=== PATIENT | male | born 1955 | race Caucasian/White ===

== ENCOUNTER → 2016-08-14 | Outpatient (CLI) | payer OTHER ==
--- NOTE | 2016-08-15 07:04 | US ---
EXAMINATION TYPE: US carotid duplex BILAT DATE OF EXAM: 08/14/2016 4:42 PM COMPARISON: NONE CLINICAL HISTORY: I25.10 ATHEROSCLEROTIC HEART DISEASE. HTN, smoker, pt states he is diabetic with SO B EXAM MEASUREMENTS: RIGHT: Peak Systolic Velocity (PSV) cm/sec ----- Right CCA: 70.3 ----- Right ICA: 95.2 ----- Right ECA: 83.1 ICA/CCA ratio: 1.4 RIGHT: End Diastole cm/sec ----- Right CCA: 17.1 ----- Right ICA: 32.5 ----- Right ECA: 0.0 LEFT: Peak Systolic Velocity (PSV) cm/sec ----- Left CCA: 77.6 ----- Left ICA: 86.4 ----- Left ECA: 83.1 ICA/CCA ratio: 1.1 LEFT: End Diastole cm/sec ----- Left CCA: 18.2 ----- Left ICA: 34.7 ----- Left ECA: 0.0 VERTEBRALS (direction of flow): Right Vertebral: Antegrade Left Vertebral: Antegrade TECHNOLOGIST IMPRESSION: Intimal thickening with no elevated velocities bilaterally No significant focal plaque is seen in carotid bulbs bilaterally. Some intimal hyperplasia is noted d istal common carotid arteries bilaterally. IMPRESSION: No hemodynamically significant stenosis is seen in either internal carotid artery. Criteria for Assigning % of Stenosis / Diameter reduction (Estimation based on the indirect measurements of the internal carotid artery velocities (ICA PSV). 1. Normal (no stenosis)=ICA PSV < 125 cm/s: ratio < 2.0: ICA EDV<40 cm/s.
== END | disposition home or self-care (01) ==
LOC: RADUSWWP 16:21
PROVIDERS: ATTEND Internal Medicine Interventional Cardiology
DX: I25.10 Atherosclerotic heart disease of native coronary artery without angina pectoris (principal)
CPT/HCPCS: 93880

== ENCOUNTER → 2016-08-20 | Outpatient (CLI) | payer OTHER ==
[2016-08-20 21:05] LABS: Blood Urea Nitrogen 25 mg/dL (9-20); Non-African American GFR(MDRD) 53 (>60 ml/min/1.73 sqM)
--- NOTE | 2016-08-21 08:09 | MR ---
EXAMINATION TYPE: MR lumbar spine wo/w con DATE OF EXAM: 08/20/2016 9:51 PM COMPARISON: NONE HISTORY: LBP, radiates to back of thighs x several years CONTRAST: 18 mL intravenous MultiHance. TECHNIQUE: Multiplanar, multisequence images of the lumbar spine were acquired. FINDINGS: The cord terminates at the L1 level. Signal through the vertebral bodies is patchy. Enhanc ement is not evident. Findings could be related to marrow conversion. Correlate for diffuse infiltrat elaina process such as metastasis. Consider bone scan correlation. Hemangioma is noted within the L3 sid tebral body. L5-S1: Broad-based disc bulging is present. This is anterior thecal sac contact. Contact with the exi ting nerve roots is present, slightly greater on the right. On the initial image axial plane there is a 0.6 cm hypointense area in the right paracentral region which is likely a disc herniation. This ap pears smaller on postcontrast imaging. This is incompletely evaluated extending below the S1 endplate in the axial plane. No spinal canal stenosis. No foraminal stenosis. Facet hypertrophy is present .. L4-L5: Broad-based disc bulge is present. This has mild anterior thecal sac flattening. No AP spinal canal stenosis is present. Mild facet hypertrophy is present. Neural foramen are patent. L3-L4: No significant disc bulge or disc herniation. No spinal canal stenosis. No foraminal stenosi s. . L2-L3: No significant disc bulge or disc herniation. No spinal canal stenosis. No foraminal stenosi s. . L1-L2: No significant disc bulge or disc herniation. No spinal canal stenosis. No foraminal stenosi s. . T12-L1: No significant disc bulge or disc herniation. No spinal canal stenosis. No foraminal stenos is. . No abnormal enhancement. There may be some granulation tissue at the L5-S1 level, correlate for prior lumbar surgery. IMPRESSION: 1. There appears to be a right paracentral disc herniation L5-S1. Additionally, there may be granulat ion tissue within the anterior thecal suspect sac space.
== END | disposition home or self-care (01) ==
LOC: RADMRIMAIN 20:23
PROVIDERS: ATTEND Family Medicine
DX: M54.5 Low back pain (principal)
CPT/HCPCS: 82565; 84520; 72158; A9577

== ENCOUNTER → 2017-05-14 | Outpatient (CLI) | payer OTHER ==
--- NOTE | 2017-05-15 16:49 | NM ---
EXAMINATION TYPE: NM WBC limited DATE OF EXAM: 05/15/2017 COMPARISON: 04/25/2017 HISTORY: Osteomyelitis TECHNIQUE: Following administration of 16.6 mCi Tc99m Ceretec. Images obtained 4 hour(s) and 24 zunilda r(s) post injection. FINDINGS: There may be a punctate areas of increased signal within the medial left great toe region there is in creased radiotracer accumulation within the distal toe during the earlier phase of radiotracer distri bution. This area appears to correspond to the delayed images on the 04/25/2017 bone scan is appears t o correspond to the uptake at the distal digit on the three-phase bone scan images. Subtle increased radiotracer accumulation within the distal left first digit on delayed images with i ncreased radiotracer accumulation in the distal first digit during the initial phases well. These are as correspond to the bone scan. Findings can be compatible with osteomyelitis in the proper clinical setting IMPRESSION: 1. Findings suggestive for osteomyelitis distal left first digit left foot
== END ==
LOC: RADNMMAIN 08:13
PROVIDERS: ATTEND Podiatrist
DX: M86.8X8 Other osteomyelitis, other site (principal)
CPT/HCPCS: 78805; A9569

== ENCOUNTER → 2017-05-17 | Outpatient (CLI) | payer OTHER ==
--- NOTE | 2017-05-17 09:08 | US ---
EXAMINATION TYPE: US venous doppler duplex LE BI DATE OF EXAM: 05/17/2017 8:35 AM CLINICAL HISTORY: 62-year-old male with bilateral leg pain. M79.604 Pain Rt Leg, M79.605 Pain in Left Leg. Non-healing wound on bilateral great toes, [facility]ound Center Pt, diabetic COMPARISON: none LOWER EXTREMITY VENOUS INSUFFICIENCY SIDE PERFORMED: bilateral FINDINGS: 1) Color flow is present and patency is documented in the following vessels. No DVT or SVT is noted . EIV Common Femoral Vein Deep Femoral Vein Femoral Vein Popliteal Vein Greater Saph Vein Upper Small Saph Vein 2) There is no venous reflux noted at the above venous levels. 3) Negative study. IMPRESSION: 1. No evidence for DVT within the bilateral lower extremities imaged from the groin to the knees. 2. No venous reflux seen.
--- NOTE | 2017-05-22 10:06 | P.ARTDOP ---
Arterial Doppler LOWER EXTREMITY ARTERIAL DOPPLER: DATE OF SERVICE: 05/17/2017 Reason for study: Bilateral diabetic foot ulcers. Doppler waveforms: Multiphasic bilaterally throughout. Pulse volume recording: Normal configuration. Pressure gradients: None. Ankle-brachial indices: Greater than 1 bilaterally. Toe pressures: 106 on the right, 133 on the left Impression: Normal study.
== END | disposition home or self-care (01) ==
LOC: RADUSWWP 07:10
PROVIDERS: ATTEND Podiatrist
DX: M79.604 Pain in right leg (principal); M79.605 Pain in left leg
CPT/HCPCS: 93923; 93970

== ENCOUNTER 2017-11-03 22:07 | Inpatient (IN) | payer OTHER ==
[2017-11-03 23:24] LABS: Glucose,Whole Blood 316 mg/dL (75-99)
[2017-11-03 23:41] LABS: Basophils % (A) 1 %; Eosinophils # (A) 0.3 k/uL (0-0.7); Eosinophils % (A) 3 %; HCT 39.2 % (39.0-53.0); HGB 12.9 gm/dL (13.0-17.5); Lymphocytes # (A) 2.1 k/uL (1.0-4.8); Lymphocytes % (A) 25 %; MCH 29.1 pg (25.0-35.0); Mean Platelet Volume 7.1; Monocytes # (A) 0.8 k/uL (0-1.0); Monocytes % (A) 9 %; Neutrophils % (A) 60 %; Platelet Count 241 k/uL (150-450); RBC 4.45 m/uL (4.30-5.90); RDW 13.1 % (11.5-15.5); WBC 8.2 k/uL (3.8-10.6)
[2017-11-03 23:52] LABS: Albumin 3.4 g/dL (3.5-5.0); Potassium 4.7 mmol/L (3.5-5.1); Total Bilirubin 0.3 mg/dL (0.2-1.3); Total Protein 6.3 g/dL (6.3-8.2)
--- NOTE | 2017-11-03 23:52 | XR ---
EXAMINATION TYPE: XR foot complete LT DATE OF EXAM: 11/03/2017 COMPARISON: 09/02/2014 HISTORY: Middle toe infection TECHNIQUE: 3 views FINDINGS: There is extension deformity of the fifth MP joint. I see no fracture nor dislocation. Ther e is soft tissue swelling at the end of the middle toe. I see no focal bone destruction. There is a p lantar calcaneal spur. IMPRESSION: Soft tissue swelling. No evidence of osteomyelitis. Calcaneal spurring. No fracture.
[2017-11-04] MEDS ORDERED: cefTRIAXone IN SWFI 1,000 MG/10 ML SYRINGE IVP STA (00:15)
[2017-11-04] MEDS ORDERED: ENOXAPARIN 100 MG/ML SYRINGE SQ STA (00:20)
[2017-11-04] MEDS ORDERED: VANCOMYCIN IV PER PHARMACY 1 EACH MISC MISCELLANE PRN (00:20)
[2017-11-04] MEDS ORDERED: NALOXONE 0.4 MG/ML 1 ML VIAL IV PRN (00:22)
[2017-11-04] MEDS ORDERED: ONDANSETRON 4 MG/2 ML VIAL IVP PRN (00:22)
--- NOTE | 2017-11-04 00:25 | ED ---
Skin/Abscess/FB HPI - General Chief complaint: Skin/Abscess/Foreign Body Stated complaint: left foot toe pain Time Seen by Provider: 11/03/17 23:05 Source: patient Mode of arrival: ambulatory Limitations: no limitations - History of Present Illness Initial comments: 62-year-old male patient presents to the emergency department today for evaluation of wound to his left third toe. Patient states approximately a week ago he developed an abrasion to the dorsal aspect of the toe from chafing in his diabetic shoes. Patient states that over the last 3-4 days the toe has started to hurt, has become more infected, and the skin is started to slough. Patient states that his left foot is swelling as well. Patient has a history of diabetes and recently recovered from a wound to the bilateral great toes. He denies any fevers or chills with this. He is also complaining of some right wrist pain. States that he is having knifelike pains to the radial aspect of the wrist, denies any injury. Denies any numbness or tingling to the hand. Patient denies any recent rash, shortness breath, chest pain, abdominal pain, nausea, vomiting, diarrhea, constipation, back pain, numbness, tingling, dizziness, weakness, hematuria, dysuria, urinary urgency, urinary frequency, headache, visual changes, or any other complaints. - Related Data Home Medications Medication Instructions Recorded Confirmed Aspirin 325 mg PO DAILY 08/19/14 11/03/17 Atorvastatin [Lipitor] 40 mg PO HS 08/19/14 11/03/17 Carvedilol [Coreg] 6.25 mg PO BID 08/19/14 11/03/17 Gabapentin [Neurontin] 200 mg PO HS 08/19/14 11/03/17 Insulin Aspart [NovoLOG Flexpen] 1 dose SQ AC-TID 08/19/14 11/03/17 Insulin Glargine [Lantus] 25 unit SQ HS 08/19/14 11/03/17 Lisinopril [Prinivil] 20 mg PO DAILY 08/19/14 11/03/17 Cyclobenzaprine [Flexeril] 10 mg PO HS 05/02/17 11/03/17 Ergocalciferol [Vitamin D2] 50,000 unit PO Q14D 05/02/17 11/03/17 HYDROcodone/APAP 5-325MG [[place] 1 tab PO Q6HR PRN 05/02/17 11/03/17 5-325] Naproxen [Naprosyn] 500 mg PO Q12HR PRN 05/02/17 11/03/17 Allergies Allergy/AdvReac Type Severity Reaction Status Date / Time codeine AdvReac Nausea & Verified 11/03/17 22:36 Vomiting morphine AdvReac Nausea & Verified 11/03/17 22:36 Vomiting Review of Systems ROS Statement: Those systems with pertinent positive or pertinent negative responses have been documented in the HPI. ROS Other: All systems not noted in ROS Statement are negative. Past Medical History Past Medical History: Diabetes Mellitus Additional Past Medical History / Comment(s): hx retinal bleeding with laser tx , diabetic neuropathy, states blisters on toes. back pain Last Myocardial Infarction Date:: 2009 History of Any Multi-Drug Resistant Organisms: MRSA Date of last positivie culture/infection: 05/24/17 MDRO Source:: toe Past Surgical History: Heart Catheterization With Stent, Hernia Repair, Tonsillectomy Additional Past Surgical History / Comment(s): LEFT INGUINAL HERNIA (SEPTEMBER 2014) . ULNAR NERVE SC BILAT HANDS AND ELBOWS. COLONOSCOPY Past Anesthesia/Blood Transfusion Reactions: No Reported Reaction, Motion Sickness Additional Past Anesthesia/Blood Transfusion Reaction / Comment(s): Difficulty waking Date of Last Stent Placement:: 2009 Past Psychological History: Depression Smoking Status: Never smoker Past Alcohol Use History: None Reported Past Drug Use History: None Reported - Past Family History Father Family Medical History: Myocardial Infarction ([place]) Mother Family Medical History: CVA/TIA Additional Family Medical History / Comment(s): varicose veins General Exam Limitations: no limitations General appearance: alert, in no apparent distress, other (This is a well- developed, well-nourished adult male patient in no acute distress. Vital signs upon presentation are temperature 98.8F, pulse 104, respirations 20, blood pressure 170/88, pulse ox 99% on room air.) Eye exam: Present: normal appearance, PERRL, EOMI. Absent: scleral icterus, conjunctival injection, periorbital swelling ENT exam: Present: normal exam, normal oropharynx, mucous membranes moist Respiratory exam: Present: normal lung sounds bilaterally. Absent: respiratory distress, wheezes, rales, rhonchi, stridor Cardiovascular Exam: Present: regular rate, normal rhythm, normal heart sounds. Absent: systolic murmur, diastolic murmur, rubs, gallop, clicks GI/Abdominal exam: Present: soft, normal bowel sounds. Absent: distended, tenderness, guarding, rebound, rigid Extremities exam: Present: full ROM, normal capillary refill, other (There is 2 + pitting edema to the left foot and ankle. There is left third toe wound with skin sloughing and nail avulsion. No evidence of drainage. Pedal and posttibial pulses are 2+ and equal bilaterally. Skin to the right hand and upper extremity is pink, warm, and dry. Cap refills less than 3 seconds. Radial pulses 2+ and equal bilaterally. Patient is positive Bebe's test. ). Absent: normal inspection, tenderness, pedal edema, joint swelling, calf tenderness Neurological exam: Present: alert, oriented X3, CN II-XII intact Psychiatric exam: Present: normal affect, normal mood Skin exam: Present: warm, dry, intact, normal color. Absent: rash Course Vital Signs 11/03/17 22:32 Temperature 98.8 F Pulse Rate 104 H Respiratory 20 Rate Blood Pressure 170/88 O2 Sat by Pulse 99 Oximetry Medical Decision Making - Medical Decision Making 62-year-old male patient presented to the emergency department today for evaluation of wound to the left third digit. Patient has skin sloughing and nail avulsion to the toe. Patient also has 2+ pitting edema to the left foot and ankle. Labs reviewed and are unremarkable. We will admit patient to the hospital for IV antibiotics and wound evaluation. Also given evidence of swelling to the left foot there is some concern for DVT to the left lower extremity. We will treat patient with Lovenox and have ultrasound performed in the morning. My attending Dr. Javed spoke to Dr. Lau who accepts patient. - Lab Data Result diagrams: 11/03/17 23:30 11/03/17 23:30 Lab Results 11/03/17 11/03/17 11/03/17 Range/Units 22:58 23:30 23:30 WBC 8.2 (3.8-10.6) k/uL RBC 4.45 (4.30-5.90) m/uL Hgb 12.9 L (13.0-17.5) gm/dL Hct 39.2 (39.0-53.0) % MCV 88.0 (80.0-100.0) fL MCH 29.1 (25.0-35.0) pg MCHC 33.0 (31.0-37.0) g/dL RDW 13.1 (11.5-15.5) % Plt Count 241 (150-450) k/uL Neutrophils % 60 % Lymphocytes % 25 % Monocytes % 9 % Eosinophils % 3 % Basophils % 1 % Neutrophils # 5.0 (1.3-7.7) k/uL Lymphocytes # 2.1 (1.0-4.8) k/uL Monocytes # 0.8 (0-1.0) k/uL Eosinophils # 0.3 (0-0.7) k/uL Basophils # 0.0 (0-0.2) k/uL Sodium 138 (137-145) mmol/L Potassium 4.7 (3.5-5.1) mmol/L Chloride 102 (98-107) mmol/L Carbon Dioxide 23 (22-30) mmol/L Anion Gap 13 mmol/L BUN 33 H (9-20) mg/dL Creatinine 1.70 H (0.66-1.25) mg/dL Est GFR (CKD-EPI)AfAm 50 (>60 ml/min/1.73 sqM) Est GFR (CKD-EPI)NonAf 43 (>60 ml/min/1.73 sqM) Glucose 256 H (74-99) mg/dL POC Glucose (mg/dL) 316 H (75-99) mg/dL POC Glu Machine Presser ID Osvaldo Osei Plasma Lactic Acid Jose A (0.7-2.0) mmol/L Calcium 9.0 (8.4-10.2) mg/dL Total Bilirubin 0.3 (0.2-1.3) mg/dL AST 18 (17-59) U/L ALT 25 (21-72) U/L Alkaline Phosphatase 74 (38-126) U/L Total Protein 6.3 (6.3-8.2) g/dL Albumin 3.4 L (3.5-5.0) g/dL 11/03/17 Range/Units 23:30 WBC (3.8-10.6) k/uL RBC (4.30-5.90) m/uL Hgb (13.0-17.5) gm/dL Hct (39.0-53.0) % MCV (80.0-100.0) fL MCH (25.0-35.0) pg MCHC (31.0-37.0) g/dL RDW (11.5-15.5) % Plt Count (150-450) k/uL Neutrophils % % Lymphocytes % % Monocytes % % Eosinophils % % Basophils % % Neutrophils # (1.3-7.7) k/uL Lymphocytes # (1.0-4.8) k/uL Monocytes # (0-1.0) k/uL Eosinophils # (0-0.7) k/uL Basophils # (0-0.2) k/uL Sodium (137-145) mmol/L Potassium (3.5-5.1) mmol/L Chloride (98-107) mmol/L Carbon Dioxide (22-30) mmol/L Anion Gap mmol/L BUN (9-20) mg/dL Creatinine (0.66-1.25) mg/dL Est GFR (CKD-EPI)AfAm (>60 ml/min/1.73 sqM) Est GFR (CKD-EPI)NonAf (>60 ml/min/1.73 sqM) Glucose (74-99) mg/dL POC Glucose (mg/dL) (75-99) mg/dL POC Glu Machine Presser ID Plasma Lactic Acid Jose A 1.5 (0.7-2.0) mmol/L Calcium (8.4-10.2) mg/dL Total Bilirubin (0.2-1.3) mg/dL AST (17-59) U/L ALT (21-72) U/L Alkaline Phosphatase (38-126) U/L Total Protein (6.3-8.2) g/dL Albumin (3.5-5.0) g/dL - Radiology Data Radiology results: report reviewed, image reviewed 3 views of the left foot are obtained. There is extension deformity of the fifth MP joint. I see no fracture nor dislocation. There is soft tissue swelling at the end of the middle toe. I see no focal bone destruction. There is plantar calcaneal spur. Impression by Dr. Maurer shows soft tissue swelling. No evidence of osteomyelitis. Calcaneal spurring. No fracture. Disposition Clinical Impression: Toe infection, Edema of left foot Disposition: ADMITTED IP TO THIS HOSP Condition: Serious Referrals: Kayode Lau MD [Primary Care Provider] - 1-2 days Decision to Admit Reason: Admit from EC Decision Date: 11/04/17 Decision Time: 00:29
[2017-11-04] MEDS: VANCOMYCIN 1,500 MG in SODIUM CHLORIDE 0.9% 250 ML IVPB SCH (01:43)
[2017-11-04] MEDS: HYDROcodone/APAP 5-325MG 1 EACH TAB PO PRN ×3 (03:10→23:31)
[2017-11-04] MEDS ORDERED: INSULIN ASPART SQ SCH (07:30)
[2017-11-04] MEDS: INSULIN ASPART 100 UNIT/ML 1 ML 10 ML VIAL SQ SCH ×4 (07:54→21:48)
[2017-11-04 07:55] LABS: Glucose,Whole Blood 72 mg/dL (75-99)
[2017-11-04] MEDS: ASPIRIN 325 MG TAB PO SCH (08:09)
[2017-11-04] MEDS: CARVEDILOL 6.25 MG TAB PO SCH ×2 (08:09→16:54)
[2017-11-04] MEDS ORDERED: LISINOPRIL 20 MG TAB PO SCH (09:00)
--- NOTE | 2017-11-04 09:18 | US ---
EXAMINATION TYPE: US venous doppler duplex LE LT DATE OF EXAM: 11/04/2017 8:33 AM COMPARISON: Bilateral lower extremity venous ultrasound May 17, 2017 CLINICAL HISTORY: Left foot swelling. Left foot edema and pain for 3 weeks SIDE PERFORMED: left TECHNIQUE: The lower extremity deep venous system is examined utilizing real time linear array sonog andrzej with graded compression, doppler sonography and color-flow sonography. VESSELS IMAGED: External Iliac Vein (EIV) Common Femoral Vein Deep Femoral Vein Greater Saphenous Vein * Femoral Vein Popliteal Vein Small Saphenous Vein * Proximal Calf Veins (* superficial vessels) Left Leg: No evidence of DVT Grayscale, color doppler, spectral doppler imaging performed of the deep veins of the left lower extr emity. There is normal flow, compressibility, vascular waveforms. IMPRESSION: No ultrasound evidence for acute DVT in the left lower extremity.
[2017-11-04 12:16] LABS: Cholesterol 187 mg/dL (<200); HDL Cholesterol 39 mg/dL (40-60); LDL Cholesterol,Calculated 120 mg/dL (0-99); Triglycerides 139 mg/dL (<150)
[2017-11-04 12:28] LABS: Glucose,Whole Blood 101 mg/dL (75-99)
[2017-11-04 17:27] LABS: Hemoglobin A1C 8.9 % (4.0-6.0)
[2017-11-04 17:38] LABS: Glucose,Whole Blood 261 mg/dL (75-99)
[2017-11-04 20:35] LABS: Glucose,Whole Blood 340 mg/dL (75-99)
[2017-11-04] MEDS ORDERED: INSULIN DETEMIR 100 UNIT/ML 10 ML VIAL SQ SCH ×2 (21:00)
[2017-11-04] MEDS: ATORVASTATIN 40 MG TAB PO SCH (21:48)
[2017-11-04] MEDS: GABAPENTIN 100 MG CAP PO SCH (21:48)
[2017-11-04] MEDS: CYCLOBENZAPRINE 10 MG TAB PO SCH (21:48)
[2017-11-05] MEDS: VANCOMYCIN 1,500 MG in SODIUM CHLORIDE 0.9% 250 ML IVPB SCH (00:26)
[2017-11-05 07:03] LABS: Glucose,Whole Blood 71 mg/dL (75-99)
[2017-11-05] MEDS: INSULIN ASPART 100 UNIT/ML 1 ML 10 ML VIAL SQ SCH ×4 (07:11→22:15)
[2017-11-05] MEDS: LISINOPRIL 20 MG TAB PO SCH (07:45)
[2017-11-05] MEDS: ASPIRIN 325 MG TAB PO SCH (07:45)
[2017-11-05] MEDS: CARVEDILOL 6.25 MG TAB PO SCH ×2 (07:45→16:50)
[2017-11-05 11:39] LABS: Glucose,Whole Blood 180 mg/dL (75-99)
[2017-11-05 12:00] VITALS: BMI 31.7
--- NOTE | 2017-11-05 15:25 | HP ---
HISTORY AND PHYSICAL CHIEF COMPLAINT: Pain in the left middle toe. HISTORY OF PRESENT ILLNESS: This is another admission for this 62-year-old noncompliant white male with diabetes. He has been having problems with skin breakdown and secondary infection on his feet. He continually reports that his sugars are under control, but his hemoglobin A1c is consistently over 9. He came to the emergency room with pain, swelling, redness in the distal foot and in the middle toe. REVIEW OF SYSTEMS: He has had no chills, fever. He has had no change in vision or hearing and has had no shortness of breath, cough, hemoptysis, history of heart disease, abdominal pain, nausea, vomiting, hematemesis, melena, hematochezia, jaundice, hepatitis, renal failure, etc. Past medical history, family history and personal and social histories are unchanged from his previous admitting and discharge summaries and when he was treated as an outpatient in the [facility]. He is allergic to MORPHINE, CLINDAMYCIN, and CODEINE. MEDICATIONS INCLUDE: 1. 40 units once a day. 2. Lisinopril 40 once a day. 3. Vicodin once a day p.r.n. 4. Lipitor 80 at bedtime. 5. NovoLog 8 units b.i.d. 6. Carvedilol 6.25 b.i.d. 7. Neurontin 100 mg 2 tablets every night. 8. Naprosyn 500 twice a day. 9. Cyclobenzaprine 10 mg t.i.d. p.r.n. 10.Vitamin D. The remainder of his history is unremarkable. He has never smoked. PHYSICAL EXAM: Blood pressure 130/80. The pulse 96, respirations of 18, temperature 99. GENERAL: He appeared to be well-developed, well-nourished, and in no acute distress. Skin color is normal, skin is warm and dry and lymph nodes are not enlarged. Head, ears, eyes, nose, mouth, and throat were normal and neck veins not distended. Thyroid is not enlarged. Chest is clear. Cardiac exam is normal. The abdomen is soft, nontender. Extremities are normal except for the left foot which is slightly swollen. Left middle toe is swollen and inflamed and there is an ulcer underneath the tip. Neurologically, he is intact. IMPRESSION: 1. Infected left third toe with diabetic ulcer. 2. Uncontrolled type 2 non-insulin dependent diabetes mellitus. PLAN: 1. Bed rest. 2. IV fluids. 3. IV antibiotics. 4. Consult with Infectious Disease. OPHELIA / SIRI: [id number] /
[2017-11-05 17:33] LABS: Glucose,Whole Blood 217 mg/dL (75-99)
[2017-11-05] MEDS: GABAPENTIN 100 MG CAP PO SCH (20:34)
[2017-11-05] MEDS: ATORVASTATIN 40 MG TAB PO SCH (20:34)
[2017-11-05] MEDS: CYCLOBENZAPRINE 10 MG TAB PO SCH (20:34)
[2017-11-05] MEDS ORDERED: INSULIN DETEMIR 100 UNIT/ML 10 ML VIAL SQ SCH (21:00)
[2017-11-05 21:30] LABS: Glucose,Whole Blood 242 mg/dL (75-99)
--- NOTE | 2017-11-05 22:22 | P.CONS ---
History of Present Illness - Reason for Consult Consult date: 11/05/17 - Chief Complaint new toe ulcer - History of Present Illness 62-year-old male who is a long-standing history of diabetes mellitus type 2 who struggles with control was treated earlier this year for cellulitis of the right great toe and received a course of outpatient intravenous antibiotic therapy and to salvage was obtained. The patient relates that he does have diabetic shoes did not fit him well. He relates that he noticed a bit of blistering and swelling to the left foot third toe. It became suddenly worse he presented to Hospital for further intervention. The patient is very worried because of the concerns for potential amputation are full loss. 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 Despite this his diabetic shoes were malfitting resulting the new ulceration. Review of Systems HEENT:Denies headache or acute visual change. Denies sinus or mouth discomforts. Denies neck stiffness or pain. Denies significant oral cavity pain. Denies difficulty on swallowing. Lungs: Denies significant shortness of breath, cough, sputum production, or hemoptysis. Cardiovascular: Denies significant shortness of breath, chest pain, chest wall pain, orthopnea, dyspnea on exertion, syncope Gastrointestinal:Denies nausea, vomiting, diarrhea, constipation, hematemesis, melena, hematochezia. No no significant change of bowel habit noticed. Musculoskeletal: denies significant myalgias or arthralgias. No new joint swelling. Denies new back pain. Skin: As per HPI Neuro: Denies headache or visual change. Denies any new onset weakness or difficulty with ambulation. Denies falls or seizures. Psychiatric:Denies anxiety or depression. Endocrine: Denies significant fatigue, denies significant weight loss or weight gain. Past Medical History Past Medical History: Diabetes Mellitus Additional Past Medical History / Comment(s): hx retinal bleeding with laser tx , diabetic neuropathy, states blisters on toes. back pain Last Myocardial Infarction Date:: 2009 History of Any Multi-Drug Resistant Organisms: MRSA Year Discovered:: 05/24/17 MDRO Source:: toe Past Surgical History: Heart Catheterization With Stent, Hernia Repair, Tonsillectomy Additional Past Surgical History / Comment(s): LEFT INGUINAL HERNIA (SEPTEMBER 2014) . ULNAR NERVE SC BILAT HANDS AND ELBOWS. COLONOSCOPY Past Anesthesia/Blood Transfusion Reactions: No Reported Reaction, Motion Sickness Additional Past Anesthesia/Blood Transfusion Reaction / Comm: Difficulty waking Date of Last Stent Placement:: 2009 Past Psychological History: Depression Additional Psychological History / Comment(s): has an adult son. 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 No recreational drug use no history of smoking Smoking Status: Never smoker Past Alcohol Use History: None Reported Past Drug Use History: None Reported - Past Family History Father Family Medical History: Congestive Heart Failure (CHF), Myocardial Infarction ( ID) Mother Family Medical History: CVA/TIA Additional Family Medical History / Comment(s): varicose veins Medications and Allergies Home Medications and Allergies Comment(s): Current Medications Hydrocodone Bitart/Acetaminophen ([place] 5-325) 1 each PO Q4HR PRN PRN Reason: Moderate Pain Last Admin: 11/04/17 23:31 Dose: 1 each Aspirin (Aspirin) 325 mg PO DAILY [facility] Last Admin: 11/05/17 07:45 Dose: 325 mg Atorvastatin Calcium (Lipitor) 40 mg PO HS [facility] Last Admin: 11/05/17 20:34 Dose: 40 mg Carvedilol (Coreg) 6.25 mg PO BID-W/MEALS [facility] Last Admin: 11/05/17 16:50 Dose: 6.25 mg Cyclobenzaprine HCl (Flexeril) 10 mg PO HS [facility] Last Admin: 11/05/17 20:34 Dose: 10 mg Ergocalciferol (Vitamin D2) 50,000 unit PO Q14D [facility] Gabapentin (Neurontin) 200 mg PO HS [facility] Last Admin: 11/05/17 20:34 Dose: 200 mg Vancomycin HCl 1,500 mg/ (Sodium Chloride) 250 mls @ 125 mls/hr IVPB Q24H [facility] Last Admin: 11/05/17 00:26 Dose: 125 mls/hr Piperacillin/Tazobactam/ (Dextrose 3.375 gm/ IV Solution) 50 mls @ 12.5 mls/hr IVPB Q8HR [facility] Insulin Aspart (Novolog) 0 unit SQ ACHS [facility] PRN Reason: Protocol Last Admin: 11/05/17 22:15 Dose: 3 unit Insulin Detemir (Levemir) 30 unit SQ HS [facility] Last Admin: 11/05/17 22:15 Dose: 30 unit Lisinopril (Zestril) 40 mg PO DAILY [facility] Last Admin: 11/05/17 07:45 Dose: 40 mg Naloxone HCl (Narcan) 0.2 mg IV Q2M PRN PRN Reason: Opioid Reversal Ondansetron HCl (Zofran) 4 mg IVP Q8HR PRN PRN Reason: Nausea And Vomiting Temazepam (Restoril) 15 mg PO HS PRN PRN Reason: Insomnia Home Medications Medication Instructions Recorded Confirmed Type Aspirin 325 mg PO DAILY 08/19/14 11/04/17 History Atorvastatin [Lipitor] 40 mg PO HS 08/19/14 11/04/17 History Carvedilol [Coreg] 6.25 mg PO BID 08/19/14 11/04/17 History Gabapentin [Neurontin] 200 mg PO HS 08/19/14 11/04/17 History Insulin Aspart [NovoLOG Flexpen] 10 units SQ AC-TID 08/19/14 11/04/17 History Insulin Glargine [Lantus] 25 unit SQ HS 08/19/14 11/04/17 History Cyclobenzaprine [Flexeril] 10 mg PO HS 05/02/17 11/04/17 History Ergocalciferol [Vitamin D2] 50,000 unit PO Q14D 05/02/17 11/04/17 History HYDROcodone/APAP 5-325MG [[place] 1 tab PO Q6HR PRN 05/02/17 11/04/17 History 5-325] Naproxen [Naprosyn] 500 mg PO Q12HR PRN 05/02/17 11/04/17 History Lisinopril 40 mg PO DAILY 11/04/17 11/04/17 History Allergies Allergy/AdvReac Type Severity Reaction Status Date / Time codeine AdvReac Nausea & Verified 11/04/17 08:13 Vomiting morphine AdvReac Nausea & Verified 11/04/17 08:13 Vomiting Physical Exam Vitals: Vital Signs Temp Pulse Pulse Resp BP BP Pulse Ox 11/05/17 14:28 98.6 F 86 18 125/83 98 11/05/17 07:00 98.1 F 78 18 148/88 96 11/04/17 23:00 97.7 F 86 18 140/89 94 L Intake and Output 11/05/17 11/05/17 11/05/17 06:59 14:59 22:59 Intake Total 600 Balance 600 Intake: Oral 600 Other: Voiding Method Toilet # Voids 2 1 Weight 97.5 kg Pleasant 62-year-old gentleman who is comfortable but very concerned HEENT: Anicteric conjunctiva are pink and moist nasal mucosa grossly intact without significant lesions, there is no thrush. Neck: The neck is supple without significant lymphadenopathy or thyromegaly. Lungs: Good bilateral air entry without significant crackles or wheezing. There is no significant bronchial sounds. There is no egophony or dullness. Heart: Regular rate and rhythm with an audible S1-S2, no S3 no S4. There is no significant murmur click or rub, PMI was nondisplaced. Abdomen: Positive bowel sounds soft and nontender without palpable masses or organomegaly. There was no guarding or rebound. Extremities: The upper extremities have excellent pulses they are symmetric, no significant petechiae or telangiectasia. No splinter hemorrhages were noted. Right lower extremities shows evidence of the well-healed ulceration from his recent osteomyelitis to the great toe evidence of any swelling. Left foot shows evidence of the distinct swelling of the distal aspect of the third toe with evidence of a blister and eschar, this is removed in deep culture is obtained. Dressing is present in place. Neuro: Awake alert oriented to person place and time. There are no acute new gross focal sensory motor deficits. Results CBC & Chem 7: 11/03/17 23:30 11/03/17 23:30 Labs: Abnormal Lab Results - Last 24 Hours (Table) 11/03/17 11/05/17 11/05/17 Range/Units 23:30 06:59 11:29 POC Glucose (mg/dL) 71 L 180 H (75-99) mg/dL Hemoglobin A1c 8.9 H (4.0-6.0) % 11/05/17 11/05/17 Range/Units 17:13 21:19 POC Glucose (mg/dL) 217 H 242 H (75-99) mg/dL Hemoglobin A1c (4.0-6.0) % Microbiology - Last 24 Hours (Table) 11/03/17 23:30 Blood Culture - Preliminary Blood No Growth after 24 hours Laboratory Results WBC 8.2 k/uL (3.8-10.6) 11/03/17 23:30 RBC 4.45 m/uL (4.30-5.90) 11/03/17 23:30 Hgb 12.9 gm/dL (13.0-17.5) L 11/03/17: Hct 39.2 % (39.0-53.0) 11/03/17 23:30 MCV 88.0 fL (80.0-100.0) 11/03/17 23:30 MCH 29.1 pg (25.0-35.0) 11/03/17: MCHC 33.0 g/dL (31.0-37.0) 11/03/17 23: RDW 13.1 % (11.5-15.5) 11/03/17:30 Plt Count 241 k/uL (150-450) 11/03/17 23:30 Neutrophils % 60 % 11/03/17 23:30 Lymphocytes % 25 % 11/03/17 23:30 Monocytes % 9 % 11/03/17 23:30 Eosinophils % 3 % 11/03/17: Basophils % 1 % 11/03/17: Neutrophils # 5.0 k/uL (1.3-7.7) 11/03/17 23:30 Lymphocytes # 2.1 k/uL (1.0-4.8) 11/03/17:30 Monocytes # 0.8 k/uL (0-1.0) 11/03/17:30 Eosinophils # 0.3 k/uL (0-0.7) 11/03/17:30 Basophils # 0.0 k/uL (0-0.2) 11/03/17 23:30 Sodium 138 mmol/L (137-145) 11/03/17 23:30 Potassium 4.7 mmol/L (3.5-5.1) 11/03/17 23:30 Chloride 102 mmol/L (98-107) 11/03/17 23:30 Carbon Dioxide 23 mmol/L (22-30) 11/03/17 23:30 Anion Gap 13 mmol/L 11/03/17 23:30 BUN 33 mg/dL (9-20) H 11/03/17 23:30 Creatinine 1.70 mg/dL (0.66-1.25) H 11/03/17 23:30 Est GFR (CKD-EPI)AfAm 50 (>60 ml/min/1.73 sqM) 11/03/17 23:30 Est GFR (CKD-EPI)NonAf 43 (>60 ml/min/1.73 sqM) 11/03/17 23:30 Glucose 256 mg/dL (74-99) H 11/03/17 23:30 POC Glucose (mg/dL) 242 mg/dL (75-99) H 11/05/17 21:19 POC Glu Scientific Linguist Mari Ahuja 11/05/17 21:[address] Glu mg/dL 209 11/03/17 23:30 Hemoglobin A1c 8.9 % (4.0-6.0) H 11/03/17 23:30 Plasma Lactic Acid Jose A 1.5 mmol/L (0.7-2.0) 11/03/17 23:30 Calcium 9.0 mg/dL (8.4-10.2) 11/03/17 23:30 Total Bilirubin 0.3 mg/dL (0.2-1.3) 11/03/17 23:30 AST 18 U/L (17-59) 11/03/17 23:30 ALT 25 U/L (21-72) 11/03/17 23:30 Alkaline Phosphatase 74 U/L (38-126) 11/03/17 23:30 Total Protein 6.3 g/dL (6.3-8.2) 11/03/17 23:30 Albumin 3.4 g/dL (3.5-5.0) L 11/03/17 23:30 Triglycerides 139 mg/dL (<150) 11/04/17 11:52 Cholesterol 187 mg/dL (<200) 11/04/17 11:52 LDL Cholesterol, Calc 120 mg/dL (0-99) H 11/04/17 11:52 HDL Cholesterol 39 mg/dL (40-60) L 11/04/17 11:52 Microbiology 11/03/17 23:30 Blood Blood Culture - Preliminary No Growth after 24 hours Assessment and Plan (1) Diabetic foot ulcer Current Visit: No Status: Acute Code(s): E11.621 - TYPE 2 DIABETES MELLITUS WITH FOOT ULCER SNOMED Code(s): 355538597 (2) Cellulitis and abscess of toe of left foot Narrative/Plan: 62-year-old male with a known history of diabetes mellitus type 2 poorly controlled over time who also has chronic kidney disease and history of a prior diabetic foot infection with an ostomy MLS of the right great toe presents to Hospital with significant swelling and drainage to the left foot third toe. Patient relates that he had malfitting shoes which resulted in the ulceration for which she has now sought care. He is denying high-grade fevers chills or rigors. But is worried about foot and toe loss. Deep cultures obtained at this point in time by removing the significant eschar that is prsent. Bone scan is been requested to evaluate for the possibility of underlying osteomyelitis. Antibiotic therapy with Zosyn and vancomycin with history of prior isolated MRSA and a diabetic foot would ensure that were covering for gram-negative anaerobes also until cultures are available. Elevation the foot rest. If the bone scan therahoney dressings can be applied every other day. Patient will follow in the wound healing center and may be a candidate for total contact cast in the near future. Improved glucose control at a multivitamin and monitor. Current Visit: Yes Status: Acute Code(s): L03.032 - CELLULITIS OF LEFT TOE; L02.612 - CUTANEOUS ABSCESS OF LEFT FOOT SNOMED Code(s): 673648352 (3) Chronic kidney disease (CKD) stage G3b/A1, moderately decreased glomerular filtration rate (GFR) between 30-44 mL/min/1.73 square meter and albuminuria creatinine ratio less than 30 mg/g Current Visit: Yes Status: Acute Code(s): N18.3 - CHRONIC KIDNEY DISEASE, STAGE 3 (MODERATE) SNOMED Code(s): 658452133
[2017-11-05] MEDS: TEMAZEPAM 15 MG CAP PO PRN (22:29)
[2017-11-06] MEDS: PIPERACILLIN-TAZOBACTAM 3.375 GM in DEXTROSE/WATER 1 50ML.BAG IVPB SCH ×4 (00:07→22:58)
[2017-11-06] MEDS: VANCOMYCIN 1,500 MG in SODIUM CHLORIDE 0.9% 250 ML IVPB SCH (00:08)
[2017-11-06] MEDS ORDERED: PIPERACILLIN-TAZOBACTAM 3.375 GM in DEXTROSE/WATER 1 50ML.BAG IVPB SCH ×2 (04:00)
[2017-11-06 06:32] LABS: Glucose,Whole Blood 160 mg/dL (75-99)
[2017-11-06] MEDS: INSULIN ASPART 100 UNIT/ML 1 ML 10 ML VIAL SQ SCH ×4 (08:03→21:37)
[2017-11-06] MEDS: CARVEDILOL 6.25 MG TAB PO SCH ×2 (08:03→16:20)
[2017-11-06] MEDS: ASPIRIN 325 MG TAB PO SCH (08:03)
[2017-11-06] MEDS: LISINOPRIL 20 MG TAB PO SCH (08:03)
[2017-11-06] MEDS: MULTIVITAMINS, THERA 1 EACH TAB PO SCH (08:03)
[2017-11-06 08:29] LABS: Potassium 4.8 mmol/L (3.5-5.1)
[2017-11-06 11:30] LABS: Glucose,Whole Blood 278 mg/dL (75-99)
--- NOTE | 2017-11-06 13:20 | PN ---
PROGRESS NOTE DATE OF SERVICE: 11/05/2017 CHIEF COMPLAINT: Cellulitis of the left middle toe as well as distal foot. HISTORY OF PRESENT ILLNESS: This gentleman is comfortable, doing fairly well. Antibiotics continue. He will be seen by Infectious Disease. White cell labeled bone scan will be obtained as well. He has also been referred for diabetic teaching. PHYSICAL EXAM: Chest is clear. Cardiac exam is normal. Abdomen is soft, nontender. The distal foot is a little bit less swollen as is the third toe. IMPRESSION: 1. Cellulitis of the left third toe and distal left. 2. Poorly-controlled insulin-dependent diabetes mellitus. PLAN: Continue the IV antibiotics and monitor findings in the left foot going forward. MMODL / IJN: [id number] /
--- NOTE | 2017-11-06 13:32 | PN ---
PROGRESS NOTE DATE OF SERVICE: 11/06/2017 CHIEF COMPLAINT: Cellulitis on the left middle toe and distal foot. HISTORY OF PRESENT ILLNESS: This gentleman is doing fairly well. He is comfortable. He has had no fever or chills. He been seen by Infectious Disease. PHYSICAL EXAM: The exam is otherwise normal. The left middle toe is slightly less erythematous. Distal foot is not red, but still swollen. IMPRESSION: Cellulitis of the left foot and left middle toe. PLAN: Await results of white cell labeled bone scan. In the meantime, continue IV antibiotics. MMODL / IJN: [id number] /
--- NOTE | 2017-11-06 14:40 | NM ---
EXAMINATION TYPE: NM bone 3 phase DATE OF EXAM: 11/06/2017 COMPARISON: Left foot x-ray 3 days ago. Three-phase bone scan April 25, 2017. HISTORY: Left third toe pain and swelling, open wound. History diabetes. Triple phase bone scintigraphy was performed following the injection of 25.3 mCi Tc 99m MDP. Immedia te images and 5.5 hours post injection images acquired. Images are obtained of the bilateral ankles a nd feet. FINDINGS: Dynamic arterial and soft tissue phase images show increased uptake to left ankle and foot versus rig ht foot is prominent involving the left fifth toe. Delayed images do not show increased radiotracer u ptake in the region of the left third toe or the left fifth toe. IMPRESSION: No scintigraphic evidence of acute osteomyelitis involving left third toe. Soft tissue infection in r egion of left fifth toe is suspected.
[2017-11-06 17:13] LABS: Glucose,Whole Blood 223 mg/dL (75-99)
[2017-11-06 20:56] LABS: Glucose,Whole Blood 286 mg/dL (75-99)
[2017-11-06] MEDS: ATORVASTATIN 40 MG TAB PO SCH (21:37)
[2017-11-06] MEDS: CYCLOBENZAPRINE 10 MG TAB PO SCH (21:37)
[2017-11-06] MEDS: GABAPENTIN 100 MG CAP PO SCH (21:37)
[2017-11-06] MEDS: INSULIN DETEMIR 100 UNIT/ML 10 ML VIAL SQ SCH (21:37)
--- NOTE | 2017-11-06 21:38 | P.PN ---
Subjective Progress Note Date: 11/06/17 62-year-old male who is a long-standing history of diabetes mellitus type 2 who struggles with control was treated earlier this year for cellulitis of the right great toe and received a course of outpatient intravenous antibiotic therapy and to salvage was obtained. The patient relates that he does have diabetic shoes did not fit him well. He relates that he noticed a bit of blistering and swelling to the left foot third toe. It became suddenly worse he presented to Hospital for further intervention. The patient is very worried because of the concerns for potential amputation are full loss. 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 Despite this his diabetic shoes were malfitting resulting the new ulceration. 11/06/2017 reveals the patient be feeling better. He is not having fevers or chills. With his neuropathy is not having much pain. He is aware that the foot is improved there is decreased swelling. He relates he is eating well with no difficulties. Blood sugars between 160 and 280. Objective - Vital Signs Vital signs: Vital Signs Temp 98.6 F 11/06/17 15:00 Pulse 81 11/06/17 15:00 Resp 16 11/06/17 15:00 BP 148/76 11/06/17 15:00 Pulse Ox 97 11/06/17 15:00 Intake & Output 11/06/17 11/06/17 11/07/17 06:59 18:59 06:59 Intake Total 690 Balance 690 Intake: IV 50 Piperacillin-Tazobactam 3 50 .375 gm In Dextrose/Water 1 50ml.bag @ 12.5 mls/hr IVPB Q8H [facility] Rx#: [id number] Oral 640 Other: Voiding Method Toilet # Voids 1 - Exam Pleasant 62-year-old gentleman who is comfortable but very concerned HEENT: Anicteric conjunctiva are pink and moist nasal mucosa grossly intact without significant lesions, there is no thrush. Neck: The neck is supple without significant lymphadenopathy or thyromegaly. Lungs: Good bilateral air entry without significant crackles or wheezing. There is no significant bronchial sounds. There is no egophony or dullness. Heart: Regular rate and rhythm with an audible S1-S2, no S3 no S4. There is no significant murmur click or rub, PMI was nondisplaced. Abdomen: Positive bowel sounds soft and nontender without palpable masses or organomegaly. There was no guarding or rebound. Extremities: The upper extremities have excellent pulses they are symmetric, no significant petechiae or telangiectasia. No splinter hemorrhages were noted. Right lower extremities shows evidence of the well-healed ulceration from his recent osteomyelitis to the great toe evidence of any swelling. Left foot shows evidence of the distinct swelling of the distal aspect of the third toe with evidence the ulceration measuring at 1 x 1 x 0.2 cm. Neuro: Awake alert oriented to person place and time. There are no acute new gross focal sensory motor deficits. - Labs CBC & Chem 7: 11/03/17 23:30 11/06/17 07:55 Labs: Abnormal Lab Results - Last 24 Hours (Table) 11/06/17 11/06/17 11/06/17 Range/Units 06:20 07:55 07:55 ESR 77 H (0-15) mm/hr BUN 30 H (9-20) mg/dL Creatinine 1.64 H (0.66-1.25) mg/dL Glucose 124 H (74-99) mg/dL POC Glucose (mg/dL) 160 H (75-99) mg/dL 11/06/17 11/06/17 11/06/17 Range/Units 11:25 17:01 20:55 ESR (0-15) mm/hr BUN (9-20) mg/dL Creatinine (0.66-1.25) mg/dL Glucose (74-99) mg/dL POC Glucose (mg/dL) 278 H 223 H 286 H (75-99) mg/dL Microbiology - Last 24 Hours (Table) 11/05/17 20:10 Gram Stain - Preliminary Foot - Left Wound Culture - Preliminary 11/05/17 20:10 Anaerobic Culture - Preliminary Foot - Left 11/03/17 23:30 Blood Culture - Preliminary Blood No Growth after 48 hours Laboratory Results WBC 8.2 k/uL (3.8-10.6) 11/03/17 23:30 RBC 4.45 m/uL (4.30-5.90) 11/03/17 23:30 Hgb 12.9 gm/dL (13.0-17.5) L 11/03/17 23:30 Hct 39.2 % (39.0-53.0) 11/03/17 23:30 MCV 88.0 fL (80.0-100.0) 11/03/17 23:30 MCH 29.1 pg (25.0-35.0) 11/03/17 23:30 MCHC 33.0 g/dL (31.0-37.0) 11/03/17 23:30 RDW 13.1 % (11.5-15.5) 11/03/17 23:30 Plt Count 241 k/uL (150-450) 11/03/17 23:30 Neutrophils % 60 % 11/03/17 23:30 Lymphocytes % 25 % 11/03/17 23:30 Monocytes % 9 % 11/03/17 23:30 Eosinophils % 3 % 11/03/17 23: Basophils % 1 % 11/03/17 23:30 Neutrophils # 5.0 k/uL (1.3-7.7) 11/03/17 23:30 Lymphocytes # 2.1 k/uL (1.0-4.8) 11/03/17 23:30 Monocytes # 0.8 k/uL (0-1.0) 11/03/17 23:30 Eosinophils # 0.3 k/uL (0-0.7) 11/03/17 23:30 Basophils # 0.0 k/uL (0-0.2) 11/03/17 23:30 ESR 77 mm/hr (0-15) H 11/06/17 07:55 Sodium 142 mmol/L (137-145) 11/06/17 07:55 Potassium 4.8 mmol/L (3.5-5.1) 11/06/17 07:55 Chloride 105 mmol/L (98-107) 11/06/17 07:55 Carbon Dioxide 27 mmol/L (22-30) 11/06/17 07:55 Anion Gap 10 mmol/L 11/06/17 07:55 BUN 30 mg/dL (9-20) H 11/06/17 07:55 Creatinine 1.64 mg/dL (0.66-1.25) H 11/06/17 07:55 Est GFR (CKD-EPI)AfAm 52 (>60 ml/min/1.73 sqM) 11/06/17 07:55 Est GFR (CKD-EPI)NonAf 45 (>60 ml/min/1.73 sqM) 11/06/17 07:55 Glucose 124 mg/dL (74-99) H 11/06/17 07:55 POC Glucose (mg/dL) 286 mg/dL (75-99) H 11/06/17 20:55 POC Glu Sales Manager Racquel Monae 11/06/17 20:[address] Glu mg/dL 209 11/03/17 23:30 Hemoglobin A1c 8.9 % (4.0-6.0) H 11/03/17 23:30 Plasma Lactic Acid Jose A 1.5 mmol/L (0.7-2.0) 11/03/17 23:30 Calcium 9.0 mg/dL (8.4-10.2) 11/06/17 07:55 Total Bilirubin 0.3 mg/dL (0.2-1.3) 11/03/17 23:30 AST 18 U/L (17-59) 11/03/17 23:30 ALT 25 U/L (21-72) 11/03/17 23:30 Alkaline Phosphatase 74 U/L (38-126) 11/03/17 23:30 C-Reactive Protein 9.3 mg/L (<10.0) 11/06/17 07:55 Total Protein 6.3 g/dL (6.3-8.2) 11/03/17 23:30 Albumin 3.4 g/dL (3.5-5.0) L 11/03/17 23:30 Triglycerides 139 mg/dL (<150) 11/04/17 11:52 Cholesterol 187 mg/dL (<200) 11/04/17 11:52 LDL Cholesterol, Calc 120 mg/dL (0-99) H 11/04/17 11:52 HDL Cholesterol 39 mg/dL (40-60) L 11/04/17 11:52 Microbiology 11/05/17 20:10 Foot - Left Gram Stain - Preliminary 11/05/17 20:10 Foot - Left Wound Culture - Preliminary 11/05/17 20:10 Foot - Left Anaerobic Culture - Preliminary 11/03/17 23:30 Blood Blood Culture - Preliminary No Growth after 48 hours Assessment and Plan (1) Diabetic foot ulcer Current Visit: No Status: Acute Code(s): E11.621 - TYPE 2 DIABETES MELLITUS WITH FOOT ULCER SNOMED Code(s): 235652867 (2) Cellulitis and abscess of toe of left foot Narrative/Plan: 62-year-old male with a known history of diabetes mellitus type 2 poorly controlled over time who also has chronic kidney disease and history of a prior diabetic foot infection with an ostomy MLS of the right great toe presents to Hospital with significant swelling and drainage to the left foot third toe. Patient relates that he had malfitting shoes which resulted in the ulceration for which she has now sought care. He is denying high-grade fevers chills or rigors. But is worried about foot and toe loss. Deep cultures obtained at this point in time by removing the significant eschar that is prsent. Bone scan is been requested to evaluate for the possibility of underlying osteomyelitis. Antibiotic therapy with Zosyn and vancomycin with history of prior isolated MRSA and a diabetic foot would ensure that were covering for gram-negative anaerobes also until cultures are available. Elevation the foot rest. If the bone scan therahoney dressings can be applied every other day. Patient will follow in the wound healing center and may be a candidate for total contact cast in the near future. Improved glucose control at a multivitamin and monitor. 11/06/2017 patient is showing improvement. The significant swelling to the foot is improved. Bone scan is no available without evidence of an underlying osteomyelitis. Constantly will not need outpatient intravenous antibiotic therapy. Local wound care with medical Honey is requested. Antibiotic therapy discharge will be directed once the wound cultures available, hopefully tomorrow , can then be discharged on oral antibiotics and wound care will follow-up in the outpatient setting, ideally the wound center. Current Visit: Yes Status: Acute Code(s): L03.032 - CELLULITIS OF LEFT TOE; L02.612 - CUTANEOUS ABSCESS OF LEFT FOOT SNOMED Code(s): 990752075 (3) Chronic kidney disease (CKD) stage G3b/A1, moderately decreased glomerular filtration rate (GFR) between 30-44 mL/min/1.73 square meter and albuminuria creatinine ratio less than 30 mg/g Current Visit: Yes Status: Acute Code(s): N18.3 - CHRONIC KIDNEY DISEASE, STAGE 3 (MODERATE) SNOMED Code(s): 535815308
[2017-11-06] MEDS: TEMAZEPAM 15 MG CAP PO PRN (23:01)
[2017-11-07] MEDS: VANCOMYCIN 1,500 MG in SODIUM CHLORIDE 0.9% 250 ML IVPB SCH ×2 (00:55→23:33)
[2017-11-07 06:52] LABS: Glucose,Whole Blood 122 mg/dL (75-99)
[2017-11-07] MEDS: ASPIRIN 325 MG TAB PO SCH (07:45)
[2017-11-07] MEDS: MULTIVITAMINS, THERA 1 EACH TAB PO SCH (07:45)
[2017-11-07] MEDS: CARVEDILOL 6.25 MG TAB PO SCH ×2 (07:45→16:12)
[2017-11-07] MEDS: LISINOPRIL 20 MG TAB PO SCH (07:45)
[2017-11-07] MEDS: PIPERACILLIN-TAZOBACTAM 3.375 GM in DEXTROSE/WATER 1 50ML.BAG IVPB SCH ×3 (07:46→23:26)
[2017-11-07] MEDS: INSULIN ASPART 100 UNIT/ML 1 ML 10 ML VIAL SQ SCH ×4 (07:46→21:12)
[2017-11-07 11:39] LABS: Glucose,Whole Blood 150 mg/dL (75-99)
--- NOTE | 2017-11-07 15:45 | PN ---
PROGRESS NOTE DATE OF SERVICE: 11/07/17. CHIEF COMPLAINT: Infected left middle toe and cellulitis of the distal left foot. HISTORY OF PRESENT ILLNESS: This gentleman is doing well. The redness and swelling are going down. His white blood cell tagged bone scan did not demonstrate osteomyelitis. PHYSICAL EXAM: CHEST: Clear. Cardiac exam is normal. Abdomen is soft, nontender. Blood sugars are improving and the foot is less erythematous and swollen. IMPRESSION: Infected diabetic ulcer on the end of the left 3rd toe with secondary cellulitis of the toe of the distal foot. PLAN: Continue with elevation, IV fluids and IV antibiotics and maintenance of good blood sugars. MMODL / IJN: [id number] /
--- NOTE | 2017-11-07 16:36 | PN ---
PROGRESS NOTE CHIEF COMPLAINT: Infected diabetic ulcer on the left middle toe and cellulitis of the left anterior foot and uncontrolled diabetes. HISTORY OF PRESENT ILLNESS: No new complaints. Swelling has improved. Bone scan was negative for infection and patient stated that he has started diabetes education. PHYSICAL EXAMINATION: On physical exam, the toe is slightly improved with decreased swelling and erythema of the foot is also slightly improved. His blood sugars are improving slowly. He appears tearful and comments that he is interested in learning about diabetes education. DIAGNOSES: 1. Infected diabetic foot toe ulcer. 2. Uncontrolled diabetes. PLAN: Is to continue IV antibiotics and attempt to manage diabetes mellitus. I performed a History & Physical Examination of the patient and discussed their management with nurse practitioner. I reviewed the nurse practitioner's note and agree with the documented findings and plan of care. MMODL / IJN: [id number] /
[2017-11-07 17:33] LABS: Glucose,Whole Blood 271 mg/dL (75-99)
[2017-11-07 20:52] LABS: Glucose,Whole Blood 269 mg/dL (75-99)
[2017-11-07] MEDS: CYCLOBENZAPRINE 10 MG TAB PO SCH (21:11)
[2017-11-07] MEDS: INSULIN DETEMIR 100 UNIT/ML 10 ML VIAL SQ SCH (21:12)
[2017-11-07] MEDS: ATORVASTATIN 40 MG TAB PO SCH (21:12)
[2017-11-07] MEDS: GABAPENTIN 100 MG CAP PO SCH (21:12)
[2017-11-07 22:52] VITALS: RESP 18
[2017-11-07] MEDS: TEMAZEPAM 15 MG CAP PO PRN (23:33)
[2017-11-08 06:01] VITALS: BP 148/86; PULSE 78; TEMP 97.8
[2017-11-08 07:45] LABS: Glucose,Whole Blood 99 mg/dL (75-99)
[2017-11-08] MEDS: ASPIRIN 325 MG TAB PO SCH (07:58)
[2017-11-08] MEDS: LISINOPRIL 20 MG TAB PO SCH (07:58)
[2017-11-08] MEDS: CARVEDILOL 6.25 MG TAB PO SCH (07:58)
[2017-11-08] MEDS: MULTIVITAMINS, THERA 1 EACH TAB PO SCH (07:58)
[2017-11-08] MEDS: HYDROcodone/APAP 5-325MG 1 EACH TAB PO PRN (07:59)
[2017-11-08] MEDS: INSULIN ASPART 100 UNIT/ML 1 ML 10 ML VIAL SQ SCH ×2 (07:59→12:54)
[2017-11-08] MEDS: PIPERACILLIN-TAZOBACTAM 3.375 GM in DEXTROSE/WATER 1 50ML.BAG IVPB SCH (08:15)
[2017-11-08 12:20] LABS: Glucose,Whole Blood 180 mg/dL (75-99)
--- NOTE | 2017-11-08 14:54 | P.DS ---
Providers Date of admission: 11/04/17 00:20 Attending physician: Kayode Lau Consults: 11/05/17 10:15 Consult Physician Routine Consulting Provider: Yosi Bassett Reason/Comments: L foot infection Do you want consulting provider notified?: Yes Primary care physician: Kayode Lau Hospital Course: Patient with type 2 diabetes mellitus is admitted for cellulitis and possible gangrene of the left third toe wound cultures are showing MRSA and enterococcus patient's creatinine is 1.6 because of which infectious disease is recommending a low-dose of Bactrim for 10 days patient is also on lisinopril. We'll repeat basic metabolic profile in 3 days and the results will be faxed to Dr. Bassett clinic, patient will also follow with his PCP in about a week. Patient blood sugars are well controlled at this time. Patient will follow-up in the wound clinic in 3-7 days PHYSICAL EXAMINATION: GENERAL: The patient is alert and oriented x3, not in any acute distress. Well developed, well nourished. HEENT: Pupils are round and equally reacting to light. EOMI. No scleral icterus. No conjunctival pallor. Normocephalic, atraumatic. No pharyngeal erythema. No thyromegaly. CARDIOVASCULAR: S1 and S2 present. No murmurs, rubs, or gallops. PULMONARY: Chest is clear to auscultation, no wheezing or crackles. ABDOMEN: Soft, nontender, nondistended, normoactive bowel sounds. No palpable organomegaly. MUSCULOSKELETAL: No joint swelling or deformity. EXTREMITIES: No cyanosis, clubbing, or pedal edema. Left third great toe has an ulcer and appears to be infected NEUROLOGICAL: Gross neurological examination did not reveal any focal deficits. SKIN: No rashes. -Infected diabetic foot ulcer of the left great to -Type 2 diabetes mellitus -Hypertension -Chronic kidney disease secondary to diabetic nephropathy, nonsteroidal anti- inflammatory this will be discontinued -Coronary artery disease with cardiac catheterization and stenting in the past Patient Condition at Discharge: Serious Plan - Discharge Summary Discharge Rx Participant: No New Discharge Prescriptions: New Sulfamethox-Tmp 400-80Mg [Bactrim SS 400-80 mg] 1 tab PO Q8H #30 tablet Continue Gabapentin [Neurontin] 200 mg PO HS Aspirin 325 mg PO DAILY Insulin Glargine [Lantus] 25 unit SQ HS Carvedilol [Coreg] 6.25 mg PO BID Atorvastatin [Lipitor] 40 mg PO HS Insulin Aspart [NovoLOG Flexpen] 10 units SQ AC-TID HYDROcodone/APAP 5-325MG [[place] 5-325] 1 tab PO Q6HR PRN PRN Reason: Pain Ergocalciferol [Vitamin D2 (DRISDOL)] 50,000 unit PO Q14D Cyclobenzaprine [Flexeril] 10 mg PO HS Lisinopril 40 mg PO DAILY Discontinued Naproxen [Naprosyn] 500 mg PO Q12HR PRN PRN Reason: Pain Discharge Medication List Aspirin 325 mg PO DAILY 08/19/14 [History] Atorvastatin [Lipitor] 40 mg PO HS 08/19/14 [History] Carvedilol [Coreg] 6.25 mg PO BID 08/19/14 [History] Gabapentin [Neurontin] 200 mg PO HS 08/19/14 [History] Insulin Aspart [NovoLOG Flexpen] 10 units SQ AC-TID 08/19/14 [History] Insulin Glargine [Lantus] 25 unit SQ HS 08/19/14 [History] Cyclobenzaprine [Flexeril] 10 mg PO HS 05/02/17 [History] Ergocalciferol [Vitamin D2 (DRISDOL)] 50,000 unit PO Q14D 05/02/17 [History] HYDROcodone/APAP 5-325MG [Capac 5-325] 1 tab PO Q6HR PRN 05/02/17 [History] Lisinopril 40 mg PO DAILY 11/04/17 [History] Sulfamethox-Tmp 400-80Mg [Bactrim SS 400-80 mg] 1 tab PO Q8H #30 tablet [Rx] Follow up Appointment(s)/Referral(s): Kayode Lau MD [Primary Care Provider] - 11/12/17 11:50 [facility] [[facility]-STAFF] - 11/22/17 8:00 am (Appointment with Dr Davenport ) Ambulatory/Diagnostic Orders: Basic Metabolic Panel [LAB.AMB] Time Frame: 3 Days, Location: Determined By Patient Patient Instructions/Handouts: MRSA (Methicillin-Resistant Staphylococcus Aureus) (DC), Type 2 Diabetes in Adults (DC) Activity/Diet/Wound Care/Special Instructions: [facility] [phone] Cardiac, diabetic diet. Activity as tolerated. Local wound care, keep clean, cleanse every other day and apply therahoney and kerlix wrap. Discharge Disposition: HOME WITH HOME HEALTH SERVICES
[2017-11-11] MEDS ORDERED: ERGOCALCIFEROL 50,000 UNIT CAP PO SCH (09:00)
--- NOTE | 2017-11-13 14:24 | CDI ---
Last Revision, May 2017 Documentation Clarification Form Date: 11/13/2017 12:00:00 AM From: JATINDER Cervantes; Cynthia Rhoades Manager [facility] Phone: If you have a question about this query, please contact Cynthia Rhoades Manager [facility] at [phone] between 8am and 5pm. Admit Date: 11/04/2017 12:20:00 AM Patient Name: Rodolfo Esquivel Visit Number: [id number] Discharge Date: 11/08/2017 ATTENTION: The Clinical Documentation Specialists (CDI) and [facility] Coding Staff appreciate your assistance in clarifying documentation. Please respond to the clarification below the line at the bottom and electronically sign. The CDI & [facility] Coding staff will review the response and follow-up if needed. Please note: Queries are made part of the Legal Health Record. If you have any questions, please contact the author of this message via ITS. Dr. Kayode Lau The patient has uncontrolled diabetes as indicated on H&P. Uncontrolled DM requires further classification by type so that the appropriate code may be reported. Glucose upon admission was 316; A1c 8.9 In order to capture the severity of Illness and necessary documentation specificity, please clarify: DM with hyperglycemia DM with hypoglycemia Other, please specify Unable to Determine MTDD
--- NOTE | 2017-11-15 20:12 | MISC ---
MISCELLANOUS REPORT QUERY: Uncontrolled diabetes with hyperglycemia. MMODL / IJN: [id number] /
== END 2017-11-08 14:55 | disposition home health service (06) | DRG 638 ==
LOC: EC 22:07 → 4MS4W 11-04 00:20
PROVIDERS: ADMIT Family Medicine; ATTEND Family Medicine
DX: E11.621 Type 2 diabetes mellitus with foot ulcer (principal); L02.612 Cutaneous abscess of left foot; L03.116 Cellulitis of left lower limb; L97.528 Non-pressure chronic ulcer of other part of left foot with other specified severity; E11.22 Type 2 diabetes mellitus with diabetic chronic kidney disease; E11.40 Type 2 diabetes mellitus with diabetic neuropathy, unspecified; E11.65 Type 2 diabetes mellitus with hyperglycemia; I25.2 Old myocardial infarction; L03.032 Cellulitis of left toe; N18.3 Chronic kidney disease, stage 3 (moderate); Z79.4 Long term (current) use of insulin; Z79.82 Long term (current) use of aspirin; Z79.899 Other long term (current) drug therapy; Z82.49 Family history of ischemic heart disease and other diseases of the circulatory system; Z91.19 Patient's noncompliance with other medical treatment and regimen; Z79.891 Long term (current) use of opiate analgesic; Z88.5 Allergy status to narcotic agent; Z86.14 Personal history of Methicillin resistant Staphylococcus aureus infection; Z95.5 Presence of coronary angioplasty implant and graft; Z88.1 Allergy status to other antibiotic agents
CPT/HCPCS: 36415; 78315; 80048; 80053; 80061; 80202; 83036; 83605; 85025; 85652; 86140; 87040; 87070; 87075; 87077; 87186; 87205; 96374; 99284

== ENCOUNTER 2017-11-09 02:07 | Emergency (ER) | payer OTHER ==
[2017-11-09 02:13] VITALS: RESP 18
[2017-11-09] MEDS ORDERED: diphenhydrAMINE 50 MG/ML 1 ML VIAL IVP STA (02:32)
[2017-11-09] MEDS ORDERED: SODIUM CHLORIDE 0.9% 1,000 ML IV STA (02:32)
[2017-11-09] MEDS ORDERED: METOCLOPRAMIDE 5 MG/ML 2 ML VIAL IVP STA (02:32)
--- NOTE | 2017-11-09 02:35 | ED ---
Nausea/Vomiting/Diarrhea HPI - General Chief complaint: Nausea/Vomiting/Diarrhea Stated complaint: N/V/D x1hr Time Seen by Provider: 11/09/17 02:10 Source: patient Mode of arrival: EMS Limitations: no limitations - History of Present Illness Initial comments: 62-year-old male patient presents to the emergency department today for acute onset vomiting and diarrhea. Patient states this started around 01 100 this morning. Patient states that he was discharged from the hospital yesterday after being treated for 5 days for a toe infection. Patient states he did receive multiple IV antibiotics while here. States that he was discharged home with a prescription for Bactrim. States he took his first dose of Bactrim around 4 PM his second dose of Bactrim around 00 30 and then symptoms started. Patient denies any hematochezia or melena. States that he has had numerous bowel movements, states they're now watery. States that he has been very nauseated and has vomited. Patient states he has generalized abdominal cramping. Denies any fevers or chills. Denies any new back pain. Patient denies any recent rash, shortness breath, chest pain, numbness, tingling, dizziness, weakness, hematuria, dysuria, urinary urgency, urinary frequency, headache, visual changes, or any other complaints. - Related Data Home Medications Medication Instructions Recorded Confirmed Aspirin 325 mg PO DAILY 08/19/14 11/04/17 Atorvastatin [Lipitor] 40 mg PO HS 08/19/14 11/04/17 Carvedilol [Coreg] 6.25 mg PO BID 08/19/14 11/04/17 Gabapentin [Neurontin] 200 mg PO HS 08/19/14 11/04/17 Insulin Aspart [NovoLOG Flexpen] 10 units SQ AC-TID 08/19/14 11/04/17 Insulin Glargine [Lantus] 25 unit SQ HS 08/19/14 11/04/17 Cyclobenzaprine [Flexeril] 10 mg PO HS 05/02/17 11/04/17 Ergocalciferol [Vitamin D2 50,000 unit PO Q14D 05/02/17 11/04/17 (DRISDOL)] HYDROcodone/APAP 5-325MG [[place] 1 tab PO Q6HR PRN 05/02/17 11/04/17 5-325] Lisinopril 40 mg PO DAILY 11/04/17 11/04/17 Previous Rx's Medication Instructions Recorded Sulfamethox-Tmp 400-80Mg [Bactrim 1 tab PO Q8H #30 tablet 11/08/17 SS 400-80 mg] Clindamycin HCl [Cleocin] 300 mg PO Q6HR #40 cap 11/09/17 Ondansetron [Zofran ODT] 4 mg PO Q8HR PRN #10 tab 11/09/17 Allergies Allergy/AdvReac Type Severity Reaction Status Date / Time codeine AdvReac Nausea & Verified 11/09/17 02:13 Vomiting morphine AdvReac Nausea & Verified 11/09/17 02:13 Vomiting Review of Systems ROS Statement: Those systems with pertinent positive or pertinent negative responses have been documented in the HPI. ROS Other: All systems not noted in ROS Statement are negative. Past Medical History Past Medical History: Diabetes Mellitus Additional Past Medical History / Comment(s): hx retinal bleeding with laser tx , diabetic neuropathy, states blisters on toes. back pain Last Myocardial Infarction Date:: 2009 History of Any Multi-Drug Resistant Organisms: MRSA Date of last positivie culture/infection: 11/05/17 MDRO Source:: FOOT Past Surgical History: Heart Catheterization With Stent, Hernia Repair, Tonsillectomy Additional Past Surgical History / Comment(s): LEFT INGUINAL HERNIA (SEPTEMBER 2014) . ULNAR NERVE SC BILAT HANDS AND ELBOWS. COLONOSCOPY Past Anesthesia/Blood Transfusion Reactions: No Reported Reaction, Motion Sickness Additional Past Anesthesia/Blood Transfusion Reaction / Comment(s): Difficulty waking Date of Last Stent Placement:: 2009 Past Psychological History: Depression Smoking Status: Never smoker Past Alcohol Use History: None Reported Past Drug Use History: None Reported - Past Family History Father Family Medical History: Congestive Heart Failure (CHF), Myocardial Infarction ( [place]) Mother Family Medical History: CVA/TIA Additional Family Medical History / Comment(s): varicose veins General Exam Limitations: no limitations General appearance: alert, in no apparent distress, other (This is a well- developed, well-nourished adult male patient in no acute distress. Vital signs upon presentation are temperature 97.8F, pulse 107, respirations 18, blood pressure 168/104, pulse ox 99% on room air.) Eye exam: Present: normal appearance, PERRL, EOMI. Absent: scleral icterus, conjunctival injection, periorbital swelling ENT exam: Present: normal exam, normal oropharynx, mucous membranes moist Respiratory exam: Present: normal lung sounds bilaterally. Absent: respiratory distress, wheezes, rales, rhonchi, stridor Cardiovascular Exam: Present: regular rate, normal rhythm, normal heart sounds. Absent: systolic murmur, diastolic murmur, rubs, gallop, clicks GI/Abdominal exam: Present: soft, tenderness (Mild generalized tenderness), normal bowel sounds. Absent: distended, guarding, rebound, rigid Neurological exam: Present: alert, oriented X3, CN II-XII intact Psychiatric exam: Present: normal affect, normal mood Skin exam: Present: warm, dry, intact, normal color. Absent: rash Course Vital Signs 11/09/17 11/09/17 02:09 03:28 Temperature 97.8 F Pulse Rate 107 H 103 H Respiratory 18 18 Rate Blood Pressure 168/104 159/89 O2 Sat by Pulse 99 98 Oximetry Medical Decision Making - Medical Decision Making 62-year-old male patient presented to the emergency department today for evaluation of acute vomiting and diarrhea. Physical examination is relatively unremarkable. Labs reviewed and are unremarkable. Patient was recently admitted to the hospital and was receiving IV antibiotics so we did check stool for C. diff which was negative. Lab called and said they may has seen what appeared to be worm fragments in the stool so we did add ova and parasites, WBCs , and stool culture. I did discuss findings with the patient. He is concerned that he may be having a reaction to the Bactrim that he started taking today. I did discuss this is a possible cause also a gastroenteritis. Reveals change the Bactrim to clindamycin. We will provide patient with nausea medication. He is instructed to start a clear liquid diet and advance as tolerated. He is instructed to follow-up with his primary care physician for recheck in 1-2 days. Return parameters discussed in detail. He verbalizes understanding and agrees with this plan. - Lab Data Result diagrams: 11/09/17 02:40 11/09/17 02:40 Lab Results 11/09/17 11/09/17 11/09/17 Range/Units 02:40 02:40 02:52 WBC 10.6 (3.8-10.6) k/uL RBC 4.83 (4.30-5.90) m/uL Hgb 14.2 (13.0-17.5) gm/dL Hct 42.8 (39.0-53.0) % MCV 88.5 (80.0-100.0) fL MCH 29.3 (25.0-35.0) pg MCHC 33.2 (31.0-37.0) g/dL RDW 13.3 (11.5-15.5) % Plt Count 274 (150-450) k/uL Neutrophils % 80 % Lymphocytes % 11 % Monocytes % 5 % Eosinophils % 3 % Basophils % 0 % Neutrophils # 8.5 H (1.3-7.7) k/uL Lymphocytes # 1.1 (1.0-4.8) k/uL Monocytes # 0.5 (0-1.0) k/uL Eosinophils # 0.3 (0-0.7) k/uL Basophils # 0.0 (0-0.2) k/uL Sodium 142 (137-145) mmol/L Potassium 4.7 (3.5-5.1) mmol/L Chloride 104 (98-107) mmol/L Carbon Dioxide 22 (22-30) mmol/L Anion Gap 16 mmol/L BUN 31 H (9-20) mg/dL Creatinine 1.90 H (0.66-1.25) mg/dL Est GFR (CKD-EPI)AfAm 43 (>60 ml/min/1.73 sqM) Est GFR (CKD-EPI)NonAf 38 (>60 ml/min/1.73 sqM) Glucose 176 H (74-99) mg/dL Calcium 9.6 (8.4-10.2) mg/dL Total Bilirubin 0.5 (0.2-1.3) mg/dL AST 38 (17-59) U/L ALT 23 (21-72) U/L Alkaline Phosphatase 67 (38-126) U/L Total Protein 8.0 (6.3-8.2) g/dL Albumin 4.1 (3.5-5.0) g/dL Amylase 92 (30-110) U/L Lipase <10 L (23-300) U/L Urine Color Urine Appearance (Clear) Urine pH (5.0-8.0) Ur Specific [place] (1.001-1.035) Urine Protein (Negative) Urine Glucose (UA) (Negative) Urine Ketones (Negative) Urine Blood (Negative) Urine Nitrite (Negative) Urine Bilirubin (Negative) Urine Urobilinogen (<2.0) mg/dL Ur Leukocyte Esterase (Negative) Urine RBC (0-5) /hpf Urine WBC (0-5) /hpf Cellular Casts (0) /lpf Granular Casts (0) /lpf Urine Mucus (None) /hpf Urine Sperm (None) /hpf C. difficile (EIA) Intrp Negative (Negative) 11/09/17 Range/Units 03:43 WBC (3.8-10.6) k/uL RBC (4.30-5.90) m/uL Hgb (13.0-17.5) gm/dL Hct (39.0-53.0) % MCV (80.0-100.0) fL MCH (25.0-35.0) pg MCHC (31.0-37.0) g/dL RDW (11.5-15.5) % Plt Count (150-450) k/uL Neutrophils % % Lymphocytes % % Monocytes % % Eosinophils % % Basophils % % Neutrophils # (1.3-7.7) k/uL Lymphocytes # (1.0-4.8) k/uL Monocytes # (0-1.0) k/uL Eosinophils # (0-0.7) k/uL Basophils # (0-0.2) k/uL Sodium (137-145) mmol/L Potassium (3.5-5.1) mmol/L Chloride (98-107) mmol/L Carbon Dioxide (22-30) mmol/L Anion Gap mmol/L BUN (9-20) mg/dL Creatinine (0.66-1.25) mg/dL Est GFR (CKD-EPI)AfAm (>60 ml/min/1.73 sqM) Est GFR (CKD-EPI)NonAf (>60 ml/min/1.73 sqM) Glucose (74-99) mg/dL Calcium (8.4-10.2) mg/dL Total Bilirubin (0.2-1.3) mg/dL AST (17-59) U/L ALT (21-72) U/L Alkaline Phosphatase (38-126) U/L Total Protein (6.3-8.2) g/dL Albumin (3.5-5.0) g/dL Amylase (30-110) U/L Lipase (23-300) U/L Urine Color Yellow Urine Appearance Clear (Clear) Urine pH 6.0 (5.0-8.0) Ur Specific [place] 1.011 (1.001-1.035) Urine Protein 3+ H (Negative) Urine Glucose (UA) 4+ H (Negative) Urine Ketones Negative (Negative) Urine Blood Small H (Negative) Urine Nitrite Negative (Negative) Urine Bilirubin Negative (Negative) Urine Urobilinogen <2.0 (<2.0) mg/dL Ur Leukocyte Esterase Negative (Negative) Urine RBC 8 H (0-5) /hpf Urine WBC 1 (0-5) /hpf Cellular Casts 1 (0) /lpf Granular Casts 1 (0) /lpf Urine Mucus Rare H (None) /hpf Urine Sperm Occasional H (None) /hpf C. difficile (EIA) Intrp (Negative) Disposition Clinical Impression: Medication side effect Disposition: HOME SELF-CARE Condition: Good Instructions: Acute Nausea and Vomiting (ED), Acute Diarrhea (ED) Additional Instructions: Take medications as directed. Follow-up with your primary care physician for recheck in 1-2 days. Return here immediately for any new, worsening, or concerning symptoms. Prescriptions: Clindamycin HCl [Cleocin] 300 mg PO Q6HR #40 cap Ondansetron [Zofran ODT] 4 mg PO Q8HR PRN #10 tab PRN Reason: Nausea Is patient prescribed a controlled substance at d/c from ED?: No Referrals: Kayode Lau MD [Primary Care Provider] - 1-2 days Time of Disposition: 04:09
[2017-11-09 03:08] LABS: Basophils % (A) 0 %; Eosinophils # (A) 0.3 k/uL (0-0.7); Eosinophils % (A) 3 %; HCT 42.8 % (39.0-53.0); HGB 14.2 gm/dL (13.0-17.5); Lymphocytes # (A) 1.1 k/uL (1.0-4.8); Lymphocytes % (A) 11 %; MCH 29.3 pg (25.0-35.0); MCHC 33.2 g/dL (31.0-37.0); MCV 88.5 fL (80.0-100.0); Mean Platelet Volume 6.6; Monocytes # (A) 0.5 k/uL (0-1.0); Monocytes % (A) 5 %; Neutrophils # (A) 8.5 k/uL (1.3-7.7); Neutrophils % (A) 80 %; Platelet Count 274 k/uL (150-450); RBC 4.83 m/uL (4.30-5.90); RDW 13.3 % (11.5-15.5); WBC 10.6 k/uL (3.8-10.6)
[2017-11-09 03:25] LABS: Albumin 4.1 g/dL (3.5-5.0); Amylase 92 U/L (30-110); Anion Gap 16 mmol/L; Calcium 9.6 mg/dL (8.4-10.2); Carbon Dioxide 22 mmol/L (22-30); Chloride 104 mmol/L (98-107); Glucose 176 mg/dL (74-99); Lipase <10 U/L (23-300); Sodium 142 mmol/L (137-145); Total Bilirubin 0.5 mg/dL (0.2-1.3)
[2017-11-09 03:28] LABS: Blood Urea Nitrogen 31 mg/dL (9-20); Potassium 4.7 mmol/L (3.5-5.1)
[2017-11-09 03:29] LABS: ALT 23 U/L (21-72); AST 38 U/L (17-59); Alkaline Phosphatase 67 U/L (38-126)
[2017-11-09 03:55] LABS: Appearance,Urine Clear (Clear); Bilirubin,Urine Negative (Negative); Blood,Urine Small (Negative); Cellular Casts,Urine 1 /lpf (0); Color,Urine Yellow; Glucose,Urine (UA) 4+ (Negative); Granular Casts,Urine 1 /lpf (0); Ketones,Urine Negative (Negative); Leukocyte Esterase,Urine Negative (Negative); Mucus,Urine Rare /hpf; Nitrite,Urine Negative (Negative); Protein,Urine 3+ (Negative); RBC,Urine 8 /hpf (0-5); Specific Gravity,Urine 1.011 (1.001-1.035); Sperm,Urine Occasional /hpf; Urobilinogen,Urine <2.0 mg/dL (<2.0); WBC,Urine 1 /hpf (0-5)
[2017-11-09] MEDS ORDERED: ONDANSETRON 4 MG ODT STARTER PACK 2 TAB BTL PO STA (04:10)
[2017-11-09 04:19] VITALS: BP 182/94; PULSE 112; TEMP 98.7
== END 2017-11-09 04:20 | disposition home or self-care (01) ==
LOC: EC 02:07
DX: T37.0X5A Adverse effect of sulfonamides, initial encounter (principal); R11.2 Nausea with vomiting, unspecified; R19.7 Diarrhea, unspecified; E11.40 Type 2 diabetes mellitus with diabetic neuropathy, unspecified; F32.9 Major depressive disorder, single episode, unspecified; Z86.14 Personal history of Methicillin resistant Staphylococcus aureus infection; Z79.82 Long term (current) use of aspirin; Z79.4 Long term (current) use of insulin; Z79.899 Other long term (current) drug therapy; Z88.5 Allergy status to narcotic agent; Z95.5 Presence of coronary angioplasty implant and graft
CPT/HCPCS: 36415; 80053; 82150; 83690; 85025; 81001; 87324; 87177; 87207; 87209; 87045; 89055; 87046; 99284; 96374; 96375; 96361; J1200; J2765; S0119

== ENCOUNTER → 2017-11-22 | Outpatient (CLI) | payer OTHER ==
--- NOTE | 2017-11-22 10:56 | XR ---
EXAMINATION TYPE: XR toes LT DATE OF EXAM: 11/22/2017 COMPARISON: 11/06/2017 and 11/03/2017 HISTORY: Foot ulceration and infection x2 weeks. History of diabetes. Suspected osteomyelitis of the third toe on prior nuclear medicine bone scan dated 11/06/2017 with known open wound. TECHNIQUE: 2 views of the left toes were obtained FINDINGS: There is progressive osteolysis of the distal phalanx of the third digit with surrounding p eriosteal reaction, overlying soft tissue swelling and known soft tissue ulceration indicated radiogr aphically of osteomyelitis sequela. Degenerative changes of the remainder of the proximal interphalan geal joints and distal interphalangeal joints are demonstrated as joint space narrowing, opposing tejal face sclerosis and marginal osteophytes. IMPRESSION: Radiographic findings indicating osteomyelitis of the distal phalanx of the third digit o n the left foot.
== END ==
LOC: RADXRMAIN 09:56
PROVIDERS: ATTEND Podiatrist
DX: M86.8X7 Other osteomyelitis, ankle and foot (principal); E11.621 Type 2 diabetes mellitus with foot ulcer

== ENCOUNTER → 2017-12-02 | Outpatient (CLI) | payer OTHER ==
--- NOTE | 2017-12-03 15:41 | NM ---
EXAMINATION TYPE: NM WBC limited DATE OF EXAM: 12/03/2017 COMPARISON: 11/22/2017 HISTORY: Foot ulcer. Concern for osteomyelitis of the third toe of the left foot. TECHNIQUE: Following administration of 22.8 mCi Tc99m Ceretec. Images obtained 4 hour(s) and 23 zunilda r(s) post injection. FINDINGS: There is focal radiotracer accumulation on both the 4 hour and on the 23 hour images within approxima te region of the third distal phalanx of the third digit of the left foot corresponding to the radiog raphic abnormalities and most compatible with osteomyelitis. No other abnormality is identified. IMPRESSION: Findings corresponding to osteomyelitis of a distal phalanx within the left foot in the region of the third distal phalanx.
== END ==
LOC: RADNMMAIN 07:04
PROVIDERS: ATTEND Podiatrist
DX: M86.8X7 Other osteomyelitis, ankle and foot (principal)
CPT/HCPCS: 78805; A9569

== ENCOUNTER 2017-12-09 14:24 | Emergency (ER) | payer OTHER ==
[2017-12-09 14:27] VITALS: BP 130/77; PULSE 102; RESP 20; TEMP 98.3
[2017-12-09] MEDS ORDERED: diphenhydrAMINE 50 MG CAP PO STA (14:40)
--- NOTE | 2017-12-09 15:16 | ED ---
General Adult HPI - General Chief complaint: Skin/Abscess/Foreign Body Stated complaint: Rash Time Seen by Provider: 12/09/17 14:34 Source: patient, RN notes reviewed Mode of arrival: ambulatory Limitations: no limitations - History of Present Illness Initial comments: 62-year-old male presents to the emergency department for a chief complaint of rash 3 days. Patient states he has had a rash on the dorsal aspect of his left forearm. Patient states the rash is not worsening but has not improved much in the past couple days. Patient has not taken anything for including Benadryl. Patient denies changing any detergents or soaps. Patient denies staying in any new locations. Patient denies the rash forming vesicles or weeping. Patient denies pain in the arm. Patient denies swelling of the lips tongue or throat or shortness of breath or difficulty breathing. Patient states he has had shingles before and knows this is not shingles as it is not painful. Patient has no other complaints at this time including shortness of breath, chest pain, abdominal pain, nausea or vomiting, headache, or visual changes. - Related Data Home Medications Medication Instructions Recorded Confirmed Aspirin 325 mg PO DAILY 08/19/14 12/09/17 Atorvastatin [Lipitor] 80 mg PO HS 08/19/14 12/09/17 Carvedilol [Coreg] 6.25 mg PO BID 08/19/14 12/09/17 Gabapentin [Neurontin] 200 mg PO HS 08/19/14 12/09/17 Insulin Aspart [NovoLOG Flexpen] 10 units SQ AC-TID 08/19/14 12/09/17 Cyclobenzaprine [Flexeril] 10 mg PO HS 05/02/17 12/09/17 Ergocalciferol [Vitamin D2 50,000 unit PO Q14D 05/02/17 12/09/17 (DRISDOL)] HYDROcodone/APAP 5-325MG [[place] 1 tab PO Q6HR PRN 05/02/17 12/09/17 5-325] Lisinopril 40 mg PO DAILY 11/04/17 12/09/17 Insulin Glargine,Hum.rec.anlog 20 unit SQ HS 12/09/17 12/09/17 [Basaglar Kwikpen U-100] Previous Rx's Medication Instructions Recorded Ondansetron [Zofran ODT] 4 mg PO Q8HR PRN #10 tab 11/09/17 diphenhydrAMINE [Benadryl] 50 mg PO QID PRN #20 capsule 12/09/17 Allergies Allergy/AdvReac Type Severity Reaction Status Date / Time clindamycin Allergy Unknown High BP , Verified 12/09/17 14:27 Nausea & Vomiting & Diarrhea codeine AdvReac Nausea & Verified 12/09/17 14:27 Vomiting morphine AdvReac Nausea & Verified 12/09/17 14:27 Vomiting sulfamethoxazole AdvReac Nausea & Verified 12/09/17 14:27 [From Bactrim] Vomiting & Diarrhea trimethoprim [From Bactrim] AdvReac Nausea & Verified 12/09/17 14:27 Vomiting & Diarrhea Review of Systems ROS Statement: Those systems with pertinent positive or pertinent negative responses have been documented in the HPI. ROS Other: All systems not noted in ROS Statement are negative. Past Medical History Past Medical History: Diabetes Mellitus, Hypertension, Musculoskeletal Disorder Additional Past Medical History / Comment(s): hx retinal bleeding with laser tx , diabetic neuropathy, states blisters on toes. back pain Last Myocardial Infarction Date:: 2009 History of Any Multi-Drug Resistant Organisms: MRSA Date of last positivie culture/infection: 11/29/17 MDRO Source:: toe Past Surgical History: Heart Catheterization With Stent, Hernia Repair, Tonsillectomy Additional Past Surgical History / Comment(s): LEFT INGUINAL HERNIA (SEPTEMBER 2014) . ULNAR NERVE SC BILAT HANDS AND ELBOWS. COLONOSCOPY Past Anesthesia/Blood Transfusion Reactions: No Reported Reaction, Motion Sickness Additional Past Anesthesia/Blood Transfusion Reaction / Comment(s): Difficulty waking Date of Last Stent Placement:: 2009 Past Psychological History: Depression Smoking Status: Never smoker Past Alcohol Use History: None Reported Past Drug Use History: None Reported - Past Family History Father Family Medical History: Congestive Heart Failure (CHF), Myocardial Infarction ( [place]) Mother Family Medical History: CVA/TIA Additional Family Medical History / Comment(s): varicose veins General Exam Limitations: no limitations General appearance: alert, in no apparent distress Head exam: Present: atraumatic, normocephalic, normal inspection Eye exam: Present: normal appearance ENT exam: Present: normal exam, mucous membranes moist Neck exam: Present: normal inspection, full ROM. Absent: tenderness, meningismus, lymphadenopathy Respiratory exam: Present: normal lung sounds bilaterally. Absent: respiratory distress, wheezes, rales, rhonchi, stridor Cardiovascular Exam: Present: regular rate, normal rhythm, normal heart sounds. Absent: systolic murmur, diastolic murmur, rubs, gallop, clicks Extremities exam: Present: full ROM (Full range of motion of the left upper extremity including digits, wrist, elbow and shoulder.), normal capillary refill (Refill less than 2 seconds and radial pulse 2+ in the left upper extremity.), other (Sensation intact left upper extremity). Absent: tenderness (No tenderness of the left upper extremity.), joint swelling (No swelling or ecchymosis noted in the left upper extremity.) Skin exam: Present: rash (Patient has a pruritic erythematous macular rash extending from elbow to digits and dorsal left arm. No excoriations present. No drainage or signs of infection. Negative Nikolsky sign.) Course Vital Signs 12/09/17 14:26 Temperature 98.3 F Pulse Rate 102 H Respiratory 20 Rate Blood Pressure 130/77 O2 Sat by Pulse 99 Oximetry Medical Decision Making - Medical Decision Making 62-year-old male presents to the emergency department for a chief complaint of rash 3 days. Patient states it is not worsening. Patient is supposed to have surgery tomorrow so is helping the rash goes away by then. Patient denies pain in the arm but states it is itching. Patient has a rash on the left dorsal arm extending from elbow down to her fingers. It is on the dorsal aspect of the left arm. No weeping or vesicles noted. No signs of infection or excoriations. Patient was given 50 mg of Benadryl in the emergency department. Patient was not given any steroids or steroid creams as he is scheduled for surgery tomorrow. Patient is to continue the Benadryl for tonight. He will follow up with primary care in 1-2 days if rash does not resolve. He will return to the emergency department if he has any worsening symptoms. Disposition Clinical Impression: Contact dermatitis Disposition: HOME SELF-CARE Condition: Good Instructions: Contact Dermatitis (ED) Additional Instructions: Please take Benadryl as directed. Please return to the emergency department if you have any worsening symptoms or signs of infection. Otherwise follow-up with primary care in 1-2 days. Prescriptions: diphenhydrAMINE [Benadryl] 50 mg PO QID PRN #20 capsule PRN Reason: Allergic Reaction Is patient prescribed a controlled substance at d/c from ED?: No Referrals: Kayode Lau MD [Primary Care Provider] - 1-2 days Time of Disposition: 15:14
== END 2017-12-09 15:32 | disposition home or self-care (01) ==
LOC: EC 14:24
DX: L25.9 Unspecified contact dermatitis, unspecified cause (principal); I10 Essential (primary) hypertension; E11.40 Type 2 diabetes mellitus with diabetic neuropathy, unspecified; I25.2 Old myocardial infarction; F32.9 Major depressive disorder, single episode, unspecified; Z86.14 Personal history of Methicillin resistant Staphylococcus aureus infection; Z79.4 Long term (current) use of insulin; Z79.82 Long term (current) use of aspirin; Z79.899 Other long term (current) drug therapy; Z88.1 Allergy status to other antibiotic agents; Z88.2 Allergy status to sulfonamides; Z88.5 Allergy status to narcotic agent
CPT/HCPCS: 99282

== ENCOUNTER 2017-12-10 05:53 | Day surgery (SDC) | payer OTHER ==
[2017-12-09 11:10] VITALS: BMI 30.2
[~2017-12-10 05:53] MED LIST: DEXAMETHASONE SOD PHOSPHATE 10 MG/ML 1 ML VIAL IV ONE; LACTATED RINGERS 1,000 ML IV SCH; LIDOCAINE 1% 20 ML VIAL (10MG/ML) FOR IV START INTRADERMA PRN; MIDAZOLAM 2 MG/2 ML VIAL IV PRN; SCOPOLAMINE 1.5MG/72HR PATCH TRANSDERM ONE; fentaNYL (PF) 50 MCG/ML 2 ML AMP IV PRN
[2017-12-10] MEDS ORDERED: ceFAZolin IN SWFI 2 GM/20 ML SYRINGE IVP ONE (06:00)
[2017-12-10 06:19] VITALS: RESP 16; TEMP 98.4
[2017-12-10 06:27] LABS: Glucose,Whole Blood 179 mg/dL (75-99)
[2017-12-10] MEDS ORDERED: PROPOFOL 10 MG/ML 20 ML VIAL IV ONE (07:07)
[2017-12-10] MEDS ORDERED: MIDAZOLAM 2 MG/2 ML VIAL ONE (07:07)
[2017-12-10] MEDS ORDERED: LIDOCAINE 1% INJ 10MG/ML (20 ML MDV) ONE (07:07)
[2017-12-10] MEDS ORDERED: fentaNYL (PF) 50 MCG/ML 2 ML AMP ONE (07:07)
[2017-12-10] MEDS ORDERED: LIDOCAINE 2% INJ 20 MG/ML SQ ONE (07:27)
[2017-12-10 08:29] VITALS: BP 145/91; PULSE 83
--- NOTE | 2017-12-10 09:19 | OP ---
OPERATIVE REPORT PREOPERATIVE DIAGNOSIS: Osteomyelitis left third toe. POSTOPERATIVE DIAGNOSIS: Osteomyelitis left third toe. OPERATION PERFORMED: Partial amputation left third toe. SURGEON: Gerardo Davenport DPM PHARMACY PICKING TECHNICIAN: None. DESCRIPTION OF PROCEDURE: The patient presented approximately two hours prior to surgery having been NPO since previous midnight. All labs, H and P, x-rays, consent were reviewed and no counter indications to the surgery was determined. The patient was brought to the OR and placed on the OR table in the supine position. The left foot was then prepped and draped in the usual aseptic manner before which copious amounts of Webril and ankle tourniquet was placed. The left foot was then prepped and draped in the usual aseptic manner. Attention was then directed to the left third digit where the toe was anesthetized using 7 mL of 2% Xylocaine plain. Using a 15 blade a fish mouth type incision was made encompassing the area at the level of the proximal interphalangeal joint of the left third digit. Incision was carried down through the superficial and deep fascia with care taken to retract all vital structures and clamp cauterize all superficial bleeders. The tendons were then exposed. Tenotomy was performed at the level of the proximal interphalangeal joint. The capsular tissue was then released off the proximal head and the long flexor tendon was tenotomized. The digit was then disarticulated and retained for pathological evaluation. The wound was then inspected and all necrotic tissue was removed. Good viable tissue was noted. The wound was copiously lavaged with sterile saline solution and the tendon and soft tissue were repaired using 3-0 Vicryl simple interrupted sutures. Skin edges were repaired using a combination of 3-0 nylon, 4-0 nylon simple interrupted sutures. The wound was then inspected and the adequate surgical reduction of clinical deformity was noted. The wound was then dressed in a mildly compressive manner using Adaptic, 4 x 4's, Kerlix and an Angelito wrap. The patient was brought to the recovery room from the OR having tolerated the procedure and anesthesia well with vital signs stable and neurovascular status to the foot intact. The patient was monitored, discharged, postop shoe, weightbearing left foot, postop pain medications, Omega was given as well as postop instructions. The patient is to represent to the office as instructed. MMODL / IJN: [id number] /
== END 2017-12-10 09:09 | disposition home or self-care (01) ==
LOC: OR 05:53
PROVIDERS: ATTEND Podiatrist
DX: E11.621 Type 2 diabetes mellitus with foot ulcer (principal); L97.529 Non-pressure chronic ulcer of other part of left foot with unspecified severity; E11.69 Type 2 diabetes mellitus with other specified complication; M86.8X7 Other osteomyelitis, ankle and foot; E11.65 Type 2 diabetes mellitus with hyperglycemia; E11.40 Type 2 diabetes mellitus with diabetic neuropathy, unspecified; I25.10 Atherosclerotic heart disease of native coronary artery without angina pectoris; I10 Essential (primary) hypertension; E78.5 Hyperlipidemia, unspecified; N28.9 Disorder of kidney and ureter, unspecified; Z88.3 Allergy status to other anti-infective agents; Z88.5 Allergy status to narcotic agent; Z88.2 Allergy status to sulfonamides; Z79.4 Long term (current) use of insulin; Z79.899 Other long term (current) drug therapy
CPT/HCPCS: 28825; 88305; 88311; J2001 ×2; J2250; J1100; J3010; J2704; J0690

== ENCOUNTER 2018-02-28 16:10 | Inpatient (IN) | payer OTHER ==
[2018-02-28] MEDS ORDERED: VANCOMYCIN IV PER PHARMACY 1 EACH MISC MISCELLANE PRN (18:27)
[2018-02-28] MEDS ORDERED: ACETAMINOPHEN IV (For NPO) 1,000 MG in EMPTY BAG 1 BAG IVPB STA (18:27)
--- NOTE | 2018-02-28 18:30 | ED ---
General Adult HPI - General Chief complaint: Extremity Problem,Nontraumatic Stated complaint: Gangrene rt foot Sent by Serjio Time Seen by Provider: 02/28/18 17:21 Source: patient Mode of arrival: wheelchair Limitations: no limitations - History of Present Illness Initial comments: Dictation was produced using [employer] dictation software. please excuse any grammatical, word or spelling errors. Chief Complaint: 62-year-old male with past medical history of diabetes, chronic kidney disease, toe infections presents with second toe infection. History of Present Illness: Patient is a 8-year-old male with multiple comorbidities presents with second toe infection. He was seen at the wound clinic today that is operated by coating machine helper. Java Core Developer/1 care doctor instructed patient To the emergency department to be admitted for IV antibiotics. Patient states that he's been having constitutional symptoms of fever and chills. Patient denies any lightheadedness. The ROS documented in this emergency department record has been reviewed and confirmed by me. Those systems with pertinent positive or negative responses have been documented in the HPI. All other systems are other negative and/or noncontributory. - Related Data Home Medications Medication Instructions Recorded Confirmed Atorvastatin [Lipitor] 80 mg PO HS 08/19/14 02/28/18 Carvedilol [Coreg] 6.25 mg PO BID 08/19/14 02/28/18 Gabapentin [Neurontin] 200 mg PO HS 08/19/14 02/28/18 Insulin Aspart [NovoLOG Flexpen] 10 units SQ AC-BID 08/19/14 02/28/18 Ergocalciferol [Vitamin D2 50,000 unit PO Q14D 05/02/17 02/28/18 (DRISDOL)] Lisinopril 40 mg PO DAILY 11/04/17 02/28/18 Insulin Glargine,Hum.rec.anlog 18 unit SQ HS 12/09/17 02/28/18 [Basaglar Kwikpen U-100] Doxycycline Monohydrate 100 mg PO BID 02/28/18 02/28/18 [Vibramycin] Allergies Allergy/AdvReac Type Severity Reaction Status Date / Time Sulfa (Sulfonamide Allergy Unknown Verified 02/28/18 18:35 Antibiotics) clindamycin AdvReac Unknown High BP , Verified 02/28/18 18:35 Nausea & Vomiting & Diarrhea codeine AdvReac Nausea & Verified 02/28/18 18:35 Vomiting morphine AdvReac Nausea & Verified 02/28/18 18:35 Vomiting sulfamethoxazole AdvReac Nausea & Verified 02/28/18 18:35 [From Bactrim] Vomiting & Diarrhea trimethoprim [From Bactrim] AdvReac Nausea & Verified 02/28/18 18:35 Vomiting & Diarrhea Review of Systems ROS Statement: Those systems with pertinent positive or pertinent negative responses have been documented in the HPI. ROS Other: All systems not noted in ROS Statement are negative. Past Medical History Past Medical History: Diabetes Mellitus, Hyperlipidemia, Hypertension, Musculoskeletal Disorder Additional Past Medical History / Comment(s): hx retinal bleeding with laser tx , diabetic neuropathy, states blisters on toes. back pain Last Myocardial Infarction Date:: 2009 History of Any Multi-Drug Resistant Organisms: MRSA Date of last positivie culture/infection: 11/29/17 MDRO Source:: toe Past Surgical History: Heart Catheterization With Stent, Hernia Repair, Tonsillectomy Additional Past Surgical History / Comment(s): LEFT INGUINAL HERNIA (SEPTEMBER 2014) . ULNAR NERVE SC BILAT HANDS AND ELBOWS. COLONOSCOPY, Partial amputation to middle toe Past Anesthesia/Blood Transfusion Reactions: No Reported Reaction, Motion Sickness Additional Past Anesthesia/Blood Transfusion Reaction / Comment(s): Difficulty waking Date of Last Stent Placement:: 2009 Past Psychological History: Depression Smoking Status: Never smoker Past Alcohol Use History: None Reported Past Drug Use History: None Reported - Past Family History Father Family Medical History: Congestive Heart Failure (CHF), Myocardial Infarction ( [place]) Mother Family Medical History: CVA/TIA Additional Family Medical History / Comment(s): varicose veins General Exam - General Exam Comments Initial Comments: PHYSICAL EXAM: General Impression: Alert and oriented x3, not in acute distress HEENT: Normocephalic atraumatic, extra-ocular movements intact, pupils equal and reactive to light bilaterally, mucous membranes moist. Cardiovascular: Heart regular rate and rhythm, S1&S2 audible, no murmurs, rubs or gallops Chest: Lungs clear to auscultation bilaterally, no rhonchi, no wheeze, no rales Abdomen: Bowel sounds present, abdomen soft, non-tender, non-distended, no organomegaly Musculoskeletal: Pulses present and equal in all extremities, no peripheral edema Motor: Power 5/5 bilaterally, no focal deficits noted Neurological: CN II-XII grossly intact, no focal motor or sensory deficits noted Skin: Exposed bone of the left second toe with dorsal foot erythema. Psych: Normal affect and mood Limitations: no limitations Course Vital Signs 02/28/18 02/28/18 16:51 19:01 Temperature 102.2 F H Pulse Rate 91 93 Respiratory 16 18 Rate Blood Pressure 148/96 174/85 O2 Sat by Pulse 100 98 Oximetry Medical Decision Making - Medical Decision Making ED course: 62 Old male with clinical presentation consistent with infection of the second great toe. Vital signs upon arrival shows tachycardia 102.2. Patient clinical presentation consistent with sepsis secondary to toe infection. She given vancomycin. Blood cultures and labs obtained. Laboratory evaluation obtained. Leukocytosis of 11.3. Hemoglobin 10.9. Rest of CBC unremarkable. Coag panel is negative. Mental Bolick, shows creatinine of 2.01. Glucose 206. No lactic acidosis. Patient given intravenous fluids and started on vancomycin. Discussed patient case with primary care physician was willing to accept admission. Discussed patient case with podiatry resident commonwealth attorney for Dr. Davenport states that she will in contact with Dr. Davenport of podiatry. Dr. Davenport on consult. Chest does no acute processes. There is no clinical suspicion of necrotizing infection. She'll be admitted. EKG Interpretation: A 12 lead EKG was obtained. It was interpreted by myself and attending physician. There is a P wave before every QRS complex. Rate is 85. Rhythm is normal sinus rhythm, PA interval 154, Q mandaen 90, QTC 428. QT is not prolonged. No ST segment depression or elevation.. Overall, this EKG is unremarkable - Lab Data Result diagrams: 02/28/18 18:07 02/28/18 18:07 Lab Results 02/28/18 02/28/18 02/28/18 Range/Units 18:07 18: 18:07 WBC 11.3 H (3.8-10.6) k/uL RBC 3.66 L (4.30-5.90) m/uL Hgb 10.9 L (13.0-17.5) gm/dL Hct 33.5 L (39.0-53.0) % MCV 91.6 (80.0-100.0) fL MCH 29.8 (25.0-35.0) pg MCHC 32.5 (31.0-37.0) g/dL RDW 13.8 (11.5-15.5) % Plt Count 258 (150-450) k/uL Neutrophils % 78 % Lymphocytes % 9 % Monocytes % 9 % Eosinophils % 2 % Basophils % 0 % Neutrophils # 8.8 H (1.3-7.7) k/uL Lymphocytes # 1.0 (1.0-4.8) k/uL Monocytes # 1.0 (0-1.0) k/uL Eosinophils # 0.2 (0-0.7) k/uL Basophils # 0.0 (0-0.2) k/uL PT (9.0-12.0) sec INR (<1.2) APTT (22.0-30.0) sec Sodium 134 L (137-145) mmol/L Potassium 4.5 (3.5-5.1) mmol/L Chloride 101 (98-107) mmol/L Carbon Dioxide 23 (22-30) mmol/L Anion Gap 10 mmol/L BUN 33 H (9-20) mg/dL Creatinine 2.01 H (0.66-1.25) mg/dL Est GFR (CKD-EPI)AfAm 41 (>60 ml/min/1.73 sqM) Est GFR (CKD-EPI)NonAf 35 (>60 ml/min/1.73 sqM) Glucose 206 H (74-99) mg/dL Plasma Lactic Acid Jose A (0.7-2.0) mmol/L Calcium 8.8 (8.4-10.2) mg/dL Total Bilirubin 0.6 (0.2-1.3) mg/dL AST 18 (17-59) U/L ALT 18 L (21-72) U/L Alkaline Phosphatase 78 (38-126) U/L Total Creatine Kinase 96 (55-170) U/L Total Protein 6.5 (6.3-8.2) g/dL Albumin 3.3 L (3.5-5.0) g/dL 02/28/18 02/28/18 Range/Units 18:07 18:07 WBC (3.8-10.6) k/uL RBC (4.30-5.90) m/uL Hgb (13.0-17.5) gm/dL Hct (39.0-53.0) % MCV (80.0-100.0) fL MCH (25.0-35.0) pg MCHC (31.0-37.0) g/dL RDW (11.5-15.5) % Plt Count (150-450) k/uL Neutrophils % % Lymphocytes % % Monocytes % % Eosinophils % % Basophils % % Neutrophils # (1.3-7.7) k/uL Lymphocytes # (1.0-4.8) k/uL Monocytes # (0-1.0) k/uL Eosinophils # (0-0.7) k/uL Basophils # (0-0.2) k/uL PT 10.1 (9.0-12.0) sec INR 1.0 (<1.2) APTT 23.8 (22.0-30.0) sec Sodium (137-145) mmol/L Potassium (3.5-5.1) mmol/L Chloride (98-107) mmol/L Carbon Dioxide (22-30) mmol/L Anion Gap mmol/L BUN (9-20) mg/dL Creatinine (0.66-1.25) mg/dL Est GFR (CKD-EPI)AfAm (>60 ml/min/1.73 sqM) Est GFR (CKD-EPI)NonAf (>60 ml/min/1.73 sqM) Glucose (74-99) mg/dL Plasma Lactic Acid Jose A 1.3 (0.7-2.0) mmol/L Calcium (8.4-10.2) mg/dL Total Bilirubin (0.2-1.3) mg/dL AST (17-59) U/L ALT (21-72) U/L Alkaline Phosphatase (38-126) U/L Total Creatine Kinase (55-170) U/L Total Protein (6.3-8.2) g/dL Albumin (3.5-5.0) g/dL Disposition Clinical Impression: Sepsis Disposition: ADMITTED IP TO THIS HOSP Condition: Good Referrals: Kayode Lau MD [Primary Care Provider] - 1-2 days Decision Time: 19:41
[2018-02-28] MEDS ORDERED: VANCOMYCIN 1,500 MG in SODIUM CHLORIDE 0.9% 250 ML IVPB STA (18:32)
[2018-02-28] MEDS: SODIUM CHLORIDE 0.9% 500 ML IV SCH ×2 (18:59→19:31)
[2018-02-28 19:08] LABS: Basophils % (A) 0 %; Eosinophils # (A) 0.2 k/uL (0-0.7); Eosinophils % (A) 2 %; HCT 33.5 % (39.0-53.0); HGB 10.9 gm/dL (13.0-17.5); Lymphocytes % (A) 9 %; MCH 29.8 pg (25.0-35.0); MCHC 32.5 g/dL (31.0-37.0); MCV 91.6 fL (80.0-100.0); Monocytes % (A) 9 %; Neutrophils # (A) 8.8 k/uL (1.3-7.7); Neutrophils % (A) 78 %; Platelet Count 258 k/uL (150-450); RBC 3.66 m/uL (4.30-5.90); RDW 13.8 % (11.5-15.5); WBC 11.3 k/uL (3.8-10.6)
[2018-02-28 19:21] LABS: Albumin 3.3 g/dL (3.5-5.0); Calcium 8.8 mg/dL (8.4-10.2); Potassium 4.5 mmol/L (3.5-5.1); Total Bilirubin 0.6 mg/dL (0.2-1.3); Total Protein 6.5 g/dL (6.3-8.2)
[2018-02-28 19:22] LABS: Partial Thromboplastin Time 23.8 sec (22.0-30.0); Prothrombin Time 10.1 sec (9.0-12.0)
--- NOTE | 2018-02-28 19:24 | XR ---
EXAMINATION TYPE: XR chest 2V DATE OF EXAM: 02/28/2018 COMPARISON: NONE HISTORY: Fever TECHNIQUE: Frontal and lateral views of the chest are obtained. FINDINGS: There is elevated right diaphragm. There is no heart failure nor confluent pneumonic infil trate. Thoracic aorta is atheromatous. There are chest leads. Bony thorax is intact. IMPRESSION: There is elevated right diaphragm that could relate to partial paralysis. Normal heart.
[2018-02-28 19:32] LABS: Creatine Kinase 96 U/L (55-170)
[2018-02-28 19:44] LABS: Creatine Kinase MB 1.7 ng/mL (0.0-2.4); Troponin I <0.012 ng/mL (0.000-0.034)
[2018-02-28 19:56] LABS: Appearance,Urine Clear (Clear); Bilirubin,Urine Negative (Negative); Blood,Urine Small (Negative); Color,Urine Light Yellow; Glucose,Urine (UA) 3+ (Negative); Ketones,Urine Negative (Negative); Leukocyte Esterase,Urine Negative (Negative); Mucus,Urine Rare /hpf; Nitrite,Urine Negative (Negative); Protein,Urine 3+ (Negative); RBC,Urine 5 /hpf (0-5); Urobilinogen,Urine <2.0 mg/dL (<2.0); WBC,Urine 1 /hpf (0-5)
--- NOTE | 2018-02-28 21:39 | XR ---
EXAMINATION TYPE: XR foot complete LT DATE OF EXAM: 02/28/2018 COMPARISON: 11/22/2017 HISTORY: Foot pain TECHNIQUE: 3 views FINDINGS: There are destructive changes involving the middle toe. There is absence of the distal and middle phalanx of the third toe. There is transverse fracture of the head of the proximal phalanx of the third toe. There are small erosion on the medial aspect first metatarsal head. There is a moderat e plantar calcaneal spur. There is soft tissue swelling of the forefoot. IMPRESSION: Destructive changes in the third toe consistent with osteomyelitis that has progressed co mpared to last exam. New fracture of the head of the proximal phalanx of the third toe.
[2018-02-28] MEDS ORDERED: cefTRIAXone IN SWFI 2,000 MG/20 ML SYRINGE IVP STA (22:01)
[2018-03-01 00:35] LABS: Glucose,Whole Blood 238 mg/dL (75-99)
[2018-03-01 00:55] VITALS: BMI 28.8
[2018-03-01] MEDS: INSULIN DETEMIR 100 UNIT/ML 10 ML VIAL SQ SCH ×2 (02:12→21:40)
[2018-03-01 07:16] LABS: Glucose,Whole Blood 193 mg/dL (75-99)
[2018-03-01] MEDS: CARVEDILOL 6.25 MG TAB PO SCH ×2 (08:11→17:40)
[2018-03-01] MEDS: LISINOPRIL 20 MG TAB PO SCH (08:11)
[2018-03-01] MEDS: INSULIN ASPART 100 UNIT/ML 1 ML 10 ML VIAL SQ SCH ×3 (08:16→17:40)
[2018-03-01] MEDS: LACTATED RINGERS 1,000 ML IV SCH ×3 (08:18→21:37)
[2018-03-01 11:54] LABS: Glucose,Whole Blood 88 mg/dL (75-99)
[2018-03-01 17:36] LABS: Glucose,Whole Blood 187 mg/dL (75-99)
[2018-03-01] MEDS ORDERED: VANCOMYCIN 1,500 MG in SODIUM CHLORIDE 0.9% 250 ML IVPB SCH (19:00)
[2018-03-01 21:01] LABS: Glucose,Whole Blood 296 mg/dL (75-99)
[2018-03-01] MEDS: GABAPENTIN 100 MG CAP PO SCH (21:38)
--- NOTE | 2018-03-01 22:29 | PN ---
PROGRESS NOTE CHIEF COMPLAINT: Diabetic ulcer secondary infection of the left 2nd toe. HISTORY OF PRESENT ILLNESS: This gentleman is comfortable. He has been seen by Vascular Surgery who wants Podiatry to handle this. Patient is concerned and would like a second opinion. PHYSICAL EXAM: Chest is clear. Cardiac exam is normal. The abdomen is soft, nontender. The foot looks about the same with probable osteomyelitis in 2nd toe. IMPRESSION: 1. Osteomyelitis in the left 2nd toe. 2. Poorly-controlled diabetes mellitus. 3. Peripheral vascular disease and diabetic small vessel disease. PLAN: Continue with elevation, antibiotics and obtained further surgical consultation. MMODL / IJN: [id number] /
--- NOTE | 2018-03-01 22:50 | HP ---
HISTORY AND PHYSICAL CHIEF COMPLAINT: Pain, redness, cellulitis, infection of the left 2nd toe and left foot. HISTORY OF PRESENT ILLNESS: This is another admission for this 62-year-old noncompliant diabetic. He has had diabetic infections involving the left foot for which he has already lost one toe. Recently, he was treated for osteomyelitis again of the left 2nd toe and had a procedure of this a few days ago by his care analyst and then his toe started to become much more painful, red and swollen as well as did the distal foot and he came to the emergency room. REVIEW OF SYSTEMS: He has had no chills, fever, neurologic problems, chest pain, shortness of breath, abdominal pain, vomiting, etc. PAST MEDICAL HISTORY, FAMILY HISTORY, PERSONAL AND SOCIAL HISTORY: Can all be found in his previous admitting and discharge summaries and are otherwise unchanged. He believes that he takes care of his diabetes, but he does not. His hemoglobin A1cs are always around 10 or more. PHYSICAL EXAMINATION: Blood pressure 136/85 with a pulse of 83, respirations 24 and he is afebrile. In general, he appeared to be well-developed, well-nourished, in acute distress. Skin color is normal and the skin is warm and dry. Lymph nodes not enlarged. Head, ears, eyes, nose, mouth, and throat were normal. Neck veins are not distended. Thyroid is not enlarged. Chest is clear. Cardiac is normal. The abdomen is soft, nontender. Extremities are normal except for the left foot, which is edematous and erythematous. The left 2nd toe is very edematous and the end of the toes open with a serosanguineous purulent drainage. Pulses cannot be palpated due to the edema. He is admitted to the hospital with diagnoses: 1. Gangrene of the left the left 2nd toe with cellulitis of the distal foot. 2. Uncontrolled diabetes. PLAN: 1. Bed rest. 2. IV fluids. 3. Antibiotics. 4. Vascular Surgery consult. MMODL / IJN: [id number] /
[2018-03-01] MEDS: ACETAMINOPHEN TAB 325 MG TAB PO PRN (23:16)
[2018-03-02 06:51] LABS: Glucose,Whole Blood 54 mg/dL (75-99)
[2018-03-02 07:13] LABS: Glucose,Whole Blood 65 mg/dL (75-99)
[2018-03-02] MEDS: INSULIN ASPART 100 UNIT/ML 1 ML 10 ML VIAL SQ SCH ×3 (07:18→18:06)
[2018-03-02] MEDS: LISINOPRIL 20 MG TAB PO SCH (07:19)
[2018-03-02] MEDS: CARVEDILOL 6.25 MG TAB PO SCH ×2 (07:20→16:58)
[2018-03-02 07:31] LABS: Glucose,Whole Blood 70 mg/dL (75-99)
[2018-03-02] MEDS: LACTATED RINGERS 1,000 ML IV SCH (08:12)
[2018-03-02] MEDS: SODIUM CHLORIDE 0.9% 1,000 ML IV SCH ×2 (08:41→18:04)
[2018-03-02 08:54] LABS: Glucose,Whole Blood 192 mg/dL (75-99)
[2018-03-02 11:15] LABS: Calcium 8.8 mg/dL (8.4-10.2); Potassium 4.4 mmol/L (3.5-5.1)
[2018-03-02 11:33] LABS: Glucose,Whole Blood 252 mg/dL (75-99)
--- NOTE | 2018-03-02 13:25 | PN ---
PROGRESS NOTE CHIEF COMPLAINT: 1. Gangrene of the left 2nd toe and foot. 2. Uncontrolled diabetes. HISTORY OF PRESENT ILLNESS: This patient is fairly comfortable. Blood sugars are a little low. He probably does not take all the insulin at home that he is supposed to and we will cut down his hospital dose. PHYSICAL EXAM: Chest is clear. Cardiac exam is normal. The foot is dressed. IMPRESSION: 1. Osteomyelitis of the left 2nd toe and possibly the left foot. 2. Uncontrolled hypertension at 183/86. PLAN: 1. Decrease insulin. 2. White blood cell labeled scan of the left foot. 3. Await recommendations of Surgery. MMODL / IJN: [id number] /
[2018-03-02] MEDS: VANCOMYCIN 1,500 MG in SODIUM CHLORIDE 0.9% 250 ML IVPB SCH (13:27)
--- NOTE | 2018-03-02 15:34 | P.GSCN ---
History of Present Illness Consult date: 03/02/18 Reason for Consult: Anchoring left second toe Requesting physician: Kayode Lau History of present illness: Patient is a 8-year-old male who presents for evaluation reference to nonhealing surgical wound of the distal tip second toe. Patient recently developed gangrenous changes of the distal tip of the second toe for which he underwent medication recently. This wound has heal and now demonstrates laura gangrenous change. Review of Systems - Constitutional Reports as per HPI - Respiratory Reports as per HPI - Gastrointestinal Reports as per HPI - Genitourinary Reports as per HPI - Integumentary Reports as per HPI (Nonhealing wound distal tip of the left second toe), Denies rash, Denies unusual bruising - Neurological Denies headaches, Denies syncope - Endocrine Reports as per HPI (Diabetes mellitus 10 years) - Allergic/Immunologic Reports as per HPI Past Medical History Past Medical History: Diabetes Mellitus, Hyperlipidemia, Hypertension, Musculoskeletal Disorder Additional Past Medical History / Comment(s): hx retinal bleeding with laser tx , diabetic neuropathy, states blisters on toes. back pain, Last Myocardial Infarction Date:: 2009 History of Any Multi-Drug Resistant Organisms: MRSA Year Discovered:: 11/29/17 MDRO Source:: toe Past Surgical History: Heart Catheterization With Stent, Hernia Repair ( Amputation distal portion of the second toe left foot), Tonsillectomy Additional Past Surgical History / Comment(s): LEFT INGUINAL HERNIA (SEPTEMBER 2014) . ULNAR NERVE SC BILAT HANDS AND ELBOWS. COLONOSCOPY, Partial amputation to middle toe, left toe surgery Past Anesthesia/Blood Transfusion Reactions: No Reported Reaction, Motion Sickness Additional Past Anesthesia/Blood Transfusion Reaction / Comm: Difficulty waking Date of Last Stent Placement:: 2009 Past Psychological History: Depression Additional Psychological History / Comment(s): has 2 adult sons. 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 No recreational drug use no history of smoking Smoking Status: Never smoker Past Alcohol Use History: None Reported Past Drug Use History: None Reported - Past Family History Father Family Medical History: Congestive Heart Failure (CHF), Myocardial Infarction ( [place]) Mother Family Medical History: CVA/TIA Additional Family Medical History / Comment(s): varicose veins Medications and Allergies Home Medications Medication Instructions Recorded Confirmed Type Atorvastatin [Lipitor] 80 mg PO HS 08/19/02/28/18 History Carvedilol [Coreg] 6.25 mg PO BID 08/19/14 02/28/18 History Gabapentin [Neurontin] 200 mg PO HS 08/19/14 02/28/18 History Insulin Aspart [NovoLOG Flexpen] 10 units SQ AC-BID 08/19/14 02/28/18 History Ergocalciferol [Vitamin D2 50,000 unit PO Q14D 05/02/17 02/28/18 History (DRISDOL)] Lisinopril 40 mg PO DAILY 11/04/17 02/28/18 History Insulin Glargine,Hum.rec.anlog 18 unit SQ HS 12/09/17 02/28/18 History [Basaglar Kwikpen U-100] Doxycycline Monohydrate 100 mg PO BID 02/28/18 02/28/18 History [Vibramycin] Allergies Allergy/AdvReac Type Severity Reaction Status Date / Time Sulfa (Sulfonamide Allergy Unknown Verified 02/28/18 18:35 Antibiotics) clindamycin AdvReac Unknown High BP , Verified 02/28/18 18:35 Nausea & Vomiting & Diarrhea codeine AdvReac Nausea & Verified 02/28/18 18:35 Vomiting morphine AdvReac Nausea & Verified 02/28/18 18:35 Vomiting sulfamethoxazole AdvReac Nausea & Verified 02/28/18 18:35 [From Bactrim] Vomiting & Diarrhea trimethoprim [From Bactrim] AdvReac Nausea & Verified 02/28/18 18:35 Vomiting & Diarrhea Surgical - Exam Osteopathic Statement: *. No significant issues noted on an osteopathic structural exam other than those noted in the History and Physical/Consult. Vital Signs Temp Pulse Resp BP Pulse Ox 102.2 F H 91 16 148/96 100 02/28/18 16:51 02/28/18 16:51 02/28/18 16:51 02/28/18 16:51 02/28/18 16:51 - Eyes PERRL - Neck no masses, no bruits, trachea midline, no lymphadectomy, no venous distension thyroid nodule: absent, lymphadenopathy: absent, carotid bruit: absent - Respiratory normal expansion, normal respiratory effort, clear to percussion, clear to auscultation - Cardiovascular Rhythm: regular - Abdomen Abdomen: soft, non tender Hernia: none - Musculoskeletal other (Open wound with ischemic/nonviable tissue distal to the second toe left foot.) - Psychiatric oriented to time, oriented to person, oriented to place, speech is normal, memory intact Results - Labs 02/28/18 18:07 03/02/18 10:46 Abnormal Lab Results - Last 24 Hours (Table) 03/01/18 03/01/18 03/02/18 Range/Units 17:30 20:51 06:50 Chloride (98-107) mmol/L BUN (9-20) mg/dL Creatinine (0.66-1.25) mg/dL Glucose (74-99) mg/dL POC Glucose (mg/dL) 187 H 296 H 54 L (75-99) mg/dL 03/02/18 03/02/18 03/02/18 Range/Units 07:12 07:30 08:52 Chloride (98-107) mmol/L BUN (9-20) mg/dL Creatinine (0.66-1.25) mg/dL Glucose (74-99) mg/dL POC Glucose (mg/dL) 65 L 70 L 192 H (75-99) mg/dL 03/02/18 03/02/18 Range/Units 10:46 11:31 Chloride 108 H (98-107) mmol/L BUN 22 H (9-20) mg/dL Creatinine 1.47 H (0.66-1.25) mg/dL Glucose 216 H (74-99) mg/dL POC Glucose (mg/dL) 252 H (75-99) mg/dL Microbiology - Last 24 Hours (Table) 02/28/18 19:44 Urine Culture - Final Urine,Voided 02/28/18 18:07 Blood Culture - Preliminary Blood No Growth after 24 hours Diabetes panel 03/02/18 Range/Units 10:46 Sodium 140 (137-145) mmol/L Potassium 4.4 (3.5-5.1) mmol/L Chloride 108 H (98-107) mmol/L Carbon Dioxide 24 (22-30) mmol/L BUN 22 H (9-20) mg/dL Creatinine 1.47 H (0.66-1.25) mg/dL Glucose 216 H (74-99) mg/dL Calcium 8.8 (8.4-10.2) mg/dL Calcium panel 03/02/18 Range/Units 10:46 Calcium 8.8 (8.4-10.2) mg/dL Pituitary panel 03/02/18 Range/Units 10:46 Sodium 140 (137-145) mmol/L Potassium 4.4 (3.5-5.1) mmol/L Chloride 108 H (98-107) mmol/L Carbon Dioxide 24 (22-30) mmol/L BUN 22 H (9-20) mg/dL Creatinine 1.47 H (0.66-1.25) mg/dL Glucose 216 H (74-99) mg/dL Calcium 8.8 (8.4-10.2) mg/dL Adrenal panel 03/02/18 Range/Units 10:46 Sodium 140 (137-145) mmol/L Potassium 4.4 (3.5-5.1) mmol/L Chloride 108 H (98-107) mmol/L Carbon Dioxide 24 (22-30) mmol/L BUN 22 H (9-20) mg/dL Creatinine 1.47 H (0.66-1.25) mg/dL Glucose 216 H (74-99) mg/dL Calcium 8.8 (8.4-10.2) mg/dL Assessment and Plan Assessment: #1 diabetic vascular disease with nonhealing surgical wound left great toe with associated osteomyelitis and fracture. Plan: Amputation of the second toe left foot. This we scheduled to be performed tomorrow. The procedure, risk and benefits were discussed with the patient patient wished to proceed. In the interim we will continue with local wound care and IV antibiotics. Time with Patient: Greater than 30
[2018-03-02] MEDS: ACETAMINOPHEN TAB 325 MG TAB PO PRN (17:06)
--- NOTE | 2018-03-02 17:16 | CONS ---
CONSULTATION This is a 62-year-old diabetic male. The patient came with a history of partial toe amputation done by Dr. Davenport last week and the patient has developed dehiscence of the stump of the left foot second toe and the patient was seen by Dr. Davenport and referred to the hospital. MEDICAL HISTORY: History of diabetes. No history of hypertension. No history of coronary artery disease. PHYSICAL EXAMINATION: Patient was seen in his room. NECK: Supple. Trachea central. CHEST: Clear to auscultation. ABDOMEN: Soft. Femoral pulses are present. Dorsal pedis is 1+. Patient has a left foot partial toe amputation with stump site dehiscence. No active drainage noted. Foot is warm. PLAN: Continue to the local wound care. Dr. Davenport is on consult. Most likely this gentleman needs a revision of the left foot second toe. We will follow with you. OPHELIA / MARYN: [id number] /
[2018-03-02 17:29] LABS: Glucose,Whole Blood 210 mg/dL (75-99)
[2018-03-02] MEDS: PIPERACILLIN-TAZOBACTAM 3.375 GM in DEXTROSE/WATER 1 50ML.BAG IVPB SCH (19:06)
[2018-03-02 20:19] LABS: Glucose,Whole Blood 200 mg/dL (75-99)
[2018-03-02] MEDS: INSULIN DETEMIR 100 UNIT/ML 10 ML VIAL SQ SCH (22:12)
[2018-03-02] MEDS: GABAPENTIN 100 MG CAP PO SCH (22:12)
--- NOTE | 2018-03-02 22:52 | P.CONS ---
History of Present Illness - Reason for Consult Consult date: 03/02/18 - Chief Complaint Gangrene third toe left foot - History of Present Illness 62-year-old male presents With significant worsening to the changes of the left foot third toe. He is being followed by podiatry in the outpatient setting. He's had some debridement and antibiotic therapy. Despite this does not been rapid in significant worsening to the structural changes to that toe, there appears to be pathological fracture as well as significant osteomyelitis and bony destruction. With these difficulties the infectious disease consultation and vascular surgery consults have been requested. The patient clearly understands that he will have another toe amputation due to this acute infectious necrotic toe. He fortunately has not feeling badly. He is working to improve his hemoglobin A1c. He is quite an active man, participates in judo , maintains his weight and does attempt to eat well despite this he is having some difficulties with an elevated A1c. He does state that if he thought he would lived to be this old he would've taken better care of himself. He is not having high-grade fevers chills or rigors. Blood sugars elevated but he does not have nausea or emesis or other acute new changes except to the foot. Review of Systems Patient is not having high-grade fevers or chills HEENT:Denies headache or acute visual change. Denies sinus or mouth discomforts. Denies neck stiffness or pain. Denies significant oral cavity pain. Denies difficulty on swallowing. Lungs: Denies significant shortness of breath, cough, sputum production, or hemoptysis. Cardiovascular: Denies significant shortness of breath, chest pain, chest wall pain, orthopnea, dyspnea on exertion, syncope Gastrointestinal:Denies nausea, vomiting, diarrhea, constipation, hematemesis, melena, hematochezia. No no significant change of bowel habit noticed. Musculoskeletal: Joints without acute change but does have the marked changes to the left foot third toe has had prior second toe amputation Skin: As per the HPI ulceration and bony exposure to the third toe left foot Neuro: Denies headache or visual change. Denies any new onset weakness or difficulty with ambulation. Denies falls or seizures. Psychiatric: Is having some difficulties with anxiety related to his disease state. Endocrine: Denies significant fatigue, denies significant weight loss or weight gain. Past Medical History Past Medical History: Diabetes Mellitus, Hyperlipidemia, Hypertension, Musculoskeletal Disorder Additional Past Medical History / Comment(s): hx retinal bleeding with laser tx , diabetic neuropathy, states blisters on toes. back pain, Last Myocardial Infarction Date:: 2009 History of Any Multi-Drug Resistant Organisms: MRSA Year Discovered:: 11/29/17 MDRO Source:: toe Past Surgical History: Heart Catheterization With Stent, Hernia Repair ( Amputation distal portion of the second toe left foot), Tonsillectomy Additional Past Surgical History / Comment(s): LEFT INGUINAL HERNIA (SEPTEMBER 2014) . ULNAR NERVE SC BILAT HANDS AND ELBOWS. COLONOSCOPY, Partial amputation to second toe, left toe surgery Past Anesthesia/Blood Transfusion Reactions: No Reported Reaction, Motion Sickness Additional Past Anesthesia/Blood Transfusion Reaction / Comm: Difficulty waking Date of Last Stent Placement:: 2009 Past Psychological History: Depression Additional Psychological History / Comment(s): has 2 adult sons. 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 No animals. No recreational drug use no history of smoking. No experience. No recent international travel. Up-to-date in his tetanus vaccine Smoking Status: Never smoker Past Alcohol Use History: None Reported Past Drug Use History: None Reported - Past Family History Father Family Medical History: Congestive Heart Failure (CHF), Myocardial Infarction ( [place]) Mother Family Medical History: CVA/TIA Additional Family Medical History / Comment(s): varicose veins Medications and Allergies Home Medications and Allergies Comment(s): Current Medications Acetaminophen (Tylenol Tab) 650 mg PO Q4HR PRN PRN Reason: Fever and/ or Pain Last Admin: 03/02/18 17:06 Dose: 650 mg Carvedilol (Coreg) 6.25 mg PO BID-W/MEALS [facility] Last Admin: 03/02/18 16:58 Dose: 6.25 mg Gabapentin (Neurontin) 200 mg PO HS [facility] Last Admin: 03/02/18 22:12 Dose: 200 mg Sodium Chloride (Saline 0.9%) 1,000 mls @ 100 mls/hr IV .Q10H [facility] Last Admin: 03/02/18 18:04 Dose: 100 mls/hr Vancomycin HCl 1,500 mg/ (Sodium Chloride) 250 mls @ 125 mls/hr IVPB Q16H [facility] Last Admin: 03/02/18 13:27 Dose: 125 mls/hr Piperacillin/Tazobactam/ (Dextrose 3.375 gm/ IV Solution) 50 mls @ 12.5 mls/hr IVPB Q8HR [facility] Last Admin: 03/02/18 19:06 Dose: 12.5 mls/hr Insulin Aspart (Novolog) 10 unit SQ AC-BID [facility] Last Admin: 03/02/18 18:06 Dose: 10 unit Insulin Detemir (Levemir) 18 unit SQ HS [facility] Last Admin: 03/02/18 22:12 Dose: 18 unit Lisinopril (Zestril) 40 mg PO DAILY [facility] Last Admin: 03/02/18 07:19 Dose: 40 mg Home Medications Medication Instructions Recorded Confirmed Type Atorvastatin [Lipitor] 80 mg PO HS 08/19/14 02/28/18 History Carvedilol [Coreg] 6.25 mg PO BID 08/19/14 02/28/18 History Gabapentin [Neurontin] 200 mg PO HS 08/19/14 02/28/18 History Insulin Aspart [NovoLOG Flexpen] 10 units SQ AC-BID 08/19/14 02/28/18 History Ergocalciferol [Vitamin D2 50,000 unit PO Q14D 05/02/17 02/28/18 History (DRISDOL)] Lisinopril 40 mg PO DAILY 11/04/17 02/28/18 History Insulin Glargine,Hum.rec.anlog 18 unit SQ 12/09/17 02/28/18 History [Basaglar Kwikpen U-100] Doxycycline Monohydrate 100 mg PO BID 02/28/18 02/28/18 History [Vibramycin] Allergies Allergy/AdvReac Type Severity Reaction Status Date / Time Sulfa (Sulfonamide Allergy Unknown Verified 02/28/18 18:35 Antibiotics) clindamycin AdvReac Unknown High BP , Verified 02/28/18 18:35 Nausea & Vomiting & Diarrhea codeine AdvReac Nausea & Verified 02/28/18 18:35 Vomiting morphine AdvReac Nausea & Verified 02/28/18 18:35 Vomiting sulfamethoxazole AdvReac Nausea & Verified 02/28/18 18:35 [From Bactrim] Vomiting & Diarrhea trimethoprim [From Bactrim] AdvReac Nausea & Verified 02/28/18 18:35 Vomiting & Diarrhea Physical Exam Vitals: Vital Signs Temp Pulse Resp BP Pulse Ox 03/02/18 15:16 22 03/02/18 13:15 98.0 F 82 22 159/78 97 03/02/18 07:05 97.8 F 63 22 183/86 98 03/02/18 00:00 81 18 03/01/18 23:00 98.7 F 81 18 165/86 97 Intake and Output 03/02/18 03/02/18 03/02/18 06:59 14:59 22:59 Intake Total 240 1930 230 Balance 240 1930 230 Intake: Intake, IV Titration 1150 50 Amount Piperacillin-Tazobactam 3 50 .375 gm In Dextrose/Water 1 50ml.bag @ 12.5 mls/hr IVPB Q8HR [facility] Rx#: [id number] Sodium Chloride 0.9% 1, 900 000 ml @ 100 mls/hr IV . Q10H [facility] Rx#:[id number] Vancomycin 1,500 mg In 250 Sodium Chloride 0.9% 250 ml @ 125 mls/hr IVPB Q16H [facility] Rx#:[id number] Oral 240 780 180 Other: Voiding Method Toilet Toilet # Voids 2 3 1 Weight 91.172 kg 91.172 kg 91.172 kg Pleasant 62-year-old male who is of appropriate build and is not in acute distress HEENT: Anicteric conjunctiva are pink and moist nasal mucosa grossly intact without significant lesions, there is no thrush. Neck: The neck is supple without significant lymphadenopathy or thyromegaly. Lungs: Good bilateral air entry without significant crackles or wheezing. There is no significant bronchial sounds. There is no egophony or dullness. Heart: Regular rate and rhythm with an audible S1-S2, no S3 no S4. There is no significant murmur click or rub, PMI was nondisplaced. Abdomen: Positive bowel sounds soft and nontender without palpable masses or organomegaly. There was no guarding or rebound. Extremities: The upper extremities have excellent pulses they are symmetric, no significant petechiae or telangiectasia. No splinter hemorrhages were noted. Right lower extremity is without significant edema or lesions. The left lower extremity shows evidence of the prior amputation to the second toe. The third toe has evidence of swelling, deformity, evidence of exposed bone and necrosis. There is evidence of easily palpable pulses in the bilateral feet. Neuro: Awake alert oriented to person place and time. Does have evidence of markedly decreased sensation to the bilateral feet. Results CBC & Chem 7: 02/28/18 18:07 03/02/18 10:46 Labs: Abnormal Lab Results - Last 24 Hours (Table) 03/02/18 03/02/18 03/02/18 Range/Units 06:50 07:12 07:30 ESR (0-15) mm/hr Chloride (98-107) mmol/L BUN (9-20) mg/dL Creatinine (0.66-1.25) mg/dL Glucose (74-99) mg/dL POC Glucose (mg/dL) 54 L 65 L 70 L (75-99) mg/dL C-Reactive Protein (<10.0) mg/L 03/02/18 03/02/18 03/02/18 Range/Units 08:52 09:00 09:00 ESR 99 H (0-15) mm/hr Chloride (98-107) mmol/L BUN (9-20) mg/dL Creatinine (0.66-1.25) mg/dL Glucose (74-99) mg/dL POC Glucose (mg/dL) 192 H (75-99) mg/dL C-Reactive Protein 60.1 H (<10.0) mg/L 03/02/18 03/02/18 03/02/18 Range/Units 10:46 11:31 17:27 ESR (0-15) mm/hr Chloride 108 H (98-107) mmol/L BUN 22 H (9-20) mg/dL Creatinine 1.47 H (0.66-1.25) mg/dL Glucose 216 H (74-99) mg/dL POC Glucose (mg/dL) 252 H 210 H (75-99) mg/dL C-Reactive Protein (<10.0) mg/L 03/02/18 Range/Units 20:17 ESR (0-15) mm/hr Chloride (98-107) mmol/L BUN (9-20) mg/dL Creatinine (0.66-1.25) mg/dL Glucose (74-99) mg/dL POC Glucose (mg/dL) 200 H (75-99) mg/dL C-Reactive Protein (<10.0) mg/L Microbiology - Last 24 Hours (Table) 02/28/18 18:07 Blood Culture - Preliminary Blood No Growth after 48 hours 02/28/18 19:44 Urine Culture - Final Urine,Voided Laboratory Results WBC 11.3 k/uL (3.8-10.6) H 02/28/18 18:07 RBC 3.66 m/uL (4.30-5.90) L 02/28/18 18:07 Hgb 10.9 gm/dL (13.0-17.5) L 02/28/18 18:07 Hct 33.5 % (39.0-53.0) L 02/28/18 18:07 MCV 91.6 fL (80.0-100.0) 02/28/18 18:07 MCH 29.8 pg (25.0-35.0) 02/28/18 18:07 MCHC 32.5 g/dL (31.0-37.0) 02/28/18 18:07 RDW 13.8 % (11.5-15.5) 02/28/18 18:07 Plt Count 258 k/uL (150-450) 02/28/18 18:07 Neutrophils % 78 % 02/28/18 18:07 Lymphocytes % 9 % 02/28/18 18:07 Monocytes % 9 % 02/28/18 18:07 Eosinophils % 2 % 02/28/18 18:07 Basophils % 0 % 02/28/18 18:07 Neutrophils # 8.8 k/uL (1.3-7.7) H 02/28/18 18:07 Lymphocytes # 1.0 k/uL (1.0-4.8) 02/28/18 18:07 Monocytes # 1.0 k/uL (0-1.0) 02/28/18 18:07 Eosinophils # 0.2 k/uL (0-0.7) 02/28/18 18:07 Basophils # 0.0 k/uL (0-0.2) 02/28/18 18:07 ESR 99 mm/hr (0-15) H 03/02/18 09:00 PT 10.1 sec (9.0-12.0) 02/28/18 18:07 INR 1.0 (<1.2) 02/28/18 18:07 APTT 23.8 sec (22.0-30.0) 02/28/18 18:07 Sodium 140 mmol/L (137-145) 03/02/18 10:46 Potassium 4.4 mmol/L (3.5-5.1) 03/02/18 10:46 Chloride 108 mmol/L (98-107) H 03/02/18 10:46 Carbon Dioxide 24 mmol/L (22-30) 03/02/18 10:46 Anion Gap 8 mmol/L 03/02/18 10:46 BUN 22 mg/dL (9-20) H 03/02/18 10:46 Creatinine 1.47 mg/dL (0.66-1.25) H 03/02/18 10:46 Est GFR (CKD-EPI)AfAm 59 (>60 ml/min/1.73 sqM) 03/02/18 10:46 Est GFR (CKD-EPI)NonAf 51 (>60 ml/min/1.73 sqM) 03/02/18 10:46 Glucose 216 mg/dL (74-99) H 03/02/18 10:46 POC Glucose (mg/dL) 200 mg/dL (75-99) H 03/02/18 20:17 POC Glu [employer] Sajan Gillian 03/02/18 20:17 Plasma Lactic Acid Jose A 1.3 mmol/L (0.7-2.0) 02/28/18 18:07 Calcium 8.8 mg/dL (8.4-10.2) 03/02/18 10:46 Total Bilirubin 0.6 mg/dL (0.2-1.3) 02/28/18 18:07 AST 18 U/L (17-59) 02/28/18 18:07 ALT 18 U/L (21-72) L 02/28/18 18:07 Alkaline Phosphatase 78 U/L (38-126) 02/28/18 18:07 Total Creatine Kinase 96 U/L (55-170) 02/28/18 18:07 CK-MB (CK-2) 1.7 ng/mL (0.0-2.4) 02/28/18 18:07 CK-MB (CK-2) Rel Index 1.8 02/28/18 18:07 Troponin I <0.012 ng/mL (0.000-0.034) 02/28/18 18:07 C-Reactive Protein 60.1 mg/L (<10.0) H 03/02/18 09:00 Total Protein 6.5 g/dL (6.3-8.2) 02/28/18 18:07 Albumin 3.3 g/dL (3.5-5.0) L 02/28/18 18:07 Urine Color Light Yellow 02/28/18 19:44 Urine Appearance Clear (Clear) 02/28/18 19:44 Urine pH 6.0 (5.0-8.0) 02/28/18 19:44 Ur Specific [place] 1.010 (1.001-1.035) 02/28/18 19:44 Urine Protein 3+ (Negative) H 02/28/18 19:44 Urine Glucose (UA) 3+ (Negative) H 02/28/18 19:44 Urine Ketones Negative (Negative) 02/28/18 19:44 Urine Blood Small (Negative) H 02/28/18 19:44 Urine Nitrite Negative (Negative) 02/28/18 19:44 Urine Bilirubin Negative (Negative) 02/28/18 19:44 Urine Urobilinogen <2.0 mg/dL (<2.0) 02/28/18 19:44 Ur Leukocyte Esterase Negative (Negative) 02/28/18 19:44 Urine RBC 5 /hpf (0-5) 02/28/18 19:44 Urine WBC 1 /hpf (0-5) 02/28/18 19:44 Urine Mucus Rare /hpf (None) H 02/28/18 19:44 Microbiology 02/28/18 18:07 Blood Blood Culture - Preliminary No Growth after 48 hours 02/28/18 19:44 Urine,Voided Urine Culture - Final Assessment and Plan (1) Cellulitis and abscess of toe of left foot Current Visit: No Status: Acute Code(s): L03.032 - CELLULITIS OF LEFT TOE; L02.612 - CUTANEOUS ABSCESS OF LEFT FOOT SNOMED Code(s): 239406809 (2) Diabetic ulcer of foot associated with type 2 diabetes mellitus, with necrosis of bone Narrative/Plan: 62-year-old male who has a long-standing history of diabetes mellitus type 2 with developed marked worsening to the third toe despite outpatient treatment. With the failure of the outpatient treatment he has now been admitted and is receiving local wound care with a silver foam dressing. The patient has been evaluated by vascular surgery and this service is in complete agreement of the need for amputation of the gangrenous third toe. At this time appears to be no invasion into the foot proper and it appears to only have the toe amputation with flap closure at the time of the procedure. He will be continued to be treated with antibiotic therapy at this time with Zosyn and vancomycin pending further culture data. They will also help direct oral antibiotic therapy discharge. However findings at surgery could change this plan. The leukocytosis is due to the current infection and sepsis from the left foot. Continue to work diligently to improve his blood glucose and glucose control. We'll limit the vancomycin therapy as quickly as possible. But does have a history of MRSA infection. Maximize nutrition protein intake and multivitamin therapy. Patient believes is up-to-date on his tetanus vaccine. Current Visit: No Status: Acute Code(s): E11.621 - TYPE 2 DIABETES MELLITUS WITH FOOT ULCER; L97.504 - NON-PRS CHRONIC ULCER OTH PRT UNSP FOOT W NECROSIS OF BONE SNOMED Code(s): 6007360897210
[2018-03-03] MEDS: PIPERACILLIN-TAZOBACTAM 3.375 GM in DEXTROSE/WATER 1 50ML.BAG IVPB SCH ×4 (00:01→23:46)
[2018-03-03] MEDS: ACETAMINOPHEN TAB 325 MG TAB PO PRN (00:02)
[2018-03-03 02:36] LABS: Glucose,Whole Blood 248 mg/dL (75-99)
[2018-03-03] MEDS: SODIUM CHLORIDE 0.9% 1,000 ML IV SCH ×3 (05:02→16:21)
[2018-03-03] MEDS: VANCOMYCIN 1,500 MG in SODIUM CHLORIDE 0.9% 250 ML IVPB SCH ×2 (05:49→22:16)
[2018-03-03 07:10] LABS: Glucose,Whole Blood 166 mg/dL (75-99)
[2018-03-03] MEDS: INSULIN ASPART 100 UNIT/ML 1 ML 10 ML VIAL SQ SCH ×2 (07:45→17:31)
[2018-03-03] MEDS: LISINOPRIL 20 MG TAB PO SCH (07:46)
[2018-03-03] MEDS: CARVEDILOL 6.25 MG TAB PO SCH ×2 (07:47→16:22)
[2018-03-03 11:45] LABS: Glucose,Whole Blood 151 mg/dL (75-99)
[2018-03-03] MEDS ORDERED: IV FLUID CONTINUATION 1,000 ML IV ONE (12:23)
[2018-03-03 12:46] LABS: Glucose,Whole Blood 153 mg/dL (75-99)
[2018-03-03] MEDS ORDERED: ONDANSETRON 4 MG/2 ML VIAL ONE (12:57)
[2018-03-03] MEDS ORDERED: ONDANSETRON 4 MG/2 ML VIAL IVP ONE (13:03)
[2018-03-03 13:43] LABS: Hemoglobin A1C 8.8 % (4.0-6.0)
[2018-03-03] MEDS ORDERED: fentaNYL (PF) 50 MCG/ML 2 ML AMP ONE (14:26)
[2018-03-03] MEDS ORDERED: MIDAZOLAM 2 MG/2 ML VIAL ONE (14:26)
[2018-03-03] MEDS ORDERED: PROPOFOL 10 MG/ML 20 ML VIAL IV ONE (14:26)
[2018-03-03] MEDS ORDERED: LIDOCAINE 1% INJ 10MG/ML (20 ML MDV) SQ ONE (14:26)
--- NOTE | 2018-03-03 15:24 | P.OP ---
Date of Procedure: 03/03/18 Preoperative Diagnosis: Gangrene second toe left foot Postoperative Diagnosis: Same Procedure(s) Performed: Amputation left great toe at the metatarsophalangeal joint. Implants: None Anesthesia: local (With IV sedation) Surgeon: Phillip Venegas Estimated Blood Loss (ml): 2 IV fluids (ml): 100 Urine output (ml): 0 Pathology: other (Left second toe.) Condition: stable Disposition: PACU Indications for Procedure: G Patient is a 62-year-old male who had developed ischemic changes the distal tip of his left second toe. The patient has a 10 year history of diabetes mellitus. The amputation wound failed to heal. Physical examination revealed palpable dorsalis pedis pulse on the left with good capillary refill of the dorsal and plantar surface of the foot along with continued ischemic changes of the distal portion of the second toe. Because of the ischemia patient was offered amputation. Is felt the patient is adequate tissue perfusion for healing purposes. Operative Findings: Ischemia of the distal tip of the second toe. Visually adequate arterial perfusion for wound healing purposes. Description of Procedure: Patient was brought to the [facility] and placed in the supine position and administered attended anesthesia delivered by the department of anesthesiology. Patient's left foot was sterilely prepped and draped in the usual manner. The patient had been receiving intravenous antibiotics as an inpatient and these were continued. An elliptical type incision was made medially and laterally and extended anteriorly and onto the dorsum of the foot. Good bleeding was identified. Incision was deepened through the subcutaneous tissues down to the level of bone. The bone at this juncture appeared quite healthy and otherwise unremarkable. Bone cutter was utilized to transect the great toe. The specimen was sent to pathology for further evaluation. The wound was irrigated with saline solution. Skin edges were reapproximated with 4-0 nylon placed in vertical mattress form. Proper dressing was applied. Patient tolerated the procedure well and was transferred to the recovery area in satisfactory and stable condition.
[2018-03-03 17:10] LABS: Glucose,Whole Blood 135 mg/dL (75-99)
--- NOTE | 2018-03-03 19:11 | PN ---
PROGRESS NOTE CHIEF COMPLAINT: Osteomyelitis of the left 2nd toe. HISTORY OF PRESENT ILLNESS: This gentleman is waiting to go to surgery to have the toe amputated. PHYSICAL EXAM: The distal foot is still swollen and scan is awaited. Remainder exam is normal. IMPRESSION: 1. Osteomyelitis of the left 2nd toe. 2. Cellulitis, left foot. 3. Uncontrolled diabetes. PLAN: Surgery today. MMODL / MARYN: [id number] /
[2018-03-03 20:19] LABS: Glucose,Whole Blood 204 mg/dL (75-99)
[2018-03-03] MEDS ORDERED: VANCOMYCIN TROUGH DUE 1 EACH MISC MISCELLANE ONE (21:00)
[2018-03-03] MEDS: GABAPENTIN 100 MG CAP PO SCH (21:33)
[2018-03-03] MEDS: INSULIN DETEMIR 100 UNIT/ML 10 ML VIAL SQ SCH (21:33)
--- NOTE | 2018-03-03 22:43 | P.PN ---
Subjective Progress Note Date: 03/03/18 62-year-old male presents With significant worsening to the changes of the left foot third toe. He is being followed by podiatry in the outpatient setting. He's had some debridement and antibiotic therapy. Despite this does not been rapid in significant worsening to the structural changes to that toe, there appears to be pathological fracture as well as significant osteomyelitis and bony destruction. With these difficulties the infectious disease consultation and vascular surgery consults have been requested. The patient clearly understands that he will have another toe amputation due to this acute infectious necrotic toe. He fortunately has not feeling badly. He is working to improve his hemoglobin A1c. He is quite an active man, participates in judo , maintains his weight and does attempt to eat well despite this he is having some difficulties with an elevated A1c. He does state that if he thought he would lived to be this old he would've taken better care of himself. He is not having high-grade fevers chills or rigors. Blood sugars elevated but he does not have nausea or emesis or other acute new changes except to the foot. 03/03/2018 the patient is now status post surgical amputation of the left foot third toe. The patient is comfortable after the procedure and denies interim troubles. Objective - Vital Signs Vital signs: Vital Signs Temp 97.9 F 03/03/18 21:30 Pulse 78 03/03/18 21:30 Resp 17 03/03/18 21:30 BP 173/97 03/03/18 21:30 Pulse Ox 97 03/03/18 21:30 Intake & Output 03/03/18 03/03/18 03/04/18 06:59 18:59 06:59 Intake Total 1720 1150 1090 Output Total 5 Balance 1720 1145 1090 Weight 91.172 kg Intake: IV 450 Intake, IV Titration 950 700 250 Amount Piperacillin-Tazobactam 3 50 50 .375 gm In Dextrose/Water 1 50ml.bag @ 12.5 mls/hr IVPB Q8HR [facility] Rx#: [id number] Sodium Chloride 0.9% 1, 650 400 000 ml @ 100 mls/hr IV . Q10H [facility] Rx#:[id number] Vancomycin 1,500 mg In 250 250 250 Sodium Chloride 0.9% 250 ml @ 125 mls/hr IVPB Q16H [facility] Rx#:[id number] Oral 770 840 Output: Estimated Blood Loss 5 Other: Voiding Method Toilet Toilet # Voids 1 1 - Exam Pleasant 62-year-old male who is of appropriate build and is not in acute distress HEENT: Anicteric conjunctiva are pink and moist nasal mucosa grossly intact without significant lesions, there is no thrush. Neck: The neck is supple without significant lymphadenopathy or thyromegaly. Lungs: Good bilateral air entry without significant crackles or wheezing. There is no significant bronchial sounds. There is no egophony or dullness. Heart: Regular rate and rhythm with an audible S1-S2, no S3 no S4. There is no significant murmur click or rub, PMI was nondisplaced. Abdomen: Positive bowel sounds soft and nontender without palpable masses or organomegaly. There was no guarding or rebound. Extremities: The upper extremities have excellent pulses they are symmetric, no significant petechiae or telangiectasia. No splinter hemorrhages were noted. Right lower extremity is without significant edema or lesions. The left lower extremity shows evidence of the prior amputation to the second toe. There is no evidence of amputation of the third toe, the surgical dressing is in place and is becoming somewhat saturated in nursing will change per protocol There is evidence of easily palpable pulses in the bilateral feet. Neuro: Awake alert oriented to person place and time. Does have evidence of markedly decreased sensation to the bilateral feet. - Labs CBC & Chem 7: 02/28/18 18:07 03/02/18 10:46 Labs: Abnormal Lab Results - Last 24 Hours (Table) 03/02/18 03/03/18 03/03/18 Range/Units 09:00 02:34 07:09 POC Glucose (mg/dL) 248 H 166 H (75-99) mg/dL Hemoglobin A1c 8.8 H (4.0-6.0) % 03/03/18 03/03/18 03/03/18 Range/Units 11:44 12:32 17:09 POC Glucose (mg/dL) 151 H 153 H 135 H (75-99) mg/dL Hemoglobin A1c (4.0-6.0) % 03/03/18 Range/Units 20:16 POC Glucose (mg/dL) 204 H (75-99) mg/dL Hemoglobin A1c (4.0-6.0) % Microbiology - Last 24 Hours (Table) 02/28/18 18:07 Blood Culture - Preliminary Blood No Growth after 72 hours Laboratory Results WBC 11.3 k/uL (3.8-10.6) H 02/28/18 18:07 RBC 3.66 m/uL (4.30-5.90) L 02/28/18 18:07 Hgb 10.9 gm/dL (13.0-17.5) L 02/28/18 18:07 Hct 33.5 % (39.0-53.0) L 02/28/18 18:07 MCV 91.6 fL (80.0-100.0) 02/28/18 18: MCH 29.8 pg (25.0-35.0) 02/28/18 18: MCHC 32.5 g/dL (31.0-37.0) 02/28/18 18:07 RDW 13.8 % (11.5-15.5) 02/28/18 18:07 Plt Count 258 k/uL (150-450) 02/28/18 18:07 Neutrophils % 78 % 02/28/18 18:07 Lymphocytes % 9 % 02/28/18 18:07 Monocytes % 9 % 02/28/18 18:07 Eosinophils % 2 % 02/28/18 18:07 Basophils % 0 % 02/28/18 18:07 Neutrophils # 8.8 k/uL (1.3-7.7) H 02/28/18 18:07 Lymphocytes # 1.0 k/uL (1.0-4.8) 02/28/18 18:07 Monocytes # 1.0 k/uL (0-1.0) 02/28/18 18:07 Eosinophils # 0.2 k/uL (0-0.7) 02/28/18 18:07 Basophils # 0.0 k/uL (0-0.2) 02/28/18 18:07 ESR 99 mm/hr (0-15) H 03/02/18 09:00 PT 10.1 sec (9.0-12.0) 02/28/18 18:07 INR 1.0 (<1.2) 02/28/18 18:07 APTT 23.8 sec (22.0-30.0) 02/28/18 18:07 Sodium 140 mmol/L (137-145) 03/02/18 10:46 Potassium 4.4 mmol/L (3.5-5.1) 03/02/18 10:46 Chloride 108 mmol/L (98-107) H 03/02/18 10:46 Carbon Dioxide 24 mmol/L (22-30) 03/02/18 10:46 Anion Gap 8 mmol/L 03/02/18 10:46 BUN 22 mg/dL (9-20) H 03/02/18 10:46 Creatinine 1.47 mg/dL (0.66-1.25) H 03/02/18 10:46 Est GFR (CKD-EPI)AfAm 59 (>60 ml/min/1.73 sqM) 03/02/18 10:46 Est GFR (CKD-EPI)NonAf 51 (>60 ml/min/1.73 sqM) 03/02/18 10:46 Glucose 216 mg/dL (74-99) H 03/02/18 10:46 POC Glucose (mg/dL) 204 mg/dL (75-99) H 03/03/18 20:16 POC Glu Shot Hole Shooter ID Michelle Salinas 03/03/18 20:[address] Glu mg/dL 206 03/02/18 09:00 Hemoglobin A1c 8.8 % (4.0-6.0) H 03/02/18 09:00 Plasma Lactic Acid Jose A 1.3 mmol/L (0.7-2.0) 02/28/18 18:07 Calcium 8.8 mg/dL (8.4-10.2) 03/02/18 10:46 Total Bilirubin 0.6 mg/dL (0.2-1.3) 02/28/18 18:07 AST 18 U/L (17-59) 02/28/18 18:07 ALT 18 U/L (21-72) L 02/28/18 18:07 Alkaline Phosphatase 78 U/L (38-126) 02/28/18 18:07 Total Creatine Kinase 96 U/L (55-170) 02/28/18 18:07 CK-MB (CK-2) 1.7 ng/mL (0.0-2.4) 02/28/18 18:07 CK-MB (CK-2) Rel Index 1.8 02/28/18 18:07 Troponin I <0.012 ng/mL (0.000-0.034) 02/28/18 18:07 C-Reactive Protein 60.1 mg/L (<10.0) H 03/02/18 09:00 Total Protein 6.5 g/dL (6.3-8.2) 02/28/18 18:07 Albumin 3.3 g/dL (3.5-5.0) L 02/28/18 18:07 Urine Color Light Yellow 02/28/18 19:44 Urine Appearance Clear (Clear) 02/28/18 19:44 Urine pH 6.0 (5.0-8.0) 02/28/18 19:44 Ur Specific [place] 1.010 (1.001-1.035) 02/28/18 19:44 Urine Protein 3+ (Negative) H 02/28/18 19:44 Urine Glucose (UA) 3+ (Negative) H 02/28/18 19:44 Urine Ketones Negative (Negative) 02/28/18 19:44 Urine Blood Small (Negative) H 02/28/18 19:44 Urine Nitrite Negative (Negative) 02/28/18 19:44 Urine Bilirubin Negative (Negative) 02/28/18 19:44 Urine Urobilinogen <2.0 mg/dL (<2.0) 02/28/18 19:44 Ur Leukocyte Esterase Negative (Negative) 02/28/18 19:44 Urine RBC 5 /hpf (0-5) 02/28/18 19:44 Urine WBC 1 /hpf (0-5) 02/28/18 19:44 Urine Mucus Rare /hpf (None) H 02/28/18 19:44 Vancomycin Trough 19.4 ug/mL 03/03/18 21:13 Microbiology 02/28/18 18:07 Blood Blood Culture - Preliminary No Growth after 72 hours 02/28/18 19:44 Urine,Voided Urine Culture - Final Assessment and Plan (1) Cellulitis and abscess of toe of left foot Current Visit: No Status: Acute Code(s): L03.032 - CELLULITIS OF LEFT TOE; L02.612 - CUTANEOUS ABSCESS OF LEFT FOOT SNOMED Code(s): 631338991 (2) Diabetic ulcer of foot associated with type 2 diabetes mellitus, with necrosis of bone Narrative/Plan: 62-year-old male who has a long-standing history of diabetes mellitus type 2 with developed marked worsening to the third toe despite outpatient treatment. With the failure of the outpatient treatment he has now been admitted and is receiving local wound care with a silver foam dressing. The patient has been evaluated by vascular surgery and this service is in complete agreement of the need for amputation of the gangrenous third toe. At this time appears to be no invasion into the foot proper and it appears to only have the toe amputation with flap closure at the time of the procedure. He will be continued to be treated with antibiotic therapy at this time with Zosyn and vancomycin pending further culture data. They will also help direct oral antibiotic therapy discharge. However findings at surgery could change this plan. The leukocytosis is due to the current infection and sepsis from the left foot. Continue to work diligently to improve his blood glucose and glucose control. We'll limit the vancomycin therapy as quickly as possible. But does have a history of MRSA infection. Maximize nutrition protein intake and multivitamin therapy. Patient believes is up-to-date on his tetanus vaccine. 03/03/2018 the patient is status post amputation left foot third toe. Feeling relatively well and denying interim troubles. Cultures reveal available soon and will direct the course of antibiotic therapy and discharge, with the removal of the gangrenous toe and osteomyelitis should not require outpatient intravenous antibiotic therapy especially since is no notation of any penetration of the infection into the foot itself. Current Visit: No Status: Acute Code(s): E11.621 - TYPE 2 DIABETES MELLITUS WITH FOOT ULCER; L97.504 - NON-PRS CHRONIC ULCER OTH PRT UNSP FOOT W NECROSIS OF BONE SNOMED Code(s): 2952272846421
[2018-03-04 01:53] LABS: Glucose,Whole Blood 189 mg/dL (75-99)
[2018-03-04] MEDS: SODIUM CHLORIDE 0.9% 1,000 ML IV SCH ×3 (05:47→17:45)
[2018-03-04 06:57] LABS: Glucose,Whole Blood 119 mg/dL (75-99)
[2018-03-04] MEDS: INSULIN ASPART 100 UNIT/ML 1 ML 10 ML VIAL SQ SCH ×2 (07:44→17:46)
[2018-03-04] MEDS: LISINOPRIL 20 MG TAB PO SCH (07:44)
[2018-03-04] MEDS: PIPERACILLIN-TAZOBACTAM 3.375 GM in DEXTROSE/WATER 1 50ML.BAG IVPB SCH ×2 (07:44→16:08)
[2018-03-04] MEDS: CARVEDILOL 6.25 MG TAB PO SCH ×2 (07:44→16:08)
[2018-03-04] MEDS: ACETAMINOPHEN TAB 325 MG TAB PO PRN (07:45)
[2018-03-04 09:11] LABS: Calcium 8.2 mg/dL (8.4-10.2); Potassium 4.2 mmol/L (3.5-5.1)
[2018-03-04 11:03] LABS: Glucose,Whole Blood 229 mg/dL (75-99)
--- NOTE | 2018-03-04 12:58 | CDI ---
Last Revision, May 2017 Documentation Clarification Form Date: 03/04/2018 12:49:21 PM From: Anahi ChinchillaMedinaBRIONNA, CCDS Admit Date: 02/28/2018 7:13:00 PM Patient Name: Rodolfo Esquivel Visit Number: [id number] Discharge Date: ATTENTION: The Clinical Documentation Specialists (CDI) and [facility] Coding Staff appreciate your assistance in clarifying documentation. Please respond to the clarification below the line at the bottom and electronically sign. The CDI & [facility] Coding staff will review the response and follow-up if needed. Please note: Queries are made part of the Legal Health Record. If you have any questions, please contact the author of this message via ITS. Kayode Higgins MD: 62 yo male, admitted with a diabetic foot ulcer & gangrene on his left foot and toe. Per the H/P & the progress notes, the patient is a noncompliant diabetic with uncontrolled diabetes. History/Risk Factors: IDDM II, Diabetic neuropathy, Hypertension, CKD, CAD with stent, previous toe amputation. Clinical Indicators: LAB: BUN 33, Cr 2.01, GFR 35; Gluc 206. Monitored glucose: 238, 193, 88, 187, current 229. Treatment: IV Tylenol, IV fl 1,000, IV Vanco, IV Rocephin, Insulin sq, to surgery for amputation of left great toe. In order to capture the severity of Illness and necessary documentation specificity, please clarify: DM Type 2 o with Hyperglycemia o without Hyperglycemia o with Hypoglycemia o without hypoglycemia Other, please specify Unable to Determine MTDD
[2018-03-04] MEDS: VANCOMYCIN 1,500 MG in SODIUM CHLORIDE 0.9% 250 ML IVPB SCH (13:39)
[2018-03-04 16:52] LABS: Glucose,Whole Blood 277 mg/dL (75-99)
[2018-03-04 21:07] LABS: Glucose,Whole Blood 205 mg/dL (75-99)
[2018-03-04] MEDS: INSULIN DETEMIR 100 UNIT/ML 10 ML VIAL SQ SCH (21:12)
[2018-03-04] MEDS: GABAPENTIN 100 MG CAP PO SCH (21:12)
--- NOTE | 2018-03-04 21:43 | P.PN ---
Progress Note - Text Progress Note Date: 03/04/18 Patient seen and examined. No complaints overnight. Denies any fevers, or chills. Surgical site without pain. VSS Left 2nd toe amputation site clean/dry and intact. Mild drainage. No erythema , or purulent drainage. Imp: POD 1 L 2nd toe amputation secondary to gangrene Uncontrolled DM Plan: Abx per ID, pain control. Discussed importance of non weight bearing on surgical site. Ok to utilize heel for ambulating. Ok from surgical standpoint for discharge. Follow up with Dr. Venegas in 1 -2 weeks
[2018-03-05] MEDS: PIPERACILLIN-TAZOBACTAM 3.375 GM in DEXTROSE/WATER 1 50ML.BAG IVPB SCH ×3 (00:19→16:32)
[2018-03-05 02:01] LABS: Glucose,Whole Blood 155 mg/dL (75-99)
[2018-03-05] MEDS: SODIUM CHLORIDE 0.9% 1,000 ML IV SCH ×2 (05:16→15:06)
[2018-03-05] MEDS: VANCOMYCIN 1,500 MG in SODIUM CHLORIDE 0.9% 250 ML IVPB SCH (05:16)
[2018-03-05 06:57] LABS: Glucose,Whole Blood 108 mg/dL (75-99)
[2018-03-05 08:34] LABS: Calcium 8.6 mg/dL (8.4-10.2); Potassium 4.1 mmol/L (3.5-5.1)
[2018-03-05] MEDS: INSULIN ASPART 100 UNIT/ML 1 ML 10 ML VIAL SQ SCH ×2 (09:04→17:47)
[2018-03-05] MEDS: LISINOPRIL 20 MG TAB PO SCH (09:05)
[2018-03-05] MEDS: CARVEDILOL 6.25 MG TAB PO SCH ×2 (09:05→17:15)
[2018-03-05 11:24] LABS: Glucose,Whole Blood 222 mg/dL (75-99)
--- NOTE | 2018-03-05 11:47 | P.WNDSOAP ---
Subjective Progress Note Date: 03/05/18 Principal diagnosis: Diabetic infection second toe. No new complaints. Patient otherwise feeling well. Objective - Vital Signs Vital signs: Vital Signs Temp 98 F 03/05/18 04:59 Pulse 80 03/05/18 04:59 Resp 16 03/05/18 04:59 BP 182/87 03/05/18 04:59 Pulse Ox 96 03/05/18 04:59 Intake & Output 03/04/18 03/05/18 03/05/18 18:59 06:59 18:59 Intake Total 1500 1610 Balance 1500 1610 Weight 95.9 kg Intake: Intake, IV Titration 900 950 Amount Piperacillin-Tazobactam 3 50 50 .375 gm In Dextrose/Water 1 50ml.bag @ 12.5 mls/hr IVPB Q8HR [facility] Rx#: [id number] Sodium Chloride 0.9% 1, 600 900 000 ml @ 100 mls/hr IV . Q10H [facility] Rx#:[id number] Vancomycin 1,500 mg In 250 Sodium Chloride 0.9% 250 ml @ 125 mls/hr IVPB Q16H [facility] Rx#:[id number] Oral 600 660 Other: Voiding Method Toilet Toilet Toilet # Voids 2 2 1 - Exam Amputation site clean and dry. Foot has minimal swelling and no drainage. - Labs CBC & Chem 7: 02/28/18 18:07 03/05/18 07:54 Labs: Abnormal Lab Results - Last 24 Hours (Table) 03/04/18 03/04/18 03/05/18 Range/Units 16:50 21:05 01:54 Chloride (98-107) mmol/L Creatinine (0.66-1.25) mg/dL Glucose (74-99) mg/dL POC Glucose (mg/dL) 277 H 205 H 155 H (75-99) mg/dL 03/05/18 03/05/18 03/05/18 Range/Units 06:55 07:54 11:23 Chloride 109 H (98-107) mmol/L Creatinine 1.54 H (0.66-1.25) mg/dL Glucose 141 H (74-99) mg/dL POC Glucose (mg/dL) 108 H 222 H (75-99) mg/dL Microbiology - Last 24 Hours (Table) 02/28/18 18:07 Blood Culture - Preliminary Blood No Growth after 96 hours Assessment and Plan (1) Cellulitis and abscess of toe of left foot Current Visit: No Status: Acute Code(s): L03.032 - CELLULITIS OF LEFT TOE; L02.612 - CUTANEOUS ABSCESS OF LEFT FOOT SNOMED Code(s): 905527829 Plan: Patient is healing well post amputation of the left second toe. Patient must continue to remain offloaded on the left foot. He may be discharged from the hospital at the discretion of primary. He'll see Dr. Venegas in about a week.
[2018-03-05 12:34] VITALS: BP 165/93; PULSE 70; RESP 19; TEMP 97.9
--- NOTE | 2018-03-05 13:30 | CDI ---
Last Revision, May 2017 Documentation Clarification Form Date: 03/04/2018 12:49:00 PM From: Anahi MedinaBRIONNA, CCDS Admit Date: 02/28/2018 7:13:00 PM Patient Name: Rodolfo Esquivel Visit Number: [id number] Discharge Date: ATTENTION: The Clinical Documentation Specialists (CDI) and [facility] Coding Staff appreciate your assistance in clarifying documentation. Please respond to the clarification below the line at the bottom and electronically sign. The CDI & [facility] Coding staff will review the response and follow-up if needed. Please note: Queries are made part of the Legal Health Record. If you have any questions, please contact the author of this message via ITS. Kayode Shrestha MD: 62 yo male, admitted with a diabetic foot ulcer & gangrene on his left foot and toe. Per the H/P & the progress notes, the patient is a noncompliant diabetic with uncontrolled diabetes. History/Risk Factors: IDDM II, Diabetic neuropathy, Hypertension, CKD, CAD with stent, previous toe amputation. Clinical Indicators: LAB: BUN 33, Cr 2.01, GFR 35; Gluc 206. Monitored glucose: 238, 193, 88, 187, current 229. Treatment: IV Tylenol, IV fl 1,000, IV Vanco, IV Rocephin, Insulin sq, to surgery for amputation of left great toe. In order to capture the severity of Illness and necessary documentation specificity, please clarify: DM Type 2 o with Hyperglycemia o without Hyperglycemia o with Hypoglycemia o without hypoglycemia Other, please specify Unable to Determine MTDD
[2018-03-05 17:20] LABS: Glucose,Whole Blood 205 mg/dL (75-99)
--- NOTE | 2018-03-05 18:19 | PN ---
PROGRESS NOTE CHIEF COMPLAINT: Gangrene to the left toe and foot. HISTORY OF PRESENT ILLNESS: This gentleman is having some discomfort, but otherwise is doing well. He is anxious to be discharged. PHYSICAL EXAM: He is afebrile. Chest is clear. Cardiac is normal. The abdomen is soft and nontender. IMPRESSION: 1. Osteomyelitis and in the toes of the left foot. 2. Uncontrolled diabetes. PLAN: Home whenever he is cleared by Infectious Disease. MMODL / IJN: [id number] /
--- NOTE | 2018-03-05 19:49 | PN ---
PROGRESS NOTE DATE OF SERVICE: 03/04/2018. CHIEF COMPLAINT: Osteomyelitis of the left foot. HISTORY OF PRESENT ILLNESS: This gentleman is fairly comfortable and is not having a lot of pain, largely due to his neuropathy. PHYSICAL EXAMINATION: He is afebrile. The exam is otherwise normal. The foot is dressed. IMPRESSION: Osteomyelitis of the left foot. PLAN: Home when cleared by Surgery. MMODL / IJN: [id number] /
[2018-03-05] MEDS ORDERED: AMOXIC-POT CLAV 875-125MG 1 EACH TAB PO SCH (21:00)
--- NOTE | 2018-03-05 22:14 | P.PN ---
Subjective Progress Note Date: 03/05/18 62-year-old male presents With significant worsening to the changes of the left foot third toe. He is being followed by podiatry in the outpatient setting. He's had some debridement and antibiotic therapy. Despite this does not been rapid in significant worsening to the structural changes to that toe, there appears to be pathological fracture as well as significant osteomyelitis and bony destruction. With these difficulties the infectious disease consultation and vascular surgery consults have been requested. The patient clearly understands that he will have another toe amputation due to this acute infectious necrotic toe. He fortunately has not feeling badly. He is working to improve his hemoglobin A1c. He is quite an active man, participates in judo , maintains his weight and does attempt to eat well despite this he is having some difficulties with an elevated A1c. He does state that if he thought he would lived to be this old he would've taken better care of himself. He is not having high-grade fevers chills or rigors. Blood sugars elevated but he does not have nausea or emesis or other acute new changes except to the foot. 03/03/2018 the patient is now status post surgical amputation of the left foot third toe. The patient is comfortable after the procedure and denies interim troubles. 03/05/2018 the patient has done well with the amputation. There's been no difficulties with fevers or chills or bleeding. Vascular surgery believes he may be discharged home. Objective - Vital Signs Vital signs: Vital Signs Temp 97.9 F 03/05/18 12:33 Pulse 70 03/05/18 12:33 Resp 19 03/05/18 12:33 BP 165/93 03/05/18 12:33 Pulse Ox 95 03/05/18 12:33 Intake & Output 03/05/18 03/05/18 03/06/18 06:59 18:59 06:59 Intake Total 1610 800 Balance 1610 800 Weight 95.9 kg Intake: Intake, IV Titration 950 Amount Piperacillin-Tazobactam 3 50 .375 gm In Dextrose/Water 1 50ml.bag @ 12.5 mls/hr IVPB Q8HR [facility] Rx#: [id number] Sodium Chloride 0.9% 1, 900 000 ml @ 100 mls/hr IV . Q10H [facility]LOE Rx#:[id number] Oral 660 800 Other: Voiding Method Toilet Toilet # Voids 2 3 # Bowel Movements 1 - Exam Pleasant 62-year-old male who is of appropriate build and is not in acute distress HEENT: Anicteric conjunctiva are pink and moist nasal mucosa grossly intact without significant lesions, there is no thrush. Neck: The neck is supple without significant lymphadenopathy or thyromegaly. Lungs: Good bilateral air entry without significant crackles or wheezing. There is no significant bronchial sounds. There is no egophony or dullness. Heart: Regular rate and rhythm with an audible S1-S2, no S3 no S4. There is no significant murmur click or rub, PMI was nondisplaced. Abdomen: Positive bowel sounds soft and nontender without palpable masses or organomegaly. There was no guarding or rebound. Extremities: The upper extremities have excellent pulses they are symmetric, no significant petechiae or telangiectasia. No splinter hemorrhages were noted. Right lower extremity is without significant edema or lesions. The left lower extremity shows evidence of the prior amputation to the second toe. There is now evidence of amputation of the third toe, the dressing is dry and dry dressings will be utilized. There is evidence of easily palpable pulses in the bilateral feet. Neuro: Awake alert oriented to person place and time. Does have evidence of markedly decreased sensation to the bilateral feet. - Labs CBC & Chem 7: 02/28/18 18:07 03/05/18 07:54 Labs: Abnormal Lab Results - Last 24 Hours (Table) 03/05/18 03/05/18 03/05/18 Range/Units 01:54 06:55 07:54 Chloride 109 H (98-107) mmol/L Creatinine 1.54 H (0.66-1.25) mg/dL Glucose 141 H (74-99) mg/dL POC Glucose (mg/dL) 155 H 108 H (75-99) mg/dL 03/05/18 03/05/18 Range/Units 11:23 17:19 Chloride (98-107) mmol/L Creatinine (0.66-1.25) mg/dL Glucose (74-99) mg/dL POC Glucose (mg/dL) 222 H 205 H (75-99) mg/dL Microbiology - Last 24 Hours (Table) 02/28/18 18:07 Blood Culture - Preliminary Blood No Growth after 120 hours Laboratory Results WBC 11.3 k/uL (3.8-10.6) H 02/28/18 18:07 RBC 3.66 m/uL (4.30-5.90) L 02/28/18 18:07 Hgb 10.9 gm/dL (13.0-17.5) L 02/28/18 18:07 Hct 33.5 % (39.0-53.0) L 02/28/18 18:07 MCV 91.6 fL (80.0-100.0) 02/28/18 18:07 MCH 29.8 pg (25.0-35.0) 02/28/18 18:07 MCHC 32.5 g/dL (31.0-37.0) 02/28/18 18:07 RDW 13.8 % (11.5-15.5) 02/28/18 18:07 Plt Count 258 k/uL (150-450) 02/28/18 18:07 Neutrophils % 78 % 02/28/18 18:07 Lymphocytes % 9 % 02/28/18 18:07 Monocytes % 9 % 02/28/18 18:07 Eosinophils % 2 % 02/28/18 18:07 Basophils % 0 % 02/28/18 18:07 Neutrophils # 8.8 k/uL (1.3-7.7) H 02/28/18 18:07 Lymphocytes # 1.0 k/uL (1.0-4.8) 02/28/18 18:07 Monocytes # 1.0 k/uL (0-1.0) 02/28/18 18:07 Eosinophils # 0.2 k/uL (0-0.7) 02/28/18 18:07 Basophils # 0.0 k/uL (0-0.2) 02/28/18 18:07 ESR 99 mm/hr (0-15) H 03/02/18 09:00 PT 10.1 sec (9.0-12.0) 02/28/18 18:07 INR 1.0 (<1.2) 02/28/18 18:07 APTT 23.8 sec (22.0-30.0) 02/28/18 18:07 Sodium 141 mmol/L (137-145) 03/05/18 07:54 Potassium 4.1 mmol/L (3.5-5.1) 03/05/18 07:54 Chloride 109 mmol/L (98-107) H 03/05/18 07:54 Carbon Dioxide 25 mmol/L (22-30) 03/05/18 07:54 Anion Gap 7 mmol/L 03/05/18 07:54 BUN 17 mg/dL (9-20) 03/05/18 07:54 Creatinine 1.54 mg/dL (0.66-1.25) H 03/05/18 07:54 Est GFR (CKD-EPI)AfAm 56 (>60 ml/min/1.73 sqM) 03/05/18 07:54 Est GFR (CKD-EPI)NonAf 48 (>60 ml/min/1.73 sqM) 03/05/18 07:54 Glucose 141 mg/dL (74-99) H 03/05/18 07:54 POC Glucose (mg/dL) 205 mg/dL (75-99) H 03/05/18 17:19 POC Glu [employer] MORRO Paco Loza 03/05/18 17:[address] Glu mg/dL 206 03/02/18 09:00 Hemoglobin A1c 8.8 % (4.0-6.0) H 03/02/18 09:00 Plasma Lactic Acid Jose A 1.3 mmol/L (0.7-2.0) 02/28/18 18:07 Calcium 8.6 mg/dL (8.4-10.2) 03/05/18 07:54 Total Bilirubin 0.6 mg/dL (0.2-1.3) 02/28/18 18:07 AST 18 U/L (17-59) 02/28/18 18:07 ALT 18 U/L (21-72) L 02/28/18 18:07 Alkaline Phosphatase 78 U/L (38-126) 02/28/18 18:07 Total Creatine Kinase 96 U/L (55-170) 02/28/18 18:07 CK-MB (CK-2) 1.7 ng/mL (0.0-2.4) 02/28/18 18:07 CK-MB (CK-2) Rel Index 1.8 02/28/18 18:07 Troponin I <0.012 ng/mL (0.000-0.034) 02/28/18 18:07 C-Reactive Protein 60.1 mg/L (<10.0) H 03/02/18 09:00 Total Protein 6.5 g/dL (6.3-8.2) 02/28/18 18:07 Albumin 3.3 g/dL (3.5-5.0) L 02/28/18 18:07 Urine Color Light Yellow 02/28/18 19:44 Urine Appearance Clear (Clear) 02/28/18 19:44 Urine pH 6.0 (5.0-8.0) 02/28/18 19:44 Ur Specific [place] 1.010 (1.001-1.035) 02/28/18 19:44 Urine Protein 3+ (Negative) H 02/28/18 19:44 Urine Glucose (UA) 3+ (Negative) H 02/28/18 19:44 Urine Ketones Negative (Negative) 02/28/18 19:44 Urine Blood Small (Negative) H 02/28/18 19:44 Urine Nitrite Negative (Negative) 02/28/18 19:44 Urine Bilirubin Negative (Negative) 02/28/18 19:44 Urine Urobilinogen <2.0 mg/dL (<2.0) 02/28/18 19:44 Ur Leukocyte Esterase Negative (Negative) 02/28/18 19:44 Urine RBC 5 /hpf (0-5) 02/28/18 19:44 Urine WBC 1 /hpf (0-5) 02/28/18 19:44 Urine Mucus Rare /hpf (None) H 02/28/18 19:44 Vancomycin Trough 19.4 ug/mL 03/03/18 21:13 Microbiology 02/28/18 18:07 Blood Blood Culture - Preliminary No Growth after 120 hours 02/28/18 19:44 Urine,Voided Urine Culture - Final Assessment and Plan (1) Cellulitis and abscess of toe of left foot Status: Acute Code(s): L03.032 - CELLULITIS OF LEFT TOE; L02.612 - CUTANEOUS ABSCESS OF LEFT FOOT SNOMED Code(s): 256968038 (2) Diabetic ulcer of foot associated with type 2 diabetes mellitus, with necrosis of bone Narrative/Plan: 62-year-old male who has a long-standing history of diabetes mellitus type 2 with developed marked worsening to the third toe despite outpatient treatment. With the failure of the outpatient treatment he has now been admitted and is receiving local wound care with a silver foam dressing. The patient has been evaluated by vascular surgery and this service is in complete agreement of the need for amputation of the gangrenous third toe. At this time appears to be no invasion into the foot proper and it appears to only have the toe amputation with flap closure at the time of the procedure. He will be continued to be treated with antibiotic therapy at this time with Zosyn and vancomycin pending further culture data. They will also help direct oral antibiotic therapy discharge. However findings at surgery could change this plan. The leukocytosis is due to the current infection and sepsis from the left foot. Continue to work diligently to improve his blood glucose and glucose control. We'll limit the vancomycin therapy as quickly as possible. But does have a history of MRSA infection. Maximize nutrition protein intake and multivitamin therapy. Patient believes is up-to-date on his tetanus vaccine. 03/03/2018 the patient is status post amputation left foot third toe. Feeling relatively well and denying interim troubles. Cultures reveal available soon and will direct the course of antibiotic therapy and discharge, with the removal of the gangrenous toe and osteomyelitis should not require outpatient intravenous antibiotic therapy especially since is no notation of any penetration of the infection into the foot itself. 03/05/2018 the patient has done well with the amputation. He will follow up with the vascular surgeon in the outpatient setting. Antibiotic therapy with Augmentin has been sent to the pharmacy. Does not require outpatient intravenous antibiotic therapy since necrotic toe has been removed without evidence of the osteomyelitis extending into the foot proper. Offloading is as per the vascular surgeon. Status: Acute Code(s): E11.621 - TYPE 2 DIABETES MELLITUS WITH FOOT ULCER; L97.504 - NON-PRS CHRONIC ULCER OTH PRT UNSP FOOT W NECROSIS OF BONE SNOMED Code(s): 6911237508207
--- NOTE | 2018-03-06 05:46 | DS ---
DISCHARGE SUMMARY CHIEF COMPLAINT: Osteomyelitis of the left second toe. HISTORY OF PRESENT ILLNESS AND PHYSICAL EXAM: Details of this man's history and physical can be found in the initial workup. LABORATORY STUDIES: While he was in the hospital he had laboratory studies, details which can be found in the laboratory section of his chart. COURSE IN HOSPITAL: After admission he was placed on bedrest, started on intravenous fluids and IV antibiotics. He was seen by Vascular Surgery and the toe was amputated. He did well after that and it was felt that he could go home on the with home nursing and he will be seen in the office in 1 or 2 days. FINAL DIAGNOSIS: 1. Osteomyelitis of the left second toe. 2. Cellulitis of the left foot. 3. Uncontrolled insulin-dependent diabetes mellitus. OPERATIONS: Amputation of the toe. CONSULTATIONS: Infectious Disease and Vascular Surgery. He is improved. MMNORMANL / SIRI: [id number] /
--- NOTE | 2018-03-06 08:31 | CDI ---
Last Revision, May 2017 Documentation Clarification Form Date: 03/04/2018 12:49:00 PM 03/06: request. From: Anahi ChinchillaMedinaBRIONNA phan, CCDS Admit Date: 02/28/2018 7:13:00 PM Patient Name: Rodolfo Esquivel Visit Number: [id number] Discharge Date: 03/05/2018 ATTENTION: The Clinical Documentation Specialists (CDI) and [facility] Coding Staff appreciate your assistance in clarifying documentation. Please respond to the clarification below the line at the bottom and electronically sign. The CDI & [facility] Coding staff will review the response and follow-up if needed. Please note: Queries are made part of the Legal Health Record. If you have any questions, please contact the author of this message via ITS. Kayode Shrestha MD: 62 yo male, admitted with a diabetic foot ulcer & gangrene on his left foot and toe. Per the H/P & the progress notes, the patient is a noncompliant diabetic with uncontrolled diabetes. History/Risk Factors: IDDM II, Diabetic neuropathy, Hypertension, CKD, CAD with stent, previous toe amputation. Clinical Indicators: LAB: BUN 33, Cr 2.01, GFR 35; Gluc 206. Monitored glucose: 238, 193, 88, 187, current 229. Treatment: IV Tylenol, IV fl 1,000, IV Vanco, IV Rocephin, Insulin sq, to surgery for amputation of left great toe. In order to capture the severity of Illness and necessary documentation specificity, please clarify: DM Type 2 o with Hyperglycemia o without Hyperglycemia o with Hypoglycemia o without hypoglycemia Other, please specify Unable to Determine MTDD
--- NOTE | 2018-03-07 09:00 | P.CON ---
Consult Note - . Consult date: 03/03/18 Assessment/Plan:: Was consult on this patient for care of the foot. Patient had an amputation of the left second toe on the previous week by myself. At this time of the amputation to remove necrotic and infected tissue and bone the digit appeared to have minimal blood flow. Therefore we had the patient present to our office the following day for reevaluation assessment. On Saturday patient was seen in the office with a breakdown of the dermis and what appeared to be avascular necrosis with infection of the left second toe. Patient was given a prescription to admitted to the emergency room for evaluation and workup of the infection as well as vascular consultation. I was notified of the consultation on Saturday today. Upon arrival to the hospital patient was already brought down to the OR for additional amputation of the digit. At this time I contacted the surgeon who ordered a additional amputation of this digit. We discussed the vascular flow to the digit as well as by clinical concerns. The surgeon was aware of my concerns and will follow up with the patient on the next day.
--- NOTE | 2018-03-07 09:01 | P.CON ---
Consult Note - . Consult date: 03/04/18 Assessment/Plan:: Patient seen at bedside today following amputation of his second digit of the left foot. Discussed with patient his current condition and treatment. At this time patient's toe has been additionally amputated by another surgeon. Discussed with patient follow-up care of this. Patient is to be seen in my office following discharge for podiatric care and follow-up.
--- NOTE | 2018-03-09 11:38 | CDI ---
Documentation Clarification Form Date: 03/09/2018 11:20:35 AM From: JATINDER Cervantes; Cynthia Rhoades Log Hauler Phone: If you have a question about this query, please contact Cynthia Rhoades Log Hauler at [phone] between 8am and 5pm. Admit Date: 02/28/2018 7:13:00 PM Patient Name: Rodolfo Esquivel Visit Number: [id number] Discharge Date: 03/05/2018 ATTENTION: The Clinical Documentation Specialists (CDI) and [facility] Coding Staff appreciate your assistance in clarifying documentation. Please respond to the clarification below the line at the bottom and electronically sign. The CDI & [facility] Coding staff will review the response and follow-up if needed. Please note: Queries are made part of the Legal Health Record. If you have any questions, please contact the author of this message via ITS. Kayode Higgins MD The patient presented with a toe infection. ED clinical impression is sepsis. Infectious disease consultation documents leukocytosis due to current infection and sepsis from left foot. History/Risk Factors: Diabetes, chronic diabetic ulcer of 2nd toe, left foot, osteomyelitis and gangrene. Clinical Indicators: Vitals in the ED; temp 102,2, pulse 91, resp, 16, BP 148/96 , WBC 11.3 Treatment: IV antibiotics; amputation. In your opinion, do you agree with ED and consultants clinical impression? Sepsis No sepsis Other Unable to determine MTDD
--- NOTE | 2018-03-10 21:26 | MISC ---
MISCELLANOUS REPORT QUERY: Type 2 diabetic with hyperglycemia. MMODL / IJN: [id number] /
--- NOTE | 2018-03-10 21:42 | MISC ---
MISCELLANOUS REPORT QUERY: No sepsis. MMODL / IJN: [id number] /
== END 2018-03-05 18:00 | disposition home health service (06) | DRG 617 ==
LOC: EC 16:10 → 5MS5E 19:13
PROVIDERS: ADMIT Family Medicine; ATTEND Family Medicine
PROC: 0Y6S0Z0 Detachment at Left 2nd Toe, Complete, Open Approach (ICD-10-PCS; principal; 2018-03-03 07:30)
DX: E11.69 Type 2 diabetes mellitus with other specified complication (principal); M86.9 Osteomyelitis, unspecified; E11.52 Type 2 diabetes mellitus with diabetic peripheral angiopathy with gangrene; I96 Gangrene, not elsewhere classified; L02.612 Cutaneous abscess of left foot; L03.116 Cellulitis of left lower limb; M84.478A Pathological fracture, left toe(s), initial encounter for fracture; E11.22 Type 2 diabetes mellitus with diabetic chronic kidney disease; E11.40 Type 2 diabetes mellitus with diabetic neuropathy, unspecified; E11.621 Type 2 diabetes mellitus with foot ulcer; E78.5 Hyperlipidemia, unspecified; I12.9 Hypertensive chronic kidney disease with stage 1 through stage 4 chronic kidney disease, or unspecified chronic kidney disease; L03.032 Cellulitis of left toe; L97.524 Non-pressure chronic ulcer of other part of left foot with necrosis of bone; N18.9 Chronic kidney disease, unspecified; Z79.4 Long term (current) use of insulin; I25.2 Old myocardial infarction; Z82.49 Family history of ischemic heart disease and other diseases of the circulatory system; Z86.14 Personal history of Methicillin resistant Staphylococcus aureus infection; Z91.19 Patient's noncompliance with other medical treatment and regimen; E11.65 Type 2 diabetes mellitus with hyperglycemia
CPT/HCPCS: 36415; 71046; 80048; 80053; 80202; 81001; 82550; 82553; 83036; 83605; 84484; 85025; 85610; 85652; 85730; 86140; 87040; 87086; 88305; 88311; 93005; 96365; 96366; 96367; 99284

== ENCOUNTER → 2020-03-11 | Outpatient (CLI) | payer OTHER ==
--- NOTE | 2020-03-11 15:40 | US ---
EXAMINATION TYPE: US kidneys/renal and bladder DATE OF EXAM: 03/11/2020 COMPARISON: NONE CLINICAL HISTORY: N18.4 Stage 4 Kidney Disease. EXAM MEASUREMENTS: Right Kidney: 11.7 x 5.8 x 5.6 cm Left Kidney: 12.4 x 5.6 x 4.7 cm Post Void Residual Volume: 52.7 mL Right Kidney: No hydronephrosis or masses seen Left Kidney: No hydronephrosis or masses seen Bladder: Not overly distended. No obvious pathology seen Bilateral Jets seen: Yes Normal Post Void Residual: No IMPRESSION: Normal renal ultrasound
== END | disposition home or self-care (01) ==
LOC: RADUSWWP 13:30
PROVIDERS: ATTEND Family Medicine
DX: N18.4 Chronic kidney disease, stage 4 (severe) (principal); Z88.0 Allergy status to penicillin; Z88.6 Allergy status to analgesic agent; Z88.2 Allergy status to sulfonamides
CPT/HCPCS: 76770

== ENCOUNTER 2020-07-14 10:17 | Day surgery (SDC) | payer OTHER ==
[2020-07-12 12:41] VITALS: BMI 30.1
[~2020-07-14 10:17] MED LIST changes: -DEXAMETHASONE SOD PHOSPHATE 10 MG/ML 1 ML VIAL IV ONE; +LIDOCAINE 1% (10MG/ML) FOR IV START INTRADERMA PRN; -LIDOCAINE 1% 20 ML VIAL (10MG/ML) FOR IV START INTRADERMA PRN; -MIDAZOLAM 2 MG/2 ML VIAL IV PRN; -SCOPOLAMINE 1.5MG/72HR PATCH TRANSDERM ONE; -fentaNYL (PF) 50 MCG/ML 2 ML AMP IV PRN
[2020-07-14 10:59] LABS: Glucose,Whole Blood 72 mg/dL (75-99)
[2020-07-14 11:01] VITALS: RESP 16; TEMP 97.3
[2020-07-14] MEDS ORDERED: PROPOFOL 10 MG/ML 20 ML VIAL IV ONE (12:08)
--- NOTE | 2020-07-14 12:10 | P.GSHP ---
History of Present Illness H&P Date: 07/14/20 Chief Complaint: History of colon polyps This is a 65-year-old male who presents today for colonoscopy. Patient's previous history of colon polyps. Past Medical History Past Medical History: Coronary Artery Disease (CAD), Diabetes Mellitus, Hyperlipidemia, Hypertension, Osteoarthritis (OA) Additional Past Medical History / Comment(s): hx retinal bleeding with laser tx, diabetic neuropathy, Last Myocardial Infarction Date:: 2009 History of Any Multi-Drug Resistant Organisms: MRSA Date of last positivie culture/infection: 11/29/17 MDRO Source:: toe Past Surgical History: Heart Catheterization With Stent, Hernia Repair, Tonsillectomy Additional Past Surgical History / Comment(s): LEFT INGUINAL HERNIA (SEPTEMBER 2014). ULNAR NERVE SC BILAT HANDS AND ELBOWS. COLONOSCOPY, Partial amputation to second toe, left toe surgery Past Anesthesia/Blood Transfusion Reactions: No Reported Reaction, Motion Sickness Additional Past Anesthesia/Blood Transfusion Reaction / Comment(s): Difficulty waking Date of Last Stent Placement:: 2009 Smoking Status: Never smoker - Past Family History Father Family Medical History: Congestive Heart Failure (CHF), Myocardial Infarction ([place]) Mother Family Medical History: CVA/TIA Additional Family Medical History / Comment(s): varicose veins Medications and Allergies Home Medications Medication Instructions Recorded Confirmed Type Atorvastatin [Lipitor] 80 mg PO HS 08/19/14 07/12/20 History Carvedilol [Coreg] 6.25 mg PO BID 08/19/14 07/14/20 History Gabapentin [Neurontin] 100 mg PO HS 08/19/14 07/12/20 History Ergocalciferol [Vitamin D2 50,000 unit PO Q14D 05/02/17 07/12/20 History (DRISDOL)] lisinopriL 40 mg PO HS 11/04/17 07/12/20 History Insulin Glargine [Lantus] 30 unit SQ HS 07/12/20 07/12/20 History Insulin Glulisine [Apidra] 8 - 10 unit SQ AC-BID 07/12/20 07/12/20 History Allergies Allergy/AdvReac Type Severity Reaction Status Date / Time Sulfa (Sulfonamide Allergy Nausea & Verified 07/14/20 10:41 Antibiotics) Vomiting clindamycin AdvReac Unknown High BP , Verified 07/14/20 10:41 Nausea & Vomiting & Diarrhea codeine AdvReac Nausea & Verified 07/14/20 10:41 Vomiting morphine AdvReac Nausea & Verified 07/14/20 10:41 Vomiting sulfamethoxazole AdvReac Nausea & Verified 07/14/20 10:41 [From Bactrim] Vomiting & Diarrhea trimethoprim [From Bactrim] AdvReac Nausea & Verified 07/14/20 10:41 Vomiting & Diarrhea Surgical - Exam Vital Signs Temp Pulse Resp BP Pulse Ox 97.3 F L 74 16 142/56 95 07/14/20 10:48 07/14/20 10:48 07/14/20 10:48 07/14/20 10:48 07/14/20 10:48 - General well developed, well nourished, no distress - Eyes PERRL - ENT normal pinna - Neck no masses - Cardiovascular Rhythm: regular - Abdomen Abdomen: soft, non tender Results - Labs Abnormal Lab Results - Last 24 Hours (Table) 07/14/20 Range/Units 10:55 POC Glucose (mg/dL) 72 L (75-99) mg/dL Assessment and Plan Assessment: History of colon polyps. We'll perform colonoscopy.
--- NOTE | 2020-07-14 12:27 | P.OP ---
Date of Procedure: 07/14/20 Preoperative Diagnosis: History of colon polyps Postoperative Diagnosis: Severe diverticulosis of left and sigmoid colon Procedure(s) Performed: Colonoscopy Anesthesia: MAC Surgeon: Edis Olivera Pathology: none sent Condition: stable Disposition: PACU Description of Procedure: Date of Procedure: 07/14/20 Preoperative Diagnosis: History: Polyps Postoperative Diagnosis: Severe diverticulosis of left colon and sigmoid Procedure(s) Performed: Colonoscopy Anesthesia: MAC Surgeon: Edis Olivera Pathology: none sent Condition: stable Disposition: PACU Description of Procedure: Patient's placed on the endoscopy table in the lateral position. He received IV sedation. Digital rectal exam was performed which revealed no abnormalities. The flexible colonoscope was then placed patient anus and passed throughout the entire colon. The ileocecal valve was visualized. The cecum, ascending and transverse colon appeared normal. In the descending and sigmoid colon there was severe diverticulosis noted. There is no evidence of diverticula is. Scope was then brought back the rectum this appeared normal. Scope was withdrawn for patient.
[2020-07-14 13:02] VITALS: BP 122/74; PULSE 99
== END 2020-07-14 13:11 | disposition home or self-care (01) ==
LOC: ORWHC2ENDO 10:17
PROVIDERS: ATTEND Surgery
DX: Z12.11 Encounter for screening for malignant neoplasm of colon (principal); K57.30 Diverticulosis of large intestine without perforation or abscess without bleeding; Z86.010 Personal history of colon polyps; I25.10 Atherosclerotic heart disease of native coronary artery without angina pectoris; I10 Essential (primary) hypertension; E78.5 Hyperlipidemia, unspecified; M19.90 Unspecified osteoarthritis, unspecified site; E11.40 Type 2 diabetes mellitus with diabetic neuropathy, unspecified; E11.319 Type 2 diabetes mellitus with unspecified diabetic retinopathy without macular edema; Z86.69 Personal history of other diseases of the nervous system and sense organs; I25.2 Old myocardial infarction; Z86.14 Personal history of Methicillin resistant Staphylococcus aureus infection; Z95.5 Presence of coronary angioplasty implant and graft; Z98.890 Other specified postprocedural states; Z90.49 Acquired absence of other specified parts of digestive tract; Z89.422 Acquired absence of other left toe(s); Z82.49 Family history of ischemic heart disease and other diseases of the circulatory system; Z82.3 Family history of stroke; Z79.4 Long term (current) use of insulin; Z79.899 Other long term (current) drug therapy; Z88.1 Allergy status to other antibiotic agents; Z88.5 Allergy status to narcotic agent; Z88.2 Allergy status to sulfonamides
CPT/HCPCS: J2704; G0105; 45378

== ENCOUNTER → 2020-07-22 | Outpatient (CLI) | payer OTHER ==
--- NOTE | 2020-07-22 15:42 | US ---
EXAMINATION TYPE: US kidneys/renal and bladder DATE OF EXAM: 07/22/2020 COMPARISON: US 2019 CLINICAL HISTORY: N18.3 Chronic kidney disease stage 3. CKD stage 3 EXAM MEASUREMENTS: Right Kidney: 10.2 x 5.8 x 5.4 cm Left Kidney: 10.9 x 6.0 x 5.5 cm Right Kidney: no hydronephrosis or masses seen Left Kidney: no hydronephrosis or masses seen Bladder: wnl Bilateral Jets seen: no There is no evidence for hydronephrosis at this point in time. No nephrolithiasis is seen. No tony s are identified. The urinary bladder is anechoic. Bilateral ureteral jets are seen. IMPRESSION: No distinct abnormality seen.
== END | disposition home or self-care (01) ==
LOC: RADUSWWP 14:57
PROVIDERS: ATTEND Internal Medicine
DX: N18.32 Chronic kidney disease, stage 3b (principal)
CPT/HCPCS: 76770

== ENCOUNTER 2024-07-13 12:33 | Observation (INO) | payer MEDICARE, OTHER ==
[2024-07-13] MEDS: ASPIRIN 81 MG PO STA (12:46)
--- NOTE | 2024-07-13 12:52 | ED ---
General Adult HPI - General Chief complaint: Chest Pain Stated complaint: Chest Pain Time Seen by Provider: 07/13/24 12:37 Source: patient, EMS, RN notes reviewed Mode of arrival: EMS Limitations: no limitations - History of Present Illness Initial comments: Patient is a 69-year-old male presenting to the emergency department with concerns for chest discomfort. Onset of symptoms was around an hour ago while walking around at home. Patient had fairly severe chest pressure with associated dyspnea. Symptoms are near resolved at this time. Patient does have history of somewhat similar symptoms previously needing cardiac stents. No associated nausea or diaphoresis. No calf pain or leg swelling. No fever. - Related Data Home Medications Medication Instructions Recorded Confirmed Atorvastatin [Lipitor] 80 mg PO HS 08/19/14 07/12/20 Carvedilol [Coreg] 6.25 mg PO BID 08/19/14 07/14/20 Gabapentin [Neurontin] 100 mg PO HS 08/19/14 07/12/20 Ergocalciferol [Vitamin D2 50,000 unit PO Q14D 05/02/17 07/12/20 (DRISDOL)] lisinopriL 40 mg PO HS 11/04/17 07/12/20 Insulin Glargine [Lantus] 30 unit SQ HS 07/12/20 07/12/20 Insulin Glulisine [Apidra] 8 - 10 unit SQ AC-BID 07/12/20 07/12/20 Allergies Allergy/AdvReac Type Severity Reaction Status Date / Time Sulfa (Sulfonamide Allergy Nausea & Verified 07/13/24 12:45 Antibiotics) Vomiting clindamycin AdvReac Unknown High BP , Verified 07/13/24 12:45 Nausea & Vomiting & Diarrhea codeine AdvReac Nausea & Verified 07/13/24 12:45 Vomiting morphine AdvReac Nausea & Verified 07/13/24 12:45 Vomiting sulfamethoxazole AdvReac Nausea & Verified 07/13/24 12:45 [From Bactrim] Vomiting & Diarrhea trimethoprim [From Bactrim] AdvReac Nausea & Verified 07/13/24 12:45 Vomiting & Diarrhea Review of Systems ROS Statement: Those systems with pertinent positive or pertinent negative responses have been documented in the HPI. ROS Other: All systems not noted in ROS Statement are negative. Constitutional: Denies: fever Eyes: Denies: eye pain Respiratory: Reports: as per HPI Cardiovascular: Reports: as per HPI, chest pain Gastrointestinal: Denies: abdominal pain Musculoskeletal: Denies: back pain Past Medical History Past Medical History: Coronary Artery Disease (CAD), Diabetes Mellitus, H yperlipidemia, Hypertension, Osteoarthritis (OA) Additional Past Medical History / Comment(s): hx retinal bleeding with laser tx, diabetic neuropathy, Last Myocardial Infarction Date:: 2009 History of Any Multi-Drug Resistant Organisms: MRSA Date of last positivie culture/infection: 11/29/17 MDRO Source:: toe Past Surgical History: Heart Catheterization With Stent, Hernia Repair, Tonsillectomy Additional Past Surgical History / Comment(s): LEFT INGUINAL HERNIA (SEPTEMBER 2014). ULNAR NERVE SC BILAT HANDS AND ELBOWS. COLONOSCOPY, Partial amputation to second toe, left toe surgery Past Anesthesia/Blood Transfusion Reactions: No Reported Reaction, Motion Sickness Additional Past Anesthesia/Blood Transfusion Reaction / Comment(s): Difficulty waking Date of Last Stent Placement:: 2009 Past Psychological History: Depression Smoking Status: Never smoker - Past Family History Father Family Medical History: Congestive Heart Failure (CHF), Myocardial Infarction ([place]) Mother Family Medical History: CVA/TIA Additional Family Medical History / Comment(s): varicose veins General Exam Limitations: no limitations General appearance: alert, in no apparent distress Head exam: Present: normocephalic Eye exam: Present: normal appearance Neck exam: Present: normal inspection Respiratory exam: Present: normal lung sounds bilaterally Cardiovascular Exam: Present: regular rate, normal rhythm, normal heart sounds Expanded Peripheral pulses: 2+: Radial (R), Radial (L), Posterior Tibialis (R), Posterior Tibialis (L) GI/Abdominal exam: Present: soft. Absent: distended, tenderness Extremities exam: Present: normal inspection. Absent: pedal edema, calf tenderness Neurological exam: Present: alert Psychiatric exam: Present: normal affect, normal mood Skin exam: Present: normal color Course Vital Signs 07/13/24 07/13/24 12:40 14:17 Temperature 98.2 F Pulse Rate 91 84 Respiratory 18 18 Rate Blood Pressure 183/99 172/91 O2 Sat by Pulse 96 99 Oximetry EKG Findings - EKG Results: EKG: interpreted by ERMD (Left axis), sinus rhythm, normal QRS, normal ST/T Medical Decision Making - Medical Decision Making Was pt. sent in by a medical professional or institution ([facility], [facility], urgent care, hospital, or shelter...) When possible be specific @ -No Did you speak to anyone other than the patient for history (EMS, parent, family, police, friend...)? What history was obtained from this source @ -No Did you review nursing and triage notes (agree or disagree)? Why? @ -I reviewed and agree with nursing and triage notes Were old charts reviewed (outside hosp., previous admission, EMS record, old EKG, old radiological studies, urgent care reports/EKG's, shelter records)? Report findings @ -Previous renal function reviewed which is worse at this Differential Diagnosis (chest pain, altered mental status, abdominal pain women, abdominal pain men, vaginal bleeding, weakness, fever, dyspnea, syncope, headache, dizziness, GI bleed, back pain, seizure, CVA, palpatations, mental health, musculoskeletal)? @ -Differential Chest Pain: Stable Angina, Unstable Angina, STEMI, NSTEMI Aortic Dissection, Pneumothorax, Musculoskeletal, Esophageal Spasm GERD, Cholecystitis, Pancreatitis, Zoster, this is not meant to be an all-inclusive list. EKG interpreted by me (3pts min.). @ -As above X-rays interpreted by me (1pt min.). @ -X-ray shows some increased interstitial density CT interpreted by me (1pt min.). @ -None done U/S interpreted by me (1pt. min.). @ -None done What testing was considered but not performed or refused? (CT, X-rays, U/S, labs)? Why? @ -Consider CT scan however creatinine elevated and dialysis not due till tomorrow. Considered VQ scan however if after discussion with admitting physician this will be deferred to them What meds were considered but not given or refused? Why? @ -Considered heparin however after further discussion with admitting physician this will be deferred to them Did you discuss the management of the patient with other professionals (professionals i.e. [facility], [facility], lab, RT, psych nurse, psych social worker, advance seal delivery system maintainer, teacher, landing signal officer, caseworker protective services)? Give summary @ -Case was discussed with Dr. Bardales who will admit covering hospital call. He states he will determine testing for elevated D-dimer including CT versus VQ scan. Was smoking cessation discussed for >3mins.? @ -No Was critical care preformed (if so, how long)? @ -No Were there social determinants of health that impacted care today? How? (Homelessness, low income, unemployed, alcoholism, drug addiction, transportation, low edu. Level, literacy, decrease access to med. care, penitentiary, rehab)? @ -No Was there de-escalation of care discussed even if they declined (Discuss DNR or withdrawal of care, Hospice)? DNR status @ -No What co-morbidities impacted this encounter? (DM, HTN, Smoking, COPD, CAD, Cancer, CVA, ARF, Chemo, Hep., AIDS, mental health diagnosis, sleep apnea, morbid obesity)? @ -History of coronary artery disease Was patient admitted / discharged? Hospital course, mention meds given and route, prescriptions, significant lab abnormalities, going to OR and other pertinent info. @ -Patient presents with chest discomfort similar to previous cardiac problems. Troponin slightly elevated. D-dimer also somewhat elevated. Patient to be admitted with consults with cardiology and nephrology. Admission orders written. Patient updated Undiagnosed new problem with uncertain prognosis? @ -No Drug Therapy requiring intensive monitoring for toxicity (Heparin, Nitro, Insulin, Cardizem)? @ -No Were any procedures done? @ -No Diagnosis/symptom? @ -Chest pain Acute, or Chronic, or Acute on Chronic? @ -Acute Uncomplicated (without systemic symptoms) or Complicated (systemic symptoms)? @ -Default Side effects of treatment? @ -No Exacerbation, Progression, or Severe Exacerbation? @ -No Poses a threat to life or bodily function? How? (Chest pain, [place], [place], pneumonia, PE, COPD, DKA, ARF, appy, cholecystitis, CVA, Diverticulitis, Homicidal, Suicidal, threat to staff... and all critical care pts) @ -Threat to cardiac function - Lab Data Result diagrams: 07/13/24 12:57 07/13/24 12:57 Lab Results 07/13/24 07/13/24 07/13/24 Range/Units 12:57 12:57 12:57 WBC 6.5 (3.8-10.6) k/uL RBC 3.47 L (4.30-5.90) m/uL Hgb 10.9 L (13.0-17.5) gm/dL Hct 31.8 L (39.0-53.0) % MCV 91.6 (80.0-100.0) fL MCH 31.3 (25.0-35.0) pg MCHC 34.2 (31.0-37.0) g/dL RDW 13.3 (11.5-15.5) % Plt Count 219 (150-450) k/uL MPV 7.6 Neutrophils % 69 % Lymphocytes % 18 % Monocytes % 5 % Eosinophils % 5 % Basophils % 1 % Neutrophils # 4.5 (1.3-7.7) k/uL Lymphocytes # 1.2 (1.0-4.8) k/uL Monocytes # 0.3 (0-1.0) k/uL Eosinophils # 0.4 (0-0.7) k/uL Basophils # 0.0 (0-0.2) k/uL PT 10.3 (10.0-12.5) sec INR 0.9 (<1.2) APTT 23.3 (22.0-30.0) sec D-Dimer 1.37 H (<0.60) mg/L FEU Sodium 133 L (137-145) mmol/L Potassium 4.6 (3.5-5.1) mmol/L Chloride 98 (98-107) mmol/L Carbon Dioxide 26 (22-30) mmol/L Anion Gap 9 mmol/L BUN 44 H (9-20) mg/dL Creatinine 4.85 H (0.66-1.25) mg/dL Est GFR (CKD-EPI)AfAm 13 (>60 ml/min/1.73 sqM) Est GFR (CKD-EPI)NonAf 12 (>60 ml/min/1.73 sqM) Glucose 325 H (74-99) mg/dL Calcium 8.0 L (8.4-10.2) mg/dL Magnesium 2.4 H (1.6-2.3) mg/dL Total Bilirubin 0.7 (0.2-1.3) mg/dL AST 21 (17-59) U/L ALT 12 (4-49) U/L Alkaline Phosphatase 71 (38-126) U/L Troponin I (0.000-0.034) ng/mL Total Protein 6.0 L (6.3-8.2) g/dL Albumin 3.3 L (3.5-5.0) g/dL 07/13/24 Range/Units 12:57 WBC (3.8-10.6) k/uL RBC (4.30-5.90) m/uL Hgb (13.0-17.5) gm/dL Hct (39.0-53.0) % MCV (80.0-100.0) fL MCH (25.0-35.0) pg MCHC (31.0-37.0) g/dL RDW (11.5-15.5) % Plt Count (150-450) k/uL MPV Neutrophils % % Lymphocytes % % Monocytes % % Eosinophils % % Basophils % % Neutrophils # (1.3-7.7) k/uL Lymphocytes # (1.0-4.8) k/uL Monocytes # (0-1.0) k/uL Eosinophils # (0-0.7) k/uL Basophils # (0-0.2) k/uL PT (10.0-12.5) sec INR (<1.2) APTT (22.0-30.0) sec D-Dimer (<0.60) mg/L FEU Sodium (137-145) mmol/L Potassium (3.5-5.1) mmol/L Chloride (98-107) mmol/L Carbon Dioxide (22-30) mmol/L Anion Gap mmol/L BUN (9-20) mg/dL Creatinine (0.66-1.25) mg/dL Est GFR (CKD-EPI)AfAm (>60 ml/min/1.73 sqM) Est GFR (CKD-EPI)NonAf (>60 ml/min/1.73 sqM) Glucose (74-99) mg/dL Calcium (8.4-10.2) mg/dL Magnesium (1.6-2.3) mg/dL Total Bilirubin (0.2-1.3) mg/dL AST (17-59) U/L ALT (4-49) U/L Alkaline Phosphatase (38-126) U/L Troponin I 0.051 H* (0.000-0.034) ng/mL Total Protein (6.3-8.2) g/dL Albumin (3.5-5.0) g/dL Disposition Clinical Impression: Chest pain Disposition: ADMITTED IP TO THIS [facility] Is patient prescribed a controlled substance at d/c from ED?: No Referrals: Kayode Lau MD [Primary Care Provider] - 1-2 days Time of Disposition: 14:31
[2024-07-13 13:14] LABS: Basophils % (A) 1 %; Eosinophils # (A) 0.4 k/uL (0-0.7); Eosinophils % (A) 5 %; HCT 31.8 % (39.0-53.0); HGB 10.9 gm/dL (13.0-17.5); Lymphocytes # (A) 1.2 k/uL (1.0-4.8); Lymphocytes % (A) 18 %; MCH 31.3 pg (25.0-35.0); MCHC 34.2 g/dL (31.0-37.0); MCV 91.6 fL (80.0-100.0); Mean Platelet Volume 7.6; Monocytes # (A) 0.3 k/uL (0-1.0); Monocytes % (A) 5 %; Neutrophils # (A) 4.5 k/uL (1.3-7.7); Neutrophils % (A) 69 %; Platelet Count 219 k/uL (150-450); RBC 3.47 m/uL (4.30-5.90); RDW 13.3 % (11.5-15.5); WBC 6.5 k/uL (3.8-10.6)
[2024-07-13 13:29] LABS: ALT 12 U/L (4-49); African American GFR (CKD) 13 (>60 ml/min/1.73 sqM); Albumin 3.3 g/dL (3.5-5.0); Anion Gap 9 mmol/L; Blood Urea Nitrogen 44 mg/dL (9-20); Carbon Dioxide 26 mmol/L (22-30); Chloride 98 mmol/L (98-107); Glucose 325 mg/dL (74-99); Non-African American GFR(CKD) 12 (>60 ml/min/1.73 sqM); Sodium 133 mmol/L (137-145); Total Bilirubin 0.7 mg/dL (0.2-1.3)
[2024-07-13 13:30] LABS: INR 0.9 (<1.2); Partial Thromboplastin Time 23.3 sec (22.0-30.0); Prothrombin Time 10.3 sec (10.0-12.5)
[2024-07-13 13:42] LABS: AST 21 U/L (17-59); Alkaline Phosphatase 71 U/L (38-126); Magnesium 2.4 mg/dL (1.6-2.3); Potassium 4.6 mmol/L (3.5-5.1)
--- NOTE | 2024-07-13 13:46 | XR ---
EXAMINATION TYPE: XR chest 2V DATE OF EXAM: 07/13/2024 1:40 PM COMPARISON: Chest radiographs from 02/28/2018 TECHNIQUE: XR chest 2V Frontal and lateral views of the chest. CLINICAL INDICATION:Male, 69 years old with history of Chest Pain; FINDINGS: Lungs/Pleura: No pleural effusion. No pneumothorax. Chronic elevation of the right hemidiaphragm. Beto ateral perihilar opacities. Pulmonary vascularity: Pulmonary vascular congestion. Heart/mediastinum: Cardiomediastinal silhouette is unremarkable. Atherosclerotic calcifications are seen in the aorta. Musculoskeletal: No acute osseous pathology. Other findings: None Lines/Tubes: Right internal jugular dual-lumen dialysis catheter with distal tip at the superior cavoatrial juncti on. IMPRESSION: Bilateral perihilar opacities suggesting pulmonary edema. Superimposed infectious process is not excl uded. [facility] Ava Castillo, , 07/13/2024 1:43 PM
[2024-07-13] MEDS: NITROGLYCERIN OINT 1 INCH/GM PACKET TOPICAL STA (14:19)
[2024-07-13] MEDS ORDERED: NITROGLYCERIN SL TABS 0.4 MG TAB SUBLINGUAL PRN (14:31)
[2024-07-13] MEDS: amLODIPine 5 MG TAB PO SCH (16:24)
[2024-07-13] MEDS: carvediloL 6.25 MG TAB PO SCH (16:24)
[2024-07-13] MEDS ORDERED: hydrALAZINE HCL 20 MG/ML 1 ML VIAL IVP PRN (16:40)
--- NOTE | 2024-07-13 16:40 | P.NPCON ---
History of Present Illness - Reason for Consult end stage renal disease - History of Present Illness Reason for consultation: End-stage renal disease History of present illness: Patient is a 69-year-old male seen in renal consultation for end-stage renal disease. He is maintained on hemodialysis on Saturday schedule via right chest permacath. Patient came to the hospital due to chest pain. Patient states that chest pain was mostly in the middle of his chest with no radiation to his arms or jaw. He denies any diaphoresis. No vomiting or diarrhea. Patient does have history of coronary artery disease and has 2 stents from the past. He has longstanding history of diabetes. He does make urine. No fever or chills. He is currently on 2 L nasal cannula. He does not wear oxygen at home. Last dialysis was Saturday. Vital signs are stable. General: No acute distress. HEENT: Head exam is unremarkable. On nasal cannula. LUNGS: No audible rhonchi or wheezes. HEART: Rate and Rhythm are regular. ABDOMEN: Nontender. EXTREMITITES: No edema. Past Medical History Past Medical History: Coronary Artery Disease (CAD), Diabetes Mellitus, Hy perlipidemia, Hypertension, Osteoarthritis (OA) Additional Past Medical History / Comment(s): hx retinal bleeding with laser tx, diabetic neuropathy, Last Myocardial Infarction Date:: 2009 History of Any Multi-Drug Resistant Organisms: MRSA Date of last positivie culture/infection: 11/29/17 MDRO Source:: toe Past Surgical History: Heart Catheterization With Stent, Hernia Repair, Tonsillectomy Additional Past Surgical History / Comment(s): LEFT INGUINAL HERNIA (SEPTEMBER 2014). ULNAR NERVE SC BILAT HANDS AND ELBOWS. COLONOSCOPY, Partial amputation to second toe, left toe surgery Past Anesthesia/Blood Transfusion Reactions: No Reported Reaction, Motion Sickness Additional Past Anesthesia/Blood Transfusion Reaction / Comment(s): Difficulty waking Date of Last Stent Placement:: 2009 Past Psychological History: Depression Smoking Status: Never smoker - Past Family History Father Family Medical History: Congestive Heart Failure (CHF), Myocardial Infarction ([place]) Mother Family Medical History: CVA/TIA Additional Family Medical History / Comment(s): varicose veins Medications and Allergies Home Medications Medication Instructions Recorded Confirmed Type Atorvastatin [Lipitor] 80 mg PO HS 08/19/14 07/13/24 History Carvedilol [Coreg] 6.25 mg PO DAILY 08/19/14 07/13/24 History Insulin Glargine [Lantus] 25 unit SQ BID 07/12/20 07/13/24 History Albuterol Inhaler [Ventolin Hfa 2 puff INHALATION RT-QID PRN 07/13/24 07/13/24 History Inhaler] Aspirin 81 mg PO DAILY 07/13/24 07/13/24 History Calcium Acetate [Phoslo] 667 mg PO TID-W/MEALS 07/13/24 07/13/24 History Cyclobenzaprine [Flexeril] 10 mg PO TID PRN 07/13/24 07/13/24 History Folic Acid/Vit B Complex and C 0.8 mg PO DAILY 07/13/24 07/13/24 History [Nephro-Misael Tablet] amLODIPine [Norvasc] 5 mg PO DAILY 07/13/24 07/13/24 History buPROPion [Wellbutrin] 75 mg PO BID 07/13/24 07/13/24 History Allergies Allergy/AdvReac Type Severity Reaction Status Date / Time Sulfa (Sulfonamide Allergy Nausea & Verified 07/13/24 15:24 Antibiotics) Vomiting clindamycin AdvReac Unknown High BP , Verified 07/13/24 15:24 Nausea & Vomiting & Diarrhea codeine AdvReac Nausea & Verified 07/13/24 15:24 Vomiting morphine AdvReac Nausea & Verified 07/13/24 15:24 Vomiting sulfamethoxazole AdvReac Nausea & Verified 07/13/24 15:24 [From Bactrim] Vomiting & Diarrhea trimethoprim [From Bactrim] AdvReac Nausea & Verified 07/13/24 15:24 Vomiting & Diarrhea Physical Exam Vitals: Vital Signs Temp Pulse Resp BP Pulse Ox 07/13/24 16:23 88 18 185/106 97 07/13/24 14:17 84 18 172/91 99 07/13/24 12:40 98.2 F 91 18 183/99 96 Intake and Output 07/13/24 07/13/24 07/13/24 06:59 14:59 22:59 Other: Weight 86.183 kg Results - Lab Results Most recent lab results Calcium 8.0 mg/dL (8.4-10.2) L 07/13/24 12:57 Magnesium 2.4 mg/dL (1.6-2.3) H 07/13/24 12:57 07/13/24 12:57 07/13/24 12:57 Assessment and Plan Plan: Assessment: 1. End-stage renal disease maintained on hemodialysis on Saturday schedule via permacath. 2. Chest pain. Cardiology consulted. 3. Coronary artery disease status post cardiac stents from the past. 4. Diabetes mellitus. 5. Hypertension with chronic kidney disease. 6. Chronic kidney disease mineral bone disease. Plan: Hemodialysis tomorrow. Home antihypertensives resumed. Check phosphorus level. Add as needed hydralazine. Follow-up echocardiogram. Add torsemide. Thank you for the consultation. I will continue to follow the patient with you during his hospital stay.
[2024-07-13 17:07] LABS: Glucose,Whole Blood 294 mg/dL (70-110)
--- NOTE | 2024-07-13 17:57 | P.HPIM ---
History of Present Illness H&P Date: 07/13/24 69 year old M with PMH of ESRD on HD TTS, CAD with stenting, DM, HTN, HLD presents to the ED for chest pain. Symptoms started when he stood up from bed this morning. He reports palpitations and shortness of breath at that time. Pain is pressure like, mid-sternal with no radiation. No alleviating or aggravating factors. His symptoms resolved as he got to the ED. In the ED he underwent extensive evaluation. BP 183/99, HR 91, T 98.2F, RR 18, 96% on 2L NC. CBC, Coag panel, CMP significant for RBC 3.47, Hg 10.9, Hct 31.8, Na 133, BUN 44, Cr 4.85, glu 325, Ca 8, alb 3.3. Mag 2.4. BNP 8730. D-Dimer 1.37. Troponin 0.051, 0.052 with EKG showing sinus rhythm with no ST elevation. CXR bilateral perihilar opacities suggesting pulmonary edema. Patient is admitted for further workup and management. General: non toxic, no distress, appears at stated age Derm: warm, dry Head: atraumatic, normocephalic, symmetric Eyes: EOMI, no lid lag, anicteric sclera Mouth: no lip lesion, mucus membranes moist Cardiovascular: S1S2 reg, no murmur Lungs: CTA bilateral, no rhonchi, no rales , no accessory muscle use Ext: no gross muscle atrophy, no edema, no contractures Neuro: no focal neuro deficits Psych: Alert, oriented x 3 Based on my assessment of this patient, this patient meets a high complexity level of care. Chest pain with history of CAD with stenting: Trend Trop/EKG to rule out ACS. ASA 81 mg PO QD. Lipitor 80 mg PO QHS. Nitro ointment Q6H. Telemetry monitoring. Obtain Echo. Cardiology consult. Elevated D-Dimer: Would ordered CTA chest to be completed tomorrow prior to HD. ESRD on HD TTS: Nephrology consulted to resume HD. DM with hyperglycemia: ISS + Accuchecks ACHS with Hypoglycemic precautions. Hypertension: Amlodipine 6 mg PO QD. Coreg 6.25 mg PO BID. Torsemide 40 mg PO QD. Hydralazine 10 mg IV Q6H PRN. CODE STATUS: FULL CODE. DVT Prophylaxis: Heparin SQ GI Prophylaxis: Designated medical POA if patient is not able to make medical decisions for themselves: Son I have reviewed the following furniture rental consultant notes: ED note. I have reviewed the results of the following tests: As above. I have ordered the following tests: As above. I have discussed the care of this patient with the following independent historian: I have independently interpreted the following test below: I have discussed the management of this patient with the following physician: Dr. Maguire. Past Medical History Past Medical History: Coronary Artery Disease (CAD), Diabetes Mellitus, Hyperlipidemia, Hypertension, Osteoarthritis (OA) Additional Past Medical History / Comment(s): hx retinal bleeding with laser tx, diabetic neuropathy, Last Myocardial Infarction Date:: 2009 History of Any Multi-Drug Resistant Organisms: MRSA Date of last positivie culture/infection: 11/29/17 MDRO Source:: toe Past Surgical History: Heart Catheterization With Stent, Hernia Repair, Tonsillectomy Additional Past Surgical History / Comment(s): LEFT INGUINAL HERNIA (SEPTEMBER 2014). ULNAR NERVE SC BILAT HANDS AND ELBOWS. COLONOSCOPY, Partial amputation to second toe, left toe surgery Past Anesthesia/Blood Transfusion Reactions: No Reported Reaction, Motion Sickness Additional Past Anesthesia/Blood Transfusion Reaction / Comment(s): Difficulty waking Date of Last Stent Placement:: 2009 Past Psychological History: Depression Smoking Status: Never smoker - Past Family History Father Family Medical History: Congestive Heart Failure (CHF), Myocardial Infarction ([place]) Mother Family Medical History: CVA/TIA Additional Family Medical History / Comment(s): varicose veins Medications and Allergies Home Medications Medication Instructions Recorded Confirmed Type Atorvastatin [Lipitor] 80 mg PO HS 08/19/14 07/13/24 History Carvedilol [Coreg] 6.25 mg PO DAILY 08/19/14 07/13/24 History Insulin Glargine [Lantus] 25 unit SQ BID 07/12/20 07/13/24 History Albuterol Inhaler [Ventolin Hfa 2 puff INHALATION RT-QID PRN 07/13/24 07/13/24 History Inhaler] Aspirin 81 mg PO DAILY 07/13/24 07/13/24 History Calcium Acetate [Phoslo] 667 mg PO TID-W/MEALS 07/13/24 07/13/24 History Cyclobenzaprine [Flexeril] 10 mg PO TID PRN 07/13/24 07/13/24 History Folic Acid/Vit B Complex and C 0.8 mg PO DAILY 07/13/24 07/13/24 History [Nephro-Misael Tablet] amLODIPine [Norvasc] 5 mg PO DAILY 07/13/24 07/13/24 History buPROPion [Wellbutrin] 75 mg PO BID 07/13/24 07/13/24 History Allergies Allergy/AdvReac Type Severity Reaction Status Date / Time Sulfa (Sulfonamide Allergy Nausea & Verified 07/13/24 15:24 Antibiotics) Vomiting clindamycin AdvReac Unknown High BP , Verified 07/13/24 15:24 Nausea & Vomiting & Diarrhea codeine AdvReac Nausea & Verified 07/13/24 15:24 Vomiting morphine AdvReac Nausea & Verified 07/13/24 15:24 Vomiting sulfamethoxazole AdvReac Nausea & Verified 07/13/24 15:24 [From Bactrim] Vomiting & Diarrhea trimethoprim [From Bactrim] AdvReac Nausea & Verified 07/13/24 15:24 Vomiting & Diarrhea Physical Exam Vitals: Vital Signs Temp Pulse Resp BP Pulse Ox 07/13/24 16:23 88 18 185/106 97 07/13/24 14:17 84 18 172/91 99 07/13/24 12:40 98.2 F 91 18 183/99 96 Intake and Output 07/13/24 07/13/24 07/13/24 06:59 14:59 22:59 Other: Weight 86.183 kg Results CBC & Chem 7: 07/13/24 12:57 07/13/24 12:57 Labs: Abnormal Lab Results - Last 24 Hours (Table) 07/13/24 07/13/24 07/13/24 Range/Units 12:57 12:57 12:57 RBC 3.47 L (4.30-5.90) m/uL Hgb 10.9 L (13.0-17.5) gm/dL Hct 31.8 L (39.0-53.0) % D-Dimer 1.37 H (<0.60) mg/L FEU Sodium 133 L (137-145) mmol/L BUN 44 H (9-20) mg/dL Creatinine 4.85 H (0.66-1.25) mg/dL Glucose 325 H (74-99) mg/dL POC Glucose (mg/dL) (70-110) mg/dL Calcium 8.0 L (8.4-10.2) mg/dL Magnesium 2.4 H (1.6-2.3) mg/dL Troponin I (0.000-0.034) ng/mL Total Protein 6.0 L (6.3-8.2) g/dL Albumin 3.3 L (3.5-5.0) g/dL 07/13/24 07/13/24 07/13/24 Range/Units 12:57 16:09 17:06 RBC (4.30-5.90) m/uL Hgb (13.0-17.5) gm/dL Hct (39.0-53.0) % D-Dimer (<0.60) mg/L FEU Sodium (137-145) mmol/L BUN (9-20) mg/dL Creatinine (0.66-1.25) mg/dL Glucose (74-99) mg/dL POC Glucose (mg/dL) 294 H (70-110) mg/dL Calcium (8.4-10.2) mg/dL Magnesium (1.6-2.3) mg/dL Troponin I 0.051 H* 0.052 H* (0.000-0.034) ng/mL Total Protein (6.3-8.2) g/dL Albumin (3.5-5.0) g/dL
[2024-07-13] MEDS: NITROGLYCERIN OINT 1 INCH/GM PACKET TOPICAL SCH (18:26)
[2024-07-13 18:41] LABS: Glucose,Whole Blood 383 mg/dL (70-110)
[2024-07-13] MEDS: TORSEMIDE 20 MG TAB PO SCH (18:52)
[2024-07-13] MEDS: INSULIN ASPART (NovoLOG) 100 UNIT/ML VIAL SQ SCH (18:53)
[2024-07-13 20:57] LABS: Glucose,Whole Blood 308 mg/dL (70-110)
[2024-07-13] MEDS: HEPARIN SODIUM,PORCINE 5,000 UNIT/ML 1 ML VIAL SQ SCH (21:09)
[2024-07-13] MEDS: ATORVASTATIN 40 MG TAB PO SCH (21:10)
[2024-07-14 01:06] LABS: Glucose,Whole Blood 41 mg/dL (70-110)
[2024-07-14 01:21] LABS: Glucose,Whole Blood 41 mg/dL (70-110)
[2024-07-14] MEDS: DEXTROSE 50% SYRINGE 50 ML IVP PRN (01:23)
[2024-07-14 01:38] LABS: Glucose,Whole Blood 173 mg/dL (70-110)
[2024-07-14 06:10] LABS: Glucose,Whole Blood 164 mg/dL (70-110)
[2024-07-14 08:19] LABS: Glucose,Whole Blood 169 mg/dL (70-110)
[2024-07-14 08:42] LABS: Chol/HDL Ratio 6.18 Ratio; LDL Cholesterol,Calculated 172.4 mg/dL (0.0-131.0)
[2024-07-14] MEDS: ASPIRIN 81 MG PO SCH (08:53)
[2024-07-14] MEDS ORDERED: ALBUTEROL NEBULIZED 2.5 MG/3 ML INHALATION PRN (09:00)
[2024-07-14] MEDS ORDERED: ASPIRIN 325 MG TAB PO SCH (09:00)
[2024-07-14] MEDS: FOLIC ACID-VIT B COMPLEX-VIT C 1 CAP PO SCH (10:12)
[2024-07-14] MEDS: buPROPion 75 MG TAB PO SCH (10:12)
--- NOTE | 2024-07-14 11:30 | CT ---
EXAMINATION TYPE: CT chest angio for PE DATE OF EXAM: 07/14/2024 COMPARISON: Chest x-ray one day earlier HISTORY: chest pain/elevated d-dimer CT DLP: 477.8 mGycm. Automated Exposure Control for Dose Reduction was Utilized. CONTRAST: CTA scan of the thorax is performed with IV Contrast, patient injected with 100ml mL of Isovue 370, p ulmonary embolism protocol. MIP Images are created on CT scanner and reviewed. FINDINGS: LUNGS: There is 11 mm lingular nodule or nodular consolidation image 94. Near this level there is mil d linear scarring and/or atelectasis. Some dependent opacity in the bilateral lower lobes could refle ct atelectasis and/or mild edema. Elevated right hemidiaphragm is redemonstrated. Associated right ba silar linear atelectasis is noted. MEDIASTINUM: There is satisfactory enhancement of the pulmonary artery and its branches, there is no CT evidence for pulmonary embolism. Enhancement of the aorta without aneurysm or dissection. Coronary artery calcification and/or stents are seen. No cardiomegaly or pericardial effusion. There is right internal jugular large bore catheter terminating in the right atrium. OTHER: Small stones dependently in gallbladder. Multilevel spurring and bridging osteophytes in the t horacic spine. Small degree of bilateral flame-shaped gynecomastia is noted. IMPRESSION: 1. No CT evidence for acute pulmonary embolism. 2. Perhaps mild dependent edema but favor atelectasis. Elevated right hemidiaphragm. 3. Probable 1.1 cm lingular pulmonary nodule versus less likely nodular consolidation. Neoplasm canno t be excluded. Advise PET CT follow-up. No additional suspicious focal consolidation. [facility], , 07/14/2024 11:28 AM
--- NOTE | 2024-07-14 11:38 | P.CRDCN ---
History of Present Illness History of present illness: HISTORY OF PRESENT ILLNESS: This is a 69-year-old male with a past medical history significant for end-stage renal disease on hemodialysis, hypertension, hyperlipidemia, diabetes, and cor onary artery disease with stenting of the mid LAD and mid RCA in 2007. Patient used to follow in the office with Dr. Whiting but has not been seen since July 2016. We have been asked to see the patient in consultation for chest pain. Patient examined at the bedside in the ER. Patient states yesterday when he got out of bed he suddenly began to have chest discomfort. He states the pain was in the middle of his chest. He denied any radiation of the pain. He did take 1 baby aspirin and then called 911. He states they gave him 3 additional aspirin. He states the pain then subsided. He denies having any chest pain or pressure at the time of examination. DIAGNOSTICS: - EKG reveals sinus mechanism with no signs of acute ischemia. - Chest xray bilateral perihilar opacities suggesting pulmonary edema - Laboratory data: WBC 6.5. Hemoglobin 10.9. Platelet count 219. D-dimer 1.37. Sodium 133. BUN 44. Creatinine 4.85. proBNP 8730. Troponin 0.051. 0.052. 0.051. - Current home cardiac medications include aspirin 81 mg daily, Lipitor 80 mg at night, carvedilol 6.25 mg daily, amlodipine 5 mg daily. - Most recent echocardiogram obtained in 2016 revealing ejection fraction of 55% - Cardiac catheterization history: 2007 with stenting of the mid LAD and mid RCA. REVIEW OF SYSTEMS: At the time of my exam: CONSTITUTIONAL: Denies fever or chills. HEENT: Denies blurred vision, vision changes, or eye pain. Denies hemoptysis CARDIOVASCULAR: Denies chest pain. Denies orthopnea. Denies PND. Denies palpitations RESPIRATORY: Denies shortness of breath. GASTROINTESTINAL: Denies abdominal pain. Denies nausea or vomiting. HEMATOLOGIC: Denies bleeding disorders. GENITOURINARY: Denies any blood in urine. SKIN: Denies pruitis. Denies rash. PHYSICAL EXAM: VITAL SIGNS: Reviewed. GENERAL: Well-developed in no acute distress. HEENT: Head is normocephalic. Pupils are equal, round. Sclerae anicteric. Mucous membranes of the mouth are moist. Neck supple. No JVD or thyromegaly LUNGS: Respirations even and unlabored. Lungs essentially clear to auscultation bilaterally. HEART: Regular rate and rhythm. S1 and S2 heard. ABDOMEN: Soft. Nondistended. Nontender. EXTREMITIES: Normal range of motion. No clubbing or cyanosis. Peripheral pulses intact. No lower extremity edema NEUROLOGIC: Awake and alert. Oriented x 3. ASSESSMENT: Chest pain End-stage renal disease on hemodialysis Elevated troponins, flat, no evidence of myocardial injury or ischemia, secondary to poor renal clearance Coronary artery disease with previous stenting of the mid LAD and mid RCA, 2007 Hypertension Hyperlipidemia Diabetes PLAN: Obtain 2D echo to assess cardiac structure and function Resume home cardiac medications N.p.o. at midnight Patient to undergo Lexiscan stress test tomorrow Further recommendations pending patient course Nurse practitioner note has been reviewed by physician. Signing provider agrees with the documented findings, assessment, and plan of care documented by SUPERINTENDENT NONSELLING as a scribe. Past Medical History Past Medical History: Coronary Artery Disease (CAD), Diabetes Mellitus, Hyperlipidemia, Hypertension, Osteoarthritis (OA) Additional Past Medical History / Comment(s): hx retinal bleeding with laser tx, diabetic neuropathy, Last Myocardial Infarction Date:: 2009 History of Any Multi-Drug Resistant Organisms: MRSA Date of last positivie culture/infection: 11/29/17 MDRO Source:: toe Past Surgical History: Heart Catheterization With Stent, Hernia Repair, Tonsillectomy Additional Past Surgical History / Comment(s): LEFT INGUINAL HERNIA (SEPTEMBER 2014). ULNAR NERVE SC BILAT HANDS AND ELBOWS. COLONOSCOPY, Partial amputation to second toe, left toe surgery Past Anesthesia/Blood Transfusion Reactions: No Reported Reaction, Motion S ickness Additional Past Anesthesia/Blood Transfusion Reaction / Comment(s): Difficulty waking Date of Last Stent Placement:: 2009 Past Psychological History: Depression Smoking Status: Never smoker - Past Family History Father Family Medical History: Congestive Heart Failure (CHF), Myocardial Infarction ([place]) Mother Family Medical History: CVA/TIA Additional Family Medical History / Comment(s): varicose veins Medications and Allergies Home Medications Medication Instructions Recorded Confirmed Type Atorvastatin [Lipitor] 80 mg PO HS 08/19/14 07/13/24 History Carvedilol [Coreg] 6.25 mg PO DAILY 08/19/14 07/13/24 History Insulin Glargine [Lantus] 25 unit SQ BID 07/12/20 07/13/24 History Albuterol Inhaler [Ventolin Hfa 2 puff INHALATION RT-QID PRN 07/13/24 07/13/24 History Inhaler] Aspirin 81 mg PO DAILY 07/13/24 07/13/24 History Calcium Acetate [Phoslo] 667 mg PO TID-W/MEALS 07/13/24 07/13/24 History Cyclobenzaprine [Flexeril] 10 mg PO TID PRN 07/13/24 07/13/24 History Folic Acid/Vit B Complex and C 0.8 mg PO DAILY 07/13/24 07/13/24 History [Nephro-Misael Tablet] amLODIPine [Norvasc] 5 mg PO DAILY 07/13/24 07/13/24 History buPROPion [Wellbutrin] 75 mg PO BID 07/13/24 07/13/24 History Allergies Allergy/AdvReac Type Severity Reaction Status Date / Time Sulfa (Sulfonamide Allergy Nausea & Verified 07/13/24 15:24 Antibiotics) Vomiting clindamycin AdvReac Unknown High BP , Verified 07/13/24 15:24 Nausea & Vomiting & Diarrhea codeine AdvReac Nausea & Verified 07/13/24 15:24 Vomiting morphine AdvReac Nausea & Verified 07/13/24 15:24 Vomiting sulfamethoxazole AdvReac Nausea & Verified 07/13/24 15:24 [From Bactrim] Vomiting & Diarrhea trimethoprim [From Bactrim] AdvReac Nausea & Verified 07/13/24 15:24 Vomiting & Diarrhea Physical Exam Vitals: Vital Signs Temp Pulse Pulse Resp BP BP Pulse Ox 07/14/24 10:14 96 16 162/89 97 07/14/24 08:59 99 16 140/85 96 07/14/24 04:00 98.1 F 80 12 143/99 97 07/14/24 00:00 98.2 F 89 14 175/97 96 07/13/24 20:00 98.0 F 86 18 154/88 96 07/13/24 18:54 98.1 F 85 19 153/96 98 07/13/24 18:32 85 18 150/102 97 07/13/24 16:23 88 18 185/106 97 07/13/24 14:17 84 18 172/91 99 07/13/24 12:40 98.2 F 91 18 183/99 96 Intake and Output 07/13/24 07/14/24 07/14/24 22:59 06:59 14:59 Intake Total 750 Balance 750 Intake: Oral 750 Other: # Voids 1 # Bowel Movements 1 Results 07/13/24 12:57 07/13/24 12:57 Cardiac Enzymes 07/13/24 07/13/24 07/13/24 Range/Units 12:57 12:57 16:09 AST 21 (17-59) U/L Troponin I 0.051 H* 0.052 H* (0.000-0.034) ng/mL 07/13/24 Range/Units 18:39 AST (17-59) U/L Troponin I 0.051 H* (0.000-0.034) ng/mL Coagulation 07/13/24 Range/Units 12:57 PT 10.3 (10.0-12.5) sec APTT 23.3 (22.0-30.0) sec Lipids 07/13/24 Range/Units 12:57 Triglycerides 215.00 H (0.00-149.00) mg/dL Cholesterol 257.00 H (0.00-200.00) mg/dL HDL Cholesterol 41.60 (40.00-60.00) mg/dL Cholesterol/HDL Ratio 6.18 Ratio CBC 07/13/24 Range/Units 12:57 WBC 6.5 (3.8-10.6) k/uL RBC 3.47 L (4.30-5.90) m/uL Hgb 10.9 L (13.0-17.5) gm/dL Hct 31.8 L (39.0-53.0) % Plt Count 219 (150-450) k/uL Comprehensive Metabolic Panel 07/13/24 Range/Units 12:57 Sodium 133 L (137-145) mmol/L Potassium 4.6 (3.5-5.1) mmol/L Chloride 98 (98-107) mmol/L Carbon Dioxide 26 (22-30) mmol/L BUN 44 H (9-20) mg/dL Creatinine 4.85 H (0.66-1.25) mg/dL Glucose 325 H (74-99) mg/dL Calcium 8.0 L (8.4-10.2) mg/dL AST 21 (17-59) U/L ALT 12 (4-49) U/L Alkaline Phosphatase 71 (38-126) U/L Total Protein 6.0 L (6.3-8.2) g/dL Albumin 3.3 L (3.5-5.0) g/dL Current Medications Generic Name Dose Route Start Last Admin Trade Name Freq PRN Reason Stop Dose Admin Albuterol Sulfate 2.5 mg 07/14/24 09:00 Albuterol Nebulized 2.5 Mg/3 Ml INHALATION RT-QID PRN Shortness Of Breath Amlodipine Besylate 5 mg 07/13/24 15:15 07/14/24 08:53 Amlodipine 5 Mg Tab PO 5 mg DAILY CHLOE Administration Aspirin 81 mg 07/14/24 09:00 07/14/24 08:53 Aspirin 81 Mg PO 81 mg DAILY CHLOE Administration Atorvastatin Calcium 80 mg 07/13/24 21:00 07/13/24 21:10 Atorvastatin 40 Mg Tab PO 80 mg HS CHLOE Administration Bupropion HCl 75 mg 07/14/24 09:00 07/14/24 10:12 Bupropion 75 Mg Tab PO 75 mg BID CHLOE Administration Carvedilol 6.25 mg 07/13/24 15:15 07/14/24 08:53 Carvedilol 6.25 Mg Tab PO 6.25 mg DAILY CHLOE Administration Cyclobenzaprine HCl 10 mg 07/13/24 15:14 Cyclobenzaprine 10 Mg Tab PO TID PRN Muscle Spasm Dextrose/Water 25 ml 07/13/24 15:15 Dextrose 50% Syringe 50 Ml IVP PER PROTOCOL PRN Hypoglycemia Protocol Dextrose/Water 50 ml 07/13/24 15:15 07/14/24 01:23 Dextrose 50% Syringe 50 Ml IVP 50 ml PER PROTOCOL PRN Administration Hypoglycemia Protocol Heparin Sodium (Porcine) 5,000 unit 07/13/24 21:00 07/14/24 08:52 Heparin Sodium,Porcine 5,000 Unit/Ml 1 Ml Vial SQ 5,000 unit Q12HR CHLOE Administration Hydralazine HCl 10 mg 07/13/24 16:40 Hydralazine Hcl 20 Mg/Ml 1 Ml Vial IVP Q6HR PRN Blood Pressure - High Insulin Aspart 0 unit 07/13/24 17:30 07/14/24 08:52 Insulin Aspart (Novolog) 100 Unit/Ml Vial SQ 3 unit ACHS CHLOE Administration Protocol Insulin Detemir 25 unit 07/14/24 21:00 Insulin Detemir (Levemir) 100 Unit/Ml Syr SQ BID@0700,2100 CHLOE Multivit/Ca Carb/B Cmplx/FA/Prenat 1 each 07/14/24 09:00 07/14/24 10:12 Folic Acid-Vit B Complex-Vit C 1 Cap PO 1 each DAILY CHLOE Administration Nitroglycerin 0.4 mg 07/13/24 14:31 Nitroglycerin Sl Tabs 0.4 Mg Tab SUBLINGUAL Q5M PRN Chest Pain Torsemide 40 mg 07/13/24 16:45 07/14/24 08:53 Torsemide 20 Mg Tab PO 40 mg DAILY CHLOE Administration Intake and Output 07/13/24 07/14/24 07/14/24 22:59 06:59 14:59 Intake Total 750 Balance 750 Intake: Oral 750 Other: # Voids 1 # Bowel Movements 1 07/13/24 12:57 07/13/24 12:57
[2024-07-14 12:04] LABS: Glucose,Whole Blood 238 mg/dL (70-110)
[2024-07-14 12:20] LABS: HCT 30.6 % (39.0-53.0); HGB 10.3 gm/dL (13.0-17.5); MCH 30.7 pg (25.0-35.0); MCHC 33.7 g/dL (31.0-37.0); Mean Platelet Volume 7.7; Platelet Count 232 k/uL (150-450); RBC 3.37 m/uL (4.30-5.90); RDW 13.3 % (11.5-15.5); WBC 7.2 k/uL (3.8-10.6)
[2024-07-14] MEDS: CALCIUM ACETATE 667 MG TAB PO SCH (12:40)
[2024-07-14 12:41] LABS: ALT 10 U/L (4-49); AST 15 U/L (17-59); African American GFR (CKD) 10 (>60 ml/min/1.73 sqM); Albumin 2.9 g/dL (3.5-5.0); Alkaline Phosphatase 82 U/L (38-126); Anion Gap 12 mmol/L; Blood Urea Nitrogen 52 mg/dL (9-20); Calcium 7.8 mg/dL (8.4-10.2); Carbon Dioxide 23 mmol/L (22-30); Chloride 97 mmol/L (98-107); Glucose 246 mg/dL (74-99); Magnesium 2.4 mg/dL (1.6-2.3); Non-African American GFR(CKD) 9 (>60 ml/min/1.73 sqM); Potassium 4.1 mmol/L (3.5-5.1); Sodium 132 mmol/L (137-145); Total Bilirubin 0.4 mg/dL (0.2-1.3); Total Protein 5.3 g/dL (6.3-8.2)
--- NOTE | 2024-07-14 12:59 | CA ---
Transthoracic Echo Report Name: Rodolfo Esquivel Age: 69 Gender: M : 1955 Exam Date: 07/14/2024 08:51 Exam Location: [place] [facility] Ht (in): 70 Wt (lb): 190 Ordering Physician: Beni Maguire DO Attending/Referring Phys: Critical Care Nurse Specialist Nayla Marte RDCS Procedure CPT: Indications: CP Cardiac Hx: Technical Quality: Good Contrast 1: Total Dose (mL): Contrast 2: Total Dose (mL): MEASUREMENTS (Male / Female) Normal Values 2D ECHO LV Diastolic Diameter PLAX 5.0 cm 4.2 - 5.9 / 3.9 - 5.3 cm LV Systolic Diameter PLAX 3.0 cm IVS Diastolic Thickness 1.3 cm 0.6 - 1.0 / 0.6 - 0.9 cm LVPW Diastolic Thickness 1.3 cm 0.6 - 1.0 / 0.6 - 0.9 cm LV Relative Wall Thickness 0.5 RV Internal Dim ED PLAX 3.6 cm LA Systolic Diameter LX 4.8 cm 3.0 - 4.0 / 2.7 - 3.8 cm LV Diastolic Volume MOD BP 93.3 cm??? 67 - 155 / 56 - 104 cm??? LV Systolic Volume MOD BP 51.3 cm??? 22 - 58 / 19 - 49 cm??? LV Ejection Fraction MOD BP 45.0 % >= 55 % LV Cardiac Index MOD BP 2001.7 cm???/min???m??? LV Diastolic Volume MOD 4C 106.4 cm??? LV Systolic Volume MOD 4C 47.2 cm??? LV Ejection Fraction MOD 4C 55.6 % LV Cardiac Index MOD 4C 2818.9 cm???/min???m??? LV Diastolic Length 4C 7.9 cm LV Systolic Length 4C 7.0 cm LV Diastolic Volume MOD 2C 91.1 cm??? LV Systolic Volume MOD 2C 50.7 cm??? LV Ejection Fraction MOD 2C 44.3 % LV Cardiac Index MOD 2C 1923.9 cm???/min???m??? LV Diastolic Length 2C 8.2 cm LV Systolic Length 2C 6.7 cm LA Volume 110.6 cm??? 18 - 58 / 22 - 52 cm??? LA Volume Index 53.2 cm???/m??? 16 - 28 cm???/m??? M-MODE Aortic Root Diameter MM 3.7 cm AV Cusp Separation MM 2.4 cm DOPPLER AV Peak Velocity 120.8 cm/s AV Peak Gradient 5.8 mmHg MV Area PHT 6.7 cm??? Mitral E Point Velocity 99.8 cm/s Mitral A Point Velocity 87.8 cm/s Mitral E to A Ratio 1.1 MV Deceleration Time 113.4 ms TR Peak Velocity 291.4 cm/s TR Peak Gradient 34.0 mmHg Right Ventricular Systolic Press 39.0 mmHg FINDINGS Left Ventricle Left ventricular ejection fraction is estimated at 55-60 %. Left ventricular cavity size normal. Mild concentric left ventricular hypertrophy. Normal left ventricular wall motion. Right Ventricle Mild right ventricular dilatation. Mild pulmonary hypertension. Right Atrium Normal right atrial size. No right atrial thrombus or mass seen. Left Atrium Moderately increased left atrial diameter. Severely increased left atrial volume. Mildly increased left atrial area. No left atrial thrombus or mass present. Mitral Valve Mitral valve thickened. Mild mitral regurgitation. Aortic Valve Trileaflet aortic valve. Aortic valve sclerosis. No aortic valve stenosis or regurgitation. Tricuspid Valve Structurally normal tricuspid valve. Mild tricuspid regurgitation. Pulmonic Valve Pulmonic valve not well visualized. No pulmonic regurgitation. Pericardium No pericardial effusion. Aorta Normal size aortic root and proximal ascending aorta. CONCLUSIONS Left ventricular ejection fraction 55-60% Mildly increased left ventricular wall thickness RVSP 39 Moderately dilated left atrium Mild mitral regurgitation Mild tricuspid regurgitation Previewed by: Dr. Steve Jensen DO (Electronically Signed) Final Date: 14 July 2024 12:58
--- NOTE | 2024-07-14 13:34 | P.PN ---
Subjective Progress Note Date: 07/14/24 Hospital course: Patient is a very pleasant 69-year-old male with a past medical history of ESRD on hemodialysis Saturday//Saturdays, CAD status post stenting, hypertension, hyperlipidemia, and insulin-dependent diabetes mellitus. He presented to the emergency department on 07/13/2024 with a chief complaint of chest pain. Upon arrival to our facility, patient underwent evaluation in the emergency department. Vital signs upon arrival show blood pressure 183/99, heart rate 91, respiratory rate 18, temp 98.2 F, and SpO2 of 96% on 2 L. EKG completed showing sinus mechanism at 89 bpm with no significant T wave or ST abnormality showing no signs of acute ischemia upon personal review and interpretation. Chest x-ray completed showing bilateral peripheral opacities concerning for pulmonary edema. Labs completed and reviewed. CBC showing normocytic anemia with hemoglobin of 10.9. Coagulation profile showing elevated D-dimer of 1.37. BMP showing hyponatremia with sodium of 133 and renal function consistent with known ESRD with BUN of 44, creatinine of 4.85, GFR of 12. Blood glucose elevated at 325. Magnesium elevated at 2.4 and phosphorus elevated at 6.7. Liver profile normal findings. Troponin was elevated at 0.051. Patient admitted under our services with consultation to cardiology and nephrology. Troponins trended overnight resulting at 0.051, 0.052, 0.051. Physical exam: Patient seen and fully evaluated at bedside this morning. He reports continued shortness of breath with exertion denies having any chest pain at rest or any other complaints at this time. Vital signs reviewed and stable. General: Nontoxic, no distress and appears stated age. Derm: Skin warm and dry, normal coloration for ethnicity. Head: Atraumatic, normocephalic and symmetric. Eyes: EOM's intact, no lid lag, and anicteric sclera Mouth: no lip lesions, mucus membranes moist Cardiovascular: regular rate and rhythm with normal S1S2, no murmur, positive posterior tibial pulses bilaterally, and cap refill < 2 seconds. Dialysis access right anterior chest Lungs: Respirations even, regular, and unlabored on room air. Lungs CTA bilaterally, no rhonchi, no rales, no wheezing, and no accessory muscle usage. Abdominal: soft, nontender to palpation, no guarding, no appreciable organomegaly Ext: ROM intact. No gross muscle atrophy, scant to 1+ bilateral lower extremity edema, no contractures Neuro: Speech clear, face symmetrical and CN II-XII grossly intact with no noted focal neuro deficits Psych: Alert and oriented to person, place, time, and situation. Appropriate and pleasant affect. Assessment and Plan of Care: Chest pain and shortness of breath History of CAD status post stenting Elevated D-dimer Elevated troponins, flat and likely secondary to ESRD Hypertension Hyperlipidemia -Cardiology following, discussed plan of care with cardiac RELIGION DEPARTMENT CHAIR, patient scheduled for Lexiscan stress test tomorrow. -Patient to remain on continuous telemetry monitoring -Order placed for CTA chest to rule out PE -Echocardiogram completed and results reviewed showing preserved EF of 55 to 60% with moderately dilated left atrium, mild mitral regurgitation, mild tricuspid regurgitation. -Repeat morning EKG reviewed showing normal sinus rhythm at 92 bpm with an incomplete right bundle branch block. -Continue cardiac medication regimen with amlodipine 5 mg daily, aspirin 81 mg daily, atorvastatin 80 mg nightly, carvedilol 6.25 mg twice daily with meals, and torsemide 40 mg daily. ESRD on hemodialysis Hypermagnesemia -Nephrology following, discussed plan of care with Dr. Smalls. Patient cleared from nephrology perspective to undergo CTA to rule out PE and to undergo scheduled hemodialysis later today. Diabetes mellitus with hyperglycemia -Continue Levemir 25 units twice daily and patient placed on glycemic protocol with NovoLog sliding scale. Data and imaging reviewed: -Echocardiogram completed and results reviewed showing preserved EF of 55 to 60% with moderately dilated left atrium, mild mitral regurgitation, mild tricuspid regurgitation. -Repeat morning EKG reviewed showing normal sinus rhythm at 92 bpm with an incomplete right bundle branch block. -Morning labs reviewed. CBC showing normocytic anemia with hemoglobin of 10.3. BMP showing hypochloremic hyponatremia with sodium of 132 chloride of 97 and renal function consistent with known ESRD with BUN of 52, creatinine 5.90 and GFR of 9. Blood glucose 246. Magnesium 2.4. Albumin 2.9. -Vital signs reviewed. Blood pressure 140/85, heart rate 99, respiratory rate 16, temp 98.1 F, and SpO2 of 96% on room air. CODE STATUS: Full code DVT prophylaxis: Heparin Anticipated discharge date: Pending clinical course Anticipated discharge place: Home Patient was seen independently by Nurse Pracitioner. This document was prepared using [employer] dictation software. Please allow for errors in community service organization director, while rare they do occur. Pierre Duarte RELIGION DEPARTMENT CHAIR rendered care for this patient independently, reviewed the findings and plan as documented in the note above and agree with plan. I did not physically speak with or examine the patient on this date. Objective - Vital Signs Vital signs: Vital Signs Temp 98.1 F 07/14/24 04:00 Pulse 80 07/14/24 04:00 Resp 12 07/14/24 04:00 BP 143/99 07/14/24 04:00 Pulse Ox 97 07/14/24 04:00 FiO2 Intake & Output 07/13/24 07/14/24 07/14/24 18:59 06:59 18:59 Intake Total 750 Balance 750 Weight 86.183 kg Intake: Oral 750 Other: # Voids 1 # Bowel Movements 1 - Labs CBC & Chem 7: 07/14/24 11:46 07/14/24 11:46 Labs: Abnormal Lab Results - Last 24 Hours (Table) 07/13/24 07/13/24 07/13/24 Range/Units 12:57 12:57 12:57 RBC 3.47 L (4.30-5.90) m/uL Hgb 10.9 L (13.0-17.5) gm/dL Hct 31.8 L (39.0-53.0) % D-Dimer 1.37 H (<0.60) mg/L FEU Sodium 133 L (137-145) mmol/L BUN 44 H (9-20) mg/dL Creatinine 4.85 H (0.66-1.25) mg/dL Glucose 325 H (74-99) mg/dL POC Glucose (mg/dL) (70-110) mg/dL Hemoglobin A1c (<=6.0) % Calcium 8.0 L (8.4-10.2) mg/dL Phosphorus (2.5-4.5) mg/dL Magnesium 2.4 H (1.6-2.3) mg/dL Troponin I (0.000-0.034) ng/mL Total Protein 6.0 L (6.3-8.2) g/dL Albumin 3.3 L (3.5-5.0) g/dL Triglycerides (0.00-149.00) mg/dL Cholesterol (0.00-200.00) mg/dL LDL Cholesterol, Calc (0.0-131.0) mg/dL VLDL Cholesterol, Calc (5.00-40.00) mg/dL 07/13/24 07/13/24 07/13/24 Range/Units 12:57 12:57 12:57 RBC (4.30-5.90) m/uL Hgb (13.0-17.5) gm/dL Hct (39.0-53.0) % D-Dimer (<0.60) mg/L FEU Sodium (137-145) mmol/L BUN (9-20) mg/dL Creatinine (0.66-1.25) mg/dL Glucose (74-99) mg/dL POC Glucose (mg/dL) (70-110) mg/dL Hemoglobin A1c 13.5 H (<=6.0) % Calcium (8.4-10.2) mg/dL Phosphorus (2.5-4.5) mg/dL Magnesium (1.6-2.3) mg/dL Troponin I 0.051 H* (0.000-0.034) ng/mL Total Protein (6.3-8.2) g/dL Albumin (3.5-5.0) g/dL Triglycerides 215.00 H (0.00-149.00) mg/dL Cholesterol 257.00 H (0.00-200.00) mg/dL LDL Cholesterol, Calc 172.4 H (0.0-131.0) mg/dL VLDL Cholesterol, Calc 43.00 H (5.00-40.00) mg/dL 07/13/24 07/13/24 07/13/24 Range/Units 16:09 17:06 18:39 RBC (4.30-5.90) m/uL Hgb (13.0-17.5) gm/dL Hct (39.0-53.0) % D-Dimer (<0.60) mg/L FEU Sodium (137-145) mmol/L BUN (9-20) mg/dL Creatinine (0.66-1.25) mg/dL Glucose (74-99) mg/dL POC Glucose (mg/dL) 294 H (70-110) mg/dL Hemoglobin A1c (<=6.0) % Calcium (8.4-10.2) mg/dL Phosphorus (2.5-4.5) mg/dL Magnesium (1.6-2.3) mg/dL Troponin I 0.052 H* 0.051 H* (0.000-0.034) ng/mL Total Protein (6.3-8.2) g/dL Albumin (3.5-5.0) g/dL Triglycerides (0.00-149.00) mg/dL Cholesterol (0.00-200.00) mg/dL LDL Cholesterol, Calc (0.0-131.0) mg/dL VLDL Cholesterol, Calc (5.00-40.00) mg/dL 07/13/24 07/13/24 07/13/24 Range/Units 18:39 18:39 20:55 RBC (4.30-5.90) m/uL Hgb (13.0-17.5) gm/dL Hct (39.0-53.0) % D-Dimer (<0.60) mg/L FEU Sodium (137-145) mmol/L BUN (9-20) mg/dL Creatinine (0.66-1.25) mg/dL Glucose (74-99) mg/dL POC Glucose (mg/dL) 383 H 308 H (70-110) mg/dL Hemoglobin A1c (<=6.0) % Calcium (8.4-10.2) mg/dL Phosphorus 6.7 H (2.5-4.5) mg/dL Magnesium (1.6-2.3) mg/dL Troponin I (0.000-0.034) ng/mL Total Protein (6.3-8.2) g/dL Albumin (3.5-5.0) g/dL Triglycerides (0.00-149.00) mg/dL Cholesterol (0.00-200.00) mg/dL LDL Cholesterol, Calc (0.0-131.0) mg/dL VLDL Cholesterol, Calc (5.00-40.00) mg/dL 07/14/24 07/14/24 07/14/24 Range/Units 01:00 01:19 01:37 RBC (4.30-5.90) m/uL Hgb (13.0-17.5) gm/dL Hct (39.0-53.0) % D-Dimer (<0.60) mg/L FEU Sodium (137-145) mmol/L BUN (9-20) mg/dL Creatinine (0.66-1.25) mg/dL Glucose (74-99) mg/dL POC Glucose (mg/dL) 41 L* 41 L* 173 H (70-110) mg/dL Hemoglobin A1c (<=6.0) % Calcium (8.4-10.2) mg/dL Phosphorus (2.5-4.5) mg/dL Magnesium (1.6-2.3) mg/dL Troponin I (0.000-0.034) ng/mL Total Protein (6.3-8.2) g/dL Albumin (3.5-5.0) g/dL Triglycerides (0.00-149.00) mg/dL Cholesterol (0.00-200.00) mg/dL LDL Cholesterol, Calc (0.0-131.0) mg/dL VLDL Cholesterol, Calc (5.00-40.00) mg/dL 07/14/24 07/14/24 Range/Units 06:08 08:17 RBC (4.30-5.90) m/uL Hgb (13.0-17.5) gm/dL Hct (39.0-53.0) % D-Dimer (<0.60) mg/L FEU Sodium (137-145) mmol/L BUN (9-20) mg/dL Creatinine (0.66-1.25) mg/dL Glucose (74-99) mg/dL POC Glucose (mg/dL) 164 H 169 H (70-110) mg/dL Hemoglobin A1c (<=6.0) % Calcium (8.4-10.2) mg/dL Phosphorus (2.5-4.5) mg/dL Magnesium (1.6-2.3) mg/dL Troponin I (0.000-0.034) ng/mL Total Protein (6.3-8.2) g/dL Albumin (3.5-5.0) g/dL Triglycerides (0.00-149.00) mg/dL Cholesterol (0.00-200.00) mg/dL LDL Cholesterol, Calc (0.0-131.0) mg/dL VLDL Cholesterol, Calc (5.00-40.00) mg/dL
[2024-07-14 17:28] LABS: Glucose,Whole Blood 175 mg/dL (70-110)
[2024-07-14 20:20] LABS: Glucose,Whole Blood 289 mg/dL (70-110)
[2024-07-14] MEDS: carvediloL 6.25 MG TAB PO SCH (20:47)
[2024-07-14] MEDS: INSULIN DETEMIR (LEVEMIR) 100 UNIT/ML SYR SQ SCH (22:19)
--- NOTE | 2024-07-14 22:35 | CONS ---
CONSULTATION CHIEF COMPLAINT: Chest pain. HISTORY OF PRESENT ILLNESS: This is another admission for this 69-year-old noncompliant diabetic, who has now end- stage renal failure, on dialysis. He continues to be noncompliant. He apparently developed chest pain, came to the emergency room. Three troponins were elevated and he is being taken to the [facility] by Cardiology. He states that, "my blood sugars are pretty good." They never are. He is very noncompliant. REVIEW OF SYSTEMS: He has had no neurologic problems, syncope, chest pain, abdominal pain, etc. Past medical history, family history, personal and social histories are otherwise unremarkable or noncontributory from his prior history. PHYSICAL EXAMINATION: VITAL SIGNS: Blood pressure is 143/90 with a pulse of 67, respirations of 40, and he is afebrile. GENERAL: He appeared to be in no acute distress. SKIN: Dry. HEAD, EARS, EYES, NOSE, MOUTH AND THROAT: Normal. CHEST: Clear. CARDIAC: Normal. ABDOMEN: Soft, nontender. EXTREMITIES: Normal. IMPRESSION: 1. Chest pain. 2. Acute coronary syndrome. 3. Probable non ST elevation myocardial infarction. 4. History of uncontrolled insulin-dependent diabetes mellitus. 5. Noncompliant patient. 6. Stage 5 chronic kidney disease. RECOMMENDATIONS: None. He will be going to the agricultural labor [facility], and I will be happy to follow for any medical problems postoperatively including managing his diabetes. MMODL / MARYN: [id number] /
--- NOTE | 2024-07-15 04:05 | PN ---
PROGRESS NOTE DATE OF SERVICE: 07/14/2024 CHIEF COMPLAINT: Chest pain with elevated troponins. HISTORY OF PRESENT ILLNESS: This gentleman is comfortable now, but it would appear that he may have had STEMI. PHYSICAL EXAM: CHEST: Clear. CARDIAC: Normal. Blood pressure is 175/97. IMPRESSION: 1. Chest pain. 2. Acute coronary syndrome. PLAN: He is going to the crime laboratory analyst today. MMODL / IJN: [id number] /
[2024-07-15] MEDS ORDERED: REGADENOSON 0.4 MG/5 ML SYRINGE IV PRN (06:00)
[2024-07-15] MEDS ORDERED: AMINOPHYLLINE 500 MG/20 ML VIAL IV PRN (06:00)
[2024-07-15] MEDS ORDERED: CAFFEINE CITRATE 60 MG/3 ML VIAL IV PRN (06:00)
[2024-07-15 07:53] LABS: HCT 35.4 % (39.0-53.0); HGB 11.5 gm/dL (13.0-17.5); MCHC 32.6 g/dL (31.0-37.0); MCV 92.2 fL (80.0-100.0); Mean Platelet Volume 7.1; Platelet Count 294 k/uL (150-450); RBC 3.84 m/uL (4.30-5.90); RDW 13.1 % (11.5-15.5); WBC 10.9 k/uL (3.8-10.6)
[2024-07-15 08:02] LABS: Glucose,Whole Blood 55 mg/dL (70-110)
[2024-07-15] MEDS: DEXTROSE 50% SYRINGE 50 ML IVP PRN (08:04)
[2024-07-15 08:05] LABS: ALT 11 U/L (4-49); AST 18 U/L (17-59); African American GFR (CKD) 16 (>60 ml/min/1.73 sqM); Albumin 3.6 g/dL (3.5-5.0); Alkaline Phosphatase 93 U/L (38-126); Anion Gap 10 mmol/L; Blood Urea Nitrogen 30 mg/dL (9-20); Calcium 8.6 mg/dL (8.4-10.2); Carbon Dioxide 28 mmol/L (22-30); Chloride 98 mmol/L (98-107); Magnesium 2.3 mg/dL (1.6-2.3); Non-African American GFR(CKD) 14 (>60 ml/min/1.73 sqM); Potassium 3.4 mmol/L (3.5-5.1); Sodium 136 mmol/L (137-145); Total Bilirubin 0.6 mg/dL (0.2-1.3); Total Protein 6.4 g/dL (6.3-8.2)
[2024-07-15 08:09] LABS: Glucose 44 mg/dL (74-99)
[2024-07-15 08:19] LABS: Glucose,Whole Blood 135 mg/dL (70-110)
[2024-07-15 08:43] LABS: Glucose,Whole Blood 103 mg/dL (70-110)
[2024-07-15] MEDS ORDERED: ASPIRIN 81 MG PO SCH (09:00)
--- NOTE | 2024-07-15 09:20 | P.PN ---
Subjective HISTORY OF PRESENT ILLNESS: This is a 69-year-old male with a past medical history significant for end-stage renal disease on hemodialysis, hypertension, hyperlipidemia, diabetes, and coronary artery disease with stenting of the mid LAD and mid RCA in 2007. Patient used to follow in the office with Dr. Whiting but has not been seen since July 2016. We have been asked to see the patient in consultation for chest pain. Patient examined at the bedside in the ER. Patient states yesterday when he got out of bed he suddenly began to have chest discomfort. He states the pain was in the middle of his chest. He denied any radiation of the pain. He did take 1 baby aspirin and then called 911. He states they gave him 3 additional aspirin. He states the pain then subsided. He denies having any chest pain or pressure at the time of examination. DIAGNOSTICS: - EKG reveals sinus mechanism with no signs of acute ischemia. - Chest xray bilateral perihilar opacities suggesting pulmonary edema - Laboratory data: WBC 6.5. Hemoglobin 10.9. Platelet count 219. D-dimer 1.37. Sodium 133. BUN 44. Creatinine 4.85. proBNP 8730. Troponin 0.051. 0.052. 0.051. - Current home cardiac medications include aspirin 81 mg daily, Lipitor 80 mg at night, carvedilol 6.25 mg daily, amlodipine 5 mg daily. - Most recent echocardiogram obtained in 2016 revealing ejection fraction of 55% - Cardiac catheterization history: 2007 with stenting of the mid LAD and mid RCA. 07/15/2024 Patient examined this morning at the bedside. Patient remains in the emergency room. Patient currently denies any chest pain or pressure. He denies any shortness of breath. Patient did have an episode of hypoglycemia this morning with a blood sugar of 44. Vital signs are stable. Echocardiogram completed revealing ejection fraction 55 to 60%, mild MR, mild TR PHYSICAL EXAM: VITAL SIGNS: Reviewed. GENERAL: Well-developed in no acute distress. HEENT: Head is normocephalic. Pupils are equal, round. Sclerae anicteric. Mucous membranes of the mouth are moist. Neck supple. No JVD or thyromegaly LUNGS: Respirations even and unlabored. Lungs essentially clear to auscultation bilaterally. HEART: Regular rate and rhythm. S1 and S2 heard. ABDOMEN: Soft. Nondistended. Nontender. EXTREMITIES: Normal range of motion. No clubbing or cyanosis. Peripheral puls es intact. No lower extremity edema NEUROLOGIC: Awake and alert. Oriented x 3. ASSESSMENT: Chest pain End-stage renal disease on hemodialysis Elevated troponins, flat, no evidence of myocardial injury or ischemia, secondary to poor renal clearance Coronary artery disease with previous stenting of the mid LAD and mid RCA, 2007 Hypertension Hyperlipidemia Diabetes PLAN: Continue current cardiac medications Patient to undergo Lexiscan stress test today If negative, patient may be discharged home from a cardiac standpoint Further recommendations pending patient course Nurse practitioner note has been reviewed by physician. Signing provider agrees with the documented findings, assessment, and plan of care documented by AUTO TRANSMISSION TECHNICIAN as a scribe. Objective - Vital Signs Vital signs: Vital Signs Temp 98.0 F 07/15/24 04:12 Pulse 77 07/15/24 08:20 Resp 18 07/15/24 08:20 BP 115/74 07/15/24 08:20 Pulse Ox 97 07/15/24 08:20 FiO2 Intake & Output 07/14/24 07/15/24 07/15/24 18:59 06:59 18:59 Intake Total 400 Output Total 4400 Balance -4000 Intake: Hemodialysis 400 Output: Hemodialysis 2400 Hemodialysis Net Amount 2000 - Labs CBC & Chem 7: 07/15/24 06:41 07/15/24 06:41 Labs: Abnormal Lab Results - Last 24 Hours (Table) 07/14/24 07/14/24 07/14/24 Range/Units 11:46 11:46 12:02 WBC (3.8-10.6) k/uL RBC 3.37 L (4.30-5.90) m/uL Hgb 10.3 L (13.0-17.5) gm/dL Hct 30.6 L (39.0-53.0) % Sodium 132 L (137-145) mmol/L Potassium (3.5-5.1) mmol/L Chloride 97 L (98-107) mmol/L BUN 52 H (9-20) mg/dL Creatinine 5.90 H (0.66-1.25) mg/dL Glucose 246 H (74-99) mg/dL POC Glucose (mg/dL) 238 H (70-110) mg/dL Calcium 7.8 L (8.4-10.2) mg/dL Magnesium 2.4 H (1.6-2.3) mg/dL AST 15 L (17-59) U/L Total Protein 5.3 L (6.3-8.2) g/dL Albumin 2.9 L (3.5-5.0) g/dL 07/14/24 07/14/24 07/15/24 Range/Units 17:17 20:18 06:41 WBC 10.9 H (3.8-10.6) k/uL RBC 3.84 L (4.30-5.90) m/uL Hgb 11.5 L (13.0-17.5) gm/dL Hct 35.4 L (39.0-53.0) % Sodium (137-145) mmol/L Potassium (3.5-5.1) mmol/L Chloride (98-107) mmol/L BUN (9-20) mg/dL Creatinine (0.66-1.25) mg/dL Glucose (74-99) mg/dL POC Glucose (mg/dL) 175 H 289 H (70-110) mg/dL Calcium (8.4-10.2) mg/dL Magnesium (1.6-2.3) mg/dL AST (17-59) U/L Total Protein (6.3-8.2) g/dL Albumin (3.5-5.0) g/dL 07/15/24 07/15/24 07/15/24 Range/Units 06:41 08:00 08:18 WBC (3.8-10.6) k/uL RBC (4.30-5.90) m/uL Hgb (13.0-17.5) gm/dL Hct (39.0-53.0) % Sodium 136 L (137-145) mmol/L Potassium 3.4 L (3.5-5.1) mmol/L Chloride (98-107) mmol/L BUN 30 H (9-20) mg/dL Creatinine 4.18 H (0.66-1.25) mg/dL Glucose 44 L* (74-99) mg/dL POC Glucose (mg/dL) 55 L 135 H (70-110) mg/dL Calcium (8.4-10.2) mg/dL Magnesium (1.6-2.3) mg/dL AST (17-59) U/L Total Protein (6.3-8.2) g/dL Albumin (3.5-5.0) g/dL
[2024-07-15] MEDS: POTASSIUM CHLORIDE ER 20 MEQ TAB.ER PO STA (12:08)
[2024-07-15 12:09] LABS: Glucose,Whole Blood 126 mg/dL (70-110)
--- NOTE | 2024-07-15 12:41 | NM ---
EXAMINATION TYPE: NM stress lexiscan cardiolite DATE OF EXAM: 07/15/2024 COMPARISON: CTA chest 1 day earlier CLINICAL INDICATION: Male, 69 years old with history of CP; history of hypertension and 2 angioplasti es. TECHNIQUE: After the intravenous administration of 9.82 mCi Tc 99m Sestamibi - Cardiolite resting SP ECT images acquired 55 minutes post injection. The patient received 0.4mg Lexiscan, 24 mCi Tc 99m Sestamibi - Stress images obtained 50 minutes post injection FINDINGS: Review of stress and rest SPECT images demonstrates no distinct perfusion abnormality. Gated analysi s shows normal wall motion with an estimated left ventricular ejection fraction of 64 %. IMPRESSION: No scintigraphic evidence for reversible ischemia. [facility], , 07/15/2024 12:39 PM
[2024-07-15 13:03] VITALS: BMI 27.2
--- NOTE | 2024-07-15 16:20 | P.DS ---
Providers Date of admission: 07/13/24 14:31 Expected date of discharge: 07/15/24 Attending physician: Margaret Duncan MD Consults: 07/13/24 14:31 Consult Physician Routine Consulting Provider: Elmer Smalls Consult Reason/Comments: esrd on hd Do you want consulting provider notified?: Yes Consult Physician Urgent Consulting Provider: Steve Jensen Consult Reason/Comments: cp Do you want consulting provider notified?: Yes Primary care physician: Kayode Lau Hospital Course: Discharge Diagnosis: Chest pain and shortness of breath. Acute coronary event ruled out. Lexiscan stress test was negative for scintigraphic evidence of reversible ischemia. Echocardiogram showing a preserved EF of 55 to 60%. Patient cleared from cardiac perspective and to follow-up outpatient in their office in 1 week. Patient discharged home on cardiac medication regimen with amlodipine 5 mg daily, aspirin 81 mg daily, atorvastatin 80 mg nightly, carvedilol 6.25 mg twice daily with meals, and torsemide 40 mg daily. History of CAD status post stenting. Elevated D-dimer, CTA negative for PE. Elevated troponins, flat and likely secondary to ESRD Hypertension Hyperlipidemia ESRD on hemodialysis. Patient to resume dialysis as scheduled Saturday//Saturdays. Hypermagnesemia, resolved after dialysis. Diabetes mellitus with hyperglycemia. Continue Levemir 25 units twice daily and strongly recommend following a heart healthy and carb consistent diet. Pulmonary nodule, CT revealing a possible 1.1 cm lingular pulmonary nodule versus less likely nodular consolidation, recommend outpatient PET scan/CT for follow-up and further evaluation. Hospital course: Patient is a very pleasant 69-year-old male with a past medical history of ESRD on hemodialysis Saturday//Saturdays, CAD status post stenting, hypertension, hyperlipidemia, and insulin-dependent diabetes mellitus. He presented to the emergency department on 07/13/2024 with a chief complaint of chest pain. Upon arrival to our facility, patient underwent evaluation in the emergency department. Vital signs upon arrival show blood pressure 183/99, heart rate 91, respiratory rate 18, temp 98.2 F, and SpO2 of 96% on 2 L. EKG completed showing sinus mechanism at 89 bpm with no significant T wave or ST abnormality showing no signs of acute ischemia upon personal review and interpretation. Chest x-ray completed showing bilateral peripheral opacities concerning for pulmonary edema. Labs completed and reviewed. CBC showing normocytic anemia with hemoglobin of 10.9. Coagulation profile showing elevated D-dimer of 1.37. BMP showing hyponatremia with sodium of 133 and renal function consistent with known ESRD with BUN of 44, creatinine of 4.85, GFR of 12. Blood glucose elevated at 325. Magnesium elevated at 2.4 and phosphorus elevated at 6.7. Liver profile normal findings. Troponin was elevated at 0.051. Patient admitted under our services with consultation to cardiology and nephrology. Troponins trended overnight resulting at 0.051, 0.052, 0.051. CTA chest completed negative for pulmonary emboli revealing a centimeter 1.1 cm lingular pulmonary nodule versus less likely nodular consolidation, recommend outpatient PET scan/CT. Echocardiogram completed and results reviewed showing preserved EF of 55 to 60% with moderately dilated left atrium, mild mitral regurgitation, mild tricuspid regurgitation. Patient evaluated by cardiology and was taken for Lexiscan stress test. Stress test negative for scintigraphic evidence of reversible ischemia. Hall Supervisor starting patient on torsemide 40 mg daily and increasing carvedilol to 6.25 mg twice daily and clearing patient from cardiac perspective for discharge. Patient medically optimized for discharge and to follow-up as scheduled with Dr. Rojas at [facility] on 07/23/2024. Physical exam: Vital signs reviewed and stable. General: Nontoxic, no distress and appears stated age. Derm: Skin warm and dry, normal coloration for ethnicity. Head: Atraumatic, normocephalic and symmetric. Eyes: EOM's intact, no lid lag, and anicteric sclera Mouth: no lip lesions, mucus membranes moist Cardiovascular: regular rate and rhythm with normal S1S2, no murmur, positive posterior tibial pulses bilaterally, and cap refill < 2 seconds. Dialysis access right anterior chest Lungs: Respirations even, regular, and unlabored on room air. Lungs CTA bilaterally, no rhonchi, no rales, no wheezing, and no accessory muscle usage. Abdominal: soft, nontender to palpation, no guarding, no appreciable organomegaly Ext: ROM intact. No gross muscle atrophy, scant to 1+ bilateral lower extremity edema, no contractures Neuro: Speech clear, face symmetrical and CN II-XII grossly intact with no noted focal neuro deficits Psych: Alert and oriented to person, place, time, and situation. Appropriate and pleasant affect. A total of 37 minutes of time were spent preparing this complex discharge summary. Pt was discharged on 07/15/2024 at 4:08 PM. Patient was seen independently by Nurse Practitioner. This document was prepared using [employer] dictation software. Please allow for errors in cdl program coordinator while rare they do occur. Pierre Duarte STREET OPENINGS INSPECTOR rendered care for this patient independently, reviewed the findings and plan as documented in the note above. I did not physically speak with or examine the patient on this date. Patient Condition at Discharge: Stable Plan - Discharge Summary Discharge Rx Participant: No New Discharge Prescriptions: New Torsemide [Demadex] 40 mg PO DAILY 30 Days #60 tab carvediloL [Coreg] 6.25 mg PO BID-W/MEALS 30 Days #60 tab Continue Atorvastatin [Lipitor] 80 mg PO HS Insulin Glargine (Lantus) [Lantus Vial] 25 unit SQ BID Albuterol Inhaler [Ventolin Hfa Inhaler] 2 puff INHALATION RT-QID PRN PRN Reason: Shortness Of Breath amLODIPine [Norvasc] 5 mg PO DAILY Cyclobenzaprine [Flexeril] 10 mg PO TID PRN PRN Reason: Muscle Spasm buPROPion [Wellbutrin] 75 mg PO BID Calcium Acetate [PhosLo] 667 mg PO TID-W/MEALS Aspirin 81 mg PO DAILY Folic Acid/Vit B Complex and C [Nephro-Misael Tablet] 0.8 mg PO DAILY Discontinued Carvedilol [Coreg] 6.25 mg PO DAILY Discharge Medication List Atorvastatin [Lipitor] 80 mg PO HS 08/19/14 [History] Insulin Glargine (Lantus) [Lantus Vial] 25 unit SQ BID 07/12/20 [History] Albuterol Inhaler [Ventolin Hfa Inhaler] 2 puff INHALATION RT-QID PRN 07/13/24 [History] Aspirin 81 mg PO DAILY 07/13/24 [History] Calcium Acetate [PhosLo] 667 mg PO TID-W/MEALS 07/13/24 [History] Cyclobenzaprine [Flexeril] 10 mg PO TID PRN 07/13/24 [History] Folic Acid/Vit B Complex and C [Nephro-Misael Tablet] 0.8 mg PO DAILY 07/13/24 [History] amLODIPine [Norvasc] 5 mg PO DAILY 07/13/24 [History] buPROPion [Wellbutrin] 75 mg PO BID 07/13/24 [History] Torsemide [Demadex] 40 mg PO DAILY 30 Days #60 tab 07/15/24 [Rx] carvediloL [Coreg] 6.25 mg PO BID-W/MEALS 30 Days #60 tab 07/15/24 [Rx] Follow up Appointment(s)/Referral(s): Sánchez Rojas MD [REFERRING] - 07/23/24 Steve Jensen DO [STAFF PHYSICIAN] - 1 Week Activity/Diet/Wound Care/Special Instructions: Activity: As tolerated. Take breaks as needed. Diet: Heart healthy and carb consistent diet. Avoid salts, or foods with hidden salts such as canned or boxed foods and frozen dinners. Extra salt makes your heart work harder and traps the fluid in your body for longer. Special Instructions: Take all of your medications as directed and remember to keep all of your doctor's appointments and follow-up as needed. Follow with Dr. Rojas at [facility] as scheduled on 07/23/24 Resume dialysis Saturday//Saturdays as previously scheduled. CT revealing possible 1.1 cm lingular pulmonary nodule versus consolidation, you will need to undergo outpatient PET scan. Please discuss with PCP, Dr. Bob whitehead on 07/23/2024 to Ensure follow-up is completed for further evaluation. Thank you for allowing us to participate in your care, it was truly a pleasure having you for our patient!!! Discharge Disposition: HOME SELF-CARE
[2024-07-15 16:33] LABS: Glucose,Whole Blood 125 mg/dL (70-110)
--- NOTE | 2024-07-15 19:45 | P.PN ---
Subjective Patient is seen for follow-up for end-stage renal disease. Status post stress test this morning. No significant complaints today. Objective - Vital Signs Vital signs: Vital Signs Temp 98.9 F 07/15/24 14:46 Pulse 83 07/15/24 14:46 Resp 18 07/15/24 14:46 BP 129/78 07/15/24 14:46 Pulse Ox 98 07/15/24 14:46 FiO2 Intake & Output 07/15/24 07/15/24 07/16/24 06:59 18:59 06:59 Intake Total 400 128 Output Total 4400 Balance -4000 128 Weight 86.183 kg Intake: IV 10 Invasive Line 3 10 Oral 118 Hemodialysis 400 Output: Hemodialysis 2400 Hemodialysis Net Amount 1999 - Exam Patient is awake comfortable, no acute distress. Examination of the heart S1 and S2 Examination of the lungs bilateral breath sounds are heard Abdomen is soft nontender Examination of lower extremities shows no significant edema. CHIEF LIBRARIAN EXTENSION DEPARTMENT exam grossly intact - Labs CBC & Chem 7: 07/15/24 06:41 07/15/24 06:41 Labs: Abnormal Lab Results - Last 24 Hours (Table) 07/14/24 07/15/24 07/15/24 Range/Units 20:18 06:41 06:41 WBC 10.9 H (3.8-10.6) k/uL RBC 3.84 L (4.30-5.90) m/uL Hgb 11.5 L (13.0-17.5) gm/dL Hct 35.4 L (39.0-53.0) % Sodium 136 L (137-145) mmol/L Potassium 3.4 L (3.5-5.1) mmol/L BUN 30 H (9-20) mg/dL Creatinine 4.18 H (0.66-1.25) mg/dL Glucose 44 L* (74-99) mg/dL POC Glucose (mg/dL) 289 H (70-110) mg/dL 07/15/24 07/15/24 07/15/24 Range/Units 08:00 08:18 12:07 WBC (3.8-10.6) k/uL RBC (4.30-5.90) m/uL Hgb (13.0-17.5) gm/dL Hct (39.0-53.0) % Sodium (137-145) mmol/L Potassium (3.5-5.1) mmol/L BUN (9-20) mg/dL Creatinine (0.66-1.25) mg/dL Glucose (74-99) mg/dL POC Glucose (mg/dL) 55 L 135 H 126 H (70-110) mg/dL 07/15/24 Range/Units 16:32 WBC (3.8-10.6) k/uL RBC (4.30-5.90) m/uL Hgb (13.0-17.5) gm/dL Hct (39.0-53.0) % Sodium (137-145) mmol/L Potassium (3.5-5.1) mmol/L BUN (9-20) mg/dL Creatinine (0.66-1.25) mg/dL Glucose (74-99) mg/dL POC Glucose (mg/dL) 125 H (70-110) mg/dL Assessment and Plan Assessment: 1. End-stage renal disease maintained on hemodialysis on Saturday schedule via permacath. 2. Chest pain, status post a stress test which was negative. Patient is being followed by cardiology.. 3. Coronary artery disease status post cardiac stents from the past. 4. Diabetes mellitus. 5. Hypertension with chronic kidney disease. 6. Chronic kidney disease mineral bone disease. Plan: Hemodialysis in a.m. If patient is discharged he will be dialyzed as outpatient.
[2024-07-15 20:33] LABS: Glucose,Whole Blood 265 mg/dL (70-110)
--- NOTE | 2024-07-16 02:35 | PN ---
PROGRESS NOTE DATE OF SERVICE: 07/15/2024 CHIEF COMPLAINT: Chest pain with elevated troponins. HISTORY OF PRESENT ILLNESS: This gentleman is doing fairly well. Sugars have been under good control with some even being a little bit low. PHYSICAL EXAMINATION: CHEST: Clear. CARDIAC: Unremarkable. ABDOMEN: Soft and nontender. IMPRESSION: 1. Chest pain. 2. Coronary artery disease. 3. Possible [id number]-[id number] myocardial infarction. 4. Stage V chronic kidney disease. 5. Poorly controlled insulin-dependent diabetes mellitus. PLAN: He may be going for a stress test today. MMODL / IJN: [id number] /
[2024-07-16 05:44] LABS: Glucose,Whole Blood 207 mg/dL (70-110)
--- NOTE | 2024-07-16 10:08 | PN ---
PROGRESS NOTE SUBJECTIVE: Rodolfo is a 69-year-old gentleman, who presented to hospital with chest pain and ruled out for myocardial infarction. An echocardiogram revealed normal LV systolic function with mild pulmonary hypertension with mild mitral and tricuspid regurgitation. Lexiscan revealed normal myocardial perfusion function. A CT scan of the chest was negative for pulmonary embolism. This morning, the patient appears comfortable at rest and is free of symptoms. OBJECTIVE: VITAL SIGNS: Stable. NECK: There is no jugular venous distention. Carotid upstroke is normal. There is no bruit. CHEST: Reveals good air entry bilaterally. HEART: Reveals first and second heart sounds. No gallop. EXTREMITIES: Did not reveal any edema. Peripheral pulses are felt. MEDICATIONS: The patient is currently on, 1. Aspirin. 2. Norvasc 5 daily. 3. Lipitor 80 daily. 4. Coreg 6.25 b.i.d. 5. Insulin. 6. Demadex. ASSESSMENT AND PLAN: Chest pain, myocardial infarction ruled out. Stress test is negative. Stable for discharge. MMODL / IJN: [id number] /
[2024-07-16 11:55] LABS: Glucose,Whole Blood 64 mg/dL (70-110)
[2024-07-16 12:17] LABS: Glucose,Whole Blood 75 mg/dL (70-110)
--- NOTE | 2024-07-16 13:25 | CA ---
Lexiscan Nuclear Stress Test Report Name: Rodolfo Eqsuivel Exam Date: 07/15/2024 10:34 Exam Location: [facility] Ht (in): 70 Wt (lb): 190 BSA: 2.04 Ordering Phys: Rossy Weeks Referring Phys: CAILIN Technologist: JUDI Age: 69 Gender: M : 1955 Procedure CPT: Indications: Reflex order-Stress test ICD-10 Codes: Patient History: Chest pain, NADJA, palp, hypertension and history of ASCAD. Medications: Meds past 24 hrs: Pretest Chest Pain: STRESS TEST Lexiscan Protocol Exercise Duration (min:sec): 01:[address] Depressions (mm): Angina Score: Walsh Score: Resting HR (bpm): 80 Peak HR (bpm): 87 Resting BP (mmHg): 158 / 95 Peak BP (mmHg): 118 / 68 MPHR: 153 Target HR: 130 % MPHR: 57 METS: 1.0 Total Dose: Peak Dose: Atropine: Double Product: 38300 BP Response: Stress Termination: INFUSION COMPLETE Stress Symptoms: NO SYMPTOMS Stress Summary: ECG ANALYSIS Resting ECG: Stress ECG: CONCLUSIONS At baseline EKG showed normal sinus rhythm, normal axis, no significant ST or T-wave abnormalities. Patient recieved IV infusion of Lexiscan 0.4mg and at peak infusion EKG showed no change from baseline. Conclusions: 1. Normal EKG response to Lexiscan infusion 2. Nuclear imaging to be reported separately. Dr. Steve Jensen DO (Electronically Signed) Final Date: 15 July 2024 15:24
[2024-07-16 16:33] LABS: Glucose,Whole Blood 187 mg/dL (70-110)
--- NOTE | 2024-07-16 16:36 | P.PN ---
Subjective Patient is seen for follow-up for end-stage renal disease. Status post stress test which was negative. No significant complaints today. Objective - Vital Signs Vital signs: Vital Signs Temp 98.3 F 07/16/24 08:00 Pulse 76 07/16/24 16:00 Resp 16 07/16/24 14:00 BP 147/88 07/16/24 16:00 Pulse Ox 97 07/16/24 16:00 FiO2 Intake & Output 07/15/24 07/16/24 07/16/24 18:59 06:59 18:59 Intake Total 128 560 356 Balance 128 560 356 Weight 86.183 kg 86.2 kg 86.2 kg Intake: IV 10 20 Invasive Line 3 10 20 Oral 118 540 356 Other: # Voids 2 - Exam Patient is awake comfortable, no acute distress. Examination of the heart S1 and S2 Examination of the lungs bilateral breath sounds are heard Abdomen is soft nontender Examination of lower extremities shows no significant edema. COMMUNICATIONS TOWER CLIMBER exam grossly intact - Labs CBC & Chem 7: 07/15/24 06:41 07/15/24 06:41 Labs: Abnormal Lab Results - Last 24 Hours (Table) 07/15/24 07/15/24 07/16/24 Range/Units 16:32 20:31 05:43 POC Glucose (mg/dL) 125 H 265 H 207 H (70-110) mg/dL 07/16/24 07/16/24 Range/Units 11:54 16:31 POC Glucose (mg/dL) 64 L 187 H (70-110) mg/dL Assessment and Plan Assessment: 1. End-stage renal disease maintained on hemodialysis on Saturday schedule via permacath. 2. Chest pain, status post a stress test which was negative. Patient is being followed by cardiology.. 3. Coronary artery disease status post cardiac stents from the past. 4. Diabetes mellitus. 5. Hypertension with chronic kidney disease. 6. Chronic kidney disease mineral bone disease. Plan: Hemodialysis today. Awaiting temporary housing arrangement as there are issues with eating at home and patient states that all the pipes are frozen.
--- NOTE | 2024-07-16 18:43 | P.PN ---
Subjective Progress Note Date: 07/16/24 Hospital course: Patient is a very pleasant 69-year-old male with a past medical history of ESRD on hemodialysis Saturday//Saturdays, CAD status post stenting, hypertension, hyperlipidemia, and insulin-dependent diabetes mellitus. He presented to the emergency department on 07/13/2024 with a chief complaint of chest pain. Upon arrival to our facility, patient underwent evaluation in the emergency department. Vital signs upon arrival show blood pressure 183/99, heart rate 91, respiratory rate 18, temp 98.2 F, and SpO2 of 96% on 2 L. EKG completed showing sinus mechanism at 89 bpm with no significant T wave or ST abnormality showing no signs of acute ischemia upon personal review and interpretation. Chest x-ray completed showing bilateral peripheral opacities concerning for pulmonary edema. Labs completed and reviewed. CBC showing normocytic anemia with hemoglobin of 10.9. Coagulation profile showing elevated D-dimer of 1.37. BMP showing hyponatremia with sodium of 133 and renal function consistent with known ESRD with BUN of 44, creatinine of 4.85, GFR of 12. Blood glucose elevated at 325. Magnesium elevated at 2.4 and phosphorus elevated at 6.7. Liver profile normal findings. Troponin was elevated at 0.051. Patient admitted under our services with consultation to cardiology and nephrology. Troponins trended overnight resulting at 0.051, 0.052, 0.051. CTA chest completed negative for pulmonary emboli revealing a centimeter 1.1 cm lingular pulmonary nodule versus less likely nodular consolidation, recommend outpatient PET scan/CT. Echocardiogram completed and results reviewed showing preserved EF of 55 to 60% with moderately dilated left atrium, mild mitral regurgitation, mild tricuspid regurgitation. Patient evaluated by cardiology and was taken for Lexiscan stress test. Stress test negative for scintigraphic evidence of reversible ischemia. Product/Industry Consultant starting patient on torsemide 40 mg daily and increasing carvedilol to 6.25 mg twice daily and clearing patient from cardiac perspective for discharge. Patient medically optimized for discharge and to be discharged once safe discharge plan can be arranged. Patient has a public guardian and currently has no heat or water at his home. Discussed in depth with case management/social work and they are working with public guardian on safe discharge plan. Possibly [facility].. Physical exam: Patient seen and fully evaluated at bedside this morning. He was resting comfortably this morning and denied having any complaints. Patient updated on plan of care and plan for discharge once safe discharge arrangements can be made. Patient to undergo dialysis again today. Vital signs reviewed and stable. General: Nontoxic, no distress and appears stated age. Derm: Skin warm and dry, normal coloration for ethnicity. Head: Atraumatic, normocephalic and symmetric. Eyes: EOM's intact, no lid lag, and anicteric sclera Mouth: no lip lesions, mucus membranes moist Cardiovascular: regular rate and rhythm with normal S1S2, no murmur, positive posterior tibial pulses bilaterally, and cap refill < 2 seconds. Dialysis access right anterior chest Lungs: Respirations even, regular, and unlabored on room air. Lungs CTA bilaterally, no rhonchi, no rales, no wheezing, and no accessory muscle usage. Abdominal: soft, nontender to palpation, no guarding, no appreciable organomegaly Ext: ROM intact. No gross muscle atrophy, scant to 1+ bilateral lower extremity edema, no contractures Neuro: Speech clear, face symmetrical and CN II-XII grossly intact with no noted focal neuro deficits Psych: Alert and oriented to person, place, time, and situation. Appropriate and pleasant affect. Assessment and Plan of Care: Chest pain and shortness of breath History of CAD status post stenting Elevated D-dimer Elevated troponins, flat and likely secondary to ESRD Hypertension Hyperlipidemia -CTA chest completed negative for pulmonary emboli revealing a centimeter 1.1 cm lingular pulmonary nodule versus less likely nodular consolidation, recommend outpatient PET scan/CT. -Echocardiogram completed and results reviewed showing preserved EF of 55 to 60% with moderately dilated left atrium, mild mitral regurgitation, mild tricuspid regurgitation. -Patient evaluated by cardiology and Product/Industry Consultant starting patient on torsemide 40 mg daily and increasing carvedilol to 6.25 mg twice daily and clearing patient from cardiac perspective for discharge. -Stress test negative for scintigraphic evidence of reversible ischemia. -Continue telemetry monitoring -Continue cardiac medication regimen with amlodipine 5 mg daily, aspirin 81 mg daily, atorvastatin 80 mg nightly, carvedilol 6.25 mg twice daily with meals, and torsemide 40 mg daily. ESRD on hemodialysis Hypermagnesemia -Nephrology following and managing dialysis. Patient scheduled hemodialysis later today. Diabetes mellitus with hyperglycemia -Continue Levemir 25 units twice daily and patient placed on glycemic protocol with NovoLog sliding scale. Data and imaging reviewed: -Labs reviewed. CBC showing normocytic anemia with hemoglobin of 10.3. BMP showing hypochloremic hyponatremia with sodium of 132 chloride of 97 and renal function consistent with known ESRD with BUN of 52, creatinine 5.90 and GFR of 9. Blood glucose 246. Magnesium 2.4. Albumin 2.9. -Vital signs reviewed. Blood pressure 140/85, heart rate 99, respiratory rate 16, temp 98.1 F, and SpO2 of 96% on room air. CODE STATUS: Full code DVT prophylaxis: Heparin Anticipated discharge date: Pending placement for safe discharge plan. Anticipated discharge place: Home Patient was seen independently by Nurse Pracitioner. This document was prepared using [employer] dictation software. Please allow for errors in vending machine collector, while rare they do occur. Pierre Duarte NP rendered care for this patient independently, reviewed the findings and plan as documented in the note above and agree with plan. I did not physically speak with or examine the patient on this date. Objective - Vital Signs Vital signs: Vital Signs Temp 98.0 F 07/16/24 04:00 Pulse 81 07/16/24 04:00 Resp 14 07/16/24 04:00 BP 130/63 07/16/24 04:00 Pulse Ox 96 07/16/24 04:00 FiO2 Intake & Output 07/15/24 07/16/24 07/16/24 18:59 06:59 18:59 Intake Total 128 560 118 Balance 128 560 118 Weight 86.183 kg 86.2 kg Intake: IV 10 20 Invasive Line 3 10 20 Oral 118 540 118 - Labs CBC & Chem 7: 07/15/24 06:41 07/15/24 06:41 Labs: Abnormal Lab Results - Last 24 Hours (Table) 07/15/24 07/15/24 07/15/24 Range/Units 12:07 16:32 20:31 POC Glucose (mg/dL) 126 H 125 H 265 H (70-110) mg/dL 07/16/24 Range/Units 05:43 POC Glucose (mg/dL) 207 H (70-110) mg/dL
[2024-07-16 19:55] LABS: Glucose,Whole Blood 296 mg/dL (70-110)
[2024-07-17 05:59] LABS: Glucose,Whole Blood 56 mg/dL (70-110)
[2024-07-17 06:20] LABS: Glucose,Whole Blood 97 mg/dL (70-110)
[2024-07-17 06:35] LABS: African American GFR (CKD) 11 (>60 ml/min/1.73 sqM); Anion Gap 11 mmol/L; Blood Urea Nitrogen 44 mg/dL (9-20); Calcium 8.5 mg/dL (8.4-10.2); Carbon Dioxide 24 mmol/L (22-30); Chloride 101 mmol/L (98-107); Glucose 53 mg/dL (74-99); Magnesium 2.5 mg/dL (1.6-2.3); Non-African American GFR(CKD) 10 (>60 ml/min/1.73 sqM); Potassium 3.9 mmol/L (3.5-5.1); Sodium 136 mmol/L (137-145)
[2024-07-17 11:32] LABS: Glucose,Whole Blood 228 mg/dL (70-110)
--- NOTE | 2024-07-17 12:09 | P.PN ---
Subjective HISTORY OF PRESENT ILLNESS: This is a 69-year-old male with a past medical history significant for end-stage renal disease on hemodialysis, hypertension, hyperlipidemia, diabetes, and coronary artery disease with stenting of the mid LAD and mid RCA in 2007. Patient used to follow in the office with Dr. Whiting but has not been seen since July 2016. We have been asked to see the patient in consultation for chest pain. Patient examined at the bedside in the ER. Patient states yesterday when he got out of bed he suddenly began to have chest discomfort. He states the pain was in the middle of his chest. He denied any radiation of the pain. He did take 1 baby aspirin and then called 911. He states they gave him 3 additional aspirin. He states the pain then subsided. He denies having any chest pain or pressure at the time of examination. DIAGNOSTICS: - EKG reveals sinus mechanism with no signs of acute ischemia. - Chest xray bilateral perihilar opacities suggesting pulmonary edema - Laboratory data: WBC 6.5. Hemoglobin 10.9. Platelet count 219. D-dimer 1.37. Sodium 133. BUN 44. Creatinine 4.85. proBNP 8730. Troponin 0.051. 0.052. 0.051. - Current home cardiac medications include aspirin 81 mg daily, Lipitor 80 mg at night, carvedilol 6.25 mg daily, amlodipine 5 mg daily. - Most recent echocardiogram obtained in 2016 revealing ejection fraction of 55% - Cardiac catheterization history: 2007 with stenting of the mid LAD and mid RCA. 07/15/2024 Patient examined this morning at the bedside. Patient remains in the emergency room. Patient currently denies any chest pain or pressure. He denies any shortness of breath. Patient did have an episode of hypoglycemia this morning with a blood sugar of 44. Vital signs are stable. Echocardiogram completed revealing ejection fraction 55 to 60%, mild MR, mild TR 07/17/2024 Patient examined this morning the bedside. Patient's Lexiscan was negative for ischemia. Patient denies chest pain or pressure. Denies shortness of breath. Vital signs are stable. PHYSICAL EXAM: VITAL SIGNS: Reviewed. GENERAL: Well-developed in no acute distress. HEENT: Head is normocephalic. Pupils are equal, round. Sclerae anicteric. Mucous membranes of the mouth are moist. Neck supple. No JVD or thyromegaly LUNGS: Respirations even and unlabored. Lungs essentially clear to auscultation bilaterally. HEART: Regular rate and rhythm. S1 and S2 heard. ABDOMEN: Soft. Nondistended. Nontender. EXTREMITIES: Normal range of motion. No clubbing or cyanosis. Peripheral pulses intact. No lower extremity edema NEUROLOGIC: Awake and alert. Oriented x 3. ASSESSMENT: Chest pain, status post Lexiscan with no evidence of ischemia End-stage renal disease on hemodialysis Elevated troponins, flat, no evidence of myocardial injury or ischemia, secondary to poor renal clearance Coronary artery disease with previous stenting of the mid LAD and mid RCA, 2007 Hypertension Hyperlipidemia Diabetes PLAN: Continue current cardiac medications Patient is stable for discharge today from a cardiac standpoint We will sign off. Please reconsult if needed. Nurse practitioner note has been reviewed by physician. Signing provider agrees with the documented findings, assessment, and plan of care documented by TRAINING EXECUTIVE as a scribe. Objective - Vital Signs Vital signs: Vital Signs Temp 97.9 F 07/17/24 11:27 Pulse 77 07/17/24 11:27 Resp 16 07/17/24 11:27 BP 120/64 07/17/24 11:27 Pulse Ox 97 07/17/24 11:27 FiO2 Intake & Output 07/16/24 07/17/24 07/17/24 18:59 06:59 18:59 Intake Total 1874 780 118 Output Total 1400 200 Balance 474 580 118 Weight 86.2 kg 86.3 kg Intake: Oral 474 780 118 Hemodialysis 1400 Output: Urine 200 Hemodialysis 400 Hemodialysis Net Amount 1000 Other: # Voids 2 1 - Labs CBC & Chem 7: 07/15/24 06:41 07/17/24 05:26 Labs: Abnormal Lab Results - Last 24 Hours (Table) 07/16/24 07/16/24 07/17/24 Range/Units 16:31 19:53 05:26 Sodium 136 L (137-145) mmol/L BUN 44 H (9-20) mg/dL Creatinine 5.66 H (0.66-1.25) mg/dL Glucose 53 L (74-99) mg/dL POC Glucose (mg/dL) 187 H 296 H (70-110) mg/dL Magnesium 2.5 H (1.6-2.3) mg/dL 01/24/25 01/24/25 Range/Units 05:54 11:30 Sodium (137-145) mmol/L BUN (9-20) mg/dL Creatinine (0.66-1.25) mg/dL Glucose (74-99) mg/dL POC Glucose (mg/dL) 56 L 228 H (70-110) mg/dL Magnesium (1.6-2.3) mg/dL
[2024-07-17] MEDS: BISMUTH SUBSALICYLATE 4,192 MG/240 ML BOTTLE PO PRN (12:49)
[2024-07-17] MEDS: REGADENOSON 0.4 MG/5 ML SYRINGE IV ONE (13:10)
--- NOTE | 2024-07-17 15:34 | P.PN ---
Subjective Progress Note Date: 07/17/24 Hospital course: Patient is a very pleasant 69-year-old male with a past medical history of ESRD on hemodialysis Saturday//Saturdays, CAD status post stenting, hypertension, hyperlipidemia, and insulin-dependent diabetes mellitus. He presented to the emergency department on 07/13/2024 with a chief complaint of chest pain. Upon arrival to our facility, patient underwent evaluation in the emergency department. Vital signs upon arrival show blood pressure 183/99, heart rate 91, respiratory rate 18, temp 98.2 F, and SpO2 of 96% on 2 L. EKG completed showing sinus mechanism at 89 bpm with no significant T wave or ST abnormality showing no signs of acute ischemia upon personal review and interpretation. Chest x-ray completed showing bilateral peripheral opacities concerning for pulmonary edema. Labs completed and reviewed. CBC showing normocytic anemia with hemoglobin of 10.9. Coagulation profile showing elevated D-dimer of 1.37. BMP showing hyponatremia with sodium of 133 and renal function consistent with known ESRD with BUN of 44, creatinine of 4.85, GFR of 12. Blood glucose elevated at 325. Magnesium elevated at 2.4 and phosphorus elevated at 6.7. Liver profile normal findings. Troponin was elevated at 0.051. Patient admitted under our services with consultation to cardiology and nephrology. Troponins trended overnight resulting at 0.051, 0.052, 0.051. CTA chest completed negative for pulmonary emboli revealing a centimeter 1.1 cm lingular pulmonary nodule versus less likely nodular consolidation, recommend outpatient PET scan/CT. Echocardiogram completed and results reviewed showing preserved EF of 55 to 60% with moderately dilated left atrium, mild mitral regurgitation, mild tricuspid regurgitation. Patient evaluated by cardiology and was taken for Lexiscan stress test. Stress test negative for scintigraphic evidence of reversible ischemia. Manager In Home starting patient on torsemide 40 mg daily and increasing carvedilol to 6.25 mg twice daily and clearing patient from cardiac perspective for discharge. Patient medically optimized for discharge and to be discharged once safe discharge plan can be arranged. Patient has a public guardian and currently has no heat or water at his home. Discussed in depth with case management/social work and they are working with public guardian on safe discharge plan. Possibly [facility].. Physical exam: Patient seen and fully evaluated at bedside this morning. He was resting comfortably in bed this morning and denied having any complaints. Patient updated on plan of care and plan for discharge once safe discharge arrangements can be made. Patient to undergo dialysis again tomorrow. Vital signs reviewed and stable. General: Nontoxic, no distress and appears stated age. Derm: Skin warm and dry, normal coloration for ethnicity. Head: Atraumatic, normocephalic and symmetric. Eyes: EOM's intact, no lid lag, and anicteric sclera Mouth: no lip lesions, mucus membranes moist Cardiovascular: regular rate and rhythm with normal S1S2, no murmur, positive posterior tibial pulses bilaterally, and cap refill < 2 seconds. Dialysis access right anterior chest Lungs: Respirations even, regular, and unlabored on room air. Lungs CTA bilaterally, no rhonchi, no rales, no wheezing, and no accessory muscle usage. Abdominal: soft, nontender to palpation, no guarding, no appreciable organomegaly Ext: ROM intact. No gross muscle atrophy, scant to 1+ bilateral lower extremity edema, no contractures Neuro: Speech clear, face symmetrical and CN II-XII grossly intact with no noted focal neuro deficits Psych: Alert and oriented to person, place, time, and situation. Appropriate and pleasant affect. Assessment and Plan of Care: Chest pain and shortness of breath History of CAD status post stenting Elevated D-dimer Elevated troponins, flat and likely secondary to ESRD Hypertension Hyperlipidemia -CTA chest completed negative for pulmonary emboli revealing a centimeter 1.1 cm lingular pulmonary nodule versus less likely nodular consolidation, recommend outpatient PET scan/CT. -Echocardiogram completed and results reviewed showing preserved EF of 55 to 60% with moderately dilated left atrium, mild mitral regurgitation, mild tricuspid regurgitation. -Patient evaluated by cardiology and Manager In Home starting patient on torsemide 40 mg daily and increasing carvedilol to 6.25 mg twice daily and clearing patient from cardiac perspective for discharge. -Stress test negative for scintigraphic evidence of reversible ischemia. -Continue telemetry monitoring. -Continue cardiac medication regimen with amlodipine 5 mg daily, aspirin 81 mg daily, atorvastatin 80 mg nightly, carvedilol 6.25 mg twice daily with meals, and torsemide 40 mg daily. ESRD on hemodialysis Hypermagnesemia -Nephrology following and managing dialysis. Patient scheduled hemodialysis later today. Diabetes mellitus with hyperglycemia -Continue Levemir 25 units twice daily and patient placed on glycemic protocol with NovoLog sliding scale. 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 Data and imaging reviewed: -Labs reviewed. BMP showing BUN 44, creatinine 5.66, GFR 10. Sodium 136 Blood glucose 53 this morning. Magnesium 2.5. -Vital signs reviewed. Blood pressure 138/78, heart rate 78, respiratory rate 16, temp 98.2 F, and SpO2 of 98% on room air.. CODE STATUS: Full code DVT prophylaxis: Heparin Anticipated discharge date: Pending placement for safe discharge plan. Anticipated discharge place: Home Patient was seen independently by Nurse Pracitioner. This document was prepared using [employer] dictation software. Please allow for errors in choker hooker, while rare they do occur. Pierre Duarte NP rendered care for this patient independently, reviewed the findings and plan as documented in the note above and agree with plan. I did not physically speak with or examine the patient on this date. Objective - Vital Signs Vital signs: Vital Signs Temp 98.2 F 07/16/24 20:00 Pulse 79 07/17/24 04:00 Resp 16 07/17/24 04:00 BP 132/67 07/17/24 04:00 Pulse Ox 98 07/17/24 04:00 FiO2 Intake & Output 07/16/24 07/17/24 07/17/24 18:59 06:59 18:59 Intake Total 1874 780 118 Output Total 1400 200 Balance 474 580 118 Weight 86.2 kg 86.3 kg Intake: Oral 474 780 118 Hemodialysis 1400 Output: Urine 200 Hemodialysis 400 Hemodialysis Net Amount 1000 Other: # Voids 2 1 - Labs CBC & Chem 7: 07/15/24 06:41 07/17/24 05:26 Labs: Abnormal Lab Results - Last 24 Hours (Table) 07/16/24 07/16/24 07/16/24 Range/Units 11:54 16:31 19:53 Sodium (137-145) mmol/L BUN (9-20) mg/dL Creatinine (0.66-1.25) mg/dL Glucose (74-99) mg/dL POC Glucose (mg/dL) 64 L 187 H 296 H (70-110) mg/dL Magnesium (1.6-2.3) mg/dL 07/17/24 07/17/24 Range/Units 05:26 05:54 Sodium 136 L (137-145) mmol/L BUN 44 H (9-20) mg/dL Creatinine 5.66 H (0.66-1.25) mg/dL Glucose 53 L (74-99) mg/dL POC Glucose (mg/dL) 56 L (70-110) mg/dL Magnesium 2.5 H (1.6-2.3) mg/dL
[2024-07-17 16:16] LABS: Glucose,Whole Blood 234 mg/dL (70-110)
[2024-07-17] MEDS: INSULIN ASPART (NovoLOG) 100 UNIT/ML VIAL SQ SCH (17:24)
--- NOTE | 2024-07-17 18:55 | P.PN ---
Subjective Patient is seen for follow-up for end-stage renal disease. Maintained on TTS schedule Admitted to the hospital with chest pain. Stress test was negative. Awaiting placement. No significant complaints today. Objective - Vital Signs Vital signs: Vital Signs Temp 97.9 F 07/17/24 11:27 Pulse 83 07/17/24 16:00 Resp 16 07/17/24 14:00 BP 128/78 07/17/24 16:00 Pulse Ox 97 07/17/24 16:00 FiO2 Intake & Output 07/16/24 07/17/24 07/17/24 18:59 06:59 18:59 Intake Total 1874 780 458 Output Total 1400 200 240 Balance 474 580 218 Weight 86.2 kg 86.3 kg Intake: Oral 474 780 458 Hemodialysis 1400 Output: Urine 200 240 Hemodialysis 400 Hemodialysis Net Amount 1000 Other: # Voids 2 1 - Exam Patient is awake comfortable, no acute distress. Examination of the heart S1 and S2 Examination of the lungs bilateral breath sounds are heard Abdomen is soft nontender Examination of lower extremities shows no significant edema. CD MIXER HELPER exam grossly intact - Labs CBC & Chem 7: 07/15/24 06:41 07/17/24 05:26 Labs: Abnormal Lab Results - Last 24 Hours (Table) 07/16/24 07/17/24 07/17/24 Range/Units 19:53 05:26 05:54 Sodium 136 L (137-145) mmol/L BUN 44 H (9-20) mg/dL Creatinine 5.66 H (0.66-1.25) mg/dL Glucose 53 L (74-99) mg/dL POC Glucose (mg/dL) 296 H 56 L (70-110) mg/dL Magnesium 2.5 H (1.6-2.3) mg/dL 07/17/24 07/17/24 Range/Units 11:30 16:15 Sodium (137-145) mmol/L BUN (9-20) mg/dL Creatinine (0.66-1.25) mg/dL Glucose (74-99) mg/dL POC Glucose (mg/dL) 228 H 234 H (70-110) mg/dL Magnesium (1.6-2.3) mg/dL Assessment and Plan Assessment: 1. End-stage renal disease maintained on hemodialysis on Saturday schedule via permacath. 2. Chest pain, status post a stress test which was negative. Patient is being followed by cardiology.. 3. Coronary artery disease status post cardiac stents from the past. 4. Diabetes mellitus. 5. Hypertension with chronic kidney disease. 6. Chronic kidney disease mineral bone disease. Plan: Hemodialysis in a.m. Awaiting temporary housing arrangement as there are issues with heating at home and patient states that all the pipes are frozen.
[2024-07-17 20:19] LABS: Glucose,Whole Blood 229 mg/dL (70-110)
[2024-07-17] MEDS ORDERED: MELATONIN 5 MG TABLET PO SCH (21:00)
[2024-07-17] MEDS: MELATONIN 5 MG TABLET PO PRN (22:13)
[2024-07-18 07:44] LABS: Glucose,Whole Blood 112 mg/dL (70-110)
[2024-07-18 11:22] LABS: Glucose,Whole Blood 175 mg/dL (70-110)
--- NOTE | 2024-07-18 13:56 | P.PN ---
Subjective Progress Note Date: 07/18/24 Hospital course: Patient is a very pleasant 69-year-old male with a past medical history of ESRD on hemodialysis Saturday//Saturdays, CAD status post stenting, hypertension, hyperlipidemia, and insulin-dependent diabetes mellitus. He presented to the emergency department on 07/13/2024 with a chief complaint of chest pain. Upon arrival to our facility, patient underwent evaluation in the emergency department. Vital signs upon arrival show blood pressure 183/99, heart rate 91, respiratory rate 18, temp 98.2 F, and SpO2 of 96% on 2 L. EKG completed showing sinus mechanism at 89 bpm with no significant T wave or ST abnormality showing no signs of acute ischemia upon personal review and interpretation. Chest x-ray completed showing bilateral peripheral opacities concerning for pulmonary edema. Labs completed and reviewed. CBC showing normocytic anemia with hemoglobin of 10.9. Coagulation profile showing elevated D-dimer of 1.37. BMP showing hyponatremia with sodium of 133 and renal function consistent with known ESRD with BUN of 44, creatinine of 4.85, GFR of 12. Blood glucose elevated at 325. Magnesium elevated at 2.4 and phosphorus elevated at 6.7. Liver profile normal findings. Troponin was elevated at 0.051. Patient admitted under our services with consultation to cardiology and nephrology. Troponins trended overnight resulting at 0.051, 0.052, 0.051. CTA chest completed negative for pulmonary emboli revealing a centimeter 1.1 cm lingular pulmonary nodule versus less likely nodular consolidation, recommend outpatient PET scan/CT. Echocardiogram completed and results reviewed showing preserved EF of 55 to 60% with moderately dilated left atrium, mild mitral regurgitation, mild tricuspid regurgitation. Patient evaluated by cardiology and was taken for Lexiscan stress test. Stress test negative for scintigraphic evidence of reversible ischemia. Vp Talent Management starting patient on torsemide 40 mg daily and increasing carvedilol to 6.25 mg twice daily and clearing patient from cardiac perspective for discharge. Patient medically optimized for discharge and to be discharged once safe discharge plan can be arranged. Patient has a public guardian and currently has no heat or water at his home. Discussed in depth with case management/social work and they are working with public guardian on safe discharge plan. Possibly [facility].. Physical exam: Patient seen and fully evaluated at bedside this morning. He was resting in bed undergoing dialysis this morning and denied having any complaints. Patient updated on plan of care and plan for discharge once safe discharge arrangements can be made. Patient to undergo dialysis again tomorrow. Vital signs reviewed and stable. General: Nontoxic, no distress and appears stated age. Derm: Skin warm and dry, normal coloration for ethnicity. Head: Atraumatic, normocephalic and symmetric. Eyes: EOM's intact, no lid lag, and anicteric sclera Mouth: no lip lesions, mucus membranes moist Cardiovascular: regular rate and rhythm with normal S1S2, no murmur, positive posterior tibial pulses bilaterally, and cap refill < 2 seconds. Dialysis access right anterior chest Lungs: Respirations even, regular, and unlabored on room air. Lungs CTA bilaterally, no rhonchi, no rales, no wheezing, and no accessory muscle usage. Abdominal: soft, nontender to palpation, no guarding, no appreciable organomegaly Ext: ROM intact. No gross muscle atrophy, scant to 1+ bilateral lower extremity edema, no contractures Neuro: Speech clear, face symmetrical and CN II-XII grossly intact with no noted focal neuro deficits Psych: Alert and oriented to person, place, time, and situation. Appropriate and pleasant affect. Assessment and Plan of Care: Chest pain and shortness of breath History of CAD status post stenting Elevated D-dimer Elevated troponins, flat and likely secondary to ESRD Hypertension Hyperlipidemia -CTA chest completed negative for pulmonary emboli revealing a centimeter 1.1 cm lingular pulmonary nodule versus less likely nodular consolidation, recommend outpatient PET scan/CT. -Echocardiogram completed and results reviewed showing preserved EF of 55 to 60% with moderately dilated left atrium, mild mitral regurgitation, mild tricuspid regurgitation. -Patient evaluated by cardiology and Vp Talent Management starting patient on torsemide 40 mg daily and increasing carvedilol to 6.25 mg twice daily and clearing patient from cardiac perspective for discharge. -Stress test negative for scintigraphic evidence of reversible ischemia. -Continue telemetry monitoring. -Continue cardiac medication regimen with amlodipine 5 mg daily, aspirin 81 mg daily, atorvastatin 80 mg nightly, carvedilol 6.25 mg twice daily with meals, and torsemide 40 mg daily. ESRD on hemodialysis Hypermagnesemia -Nephrology following and managing dialysis. Patient scheduled hemodialysis later today. Diabetes mellitus with hyperglycemia -Continue Levemir 25 units twice daily and patient placed on glycemic protocol with NovoLog sliding scale. 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 Data and imaging reviewed: -Labs reviewed. BMP showing BUN 44, creatinine 5.66, GFR 10. Sodium 136 Blood glucose 53 this morning. Magnesium 2.5. -Vital signs reviewed. Blood pressure 130/75, heart rate 88, respiratory rate 20, temp 97.9 F, and SpO2 of 95% on room air. CODE STATUS: Full code DVT prophylaxis: Heparin Anticipated discharge date: Pending placement for safe discharge plan. Anticipated discharge place: Home Patient was seen independently by Nurse Pracitioner. This document was prepared using [employer] dictation software. Please allow for errors in plate keeper, while rare they do occur. Pierre Duarte NP rendered care for this patient independently, reviewed the findings and plan as documented in the note above and agree with plan. I did not physically speak with or examine the patient on this date. Objective - Vital Signs Vital signs: Vital Signs Temp 97.8 F 07/17/24 20:00 Pulse 84 07/17/24 23:52 Resp 16 07/17/24 23:52 BP 136/72 07/17/24 23:52 Pulse Ox 97 07/17/24 23:52 FiO2 Intake & Output 07/17/24 07/18/24 07/18/24 18:59 06:59 18:59 Intake Total 458 Output Total 240 540 Balance 218 -540 Weight 89.8 kg Intake: Oral 458 Output: Urine 240 540 Other: # Voids 1 - Labs CBC & Chem 7: 07/15/24 06:41 07/17/24 05:26 Labs: Abnormal Lab Results - Last 24 Hours (Table) 07/17/24 07/17/24 07/17/24 Range/Units 11:30 16:15 20:17 POC Glucose (mg/dL) 228 H 234 H 229 H (70-110) mg/dL 07/18/24 Range/Units 06:07 POC Glucose (mg/dL) 112 H (70-110) mg/dL
--- NOTE | 2024-07-18 14:04 | P.PN ---
Subjective Progress Note Date: 07/18/24 Patient is seen for follow-up for end-stage renal disease. Maintained on TTS schedule Admitted to the hospital with chest pain. Stress test was negative. Awaiting placement. No significant complaints today. Seen while on HD today. Patient is awake comfortable, no acute distress. Examination of the heart S1 and S2 Examination of the lungs bilateral breath sounds are heard Abdomen is soft nontender Examination of lower extremities shows no significant edema. 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 GLAZIER exam grossly intact Objective - Vital Signs Vital signs: Vital Signs Temp 97.9 F 07/18/24 08:00 Pulse 88 07/18/24 08:00 Resp 20 07/18/24 08:00 BP 130/75 07/18/24 08:00 Pulse Ox 95 07/18/24 08:00 FiO2 Intake & Output 07/17/24 07/18/24 07/18/24 18:59 06:59 18:59 Intake Total 458 Output Total 240 540 Balance 218 -540 Weight 89.8 kg Intake: Oral 458 Output: Urine 240 540 Other: # Voids 1 - Labs CBC & Chem 7: 07/15/24 06:41 07/17/24 05:26 Labs: Abnormal Lab Results - Last 24 Hours (Table) 07/17/24 07/17/24 07/17/24 Range/Units 11:30 16:15 20:17 POC Glucose (mg/dL) 228 H 234 H 229 H (70-110) mg/dL 07/18/24 Range/Units 06:07 POC Glucose (mg/dL) 112 H (70-110) mg/dL Assessment and Plan Assessment: 1. End-stage renal disease maintained on hemodialysis on Saturday schedule via permacath. 2. Chest pain, status post a stress test which was negative. Patient is being followed by cardiology.. 3. Coronary artery disease status post cardiac stents from the past. 4. Diabetes mellitus. 5. Hypertension with chronic kidney disease. 6. Chronic kidney disease mineral bone disease. Plan: Hemodialysis today Awaiting temporary housing arrangement as there are issues with heating at home and patient states that all the pipes are frozen.
[2024-07-18 16:17] LABS: Glucose,Whole Blood 136 mg/dL (70-110)
[2024-07-18 20:13] LABS: Glucose,Whole Blood 260 mg/dL (70-110)
[2024-07-19 04:08] LABS: African American GFR (CKD) 15 (>60 ml/min/1.73 sqM); Anion Gap 8 mmol/L; Blood Urea Nitrogen 36 mg/dL (9-20); Calcium 8.1 mg/dL (8.4-10.2); Carbon Dioxide 26 mmol/L (22-30); Chloride 99 mmol/L (98-107); Glucose 115 mg/dL (74-99); Magnesium 2.2 mg/dL (1.6-2.3); Non-African American GFR(CKD) 13 (>60 ml/min/1.73 sqM); Potassium 4.1 mmol/L (3.5-5.1); Sodium 133 mmol/L (137-145)
[2024-07-19 06:08] LABS: Glucose,Whole Blood 77 mg/dL (70-110)
[2024-07-19 10:34] LABS: Glucose,Whole Blood 207 mg/dL (70-110)
[2024-07-19 11:34] LABS: Glucose,Whole Blood 205 mg/dL (70-110)
--- NOTE | 2024-07-19 12:59 | P.PN ---
Subjective Progress Note Date: 07/19/24 Patient is seen for follow-up for end-stage renal disease. Maintained on TTS schedule Admitted to the hospital with chest pain. Stress test was negative. Awaiting placement. Feeling well. Patient is awake comfortable, no acute distress. Examination of the heart S1 and S2 Examination of the lungs bilateral breath sounds are heard Abdomen is soft nontender Examination of lower extremities shows no significant edema. YOKE PRESSER exam grossly intact Objective - Vital Signs Vital signs: Vital Signs Temp 97.5 F L 07/19/24 06:55 Pulse 76 07/19/24 06:55 Resp 16 07/19/24 06:55 BP 131/76 07/19/24 06:55 Pulse Ox 95 07/19/24 06:55 FiO2 Intake & Output 07/18/24 07/19/24 07/19/24 18:59 06:59 18:59 Intake Total 1442 540 Output Total 3700 Balance -2258 540 Weight 78 kg Intake: Oral 942 540 Hemodialysis 500 Output: Hemodialysis 2100 Hemodialysis Net Amount 1600 Other: # Voids 1 - Labs CBC & Chem 7: 07/15/24 06:41 07/19/24 03:34 Labs: Abnormal Lab Results - Last 24 Hours (Table) 07/18/24 07/18/24 07/19/24 Range/Units 16:15 20:13 03:34 Sodium 133 L (137-145) mmol/L BUN 36 H (9-20) mg/dL Creatinine 4.30 H (0.66-1.25) mg/dL Glucose 115 H (74-99) mg/dL POC Glucose (mg/dL) 136 H 260 H (70-110) mg/dL Calcium 8.1 L (8.4-10.2) mg/dL 07/19/24 07/19/24 Range/Units 10:30 11:33 Sodium (137-145) mmol/L BUN (9-20) mg/dL Creatinine (0.66-1.25) mg/dL Glucose (74-99) mg/dL POC Glucose (mg/dL) 207 H 205 H (70-110) mg/dL Calcium (8.4-10.2) mg/dL Assessment and Plan Assessment: 1. End-stage renal disease maintained on hemodialysis on Saturday schedule via permacath. 2. Chest pain, status post a stress test which was negative. Patient is being followed by cardiology.. 3. Coronary artery disease status post cardiac stents from the past. 4. Diabetes mellitus. 5. Hypertension with chronic kidney disease. 6. Chronic kidney disease mineral bone disease. Plan: Hemodialysis TTS schedule Awaiting temporary housing arrangement as there are issues with heating at home and patient states that all the pipes are frozen.
--- NOTE | 2024-07-19 14:46 | P.PN ---
Subjective Progress Note Date: 07/19/24 Hospital course: Patient is a very pleasant 69-year-old male with a past medical history of ESRD on hemodialysis Saturday//Saturdays, CAD status post stenting, hypertension, hyperlipidemia, and insulin-dependent diabetes mellitus. He presented to the emergency department on 07/13/2024 with a chief complaint of chest pain. Upon arrival to our facility, patient underwent evaluation in the emergency department. Vital signs upon arrival show blood pressure 183/99, heart rate 91, respiratory rate 18, temp 98.2 F, and SpO2 of 96% on 2 L. EKG completed showing sinus mechanism at 89 bpm with no significant T wave or ST abnormality showing no signs of acute ischemia upon personal review and interpretation. Chest x-ray completed showing bilateral peripheral opacities concerning for pulmonary edema. Labs completed and reviewed. CBC showing normocytic anemia with hemoglobin of 10.9. Coagulation profile showing elevated D-dimer of 1.37. BMP showing hyponatremia with sodium of 133 and renal function consistent with known ESRD with BUN of 44, creatinine of 4.85, GFR of 12. Blood glucose elevated at 325. Magnesium elevated at 2.4 and phosphorus elevated at 6.7. Liver profile normal findings. Troponin was elevated at 0.051. Patient admitted under our services with consultation to cardiology and nephrology. Troponins trended overnight resulting at 0.051, 0.052, 0.051. CTA chest completed negative for pulmonary emboli revealing a centimeter 1.1 cm lingular pulmonary nodule versus less likely nodular consolidation, recommend outpatient PET scan/CT. Echocardiogram completed and results reviewed showing preserved EF of 55 to 60% with moderately dilated left atrium, mild mitral regurgitation, mild tricuspid regurgitation. Patient evaluated by cardiology and was taken for Lexiscan stress test. Stress test negative for scintigraphic evidence of reversible ischemia. Physical Therapy Teacher starting patient on torsemide 40 mg daily and increasing carvedilol to 6.25 mg twice daily and clearing patient from cardiac perspective for discharge. Patient medically optimized for discharge and to be discharged once safe discharge plan can be arranged. Patient has a public guardian and currently has no heat or water at his home. Discussed in depth with case management/social work and they are working with public guardian on safe discharge plan. Possibly [facility].. Physical exam: Patient seen and fully evaluated at bedside this morning. He was resting in bed. Denies any complaints at this time. Vital signs reviewed and stable. General: Nontoxic, no distress and appears stated age. Derm: Skin warm and dry, normal coloration for ethnicity. Head: Atraumatic, normocephalic and symmetric. Eyes: EOM's intact, no lid lag, and anicteric sclera Mouth: no lip lesions, mucus membranes moist Cardiovascular: regular rate and rhythm with normal S1S2, no murmur, positive posterior tibial pulses bilaterally, and cap refill < 2 seconds. Dialysis access right anterior chest Lungs: Respirations even, regular, and unlabored on room air. Lungs CTA bilaterally, no rhonchi, no rales, no wheezing, and no accessory muscle usage. Abdominal: soft, nontender to palpation, no guarding, no appreciable organomegaly Ext: ROM intact. No gross muscle atrophy, scant to 1+ bilateral lower extremity edema, no contractures Neuro: Speech clear, face symmetrical and CN II-XII grossly intact with no noted focal neuro deficits Psych: Alert and oriented to person, place, time, and situation. Appropriate and pleasant affect. Assessment and Plan of Care: Chest pain and shortness of breath History of CAD status post stenting Elevated D-dimer Elevated troponins, flat and likely secondary to ESRD Hypertension Hyperlipidemia -CTA chest completed negative for pulmonary emboli revealing a centimeter 1.1 cm lingular pulmonary nodule versus less likely nodular consolidation, recommend outpatient PET scan/CT. -Echocardiogram completed and results reviewed showing preserved EF of 55 to 60% with moderately dilated left atrium, mild mitral regurgitation, mild tricuspid regurgitation. -Patient evaluated by cardiology and Physical Therapy Teacher starting patient on torsemide 40 mg daily and increasing carvedilol to 6.25 mg twice daily and clearing patient from cardiac perspective for discharge. -Stress test negative for scintigraphic evidence of reversible ischemia. -Continue telemetry monitoring. -Continue cardiac medication regimen with amlodipine 5 mg daily, aspirin 81 mg daily, atorvastatin 80 mg nightly, carvedilol 6.25 mg twice daily with meals, and torsemide 40 mg daily. ESRD on hemodialysis Hypermagnesemia -Nephrology following and managing dialysis. Patient scheduled hemodialysis [place] today. Diabetes mellitus with hyperglycemia -Continue Levemir 25 units twice daily and patient placed on glycemic protocol with NovoLog sliding scale. 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 Data and imaging reviewed: -Labs reviewed. BMP showing BUN 36, creatinine 4.30, GFR of 13. Sodium 133. Magnesium 2.2. -Vital signs reviewed. Blood pressure 131/76, heart rate 76, respiratory rate 16, temp 97.5 F, and SpO2 of 95% on room air CODE STATUS: Full code DVT prophylaxis: Heparin Anticipated discharge date: Pending placement for safe discharge plan. Anticipated discharge place: Home Patient was seen independently by Nurse Pracitioner. This document was prepared using [employer] dictation software. Please allow for errors in financial controller, while rare they do occur. Pierre Duarte NP rendered care for this patient independently, reviewed the findings and plan as documented in the note above and agree with plan. I did not physically speak with or examine the patient on this date. Objective - Vital Signs Vital signs: Vital Signs Temp 97.5 F L 07/19/24 06:55 Pulse 76 07/19/24 06:55 Resp 16 07/19/24 06:55 BP 131/76 07/19/24 06:55 Pulse Ox 95 07/19/24 06:55 FiO2 Intake & Output 07/18/24 07/19/24 07/19/24 18:59 06:59 18:59 Intake Total 1442 540 Output Total 3700 Balance -2258 540 Weight 78 kg Intake: Oral 942 540 Hemodialysis 500 Output: Hemodialysis 2100 Hemodialysis Net Amount 1600 Other: # Voids 1 - Labs CBC & Chem 7: 07/15/24 06:41 07/19/24 03:34 Labs: Abnormal Lab Results - Last 24 Hours (Table) 07/18/24 07/18/24 07/18/24 Range/Units 11:20 16:15 20:13 Sodium (137-145) mmol/L BUN (9-20) mg/dL Creatinine (0.66-1.25) mg/dL Glucose (74-99) mg/dL POC Glucose (mg/dL) 175 H 136 H 260 H (70-110) mg/dL Calcium (8.4-10.2) mg/dL 07/19/24 Range/Units 03:34 Sodium 133 L (137-145) mmol/L BUN 36 H (9-20) mg/dL Creatinine 4.30 H (0.66-1.25) mg/dL Glucose 115 H (74-99) mg/dL POC Glucose (mg/dL) (70-110) mg/dL Calcium 8.1 L (8.4-10.2) mg/dL
[2024-07-19 16:41] LABS: Glucose,Whole Blood 224 mg/dL (70-110)
[2024-07-19 21:13] LABS: Glucose,Whole Blood 229 mg/dL (70-110)
[2024-07-20 07:02] LABS: Glucose,Whole Blood 79 mg/dL (70-110)
--- NOTE | 2024-07-20 11:29 | P.PN ---
Subjective Patient is seen in follow-up for end-stage renal disease. No active complaints. Vital signs are stable. General: No acute distress. HEENT: Head exam is unremarkable. LUNGS: No audible rhonchi or wheezes. HEART: Rate and Rhythm are regular. ABDOMEN: Nontender. EXTREMITITES: No edema. Objective - Vital Signs Vital signs: Vital Signs Temp 98.1 F 07/20/24 06:51 Pulse 83 07/20/24 06:51 Resp 16 07/20/24 06:51 BP 123/75 07/20/24 06:51 Pulse Ox 94 L 07/20/24 06:51 FiO2 Intake & Output 07/19/24 07/20/24 07/20/24 18:59 06:59 18:59 Intake Total 120 Output Total 0 Balance 120 Weight 68 kg Intake: Oral 120 Output: Urine 0 Stool 0 Other: Voiding Method Toilet Toilet # Voids 0 # Bowel Movements 0 - Labs CBC & Chem 7: 07/15/24 06:41 07/19/24 03:34 Labs: Abnormal Lab Results - Last 24 Hours (Table) 07/19/24 07/19/24 07/19/24 Range/Units 11:33 16:37 21:11 POC Glucose (mg/dL) 205 H 224 H 229 H (70-110) mg/dL Assessment and Plan Plan: Assessment: 1. End-stage renal disease maintained on hemodialysis on Saturday schedule via permacath. 2. Chest pain. Cardiology following. Status post Veronica scan with no evidence of ischemia. 3. Coronary artery disease status post cardiac stents from the past. 4. Diabetes mellitus. 5. Hypertension with chronic kidney disease. Controlled. 6. Chronic kidney disease mineral bone disease. On PhosLo. Phosphorus 6.7 dated July 13, 2024. Plan: Hemodialysis tomorrow. Awaits placement.
[2024-07-20 11:41] LABS: Glucose,Whole Blood 233 mg/dL (70-110)
--- NOTE | 2024-07-20 16:09 | P.PN ---
Subjective Progress Note Date: 07/20/24 Hospital course: Patient is a very pleasant 69-year-old male with a past medical history of ESRD on hemodialysis Saturday//Saturdays, CAD status post stenting, hypertension, hyperlipidemia, and insulin-dependent diabetes mellitus. He presented to the emergency department on 07/13/2024 with a chief complaint of chest pain. Upon arrival to our facility, patient underwent evaluation in the emergency department. Vital signs upon arrival show blood pressure 183/99, heart rate 91, respiratory rate 18, temp 98.2 F, and SpO2 of 96% on 2 L. EKG completed showing sinus mechanism at 89 bpm with no significant T wave or ST abnormality showing no signs of acute ischemia upon personal review and interpretation. Chest x-ray completed showing bilateral peripheral opacities concerning for pulmonary edema. Labs completed and reviewed. CBC showing normocytic anemia with hemoglobin of 10.9. Coagulation profile showing elevated D-dimer of 1.37. BMP showing hyponatremia with sodium of 133 and renal function consistent with known ESRD with BUN of 44, creatinine of 4.85, GFR of 12. Blood glucose elevated at 325. Magnesium elevated at 2.4 and phosphorus elevated at 6.7. Liver profile normal findings. Troponin was elevated at 0.051. Patient admitted under our services with consultation to cardiology and nephrology. Troponins trended overnight resulting at 0.051, 0.052, 0.051. CTA chest completed negative for pulmonary emboli revealing a centimeter 1.1 cm lingular pulmonary nodule versus less likely nodular consolidation, recommend outpatient PET scan/CT. Echocardiogram completed and results reviewed showing preserved EF of 55 to 60% with moderately dilated left atrium, mild mitral regurgitation, mild tricuspid regurgitation. Patient evaluated by cardiology and was taken for Lexiscan stress test. Stress test negative for scintigraphic evidence of reversible ischemia. Obstetrics Gyn Physician starting patient on torsemide 40 mg daily and increasing carvedilol to 6.25 mg twice daily and clearing patient from cardiac perspective for discharge. Patient medically optimized for discharge and to be discharged once safe discharge plan can be arranged. Patient has a public guardian and currently has no heat or water at his home. Discussed in depth with case management/social work and they are working with public guardian on safe discharge plan. Possibly [facility].. Physical exam: Patient seen and fully evaluated at bedside this morning. He was sitting up in bed. Denies any complaints, questions, or needs at this time. Vital signs reviewed and stable. General: Nontoxic, no distress and appears stated age. Derm: Skin warm and dry, normal coloration for ethnicity. Head: Atraumatic, normocephalic and symmetric. Eyes: EOM's intact, no lid lag, and anicteric sclera Mouth: no lip lesions, mucus membranes moist Cardiovascular: regular rate and rhythm with normal S1S2, no murmur, positive posterior tibial pulses bilaterally, and cap refill < 2 seconds. Dialysis access right anterior chest Lungs: Respirations even, regular, and unlabored on room air. Lungs CTA bilaterally, no rhonchi, no rales, no wheezing, and no accessory muscle usage. Abdominal: soft, nontender to palpation, no guarding, no appreciable organomegaly Ext: ROM intact. No gross muscle atrophy, scant to 1+ bilateral lower extremity edema, no contractures Neuro: Speech clear, face symmetrical and CN II-XII grossly intact with no noted focal neuro deficits Psych: Alert and oriented to person, place, time, and situation. Appropriate and pleasant affect. Assessment and Plan of Care: Chest pain and shortness of breath History of CAD status post stenting Elevated D-dimer Elevated troponins, flat and likely secondary to ESRD Hypertension Hyperlipidemia -CTA chest completed negative for pulmonary emboli revealing a centimeter 1.1 cm lingular pulmonary nodule versus less likely nodular consolidation, recommend outpatient PET scan/CT. -Echocardiogram completed and results reviewed showing preserved EF of 55 to 60% with moderately dilated left atrium, mild mitral regurgitation, mild tricuspid regurgitation. -Patient evaluated by cardiology and Obstetrics Gyn Physician starting patient on torsemide 40 mg daily and increasing carvedilol to 6.25 mg twice daily and clearing patient from cardiac perspective for discharge. -Stress test negative for scintigraphic evidence of reversible ischemia. -Continue telemetry monitoring. -Continue cardiac medication regimen with amlodipine 5 mg daily, aspirin 81 mg daily, atorvastatin 80 mg nightly, carvedilol 6.25 mg twice daily with meals, and torsemide 40 mg daily. ESRD on hemodialysis Hypermagnesemia -Nephrology following and managing dialysis. Patient to undergo scheduled hemodialysis tomorrow Diabetes mellitus with hyperglycemia -Continue Levemir 25 units twice daily and patient placed on glycemic protocol with NovoLog sliding scale. 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 Data and imaging reviewed: -Labs reviewed. BMP showing BUN 36, creatinine 4.30, GFR of 13. Sodium 133. Magnesium 2.2. -Vital signs reviewed. Blood pressure 123/75, heart rate 83, respiratory rate 16, temp 98.1 F, and SpO2 of 94% on room air. CODE STATUS: Full code DVT prophylaxis: Heparin Anticipated discharge date: Pending placement for safe discharge plan. Per high risk case manager, possible discharge on 07/22/2024 to [facility] Anticipated discharge place: Home Patient was seen independently by Nurse Pracitioner. This document was prepared using [employer] dictation software. Please allow for errors in wound care coordinator, while rare they do occur. Pierre Duarte NP rendered care for this patient independently, reviewed the findings and plan as documented in the note above and agree with plan. I did not physically speak with or examine the patient on this date. . Objective - Vital Signs Vital signs: Vital Signs Temp 98.1 F 07/20/24 06:51 Pulse 83 07/20/24 06:51 Resp 16 07/20/24 06:51 BP 123/75 07/20/24 06:51 Pulse Ox 94 L 07/20/24 06:51 FiO2 Intake & Output 07/19/24 07/20/24 07/20/24 18:59 06:59 18:59 Intake Total 120 Output Total 0 Balance 120 Weight 68 kg Intake: Oral 120 Output: Urine 0 Stool 0 Other: Voiding Method Toilet # Voids 0 # Bowel Movements 0 - Labs CBC & Chem 7: 07/15/24 06:41 07/19/24 03:34 Labs: Abnormal Lab Results - Last 24 Hours (Table) 07/19/24 07/19/24 07/19/24 Range/Units 10:30 11:33 16:37 POC Glucose (mg/dL) 207 H 205 H 224 H (70-110) mg/dL 07/19/24 Range/Units 21:11 POC Glucose (mg/dL) 229 H (70-110) mg/dL
[2024-07-20 16:51] LABS: Glucose,Whole Blood 246 mg/dL (70-110)
[2024-07-20 20:20] LABS: Glucose,Whole Blood 253 mg/dL (70-110)
[2024-07-21] MEDS: CYCLOBENZAPRINE 10 MG TAB PO PRN (03:25)
[2024-07-21 06:12] LABS: Glucose,Whole Blood 129 mg/dL (70-110)
[2024-07-21 08:37] LABS: HCT 30.9 % (39.6-50.0); HGB 9.8 g/dL (13.0-17.0); MCHC 31.7 g/dL (32.0-37.0); MCV 94.5 FL (80.0-97.0); Mean Platelet Volume 10.5 FL (9.5-12.2); NRBC Per 100 WBC 0 X 10*3/uL (0.00-0.01); Platelet Count 195 X 10*3/uL (140-440); RBC 3.27 X 10*6/uL (4.40-5.60); RDW 13.1 % (11.5-14.5); WBC 6.59 X 10*3/uL (4.50-10.00)
[2024-07-21 09:02] LABS: Magnesium 2.4 mg/dL (1.5-2.4)
--- NOTE | 2024-07-21 10:59 | P.PN ---
Subjective Patient is seen in follow-up for end-stage renal disease. No active complaints. Awaits placement. Vital signs are stable. General: No acute distress. HEENT: Head exam is unremarkable. LUNGS: No audible rhonchi or wheezes. HEART: Rate and Rhythm are regular. ABDOMEN: Nontender. EXTREMITITES: No edema. Objective - Vital Signs Vital signs: Vital Signs Temp 98.1 F 07/21/24 07:24 Pulse 84 07/21/24 07:24 Resp 17 07/21/24 07:24 BP 114/65 07/21/24 07:24 Pulse Ox 96 07/21/24 07:24 FiO2 Intake & Output 07/20/24 07/21/24 07/21/24 18:59 06:59 18:59 Weight 78 kg Other: Voiding Method Toilet Toilet Toilet - Labs CBC & Chem 7: 07/21/24 03:16 07/19/24 03:34 Labs: Abnormal Lab Results - Last 24 Hours (Table) 07/20/24 07/20/24 07/20/24 Range/Units 11:39 16:39 20:18 RBC (4.40-5.60) X 10*6/uL Hgb (13.0-17.0) g/dL Hct (39.6-50.0) % MCHC (32.0-37.0) g/dL POC Glucose (mg/dL) 233 H 246 H 253 H (70-110) mg/dL 07/21/24 07/21/24 Range/Units 03:16 06:08 RBC 3.27 L (4.40-5.60) X 10*6/uL Hgb 9.8 L (13.0-17.0) g/dL Hct 30.9 L (39.6-50.0) % MCHC 31.7 L (32.0-37.0) g/dL POC Glucose (mg/dL) 129 H (70-110) mg/dL Assessment and Plan Plan: Assessment: 1. End-stage renal disease maintained on hemodialysis on Saturday schedule via permacath. 2. Chest pain. Cardiology following. Status post Veronica scan with no evidence of ischemia. 3. Coronary artery disease status post cardiac stents from the past. 4. Diabetes mellitus. 5. Hypertension with chronic kidney disease. Controlled. 6. Chronic kidney disease mineral bone disease. On PhosLo. Phosphorus 6.7 dated July 13, 2024. Plan: Hemodialysis today. Awaits placement.
[2024-07-21 11:42] LABS: Glucose,Whole Blood 74 mg/dL (70-110)
[2024-07-21 11:52] LABS: BUN/Creat Ratio 9.87 Ratio (12.00-20.00); Blood Urea Nitrogen 62.2 mg/dL (9.0-27.0); Calcium 8.1 mg/dL (8.7-10.3); Carbon Dioxide 20.7 mmol/L (21.6-31.8); Chloride 101 mmol/L (96-109); Glucose 219 mg/dL (70-110); Potassium 4.8 mmol/L (3.5-5.5); Sodium 136 mmol/L (135-145)
--- NOTE | 2024-07-21 15:24 | P.PN ---
Progress Note - Text Progress Note Date: 07/21/24 As requested by [facility]: Reviewed CT scan and CXR imaging both indepen dently and with supervising physician, Dr. Hopkins and pt has no cavitary lesions or suspicion for TB.
--- NOTE | 2024-07-21 16:14 | P.PN ---
Subjective Progress Note Date: 07/21/24 Hospital course: Patient is a very pleasant 69-year-old male with a past medical history of ESRD on hemodialysis Saturday//Saturdays, CAD status post stenting, hypertension, hyperlipidemia, and insulin-dependent diabetes mellitus. He presented to the emergency department on 07/13/2024 with a chief complaint of chest pain. Upon arrival to our facility, patient underwent evaluation in the emergency department. Vital signs upon arrival show blood pressure 183/99, heart rate 91, respiratory rate 18, temp 98.2 F, and SpO2 of 96% on 2 L. EKG completed showing sinus mechanism at 89 bpm with no significant T wave or ST abnormality showing no signs of acute ischemia upon personal review and interpretation. Chest x-ray completed showing bilateral peripheral opacities concerning for pulmonary edema. Labs completed and reviewed. CBC showing normocytic anemia with hemoglobin of 10.9. Coagulation profile showing elevated D-dimer of 1.37. BMP showing hyponatremia with sodium of 133 and renal function consistent with known ESRD with BUN of 44, creatinine of 4.85, GFR of 12. Blood glucose elevated at 325. Magnesium elevated at 2.4 and phosphorus elevated at 6.7. Liver profile normal findings. Troponin was elevated at 0.051. Patient admitted under our services with consultation to cardiology and nephrology. Troponins trended overnight resulting at 0.051, 0.052, 0.051. CTA chest completed negative for pulmonary emboli revealing a centimeter 1.1 cm lingular pulmonary nodule versus less likely nodular consolidation, recommend outpatient PET scan/CT. Echocardiogram completed and results reviewed showing preserved EF of 55 to 60% with moderately dilated left atrium, mild mitral regurgitation, mild tricuspid regurgitation. Patient evaluated by cardiology and was taken for Lexiscan stress test. Stress test negative for scintigraphic evidence of reversible ischemia. Lineman Apprentice starting patient on torsemide 40 mg daily and increasing carvedilol to 6.25 mg twice daily and clearing patient from cardiac perspective for discharge. Patient medically optimized for discharge and to be discharged once safe discharge plan can be arranged. Patient has a public guardian and currently has no heat or water at his home. Discussed in depth with case management/social work and they are working with public guardian on safe discharge plan. Possibly [facility].. Physical exam: Patient seen and fully evaluated at bedside this morning. He was sitting up in bed and awaiting to undergo dialysis this morning. Denies any complaints, questions, or needs at this time. Vital signs reviewed and stable. General: Nontoxic, no distress and appears stated age. Derm: Skin warm and dry, normal coloration for ethnicity. Head: Atraumatic, normocephalic and symmetric. Eyes: EOM's intact, no lid lag, and anicteric sclera Mouth: no lip lesions, mucus membranes moist Cardiovascular: regular rate and rhythm with normal S1S2, no murmur, positive posterior tibial pulses bilaterally, and cap refill < 2 seconds. Dialysis access right anterior chest Lungs: Respirations even, regular, and unlabored on room air. Lungs CTA bilaterally, no rhonchi, no rales, no wheezing, and no accessory muscle usage. Abdominal: soft, nontender to palpation, no guarding, no appreciable organomegaly Ext: ROM intact. No gross muscle atrophy, scant to 1+ bilateral lower extremity edema, no contractures Neuro: Speech clear, face symmetrical and CN II-XII grossly intact with no noted focal neuro deficits Psych: Alert and oriented to person, place, time, and situation. Appropriate and pleasant affect. Assessment and Plan of Care: Chest pain and shortness of breath History of CAD status post stenting Elevated D-dimer Elevated troponins, flat and likely secondary to ESRD Hypertension Hyperlipidemia -CTA chest completed negative for pulmonary emboli revealing a centimeter 1.1 cm lingular pulmonary nodule versus less likely nodular consolidation, recommend outpatient PET scan/CT. -Echocardiogram completed and results reviewed showing preserved EF of 55 to 60% with moderately dilated left atrium, mild mitral regurgitation, mild tricuspid regurgitation. -Patient evaluated by cardiology and Lineman Apprentice starting patient on torsemide 40 mg daily and increasing carvedilol to 6.25 mg twice daily and clearing patient from cardiac perspective for discharge. -Stress test negative for scintigraphic evidence of reversible ischemia. -Continue telemetry monitoring. -Continue cardiac medication regimen with amlodipine 5 mg daily, aspirin 81 mg daily, atorvastatin 80 mg nightly, carvedilol 6.25 mg twice daily with meals, and torsemide 40 mg daily. ESRD on hemodialysis Hypermagnesemia -Nephrology following and managing dialysis. Patient to undergo scheduled hemodialysis tomorrow Diabetes mellitus with hyperglycemia -Continue Levemir 25 units twice daily and patient placed on glycemic protocol with NovoLog sliding scale. Due to recurrent episodes of hypoglycemia death surveys coder. HS Novolog sliding scale was discontinued. Data and imaging reviewed: -Labs reviewed. CBC showing normocytic anemia with hemoglobin of 9.8. BMP showing bicarb 20.7, anion gap of 14.30, BUN of 62.2, creatinine 6.3, and GFR of 9.87. Blood glucose 219. Magnesium 2.4. -Vital signs reviewed. Blood pressure 114/65, heart rate 84, respiratory rate 17, temp 98.1 F, and SpO2 of 96% on room air. CODE STATUS: Full code DVT prophylaxis: Heparin Anticipated discharge date: Pending placement for safe discharge plan. Per immigration case worker, possible discharge on 07/22/2024 to [facility] Anticipated discharge place: Home Patient was seen independently by Nurse Pracitioner. This document was prepared using [employer] dictation software. Please allow for errors in filing clerk, while rare they do occur. Pierre Duarte NP rendered care for this patient independently, reviewed the find ings and plan as documented in the note above and agree with plan. I did not physically speak with or examine the patient on this date. . Objective - Vital Signs Vital signs: Vital Signs Temp 97.9 F 07/21/24 02:15 Pulse 90 07/21/24 02:15 Resp 16 07/21/24 02:15 BP 129/74 07/21/24 02:15 Pulse Ox 97 07/21/24 02:15 FiO2 Intake & Output 07/20/24 07/21/24 07/21/24 18:59 06:59 18:59 Weight 78 kg Other: Voiding Method Toilet Toilet - Labs CBC & Chem 7: 07/21/24 03:16 07/21/24 03:16 Labs: Abnormal Lab Results - Last 24 Hours (Table) 07/20/24 07/20/24 07/20/24 Range/Units 11:39 16:39 20:18 RBC (4.40-5.60) X 10*6/uL Hgb (13.0-17.0) g/dL Hct (39.6-50.0) % MCHC (32.0-37.0) g/dL POC Glucose (mg/dL) 233 H 246 H 253 H (70-110) mg/dL 07/21/24 07/21/24 Range/Units 03:16 06:08 RBC 3.27 L (4.40-5.60) X 10*6/uL Hgb 9.8 L (13.0-17.0) g/dL Hct 30.9 L (39.6-50.0) % MCHC 31.7 L (32.0-37.0) g/dL POC Glucose (mg/dL) 129 H (70-110) mg/dL
[2024-07-21 17:00] LABS: Glucose,Whole Blood 101 mg/dL (70-110)
[2024-07-21 21:04] LABS: Glucose,Whole Blood 196 mg/dL (70-110)
[2024-07-22 06:10] LABS: Glucose,Whole Blood 95 mg/dL (70-110)
--- NOTE | 2024-07-22 06:33 | PN ---
PROGRESS NOTE DATE OF SERVICE: 07/20/2024 CHIEF COMPLAINT: Chest pain, uncontrolled diabetes mellitus, stage 5 CKD. HISTORY OF PRESENT ILLNESS: This gentleman is doing well. He has had no further chest pain. Dialysis continues. Apparently, he may be going to a rehab facility. PHYSICAL EXAMINATION: GENERAL: He is awake and alert. CHEST: Clear. CARDIAC: Normal. ABDOMEN: Soft, nontender. IMPRESSION: 1. Chest pain. 2. Atherosclerotic cardiovascular disease. 3. Uncontrolled type 2 diabetes mellitus. 4. Stage 5 chronic kidney disease. PLAN: No change in his program at this time. MMODL / IJN: [id number] /
--- NOTE | 2024-07-22 06:57 | PN ---
PROGRESS NOTE DATE OF SERVICE: 07/21/2024 CHIEF COMPLAINT: Chest pain and CKD. HISTORY OF PRESENT ILLNESS: This gentleman has been stable and there has been no interval change. Apparently, he is being considered for placement. PHYSICAL EXAMINATION: CHEST: Clear. CARDIAC: Normal. ABDOMEN: Soft, nontender. IMPRESSION: 1. Uncontrolled diabetes mellitus, type 2. 2. End-stage chronic kidney disease, on dialysis. 3. Chest pain. PLAN: No change in program today and wait to see if he is going to be discharged to some facility. MMODL / IJN: [id number] /
--- NOTE | 2024-07-22 11:11 | P.PN ---
Subjective Patient is seen in follow-up for end-stage renal disease. No active complaints. Awaits placement. Tolerated 2 L ultrafiltration yesterday. Vital signs are stable. General: No acute distress. HEENT: Head exam is unremarkable. LUNGS: No audible rhonchi or wheezes. HEART: Rate and Rhythm are regular. ABDOMEN: Nontender. EXTREMITITES: No edema. Objective - Vital Signs Vital signs: Vital Signs Temp 98.2 F 07/22/24 07:11 Pulse 81 07/22/24 07:11 Resp 17 07/22/24 07:11 BP 125/68 07/22/24 07:11 Pulse Ox 95 07/22/24 07:11 FiO2 Intake & Output 07/21/24 07/22/24 07/22/24 18:59 06:59 18:59 Intake Total 400 Output Total 4400 Balance -4000 Intake: Hemodialysis 400 Output: Hemodialysis 2400 Hemodialysis Net Amount 2000 Other: Voiding Method Toilet Toilet # Voids 1 1 # Bowel Movements 2 - Labs CBC & Chem 7: 07/21/24 03:16 07/21/24 03:16 Labs: Abnormal Lab Results - Last 24 Hours (Table) 07/21/24 07/21/24 Range/Units 03:16 21:03 Carbon Dioxide 20.7 L (21.6-31.8) mmol/L Anion Gap 14.30 H (4.00-12.00) mmol/L BUN 62.2 H (9.0-27.0) mg/dL Creatinine 6.3 H (0.6-1.5) mg/dL Est GFR (CKD-EPI) 9 L (>=60) BUN/Creatinine Ratio 9.87 L (12.00-20.00) Ratio Glucose 219 H (70-110) mg/dL POC Glucose (mg/dL) 196 H (70-110) mg/dL Calcium 8.1 L (8.7-10.3) mg/dL Assessment and Plan Plan: Assessment: 1. End-stage renal disease maintained on hemodialysis on Saturday schedule via permacath. 2. Chest pain. Cardiology following. Status post Veronica scan with no evidence of ischemia. 3. Coronary artery disease status post cardiac stents from the past. 4. Diabetes mellitus. 5. Hypertension with chronic kidney disease. Controlled. 6. Chronic kidney disease mineral bone disease. On PhosLo. Phosphorus 6.7 dated July 13, 2024. Plan: Hemodialysis tomorrow. Awaits placement.
[2024-07-22 11:50] LABS: Glucose,Whole Blood 141 mg/dL (70-110)
[2024-07-22 16:50] LABS: Glucose,Whole Blood 188 mg/dL (70-110)
--- NOTE | 2024-07-22 17:51 | P.PN ---
Subjective Progress Note Date: 07/22/24 Hospital course: Patient is a very pleasant 69-year-old male with a past medical history of ESRD on hemodialysis Saturday//Saturdays, CAD status post stenting, hypertension, hyperlipidemia, and insulin-dependent diabetes mellitus. He presented to the emergency department on 07/13/2024 with a chief complaint of chest pain. Upon arrival to our facility, patient underwent evaluation in the emergency department. Vital signs upon arrival show blood pressure 183/99, heart rate 91, respiratory rate 18, temp 98.2 F, and SpO2 of 96% on 2 L. EKG completed showing sinus mechanism at 89 bpm with no significant T wave or ST abnormality showing no signs of acute ischemia upon personal review and interpretation. Chest x-ray completed showing bilateral peripheral opacities concerning for pulmonary edema. Labs completed and reviewed. CBC showing normocytic anemia with hemoglobin of 10.9. Coagulation profile showing elevated D-dimer of 1.37. BMP showing hyponatremia with sodium of 133 and renal function consistent with known ESRD with BUN of 44, creatinine of 4.85, GFR of 12. Blood glucose elevated at 325. Magnesium elevated at 2.4 and phosphorus elevated at 6.7. Liver profile normal findings. Troponin was elevated at 0.051. Patient admitted under our services with consultation to cardiology and nephrology. Troponins trended overnight resulting at 0.051, 0.052, 0.051. CTA chest completed negative for pulmonary emboli revealing a centimeter 1.1 cm lingular pulmonary nodule versus less likely nodular consolidation, recommend outpatient PET scan/CT. Echocardiogram completed and results reviewed showing preserved EF of 55 to 60% with moderately dilated left atrium, mild mitral regurgitation, mild tricuspid regurgitation. Patient evaluated by cardiology and was taken for Lexiscan stress test. Stress test negative for scintigraphic evidence of reversible ischemia. Heater Operator Helper starting patient on torsemide 40 mg daily and increasing carvedilol to 6.25 mg twice daily and clearing patient from cardiac perspective for discharge. Patient medically optimized for discharge and to be discharged once safe discharge plan can be arranged. Patient has a public guardian and currently has no heat or water at his home. Discussed in depth with case management/social work and they are working with public guardian on safe discharge plan. Possibly [facility].. Physical exam: Vital signs reviewed and stable. General: Nontoxic, no distress and appears stated age. Derm: Skin warm and dry, normal coloration for ethnicity. Head: Atraumatic, normocephalic and symmetric. Eyes: EOM's intact, no lid lag, and anicteric sclera Mouth: no lip lesions, mucus membranes moist Cardiovascular: regular rate and rhythm with normal S1S2, no murmur, positive posterior tibial pulses bilaterally, and cap refill < 2 seconds. Dialysis access right anterior chest Lungs: Respirations even, regular, and unlabored on room air. Lungs CTA bilaterally, no rhonchi, no rales, no wheezing, and no accessory muscle usage. Abdominal: soft, nontender to palpation, no guarding, no appreciable organomegaly Ext: ROM intact. No gross muscle atrophy, scant to 1+ bilateral lower extremity edema, no contractures Neuro: Speech clear, face symmetrical and CN II-XII grossly intact with no noted focal neuro deficits Psych: Alert and oriented to person, place, time, and situation. Appropriate and pleasant affect. Assessment and Plan of Care: Chest pain and shortness of breath History of CAD status post stenting Elevated D-dimer Elevated troponins, flat and likely secondary to ESRD Hypertension Hyperlipidemia -CTA chest completed negative for pulmonary emboli revealing a centimeter 1.1 cm lingular pulmonary nodule versus less likely nodular consolidation, recommend outpatient PET scan/CT. -Echocardiogram completed and results reviewed showing preserved EF of 55 to 60% with moderately dilated left atrium, mild mitral regurgitation, mild tricuspid regurgitation. -Patient evaluated by cardiology and Heater Operator Helper starting patient on torsemide 40 mg daily and increasing carvedilol to 6.25 mg twice daily and clearing patient from cardiac perspective for discharge. -Stress test negative for scintigraphic evidence of reversible ischemia. -Continue telemetry monitoring. -Continue cardiac medication regimen with amlodipine 5 mg daily, aspirin 81 mg daily, atorvastatin 80 mg nightly, carvedilol 6.25 mg twice daily with meals, and torsemide 40 mg daily. ESRD on hemodialysis Hypermagnesemia -Nephrology following and managing dialysis. Patient to undergo scheduled hemodialysis tomorrow Diabetes mellitus with hyperglycemia -Continue Levemir 25 units twice daily and patient placed on glycemic protocol with NovoLog sliding scale. 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 HS Novolog sliding scale was discontinued. Data and imaging reviewed: -Labs reviewed. CBC showing normocytic anemia with hemoglobin of 9.8. BMP showing bicarb 20.7, anion gap of 14.30, BUN of 62.2, creatinine 6.3, and GFR of 9.87. Blood glucose 219. Magnesium 2.4. -Vital signs reviewed. Blood pressure 125/68, heart rate 81, respiratory rate 17, temp 98.2 F, and SpO2 of 95% on room air. CODE STATUS: Full code DVT prophylaxis: Heparin Anticipated discharge date: Pending placement for safe discharge plan. Per showcase maker, possible discharge on 07/24/2024 to [facility] Anticipated discharge place: Home Patient was seen independently by Nurse Pracitioner. This document was prepared using [employer] dictation software. Please allow for errors in napkin machine operator, while rare they do occur. Pierre Duarte NP rendered care for this patient independently, reviewed the findings and plan as documented in the note above and agree with plan. I did not physically speak with or examine the patient on this date. . Objective - Vital Signs Vital signs: Vital Signs Temp 98.2 F 07/22/24 07:11 Pulse 81 07/22/24 07:11 Resp 17 07/22/24 07:11 BP 125/68 07/22/24 07:11 Pulse Ox 95 07/22/24 07:11 FiO2 Intake & Output 07/21/24 07/22/24 07/22/24 18:59 06:59 18:59 Intake Total 400 Output Total 4400 Balance -4000 Intake: Hemodialysis 400 Output: Hemodialysis 2400 Hemodialysis Net Amount 2000 Other: Voiding Method Toilet Toilet # Voids 1 1 # Bowel Movements 2 - Labs CBC & Chem 7: 07/21/24 03:16 07/21/24 03:16 Labs: Abnormal Lab Results - Last 24 Hours (Table) 07/21/24 07/21/24 Range/Units 03:16 21:03 Carbon Dioxide 20.7 L (21.6-31.8) mmol/L Anion Gap 14.30 H (4.00-12.00) mmol/L BUN 62.2 H (9.0-27.0) mg/dL Creatinine 6.3 H (0.6-1.5) mg/dL Est GFR (CKD-EPI) 9 L (>=60) BUN/Creatinine Ratio 9.87 L (12.00-20.00) Ratio Glucose 219 H (70-110) mg/dL POC Glucose (mg/dL) 196 H (70-110) mg/dL Calcium 8.1 L (8.7-10.3) mg/dL
[2024-07-22 20:38] LABS: Glucose,Whole Blood 284 mg/dL (70-110)
[2024-07-23 06:19] LABS: Glucose,Whole Blood 74 mg/dL (70-110)
--- NOTE | 2024-07-23 06:42 | PN ---
PROGRESS NOTE DATE OF SERVICE: 07/22/2024 CHIEF COMPLAINT: Chest pain, stage 5 CKD, and diabetes. HISTORY OF PRESENT ILLNESS: This gentleman is stable and awaits for a place in [facility]. PHYSICAL EXAMINATION: CHEST: Clear. CARDIAC: Normal. ABDOMEN: Soft, nontender. IMPRESSION: 1. Chest pain. 2. Coronary artery disease. 3. Stage 5 chronic kidney disease. PLAN: No change in program and he awaits discharge. MMODL / IJN: [id number] /
[2024-07-23 09:57] LABS: African American GFR (CKD) 10 (>60 ml/min/1.73 sqM); Anion Gap 9 mmol/L; Blood Urea Nitrogen 55 mg/dL (9-20); Calcium 8.1 mg/dL (8.4-10.2); Carbon Dioxide 25 mmol/L (22-30); Chloride 98 mmol/L (98-107); Glucose 149 mg/dL (74-99); Magnesium 2.3 mg/dL (1.6-2.3); Non-African American GFR(CKD) 9 (>60 ml/min/1.73 sqM); Sodium 132 mmol/L (137-145)
--- NOTE | 2024-07-23 10:17 | P.PN ---
Subjective Patient is seen in follow-up for end-stage renal disease. No active complaints. Awaits placement. Tolerating dialysis well. Vital signs are stable. General: No acute distress. HEENT: Head exam is unremarkable. LUNGS: No audible rhonchi or wheezes. HEART: Rate and Rhythm are regular. ABDOMEN: Nontender. EXTREMITITES: No edema. Objective - Vital Signs Vital signs: Vital Signs Temp 98.0 F 07/23/24 08:00 Pulse 89 07/23/24 08:00 Resp 16 07/23/24 08:00 BP 142/78 07/23/24 08:00 Pulse Ox 96 07/23/24 08:00 FiO2 Intake & Output 07/22/24 07/23/24 07/23/24 18:59 06:59 18:59 Intake Total 680 Balance 680 Weight 89.1 kg 87.5 kg Intake: Oral 680 Other: Voiding Method Toilet Toilet # Voids 2 # Bowel Movements 1 - Labs CBC & Chem 7: 07/21/24 03:16 07/23/24 09:00 Labs: Abnormal Lab Results - Last 24 Hours (Table) 07/22/24 07/22/24 07/22/24 Range/Units 11:49 16:47 20:36 Sodium (137-145) mmol/L BUN (9-20) mg/dL Creatinine (0.66-1.25) mg/dL Glucose (74-99) mg/dL POC Glucose (mg/dL) 141 H 188 H 284 H (70-110) mg/dL Calcium (8.4-10.2) mg/dL 07/23/24 Range/Units 09:00 Sodium 132 L (137-145) mmol/L BUN 55 H (9-20) mg/dL Creatinine 6.18 H (0.66-1.25) mg/dL Glucose 149 H (74-99) mg/dL POC Glucose (mg/dL) (70-110) mg/dL Calcium 8.1 L (8.4-10.2) mg/dL Assessment and Plan Plan: Assessment: 1. End-stage renal disease maintained on hemodialysis on Saturday schedule via permacath. 2. Chest pain. Cardiology following. Status post Veronica scan with no evidence of ischemia. 3. Coronary artery disease status post cardiac stents from the past. 4. Diabetes mellitus. 5. Hypertension with chronic kidney disease. Controlled. 6. Chronic kidney disease mineral bone disease. On PhosLo. Phosphorus 6.7 dated July 13, 2024. Plan: Currently seen while undergoing hemodialysis. Next treatment Saturday. Awaits placement.
[2024-07-23 11:47] LABS: Glucose,Whole Blood 98 mg/dL (70-110)
[2024-07-23 14:46] LABS: HCT 31.5 % (39.6-50.0); HGB 10.2 g/dL (13.0-17.0); MCH 29.9 pg (27.0-32.0); MCHC 32.4 g/dL (32.0-37.0); MCV 92.4 FL (80.0-97.0); Mean Platelet Volume 9.8 FL (9.5-12.2); NRBC Per 100 WBC 0 X 10*3/uL (0.00-0.01); Platelet Count 195 X 10*3/uL (140-440); RBC 3.41 X 10*6/uL (4.40-5.60); RDW 13.2 % (11.5-14.5); WBC 6.35 X 10*3/uL (4.50-10.00)
[2024-07-23] MEDS: DIPHENOX-ATROP 2.5-0.025 MG 1 EACH TAB PO PRN (16:33)
--- NOTE | 2024-07-23 16:38 | P.PN ---
Subjective Progress Note Date: 07/23/24 Hospital course: Patient is a very pleasant 69-year-old male with a past medical history of ESRD on hemodialysis Saturday//Saturdays, CAD status post stenting, hypertension, hyperlipidemia, and insulin-dependent diabetes mellitus. He presented to the emergency department on 07/13/2024 with a chief complaint of chest pain. Upon arrival to our facility, patient underwent evaluation in the emergency department. Vital signs upon arrival show blood pressure 183/99, heart rate 91, respiratory rate 18, temp 98.2 F, and SpO2 of 96% on 2 L. EKG completed showing sinus mechanism at 89 bpm with no significant T wave or ST abnormality showing no signs of acute ischemia upon personal review and interpretation. Chest x-ray completed showing bilateral peripheral opacities concerning for pulmonary edema. Labs completed and reviewed. CBC showing normocytic anemia with hemoglobin of 10.9. Coagulation profile showing elevated D-dimer of 1.37. BMP showing hyponatremia with sodium of 133 and renal function consistent with known ESRD with BUN of 44, creatinine of 4.85, GFR of 12. Blood glucose elevated at 325. Magnesium elevated at 2.4 and phosphorus elevated at 6.7. Liver profile normal findings. Troponin was elevated at 0.051. Patient admitted under our services with consultation to cardiology and nephrology. Troponins trended overnight resulting at 0.051, 0.052, 0.051. CTA chest completed negative for pulmonary emboli revealing a centimeter 1.1 cm lingular pulmonary nodule versus less likely nodular consolidation, recommend outpatient PET scan/CT. Echocardiogram completed and results reviewed showing preserved EF of 55 to 60% with moderately dilated left atrium, mild mitral regurgitation, mild tricuspid regurgitation. Patient evaluated by cardiology and was taken for Lexiscan stress test. Stress test negative for scintigraphic evidence of reversible ischemia. Formula Clerk starting patient on torsemide 40 mg daily and increasing carvedilol to 6.25 mg twice daily and clearing patient from cardiac perspective for discharge. Patient medically optimized for discharge and to be discharged once safe discharge plan can be arranged. Patient has a public guardian and currently has no heat or water at his home. Discussed in depth with case management/social work and they are working with public guardian on safe discharge plan. Possibly [place] house.. Physical exam: Patient seen and fully evaluated at bedside this morning. He was undergoing dialysis and currently denies any complaints or needs at this time. Vital signs reviewed and stable. General: Nontoxic, no distress and appears stated age. Derm: Skin warm and dry, normal coloration for ethnicity. Head: Atraumatic, normocephalic and symmetric. Eyes: EOM's intact, no lid lag, and anicteric sclera Mouth: no lip lesions, mucus membranes moist Cardiovascular: regular rate and rhythm with normal S1S2, no murmur, positive posterior tibial pulses bilaterally, and cap refill < 2 seconds. Dialysis access right anterior chest Lungs: Respirations even, regular, and unlabored on room air. Lungs CTA bilaterally, no rhonchi, no rales, no wheezing, and no accessory muscle usage. Abdominal: soft, nontender to palpation, no guarding, no appreciable organomegaly Ext: ROM intact. No gross muscle atrophy, scant to 1+ bilateral lower extremity edema, no contractures Neuro: Speech clear, face symmetrical and CN II-XII grossly intact with no noted focal neuro deficits Psych: Alert and oriented to person, place, time, and situation. Appropriate and pleasant affect. Assessment and Plan of Care: Chest pain and shortness of breath History of CAD status post stenting Elevated D-dimer Elevated troponins, flat and likely secondary to ESRD Hypertension Hyperlipidemia -CTA chest completed negative for pulmonary emboli revealing a centimeter 1.1 cm lingular pulmonary nodule versus less likely nodular consolidation, recommend outpatient PET scan/CT. -Echocardiogram completed and results reviewed showing preserved EF of 55 to 60% with moderately dilated left atrium, mild mitral regurgitation, mild tricuspid regurgitation. -Patient evaluated by cardiology and Formula Clerk starting patient on torsemide 40 mg daily and increasing carvedilol to 6.25 mg twice daily and clearing patient from cardiac perspective for discharge. -Stress test negative for scintigraphic evidence of reversible ischemia. -Continue telemetry monitoring. -Continue cardiac medication regimen with amlodipine 5 mg daily, aspirin 81 mg daily, atorvastatin 80 mg nightly, carvedilol 6.25 mg twice daily with meals, and torsemide 40 mg daily. ESRD on hemodialysis Hypermagnesemia -Nephrology following and managing dialysis. Patient to undergo scheduled hemodialysis tomorrow Diabetes mellitus with hyperglycemia -Continue Levemir 25 units twice daily and patient placed on glycemic protocol with NovoLog sliding scale. 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 HS Novolog sliding scale was discontinued. Data and imaging reviewed: -Labs reviewed. CBC showing normocytic anemia with hemoglobin of 10.2. BMP showing sodium 132, BUN 55, creatinine 6.18, GFR 9, blood glucose of 149. Magnesium 2.3. -Vital signs reviewed. Blood pressure 142/78, heart rate 89, respiratory rate 16, temp 98.0 F, and SpO2 of 96% on room air. CODE STATUS: Full code DVT prophylaxis: Heparin Anticipated discharge date/place: Pending placement for safe discharge plan. Per special education case manager, possible discharge on 07/24/[address] [facility] Patient was seen independently by Nurse Pracitioner. This document was prepared using [employer] dictation software. Please allow for errors in logistics project manager, while rare they do occur. Pierre Duarte NP rendered care for this patient independently, reviewed the findings and plan as documented in the note above and agree with plan. I did not physically speak with or examine the patient on this date. . Objective - Vital Signs Vital signs: Vital Signs Temp 98.0 F 07/23/24 08:00 Pulse 89 07/23/24 08:00 Resp 16 07/23/24 08:00 BP 142/78 07/23/24 08:00 Pulse Ox 96 07/23/24 08:00 FiO2 Intake & Output 07/22/24 07/23/24 07/23/24 18:59 06:59 18:59 Intake Total 680 Balance 680 Weight 89.1 kg 87.5 kg Intake: Oral 680 Other: Voiding Method Toilet # Voids 2 # Bowel Movements 1 - Labs CBC & Chem 7: 07/23/24 09:00 07/23/24 09:00 Labs: Abnormal Lab Results - Last 24 Hours (Table) 07/22/24 07/22/24 07/22/24 Range/Units 11:49 16:47 20:36 POC Glucose (mg/dL) 141 H 188 H 284 H (70-110) mg/dL
[2024-07-23 16:59] LABS: Glucose,Whole Blood 192 mg/dL (70-110)
[2024-07-23 21:18] LABS: Glucose,Whole Blood 192 mg/dL (70-110)
--- NOTE | 2024-07-23 23:03 | PN ---
PROGRESS NOTE DATE OF SERVICE: 07/23/2024 CHIEF COMPLAINT: Chest pain. HISTORY OF PRESENT ILLNESS: This gentleman has been stable. He is being dialyzed every other day. Apparently, Political Reporter is looking for a place for him to go. He has lost everything. The [facility] took his house and he has no place to go. PHYSICAL EXAMINATION: GENERAL: He is awake and alert. CHEST: Clear. CARDIAC: Normal. ABDOMEN: Soft, nontender. IMPRESSION: 1. Uncontrolled diabetes. 2. Angina pectoris. 3. Stage 5 chronic kidney disease. PLAN: Continue with dialysis while hospital looks for a place for him to go. MMODL / IJN: [id number] /
[2024-07-24 03:16] VITALS: PULSE 85
[2024-07-24 06:29] LABS: Glucose,Whole Blood 78 mg/dL (70-110)
[2024-07-24 07:25] VITALS: BP 143/84; RESP 18; TEMP 98
--- NOTE | 2024-07-24 10:30 | P.PN ---
Subjective Patient is seen in follow-up for end-stage renal disease. No active complaints. Awaits placement. No problems with dialysis yesterday. Tolerated 2 L ultrafiltration. Vital signs are stable. General: No acute distress. HEENT: Head exam is unremarkable. LUNGS: No audible rhonchi or wheezes. HEART: Rate and Rhythm are regular. ABDOMEN: Nontender. EXTREMITITES: No edema. Objective - Vital Signs Vital signs: Vital Signs Temp 98.0 F 07/24/24 07:15 Pulse 85 07/24/24 07:15 Resp 18 07/24/24 07:15 BP 143/84 07/24/24 07:15 Pulse Ox 98 07/24/24 07:15 FiO2 Intake & Output 07/23/24 07/24/24 07/24/24 18:59 06:59 18:59 Intake Total 400 Output Total 4400 Balance -4000 Weight 86.5 kg Intake: Hemodialysis 400 Output: Hemodialysis 2400 Hemodialysis Net Amount 2000 Other: Voiding Method Toilet Toilet # Voids 3 4 # Bowel Movements 2 - Labs CBC & Chem 7: 07/23/24 09:00 07/23/24 09:00 Labs: Abnormal Lab Results - Last 24 Hours (Table) 07/23/24 07/23/24 07/23/24 Range/Units 09:00 16:57 21:17 RBC 3.41 L (4.40-5.60) X 10*6/uL Hgb 10.2 L (13.0-17.0) g/dL Hct 31.5 L (39.6-50.0) % POC Glucose (mg/dL) 192 H 192 H (70-110) mg/dL Assessment and Plan Plan: Assessment: 1. End-stage renal disease maintained on hemodialysis on Saturday schedule via permacath. 2. Chest pain. Cardiology following. Status post Veronica scan with no evidence of ischemia. 3. Coronary artery disease status post cardiac stents from the past. 4. Diabetes mellitus. 5. Hypertension with chronic kidney disease. Controlled. 6. Chronic kidney disease mineral bone disease. On PhosLo. Phosphorus 6.7 dated July 13, 2024. Plan: Hemodialysis tomorrow. Awaits placement.
--- NOTE | 2024-07-24 11:15 | P.DS ---
Providers Date of admission: 07/13/24 14:31 Expected date of discharge: 07/24/24 Attending physician: Margaret Duncan MD Consults: 07/13/24 14:31 Consult Physician Routine Consulting Provider: Elmer Smalls Consult Reason/Comments: esrd on hd Do you want consulting provider notified?: Yes Primary care physician: Sánchez Rojas MD Hospital Course: Discharge Diagnosis: Chest pain and shortness of breath. Acute coronary event ruled out. Lexiscan stress test was negative for scintigraphic evidence of reversible ischemia. Echocardiogram showing a preserved EF of 55 to 60%. Patient cleared from cardiac perspective and to follow-up outpatient in their office in 1 week. Patient discharged home on cardiac medication regimen with amlodipine 5 mg daily, aspirin 81 mg daily, atorvastatin 80 mg nightly, carvedilol 6.25 mg twice daily with meals, and torsemide 40 mg daily. History of CAD status post stenting. Elevated D-dimer, CTA negative for PE. Elevated troponins, flat and likely secondary to ESRD Pulmonary nodule, CT revealing a possible 1.1 cm lingular pulmonary nodule versus less likely nodular consolidation, recommend outpatient PET scan/CT for follow-up and further evaluation. Hypertension Hyperlipidemia ESRD on hemodialysis. Patient to resume dialysis as scheduled Saturday//Saturdays. Last underwent dialysis 07/23/24 Hypermagnesemia, resolved after dialysis. Diabetes mellitus with hyperglycemia. Continue Levemir 25 units twice daily and strongly recommend following a heart healthy and carb consistent diet. Hospital course: Patient is a very pleasant 69-year-old male with a past medical history of ESRD on hemodialysis Saturday//Saturdays, CAD status post stenting, hypertension, hyperlipidemia, and insulin-dependent diabetes mellitus. He presented to the emergency department on 07/13/2024 with a chief complaint of chest pain. Upon arrival to our facility, patient underwent evaluation in the emergency department. Vital signs upon arrival show blood pressure 183/99, heart rate 91, respiratory rate 18, temp 98.2 F, and SpO2 of 96% on 2 L. EKG completed showing sinus mechanism at 89 bpm with no significant T wave or ST abnormality showing no signs of acute ischemia upon personal review and interpretation. Chest x-ray completed showing bilateral peripheral opacities concerning for pulmonary edema. Labs completed and reviewed. CBC showing normocytic anemia with hemoglobin of 10.9. Coagulation profile showing elevated D-dimer of 1.37. BMP showing hyponatremia with sodium of 133 and renal function consistent with known ESRD with BUN of 44, creatinine of 4.85, GFR of 12. Blood glucose elevated at 325. Magnesium elevated at 2.4 and phosphorus elevated at 6.7. Liver profile normal findings. Troponin was elevated at 0.051. Patient admitted under our services with consultation to cardiology and nephrology. Troponins trended overnight resulting at 0.051, 0.052, 0.051. CTA chest completed negative for pulmonary emboli revealing a centimeter 1.1 cm lingular pulmonary nodule versus less likely nodular consolidation, recommend o utpatient PET scan/CT. Echocardiogram completed and results reviewed showing preserved EF of 55 to 60% with moderately dilated left atrium, mild mitral regurgitation, mild tricuspid regurgitation. Patient evaluated by cardiology and was taken for Lexiscan stress test. Stress test negative for scintigraphic evidence of reversible ischemia. Resource Coordinator starting patient on torsemide 40 mg daily and increasing carvedilol to 6.25 mg twice daily and clearing patient from cardiac perspective for discharge. Patient medically optimized for discharge and to follow-up as scheduled with Dr. Rojas at [place] and being discharged to [facility] as arranged by his Court Appointed Legal Guardian. Physical exam: Vital signs reviewed and stable. General: Nontoxic, no distress and appears stated age. Derm: Skin warm and dry, normal coloration for ethnicity. Head: Atraumatic, normocephalic and symmetric. Eyes: EOM's intact, no lid lag, and anicteric sclera Mouth: no lip lesions, mucus membranes moist Cardiovascular: regular rate and rhythm with normal S1S2, no murmur, positive posterior tibial pulses bilaterally, and cap refill < 2 seconds. Dialysis access right anterior chest Lungs: Respirations even, regular, and unlabored on room air. Lungs CTA bilaterally, no rhonchi, no rales, no wheezing, and no accessory muscle usage. Abdominal: soft, nontender to palpation, no guarding, no appreciable organomegaly Ext: ROM intact. No gross muscle atrophy, scant to 1+ bilateral lower extremity edema, no contractures Neuro: Speech clear, face symmetrical and CN II-XII grossly intact with no noted focal neuro deficits Psych: Alert and oriented to person, place, time, and situation. Appropriate and pleasant affect. A total of 35 minutes of time were spent preparing this complex discharge summary. Pt was discharged on 07/24/2024 at 11:14 AM. Patient was seen independently by Nurse Practitioner. This document was prepared using [employer] dictation software. Please allow for errors in inspector final assembly conveyor line while rare they do occur. Pierre Duarte NP rendered care for this patient independently, reviewed the findings and plan as documented in the note above. I did not physically speak with or examine the patient on this date. Patient Condition at Discharge: Stable Plan - Discharge Summary Discharge Rx Participant: No New Discharge Prescriptions: New Torsemide [Demadex] 40 mg PO DAILY 30 Days #60 tab carvediloL [Coreg] 6.25 mg PO BID-W/MEALS 30 Days #60 tab Continue Atorvastatin [Lipitor] 80 mg PO HS Insulin Glargine (Lantus) [Lantus Vial] 25 unit SQ BID Albuterol Inhaler [Ventolin Hfa Inhaler] 2 puff INHALATION RT-QID PRN PRN Reason: Shortness Of Breath amLODIPine [Norvasc] 5 mg PO DAILY Cyclobenzaprine [Flexeril] 10 mg PO TID PRN PRN Reason: Muscle Spasm buPROPion [Wellbutrin] 75 mg PO BID Calcium Acetate [PhosLo] 667 mg PO TID-W/MEALS Aspirin 81 mg PO DAILY Folic Acid/Vit B Complex and C [Nephro-Misael Tablet] 0.8 mg PO DAILY Discontinued Carvedilol [Coreg] 6.25 mg PO DAILY Discharge Medication List Atorvastatin [Lipitor] 80 mg PO HS 08/19/14 [History] Insulin Glargine (Lantus) [Lantus Vial] 25 unit SQ BID 07/12/20 [History] Albuterol Inhaler [Ventolin Hfa Inhaler] 2 puff INHALATION RT-QID PRN 07/13/24 [History] Aspirin 81 mg PO DAILY 07/13/24 [History] Calcium Acetate [PhosLo] 667 mg PO TID-W/MEALS 07/13/24 [History] Cyclobenzaprine [Flexeril] 10 mg PO TID PRN 07/13/24 [History] Folic Acid/Vit B Complex and C [Nephro-Misael Tablet] 0.8 mg PO DAILY 07/13/24 [History] amLODIPine [Norvasc] 5 mg PO DAILY 07/13/24 [History] buPROPion [Wellbutrin] 75 mg PO BID 07/13/24 [History] Torsemide [Demadex] 40 mg PO DAILY 30 Days #60 tab 07/15/24 [Rx] carvediloL [Coreg] 6.25 mg PO BID-W/MEALS 30 Days #60 tab 07/15/24 [Rx] Follow up Appointment(s)/Referral(s): Sánchez Rojas MD [Primary Care Provider] - 1-2 Days Steve Jensen DO [STAFF PHYSICIAN] - 1 Week Activity/Diet/Wound Care/Special Instructions: Discharge to [facility] Activity: As tolerated. Take breaks as needed. Diet: Heart healthy and carb consistent diet. Avoid salts, or foods with hidden salts such as canned or boxed foods and frozen dinners. Extra salt makes your heart work harder and traps the fluid in your body for longer. Special Instructions: Take all of your medications as directed and remember to keep all of your doctor's appointments and follow-up as needed. Follow with Dr. Rojas at [facility] as scheduled on 07/23/24 Resume dialysis Saturday//Saturdays as previously scheduled. CT revealing possible 1.1 cm lingular pulmonary nodule versus consolidation, you will need to undergo outpatient PET scan. Please discuss with PCP, Dr. Bob whitehead on 07/23/2024 to Ensure follow-up is completed for further evaluation. Thank you for allowing us to participate in your care, it was truly a pleasure having you for our patient!!! Discharge Disposition: TRANSFER TO SNF/ECF
[2024-07-24 11:24] LABS: Glucose,Whole Blood 236 mg/dL (70-110)
== END 2024-07-24 13:00 ==
LOC: EC 12:33 → EEVIPCON 14:31 → 3SCARD 14:31 → 4SSUR 07-18 23:50
PROVIDERS: ADMIT Family Medicine; ATTEND Family Medicine
DX: R07.89 Other chest pain (principal); R06.02 Shortness of breath; E11.65 Type 2 diabetes mellitus with hyperglycemia; E83.41 Hypermagnesemia; R79.89 Other specified abnormal findings of blood chemistry; I25.10 Atherosclerotic heart disease of native coronary artery without angina pectoris; E78.5 Hyperlipidemia, unspecified; E11.40 Type 2 diabetes mellitus with diabetic neuropathy, unspecified; I12.0 Hypertensive chronic kidney disease with stage 5 chronic kidney disease or end stage renal disease; N18.6 End stage renal disease; E11.22 Type 2 diabetes mellitus with diabetic chronic kidney disease; F32.A Depression, unspecified; N25.0 Renal osteodystrophy; R91.1 Solitary pulmonary nodule; R79.1 Abnormal coagulation profile; Z91.199 Patient's noncompliance with other medical treatment and regimen due to unspecified reason; Z95.5 Presence of coronary angioplasty implant and graft; Z99.2 Dependence on renal dialysis; Z79.4 Long term (current) use of insulin; Z79.82 Long term (current) use of aspirin; Z79.899 Other long term (current) drug therapy; Z88.1 Allergy status to other antibiotic agents; Z88.2 Allergy status to sulfonamides; Z88.5 Allergy status to narcotic agent; Z82.49 Family history of ischemic heart disease and other diseases of the circulatory system
CPT/HCPCS: 96372 ×13; 99285; 36415; 93005; 93017; 93306; 85379; 83880; 80061; 80053 ×3; 80048 ×4; 83735 ×7; 84100; 84484; 85025; 85027 ×4; 85610; 85730; 83036; 71046; 71275; 78452; G0378 ×12; A9500; J1644 ×12; J2785; Q9967; 90935

== ENCOUNTER 2024-10-08 08:33 | Day surgery (SDC) | payer OTHER ==
[2024-10-07 11:44] VITALS: BMI 29.5
[2024-10-08] MEDS ORDERED: LACTATED RINGERS 1,000 ML IV SCH (08:39)
[2024-10-08] MEDS ORDERED: HYDROmorphone 0.5 MG/0.5 ML SYRINGE IVP PRN (08:39)
[2024-10-08] MEDS: SODIUM CHLORIDE 0.9% 500 ML 500 ML IV ONE (09:15)
[2024-10-08] MEDS: LIDOCAINE 1% (10MG/ML) FOR IV START INTRADERMA STA (09:15)
[2024-10-08 09:34] LABS: Glucose,Whole Blood 143 mg/dL (70-110)
[2024-10-08 09:44] VITALS: TEMP 98.1
[2024-10-08] MEDS: DEXAMETHASONE SOD PHOSPHATE 4 MG/ML 1 ML VIAL IV ONE (09:45)
[2024-10-08] MEDS: ONDANSETRON 4 MG/2 ML VIAL IVP ONE (09:45)
[2024-10-08] MEDS: MIDAZOLAM 2 MG/2 ML VIAL IV ONE (10:11)
[2024-10-08] MEDS: fentaNYL (PF) 50 MCG/ML 2 ML AMP IVP PRN (10:11)
[2024-10-08] MEDS ORDERED: KETAMINE HCL IN 0.9 % NACL 50 MG/5 ML SYRINGE ONE (10:17)
[2024-10-08] MEDS ORDERED: fentaNYL (PF) 50 MCG/ML 2 ML AMP ONE (10:17)
[2024-10-08] MEDS ORDERED: SODIUM CHLORIDE 0.9% (PF) 10 ML VIAL ONE (10:17)
[2024-10-08] MEDS ORDERED: ROPIVACAINE 5 MG/ML 30 ML VIAL ONE (10:17)
[2024-10-08] MEDS ORDERED: HEPARIN SODIUM,PORCINE 5,000 UNIT/ML 1 ML VIAL ONE (10:17)
[2024-10-08] MEDS ORDERED: PROPOFOL 10 MG/ML 20 ML VIAL IV ONE (10:17)
[2024-10-08] MEDS: ceFAZolin 2 GM in DEXTROSE 5% IN WATER 50 ML IVPB PRN (10:53)
--- NOTE | 2024-10-08 10:54 | P.ANPRN ---
Procedure Note - Anesthesia - Nerve Block Performed Left Axillary Single Time Out Performed: Yes (1011) Date of Procedure: 10/08/24 Procedure Start Time: 10:12 Procedure Stop Time: 10:16 Location of Patient: PreOp Indication: Acute Post-Operative Pain, Requested by Surgeon Specifically requested for management of pain by DrBreanna: Bell Good Sedation Type: Sedate with meaningful contact maintained Preparation: Sterile Prep Position: Supine (arm over) Catheter: None Needle Gauge: 21 Ultrasound used to visualize needle placement: Yes Ultrasound used to observe medication spread: Yes Injectate: 0.5% Ropivacaine (see comment for volume) (30cc +20cc nacl . 12.5cc each of 4 nerves) Blood Aspirated: No Pain Paresthesia on Injection Noted: No Resistance on Injection: Normal Image Stored and Saved: Yes Events: Uneventful and Well Tolerated
[2024-10-08] MEDS: ceFAZolin 2 GM in SODIUM CHLORIDE 0.9% 500 ML 500 ML IRRIGATION ONE (10:56)
[2024-10-08] MEDS: HEPARIN SODIUM,PORCINE (1 ML) 2,000 UNIT in SODIUM CHLORIDE 0.9% 500 ML 500 ML IRRIGATION ONE (10:59)
[2024-10-08] MEDS: THROMBIN (BOVINE) 5,000 UNIT VIAL TOPICAL ONE (11:28)
--- NOTE | 2024-10-08 12:05 | P.OP ---
Date of Procedure: 10/08/24 Description of Procedure: Preoperative diagnosis: End stage renal disease, on dialyis Postoperative diagnosis: Same Procedure: Left upper extremity loop forearm graft Surgeon: Bell Armenta D.O. Anesthesia: Regional block with sedation EBL: 15 mL IV fluids: See operative records Urine output: Not measured Drains: None Complications: None immediately apparent Condition: Stable to PACU Operative indication and findings: Procedure in detail: The patient was taken to the operative suite and placed in supine position. The upper extremity is prepped and draped in usual sterile fashion. A preprocedure timeout was performed, all parties were in agreement. A transverse incision was made just distal to the antecubital fossa and carried down to the level of the brachial artery. It was dissected free circumferentially and proximal and distal Vesseloops were placed. Attention was then turned towards the venous outflow. The most appropriate sized appearing vein was the cephalic vein which had a connection to the deep system therefore it was dissected free and encircled proximally and distally. The 4 x 7 propatent graft was then tunneled through a counter incision in the forearm and a subcutaneous tissues. The patient was then heparinized. Flow was occluded through the artery. An arteriotomy was performed and anastomosis to the graft was performed with 6-0 Prolene. The graft was then flushed and the anastomosis was tied. Flow was resumed through the artery. Attention was then turned towards the venous anastomosis. Flow was occluded through the vein and a venotomy was performed. Anastomosis created with 6-0 Prolene. Prior to completion of the anastomosis the graft was flushed as well as the veins themselves. Fow was reinstituted. There remained a palpable pulse proximal and distal to the arterial anastomosis. Thrombin Gelfoam was used for hemostasis. The incision sites were copiously irrigated the subcutaneous tissues were approximately with 3-0 Vicryl in interrupted fashion and the skin was reapproximated with running 4-0 Monocryl. Skin glue was placed. The patient was allowed awaken from anesthesia and transferred to PACU in stable condition having tolerated the procedure well.] Plan - Discharge Summary Discharge Rx Participant: No New Discharge Prescriptions: No Action Aspirin 81 mg PO DAILY 30 Days #30 tab Cyclobenzaprine [Flexeril] 10 mg PO TID PRN 30 Days #30 tab PRN Reason: Muscle Spasm Folic Acid/Vit B Complex and C [Nephro-Misael Tablet] 0.8 mg PO DAILY 30 Days #30 tab amLODIPine [Norvasc] 5 mg PO DAILY 30 Days #30 tab buPROPion [Wellbutrin] 75 mg PO BID 30 Days #60 tab carvediloL [Coreg] 6.25 mg PO BID 30 Days #60 tablet Insulin Glargine (Lantus) [Lantus Vial] 20 unit SQ BID Acetaminophen Tab [Tylenol Tab] 500 - 1,000 mg PO Q8H PRN PRN Reason: Pain Menthol [Biofreeze] 1 applic TOPICAL TID PRN PRN Reason: Pain Melatonin 5 mg PO HS PRN 30 Days #30 tab PRN Reason: Insomnia Atorvastatin [Lipitor] 80 mg PO HS 30 Days #30 tab Albuterol Inhaler [Ventolin Hfa Inhaler] 2 puff INHALATION QID PRN 30 Days #1 inh PRN Reason: Shortness Of Breath Torsemide [Demadex] 40 mg PO DAILY 30 Days #30 tablet Calcium Acetate [PhosLo] 1,334 mg PO TID-W/MEALS bisacodyL [Dulcolax] 5 mg PO DIRECTED PRN PRN Reason: GI Prep for Colonoscopy Ergocalciferol [Vitamin D2 (1250 Mcg = 45614 Iu)] 1,250 mcg PO TORRES Peg 3350 (236 gm/Btl) + Lytes [Golytely Lavage] 4,000 ml PO DIRECTED PRN PRN Reason: GI Prep for Colonoscopy Orphenadrine Citrate [Orphenadrine Citrate ER] 60 mg IM ONCE Bismuth Subsalicylate [Pepto-Bismol] 30 ml PO BID PRN PRN Reason: Indigestion Discharge Medication List Albuterol Inhaler [Ventolin Hfa Inhaler] 2 puff INHALATION QID PRN 30 Days #1 inh 07/24/24 [Rx] Aspirin 81 mg PO DAILY 30 Days #30 tab 07/24/24 [Rx] Atorvastatin [Lipitor] 80 mg PO HS 30 Days #30 tab 07/24/24 [Rx] Cyclobenzaprine [Flexeril] 10 mg PO TID PRN 30 Days #30 tab 07/24/24 [Rx] Folic Acid/Vit B Complex and C [Nephro-Misael Tablet] 0.8 mg PO DAILY 30 Days #30 tab 07/24/24 [Rx] Melatonin 5 mg PO HS PRN 30 Days #30 tab 07/24/24 [Rx] Torsemide [Demadex] 40 mg PO DAILY 30 Days #30 tablet 07/24/24 [Rx] amLODIPine [Norvasc] 5 mg PO DAILY 30 Days #30 tab 07/24/24 [Rx] buPROPion [Wellbutrin] 75 mg PO BID 30 Days #60 tab 07/24/24 [Rx] carvediloL [Coreg] 6.25 mg PO BID 30 Days #60 tablet 07/24/24 [Rx] Acetaminophen Tab [Tylenol Tab] 500 - 1,000 mg PO Q8H PRN 10/07/24 [History] Bismuth Subsalicylate [Pepto-Bismol] 30 ml PO BID PRN 10/07/24 [History] Calcium Acetate [PhosLo] 1,334 mg PO TID-W/MEALS 10/07/24 [History] Ergocalciferol [Vitamin D2 (1250 Mcg = 37021 Iu)] 1,250 mcg PO TORRES 10/07/24 [History] Insulin Glargine (Lantus) [Lantus Vial] 20 unit SQ BID 10/07/24 [History] Menthol [Biofreeze] 1 applic TOPICAL TID PRN 10/07/24 [History] Orphenadrine Citrate [Orphenadrine Citrate ER] 60 mg IM ONCE 10/07/24 [History] Peg 3350 (236 gm/Btl) + Lytes [Golytely Lavage] 4,000 ml PO DIRECTED PRN 10/07/24 [History] bisacodyL [Dulcolax] 5 mg PO DIRECTED PRN 10/07/24 [History] Follow up Appointment(s)/Referral(s): Bell Good DO [STAFF PHYSICIAN] - 2 Weeks Activity/Diet/Wound Care/Special Instructions: Resume regular diet. Resume previous medications as ordered. Keep wrap on arm for 2 days. May go back to bathing as previous after. Discharge Disposition: HOME SELF-CARE
[2024-10-08 12:13] VITALS: RESP 14
[2024-10-08 12:29] VITALS: BP 123/70; PULSE 80
[2024-10-08 12:39] LABS: Glucose,Whole Blood 133 mg/dL (70-110)
== END 2024-10-08 13:04 | disposition home or self-care (01) ==
LOC: OR 08:33
PROVIDERS: ATTEND Surgery
DX: N18.6 End stage renal disease (principal); Z79.82 Long term (current) use of aspirin; Z79.4 Long term (current) use of insulin; I13.2 Hypertensive heart and chronic kidney disease with heart failure and with stage 5 chronic kidney disease, or end stage renal disease; E11.22 Type 2 diabetes mellitus with diabetic chronic kidney disease; I50.9 Heart failure, unspecified; I25.10 Atherosclerotic heart disease of native coronary artery without angina pectoris; Z88.5 Allergy status to narcotic agent; G89.18 Other acute postprocedural pain; Z99.2 Dependence on renal dialysis
CPT/HCPCS: 36821; 64417; 84132; L8670; J2250; J1644; J1100; J0690; J2405; J3010; J2795; J2704

== ENCOUNTER 2024-10-12 11:42 | Emergency (ER) | payer OTHER ==
[2024-10-12 11:49] VITALS: TEMP 97.8
--- NOTE | 2024-10-12 12:50 | ED ---
General Adult HPI - General Chief complaint: Extremity Problem,Nontraumatic Stated complaint: L Forearm Wound Time Seen by Provider: 10/12/24 12:15 Source: patient, RN notes reviewed, old records reviewed Mode of arrival: ambulatory Limitations: no limitations - History of Present Illness Initial comments: 69-year-old male presenting with pain in the left upper extremity after dialysis access procedure 4 days prior. Patient has end-stage renal disease he is currently receiving hemodialysis through a right chest wall permacath. He denies fever. He has had pain immediately postoperative and continued for the last 4 days. - Related Data Home Medications Medication Instructions Recorded Confirmed Acetaminophen Tab [Tylenol Tab] 500 - 1,000 mg PO Q8H PRN 10/07/24 10/07/24 Bismuth Subsalicylate 30 ml PO BID PRN 10/07/24 10/07/24 [Pepto-Bismol] Calcium Acetate [PhosLo] 1,334 mg PO TID-W/MEALS 10/07/24 10/07/24 Ergocalciferol [Vitamin D2 (1250 1,250 mcg PO TORRES 10/07/24 10/07/24 Mcg = 65659 Iu)] Insulin Glargine (Lantus) [Lantus 20 unit SQ BID 10/07/24 10/07/24 Vial] Menthol [Biofreeze] 1 applic TOPICAL TID PRN 10/07/24 10/07/24 Orphenadrine Citrate [Orphenadrine 60 mg IM ONCE 10/07/24 10/07/24 Citrate ER] Peg 3350 (236 gm/Btl) + Lytes 4,000 ml PO DIRECTED PRN 10/07/24 10/07/24 [Golytely Lavage] bisacodyL [Dulcolax] 5 mg PO DIRECTED PRN 10/07/24 10/07/24 Previous Rx's Medication Instructions Recorded Albuterol Inhaler [Ventolin Hfa 2 puff INHALATION QID PRN 30 Days 07/24/24 Inhaler] #1 inh Aspirin 81 mg PO DAILY 30 Days #30 tab 07/24/24 Atorvastatin [Lipitor] 80 mg PO HS 30 Days #30 tab 07/24/24 Cyclobenzaprine [Flexeril] 10 mg PO TID PRN 30 Days #30 tab 01/31/25 Folic Acid/Vit B Complex and C 0.8 mg PO DAILY 30 Days #30 tab 07/24/24 [Nephro-Misael Tablet] Melatonin 5 mg PO HS PRN 30 Days #30 tab 07/24/24 Torsemide [Demadex] 40 mg PO DAILY 30 Days #30 tablet 07/24/24 amLODIPine [Norvasc] 5 mg PO DAILY 30 Days #30 tab 07/24/24 buPROPion [Wellbutrin] 75 mg PO BID 30 Days #60 tab 07/24/24 carvediloL [Coreg] 6.25 mg PO BID 30 Days #60 tablet 07/24/24 Allergies Allergy/AdvReac Type Severity Reaction Status Date / Time Sulfa (Sulfonamide Allergy Nausea & Verified 10/12/24 11:49 Antibiotics) Vomiting clindamycin AdvReac Unknown High BP , Verified 10/12/24 11:49 Nausea & Vomiting & Diarrhea codeine AdvReac Nausea & Verified 10/12/24 11:49 Vomiting morphine AdvReac Nausea & Verified 10/12/24 11:49 Vomiting sulfamethoxazole AdvReac Nausea & Verified 10/12/24 11:49 [From Bactrim] Vomiting & Diarrhea trimethoprim [From Bactrim] AdvReac Nausea & Verified 10/12/24 11:49 Vomiting & Diarrhea Review of Systems ROS Statement: Those systems with pertinent positive or pertinent negative responses have been documented in the HPI. ROS Other: All systems not noted in ROS Statement are negative. Past Medical History Past Medical History: Coronary Artery Disease (CAD), COPD, Diabetes Mellitus, Hyperlipidemia, Hypertension, Osteoarthritis (OA), Renal Disease Additional Past Medical History / Comment(s): Hx retinal bleeding with laser treatment, diabetic neuropathy, CKD Stage 5, dialysis [facility]. Last Myocardial Infarction Date:: 2009 History of Any Multi-Drug Resistant Organisms: MRSA Date of last positivie culture/infection: 11/29/17 MDRO Source:: toe Past Surgical History: Heart Catheterization With Stent, Hernia Repair, Tonsillectomy Additional Past Surgical History / Comment(s): LEFT INGUINAL HERNIA REPAIR, BILATERAL ULNAR NERVE, BILATERAL HANDS AND ELBOWS, COLONOSCOPY, Partial amputation to second toe left foot, bilateral cataract surgery. Past Anesthesia/Blood Transfusion Reactions: No Reported Reaction, Motion Sickness Additional Past Anesthesia/Blood Transfusion Reaction / Comment(s): Difficulty waking. Date of Last Stent Placement:: 2009 Past Psychological History: Depression Smoking Status: Never smoker Past Alcohol Use History: None Reported Past Drug Use History: None Reported - Past Family History Mother Family Medical History: CVA/TIA Additional Family Medical History / Comment(s): Varicose veins. Father Family Medical History: Congestive Heart Failure (CHF) General Exam Limitations: no limitations General appearance: alert, in no apparent distress Head exam: Present: atraumatic, normocephalic Eye exam: Present: normal appearance, PERRL ENT exam: Present: normal exam Neck exam: Present: normal inspection. Absent: tenderness, meningismus Respiratory exam: Present: normal lung sounds bilaterally. Absent: respiratory distress, wheezes Cardiovascular Exam: Present: regular rate, normal rhythm GI/Abdominal exam: Present: soft. Absent: distended, tenderness Extremities exam: Present: other (The incisions are appropriately healed, no erythema, no purulence. There is mild tenderness in the mid forearm. The distal loop has a strong bruit. Normal head transfer clerk strength in the hand, normal cap refill.) Course Vital Signs 10/12/24 11:46 Temperature 97.8 F Pulse Rate 88 Respiratory 20 Rate Blood Pressure 129/71 O2 Sat by Pulse 99 Oximetry Medical Decision Making - Medical Decision Making Was pt. sent in by a medical professional or institution (, PA, CREDIT ANALYSIS MANAGER, urgent care, hospital, or senior living...) When possible be specific @ -No Did you speak to anyone other than the patient for history (EMS, parent, family, police, friend...)? What history was obtained from this source @ -No Did you review nursing and triage notes (agree or disagree)? Why? @ -I reviewed and agree with nursing and triage notes Were old charts reviewed (outside hosp., previous admission, EMS record, old EKG, old radiological studies, urgent care reports/EKG's, senior living records)? Report findings @ -No old charts were reviewed Differential Diagnosis postoperative infection, occluded graft, vascular steal syndrome EKG interpreted by me (3pts min.). @ -As above X-rays interpreted by me (1pt min.). @ -None done CT interpreted by me (1pt min.). @ -None done U/S interpreted by me (1pt. min.). @ -None done What testing was considered but not performed or refused? (CT, X-rays, U/S, labs)? Why? @ -None What meds were considered but not given or refused? Why? @ -None Did you discuss the management of the patient with other professionals (professionals i.e. , PA, CREDIT ANALYSIS MANAGER, lab, RT, psych nurse, social scientist, proofreader, teacher, railroad police officer, telephonic nurse case manager)? Give summary @ -[Case discussed with Dr. Venegas covering for vascular surgery, recommends outpatient follow-up with Dr. Armenta Was smoking cessation discussed for >3mins.? @ -No Was critical care preformed (if so, how long)? @ -No Were there social determinants of health that impacted care today? How? (Homelessness, low income, unemployed, alcoholism, drug addiction, transportation, low edu. Level, literacy, decrease access to med. care, half-way, rehab)? @ -No Was there de-escalation of care discussed even if they declined (Discuss DNR or withdrawal of care, Hospice)? DNR status @ -No What co-morbidities impacted this encounter? (DM, HTN, Smoking, COPD, CAD, Cancer, CVA, ARF, Chemo, Hep., AIDS, mental health diagnosis, sleep apnea, morbid obesity)? @ -End-stage renal disease Was patient admitted / discharged? Hospital course, mention meds given and route, prescriptions, significant lab abnormalities, going to OR and other pertinent info. @ -[69-year-old male with pain in the left forearm after dialysis graft plac ement. I do not see any purulent drainage from the incisions. The graft is patent with strong bruit. The hand is well-perfused. I discussed case with vascular surgery and both myself and the vascular surgeon feel this is appropriate for outpatient evaluation and recommend that the patient contact his vascular surgeon directly. Undiagnosed new problem with uncertain prognosis? @ -No Drug Therapy requiring intensive monitoring for toxicity (Heparin, Nitro, Insulin, Cardizem)? @ -No Were any procedures done? @ -No Diagnosis/symptom? @Postoperative pain Acute, or Chronic, or Acute on Chronic? @ -Acute Uncomplicated (without systemic symptoms) or Complicated (systemic symptoms)? @ -Default Side effects of treatment? @ -No Exacerbation, Progression, or Severe Exacerbation? @ -No Poses a threat to life or bodily function? How? (Chest pain, [place], [place], pneumonia, PE, COPD, DKA, ARF, appy, cholecystitis, CVA, Diverticulitis, Homicidal, Suicidal, threat to staff... and all critical care pts) @ -No Disposition Clinical Impression: A-V fistula Disposition: HOME SELF-CARE Condition: Fair Additional Instructions: Please monitor symptoms and follow closely with your vascular surgeon. Is patient prescribed a controlled substance at d/c from ED?: No Referrals: Sánchez Rojas MD [Primary Care Provider] - 1-2 days Bell Good DO [STAFF PHYSICIAN] - 1-2 days Time of Disposition: 12:49
[2024-10-12 12:57] VITALS: BP 134/77; PULSE 84; RESP 16
== END 2024-10-12 13:04 | disposition home or self-care (01) ==
LOC: EC 11:42
DX: T81.83XA Persistent postprocedural fistula, initial encounter (principal); E11.22 Type 2 diabetes mellitus with diabetic chronic kidney disease; I13.11 Hypertensive heart and chronic kidney disease without heart failure, with stage 5 chronic kidney disease, or end stage renal disease; I25.10 Atherosclerotic heart disease of native coronary artery without angina pectoris; N18.6 End stage renal disease; Z99.2 Dependence on renal dialysis; Z88.2 Allergy status to sulfonamides; Z88.5 Allergy status to narcotic agent; Z88.1 Allergy status to other antibiotic agents
CPT/HCPCS: 99282

== ENCOUNTER 2024-10-12 22:09 | Observation (INO) | payer OTHER ==
--- NOTE | 2024-10-12 22:13 | ED ---
Recheck HPI - General Stated Complaint: NVD Time Seen by Provider: 10/12/24 22:11 Source: RN notes reviewed, old records reviewed Mode of arrival: EMS Limitations: no limitations - History of Present Illness Initial Comments: This is a 69 male to ER for evaluation of nausea vomiting diarrhea weakness, feeling unwell, patient states he missed dialysis over the weekend and is sta rted with significant symptoms of diarrhea and vomiting prior to arrival in the ER he feels significantly thirsty, generalized weakness MD Complaint: other (Persistent nausea vomiting and diarrhea) -: hour(s) (2) Returns Today for: Called Because of Abnormal Lab/Test Symptoms Since Prior Visit: no new symptoms Context: called for abnormal lab result Associated Symptoms: none Treatments Prior to Arrival: other - Related Data Home Medications Medication Instructions Recorded Confirmed Bismuth Subsalicylate 30 ml PO BID PRN 10/07/24 10/13/24 [Pepto-Bismol] Calcium Acetate [PhosLo] 1,334 mg PO TID@0800,170,199910/07/24 10/13/24 Ergocalciferol [Vitamin D2 (1250 1,250 mcg PO TORRES@79910/07/24 10/13/24 Mcg = 64194 Iu)] Albuterol Sulfate [Albuterol 2 puff INHALATION RT-QID PRN 10/13/24 10/13/24 Sulfate Hfa] Aspirin EC [Ecotrin Low Dose] 81 mg PO DAILY@79910/13/24 10/13/24 Atorvastatin [Lipitor] 80 mg PO HS@199910/13/24 10/13/24 Folic Acid/Vit B Complex and C 0.8 mg PO DAILY@79910/13/24 10/13/24 [Nephro-Misael Tablet] Insulin Glargine,Hum.rec.anlog 20 unit SQ BID@0800,17010/13/24 10/13/24 [Basaglar Kwikpen U-100] Insulin Lispro [Insulin Lispro See Protocol SQ TID@0800,1130,169910/13/24 10/13/24 [place]] Menthol [Biofreeze] 1 applic TOPICAL TID PRN 10/13/24 10/13/24 Torsemide [Demadex] 40 mg PO DAILY@79910/13/24 10/13/24 amLODIPine [Norvasc] 5 mg PO DAILY@0800 10/13/24 10/13/24 buPROPion [Wellbutrin] 75 mg PO BID@08,199910/13/24 10/13/24 carvediloL [Coreg] 6.25 mg PO BID@08,199910/13/24 10/13/24 Previous Rx's Medication Instructions Recorded Cyclobenzaprine [Flexeril] 10 mg PO TID PRN 30 Days #30 tab 07/24/24 Melatonin 5 mg PO HS PRN 30 Days #30 tab 07/24/24 Prochlorperazine [Compazine] 10 mg PO Q8H PRN #20 tab 10/13/24 Allergies Allergy/AdvReac Type Severity Reaction Status Date / Time Sulfa (Sulfonamide Allergy Nausea & Verified 10/13/24 10:21 Antibiotics) Vomiting clindamycin AdvReac Unknown High BP , Verified 10/13/24 10:21 Nausea & Vomiting & Diarrhea codeine AdvReac Nausea & Verified 10/13/24 10:21 Vomiting morphine AdvReac Nausea & Verified 10/13/24 10:21 Vomiting sulfamethoxazole AdvReac Nausea & Verified 10/13/24 10:21 [From Bactrim] Vomiting & Diarrhea trimethoprim [From Bactrim] AdvReac Nausea & Verified 10/13/24 10:21 Vomiting & Diarrhea Review of Systems ROS Statement: Those systems with pertinent positive or pertinent negative responses have been documented in the HPI. ROS Other: All systems not noted in ROS Statement are negative. Past Medical History Past Medical History: Coronary Artery Disease (CAD), COPD, Diabetes Mellitus, Hyperlipidemia, Hypertension, Osteoarthritis (OA), Renal Disease Additional Past Medical History / Comment(s): Hx retinal bleeding with laser treatment, diabetic neuropathy, CKD Stage 5, dialysis [facility]. Last Myocardial Infarction Date:: 2009 History of Any Multi-Drug Resistant Organisms: MRSA Date of last positivie culture/infection: 11/29/17 MDRO Source:: toe Past Surgical History: Heart Catheterization With Stent, Hernia Repair, Tonsillectomy Additional Past Surgical History / Comment(s): LEFT INGUINAL HERNIA REPAIR, BILATERAL ULNAR NERVE, BILATERAL HANDS AND ELBOWS, COLONOSCOPY, Partial amputation to second toe left foot, bilateral cataract surgery. Past Anesthesia/Blood Transfusion Reactions: No Reported Reaction, Motion Sickness Additional Past Anesthesia/Blood Transfusion Reaction / Comment(s): Difficulty waking. Date of Last Stent Placement:: 2009 Past Psychological History: Depression Smoking Status: Never smoker Past Alcohol Use History: None Reported Past Drug Use History: None Reported - Past Family History Mother Family Medical History: CVA/TIA Additional Family Medical History / Comment(s): Varicose veins. Father Family Medical History: Congestive Heart Failure (CHF) General Exam General appearance: alert, in no apparent distress, lethargic Head exam: Present: atraumatic, normocephalic, normal inspection Eye exam: Present: normal appearance, PERRL, EOMI. Absent: scleral icterus, conjunctival injection, periorbital swelling ENT exam: Present: normal exam, mucous membranes moist Neck exam: Present: normal inspection. Absent: tenderness, meningismus, lymphadenopathy Respiratory exam: Present: normal lung sounds bilaterally. Absent: respiratory distress, wheezes, rales, rhonchi, stridor Cardiovascular Exam: Present: regular rate, normal rhythm, normal heart sounds. Absent: systolic murmur, diastolic murmur, rubs, gallop, clicks GI/Abdominal exam: Present: soft, normal bowel sounds. Absent: distended, tenderness, guarding, rebound, rigid Extremities exam: Present: normal inspection, full ROM, normal capillary refill. Absent: tenderness, pedal edema, joint swelling, calf tenderness Back exam: Present: normal inspection Neurological exam: Present: alert, oriented X3, CN II-XII intact Psychiatric exam: Present: normal affect, normal mood Skin exam: Present: warm, dry, intact, normal color. Absent: rash Course Vital Signs 10/12/24 10/13/24 22:15 01:58 Temperature 98.7 F 98.7 F Pulse Rate 99 98 Respiratory 17 17 Rate Blood Pressure 152/76 110/66 O2 Sat by Pulse 95 97 Oximetry - Reevaluation(s) Reevaluation #1: 10/13/24 00:10 Medical records reviewed Reevaluation #2: 10/13/24 00:10 Patient still feels unwell, weak Reevaluation #3: 10/13/24 00:10 Patient informed of results questions answered Reevaluation #4: Was pt. sent in by a medical professional or institution (, PA, ELECTRONIC FIELD SERVICE ENGINEER, urgent care, hospital, or usp...) When possible be specific @ -no Did you speak to anyone other than the patient for history (EMS, parent, family, police, friend...)? What history was obtained from this source @ -no Did you review nursing and triage notes (agree or disagree)? Why? @ -agree Are old charts reviewed (outside hosp., previous admission, EMS record, old EKG, old radiological studies, urgent care reports/EKG's, usp records)? Report findings @ -yes Differential Diagnosis (chest pain, altered mental status, abdominal pain women, abdominal pain men, vaginal bleeding, weakness, fever, dyspnea, syncope, headache, dizziness, GI bleed, back pain, seizure, CVA, palpatations, mental health, musculoskeletal)? @ -prior EKG interpreted by me (3pts min.). @ -yes X-rays interpreted by me (1pt min.). @ -no CT interpreted by me (1pt min.). @ -no U/S interpreted by me (1pt. min.). @ -no What testing was considered but not performed or refused? (CT, X-rays, U/S, labs)? Why? @ -none What meds were considered but not given or refused? Why? @ -none Did you discuss the management of the patient with other professionals (professionals i.e. , PA, ELECTRONIC FIELD SERVICE ENGINEER, lab, RT, psych nurse, bilingual social worker, roving teller, teacher, parole hearing officer, case management manager)? Give summary @ -no Was smoking cessation discussed for >3mins.? @ -no Was critical care preformed (if so, how long)? @ -no Were there social determinants of health that impacted care today? How? (Homelessness, low income, unemployed, alcoholism, drug addiction, transporta tion, low edu. Level, literacy, decrease access to med. care, usp, rehab)? @ -none Was there de-escalation of care discussed even if they declined (Discuss DNR or withdrawal of care, Hospice)? DNR status @ -no What co-morbidities impacted this encounter? (DM, HTN, Smoking, COPD, CAD, Cancer, CVA, ARF, Chemo, Hep., AIDS, mental health diagnosis, sleep apnea, morbid obesity)? @ -none Was patient admitted / discharged? Hospital course, mention meds given and route, prescriptions, significant lab abnormalities, going to OR and other pertinent info. @ - 69 male to ER who did miss dialysis over the weekend coming in for nausea vomiting diarrhea worsening renal function metabolic acidosis uremic, patient will be admitted for nephrology evaluation Admitted Undiagnosed new problem with uncertain prognosis? @ -no Drug Therapy requiring intensive monitoring for toxicity (Heparin, Nitro, Insul in, Cardizem)? @ -no Were any procedures done? @ -no Diagnosis/symptom? @ -Acute kidney failure Acute, or Chronic, or Acute on Chronic? @ -Acute Uncomplicated (without systemic symptoms) or Complicated (systemic symptoms)? @ -Complicated Side effects of treatment? @ -no Exacerbation, Progression, or Severe Exacerbation? @ -exacerbation Poses a threat to life or bodily function? How? (Chest pain, [place], [place], pneumonia, PE, COPD, DKA, ARF, appy, cholecystitis, CVA, Diverticulitis, Homicidal, S uicidal, threat to staff... and all critical care pts) @ -yes renal failure Reevaluation #5: Differential Weakness: Hypoglycemia, shock, sepsis, hyponatremia, anemia, infection, [place], ETOH, adverse medicine reaction, overdose, stroke, this is not meant to be an all-inclusive list. - Consultations Consultation #1: Spoke with sound who agrees to admit this patient Medical Decision Making - Medical Decision Making 69 male to ER who did miss dialysis over the weekend coming in for nausea vomiting diarrhea worsening renal function metabolic acidosis uremic, patient will be admitted for nephrology evaluation - Lab Data Result diagrams: 10/12/24 22:44 10/12/24 22:44 Lab Results 10/12/24 10/12/24 10/12/24 Range/Units 22:44 22:44 22:44 WBC 10.23 H (4.50-10.00) 10*3/uL RBC 3.75 L (4.40-5.60) 10*6/uL Hgb 11.9 L (13.0-17.0) g/dL Hct 34.8 L (39.6-50.0) % MCV 92.8 (80.0-97.0) fL MCH 31.7 (27.0-32.0) pg MCHC 34.2 (32.0-37.0) g/dL Plt Count 158 (140-440) 10*3/uL MPV 9.6 (9.5-12.2) fL Immature Gran % (Auto) 0.4 % Neutrophils % 87.8 % Lymphocytes % 3.5 % Monocytes % 5.9 % Eosinophils % 2.2 % Basophils % 0.2 % Immature Gran # 0.04 (0.00-0.04) 10*3/uL Neutrophils # 8.99 H (1.80-7.70) 10*3/uL Lymphocytes # 0.36 L (0.90-5.00) 10*3/uL Monocytes # 0.60 (0.20-1.00) 10*3/uL Eosinophils # 0.22 (0.04-0.35) 10*3/uL Basophils # 0.02 (0.00-0.10) 10*3/uL PT 10.4 (10.0-12.5) sec INR 0.9 (<1.2) APTT 22.4 (22.0-30.0) sec Sodium 135 L (137-145) mmol/L Potassium 4.5 (3.5-5.1) mmol/L Chloride 97 L (98-107) mmol/L Carbon Dioxide 21 L (22-30) mmol/L Anion Gap 17 mmol/L BUN 76 H (9-20) mg/dL Creatinine 8.13 H* (0.66-1.25) mg/dL Est GFR (CKD-EPI)AfAm 7 (>60 ml/min/1.73 sqM) Est GFR (CKD-EPI)NonAf 6 (>60 ml/min/1.73 sqM) Glucose 119 H (74-99) mg/dL Plasma Lactic Acid Jose A (0.7-2.0) mmol/L Calcium 9.1 (8.4-10.2) mg/dL Phosphorus 7.2 H (2.5-4.5) mg/dL Magnesium 2.5 H (1.6-2.3) mg/dL Total Bilirubin 0.7 (0.2-1.3) mg/dL AST 28 (17-59) U/L ALT 12 (4-49) U/L Alkaline Phosphatase 69 (38-126) U/L Troponin I (0.000-0.034) ng/mL NT-Pro-B Natriuret Pep 87599 pg/mL Total Protein 6.7 (6.3-8.2) g/dL Albumin 4.0 (3.5-5.0) g/dL 10/12/24 10/12/24 Range/Units 22:44 22:44 WBC (4.50-10.00) 10*3/uL RBC (4.40-5.60) 10*6/uL Hgb (13.0-17.0) g/dL Hct (39.6-50.0) % MCV (80.0-97.0) fL MCH (27.0-32.0) pg MCHC (32.0-37.0) g/dL Plt Count (140-440) 10*3/uL MPV (9.5-12.2) fL Immature Gran % (Auto) % Neutrophils % % Lymphocytes % % Monocytes % % Eosinophils % % Basophils % % Immature Gran # (0.00-0.04) 10*3/uL Neutrophils # (1.80-7.70) 10*3/uL Lymphocytes # (0.90-5.00) 10*3/uL Monocytes # (0.20-1.00) 10*3/uL Eosinophils # (0.04-0.35) 10*3/uL Basophils # (0.00-0.10) 10*3/uL PT (10.0-12.5) sec INR (<1.2) APTT (22.0-30.0) sec Sodium (137-145) mmol/L Potassium (3.5-5.1) mmol/L Chloride (98-107) mmol/L Carbon Dioxide (22-30) mmol/L Anion Gap mmol/L BUN (9-20) mg/dL Creatinine (0.66-1.25) mg/dL Est GFR (CKD-EPI)AfAm (>60 ml/min/1.73 sqM) Est GFR (CKD-EPI)NonAf (>60 ml/min/1.73 sqM) Glucose (74-99) mg/dL Plasma Lactic Acid Jose A 1.7 (0.7-2.0) mmol/L Calcium (8.4-10.2) mg/dL Phosphorus (2.5-4.5) mg/dL Magnesium (1.6-2.3) mg/dL Total Bilirubin (0.2-1.3) mg/dL AST (17-59) U/L ALT (4-49) U/L Alkaline Phosphatase (38-126) U/L Troponin I 0.052 H* (0.000-0.034) ng/mL NT-Pro-B Natriuret Pep pg/mL Total Protein (6.3-8.2) g/dL Albumin (3.5-5.0) g/dL - EKG Data -: EKG Interpreted by Me (EKG sinus 96 UT 160 QRS 109 QTc 416) Disposition Clinical Impression: Chronic kidney disease (CKD) stage G3b/A1, moderately decreased glomerular filtration rate (GFR) between 30-44 mL/min/1.73 square meter and albuminuria creatinine ratio less than 30 mg/g, A-V fistula, Dehydration, Gastroenteritis, Nausea & vomiting, Diarrhea, SAMUEL (acute kidney injury), CKD (chronic kidney disease) Disposition: ADMITTED IP TO THIS HOSP Condition: Stable Is patient prescribed a controlled substance at d/c from ED?: No Time of Disposition: 00:00
[2024-10-12] MEDS: ONDANSETRON ODT 4 MG TAB PO STA (22:59)
[2024-10-12] MEDS: ONDANSETRON 4 MG/2 ML VIAL IVP STA (23:00)
[2024-10-12] MEDS: SODIUM CHLORIDE 0.9% 1,000 ML IV ONE (23:00)
[2024-10-12 23:03] LABS: Basophils # (A) 0.02 10*3/uL (0.00-0.10); Basophils % (A) 0.2 %; Eosinophils # (A) 0.22 10*3/uL (0.04-0.35); Eosinophils % (A) 2.2 %; HCT 34.8 % (39.6-50.0); HGB 11.9 g/dL (13.0-17.0); Lymphocytes # (A) 0.36 10*3/uL (0.90-5.00); Lymphocytes % (A) 3.5 %; MCH 31.7 pg (27.0-32.0); MCHC 34.2 g/dL (32.0-37.0); MCV 92.8 fL (80.0-97.0); Mean Platelet Volume 9.6 fL (9.5-12.2); Monocytes % (A) 5.9 %; Neutrophils # (A) 8.99 10*3/uL (1.80-7.70); Neutrophils % (A) 87.8 %; Platelet Count 158 10*3/uL (140-440); RBC 3.75 10*6/uL (4.40-5.60); RDW 15.5 % (11.5-14.5); WBC 10.23 10*3/uL (4.50-10.00)
[2024-10-12 23:11] LABS: INR 0.9 (<1.2)
[2024-10-12 23:12] LABS: Partial Thromboplastin Time 22.4 sec (22.0-30.0); Prothrombin Time 10.4 sec (10.0-12.5)
[2024-10-12 23:24] LABS: ALT 12 U/L (4-49); AST 28 U/L (17-59); African American GFR (CKD) 7 (>60 ml/min/1.73 sqM); Alkaline Phosphatase 69 U/L (38-126); Anion Gap 17 mmol/L; Blood Urea Nitrogen 76 mg/dL (9-20); Calcium 9.1 mg/dL (8.4-10.2); Carbon Dioxide 21 mmol/L (22-30); Chloride 97 mmol/L (98-107); Glucose 119 mg/dL (74-99); Magnesium 2.5 mg/dL (1.6-2.3); Non-African American GFR(CKD) 6 (>60 ml/min/1.73 sqM); Phosphorus 7.2 mg/dL (2.5-4.5); Potassium 4.5 mmol/L (3.5-5.1); Sodium 135 mmol/L (137-145); Total Bilirubin 0.7 mg/dL (0.2-1.3); Total Protein 6.7 g/dL (6.3-8.2)
[2024-10-12 23:32] LABS: NT-Pro-B-Type Natriuretic Pept 12800 pg/mL
[2024-10-13] MEDS ORDERED: NALOXONE 0.4 MG/ML 1 ML VIAL IV PRN (00:07)
--- NOTE | 2024-10-13 02:23 | P.HPIM ---
History of Present Illness H&P Date: 10/13/24 Chief Complaint: Diarrhea and vomiting The patient is a 69-year-old male with history of end-stage renal disease on dialysis. The patient had his left fistula done last . The patient has a dialysis port states that they were providing access to the fistula so that he can have options in the future. The patient states he was having pain and swelling of his left arm. He also was at the game and ate and states that he then started to have nausea vomiting diarrhea. The patient states he missed dialysis on Saturday because of the holiday. The patient came to the emergency room because of his diarrhea he was seen in the emergency room and was discharged home. The patient returns stating that he had increased pain of his arm he was hospitalized for further workup and management. Review of Systems Gastrointestinal: Reports diarrhea, Reports nausea, Reports vomiting Musculoskeletal: right: hand pain Past Medical History Past Medical History: Coronary Artery Disease (CAD), COPD, Diabetes Mellitus, Hyperlipidemia, Hypertension, Osteoarthritis (OA), Renal Disease Additional Past Medical History / Comment(s): Hx retinal bleeding with laser treatment, diabetic neuropathy, CKD Stage 5, dialysis [facility]. Last Myocardial Infarction Date:: 2009 History of Any Multi-Drug Resistant Organisms: MRSA Date of last positivie culture/infection: 11/29/17 MDRO Source:: toe Past Surgical History: Heart Catheterization With Stent, Hernia Repair, Tonsillectomy Additional Past Surgical History / Comment(s): LEFT INGUINAL HERNIA REPAIR, BILATERAL ULNAR NERVE, BILATERAL HANDS AND ELBOWS, COLONOSCOPY, Partial amputation to second toe left foot, bilateral cataract surgery. Past Anesthesia/Blood Transfusion Reactions: No Reported Reaction, Motion Sickness Additional Past Anesthesia/Blood Transfusion Reaction / Comment(s): Difficulty waking. Date of Last Stent Placement:: 2009 Past Psychological History: Depression Smoking Status: Never smoker Past Alcohol Use History: None Reported Past Drug Use History: None Reported - Past Family History Mother Family Medical History: CVA/TIA Additional Family Medical History / Comment(s): Varicose veins. Father Family Medical History: Congestive Heart Failure (CHF) Medications and Allergies Home Medications Medication Instructions Recorded Confirmed Type Albuterol Inhaler [Ventolin Hfa 2 puff INHALATION QID PRN 30 Days 07/24/24 10/07/24 Rx Inhaler] #1 inh Aspirin 81 mg PO DAILY 30 Days #30 tab 07/24/24 10/07/24 Rx Atorvastatin [Lipitor] 80 mg PO HS 30 Days #30 tab 07/24/24 10/07/24 Rx Cyclobenzaprine [Flexeril] 10 mg PO TID PRN 30 Days #30 tab 07/24/24 10/07/24 Rx Folic Acid/Vit B Complex and C 0.8 mg PO DAILY 30 Days #30 tab 07/24/24 10/07/24 Rx [Nephro-Misael Tablet] Melatonin 5 mg PO HS PRN 30 Days #30 tab 07/24/24 10/07/24 Rx Torsemide [Demadex] 40 mg PO DAILY 30 Days #30 tablet 07/24/24 10/07/24 Rx amLODIPine [Norvasc] 5 mg PO DAILY 30 Days #30 tab 07/24/24 10/07/24 Rx buPROPion [Wellbutrin] 75 mg PO BID 30 Days #60 tab 07/24/24 10/07/24 Rx carvediloL [Coreg] 6.25 mg PO BID 30 Days #60 tablet 07/24/24 10/07/24 Rx Acetaminophen Tab [Tylenol Tab] 500 - 1,000 mg PO Q8H PRN 10/07/24 10/07/24 History Bismuth Subsalicylate 30 ml PO BID PRN 10/07/24 10/07/24 History [Pepto-Bismol] Calcium Acetate [PhosLo] 1,334 mg PO TID-W/MEALS 10/07/24 10/07/24 History Ergocalciferol [Vitamin D2 (1250 1,250 mcg PO TORRES 10/07/24 10/07/24 History Mcg = 84327 Iu)] Insulin Glargine (Lantus) [Lantus 20 unit SQ BID 10/07/24 10/07/24 History Vial] Menthol [Biofreeze] 1 applic TOPICAL TID PRN 10/07/24 10/07/24 History Orphenadrine Citrate [Orphenadrine 60 mg IM ONCE 10/07/24 10/07/24 History Citrate ER] Peg 3350 (236 gm/Btl) + Lytes 4,000 ml PO DIRECTED PRN 10/07/24 10/07/24 History [Golytely Lavage] bisacodyL [Dulcolax] 5 mg PO DIRECTED PRN 10/07/24 10/07/24 History Allergies Allergy/AdvReac Type Severity Reaction Status Date / Time Sulfa (Sulfonamide Allergy Nausea & Verified 10/12/24 22:19 Antibiotics) Vomiting clindamycin AdvReac Unknown High BP , Verified 10/12/24 22:19 Nausea & Vomiting & Diarrhea codeine AdvReac Nausea & Verified 10/12/24 22:19 Vomiting morphine AdvReac Nausea & Verified 10/12/24 22:19 Vomiting sulfamethoxazole AdvReac Nausea & Verified 10/12/24 22:19 [From Bactrim] Vomiting & Diarrhea trimethoprim [From Bactrim] AdvReac Nausea & Verified 10/12/24 22:19 Vomiting & Diarrhea Physical Exam Vitals: Vital Signs Temp Pulse Resp BP Pulse Ox 10/12/24 22:15 98.7 F 99 17 152/76 95 Intake and Output 10/12/24 10/12/24 10/13/24 14:59 22:59 06:59 Other: Weight 86.183 kg - Constitutional General appearance: mild distress - Respiratory Respiratory: bilateral: diminished - Cardiovascular Rhythm: regular - Gastrointestinal General gastrointestinal: normal bowel sounds - Musculoskeletal Left arm swelling dressing clean dry intact Results CBC & Chem 7: 10/12/24 22:44 10/12/24 22:44 Labs: Abnormal Lab Results - Last 24 Hours (Table) 10/12/24 10/12/24 10/12/24 Range/Units 22:44 22:44 22:44 WBC 10.23 H (4.50-10.00) 10*3/uL RBC 3.75 L (4.40-5.60) 10*6/uL Hgb 11.9 L (13.0-17.0) g/dL Hct 34.8 L (39.6-50.0) % Neutrophils # 8.99 H (1.80-7.70) 10*3/uL Lymphocytes # 0.36 L (0.90-5.00) 10*3/uL Sodium 135 L (137-145) mmol/L Chloride 97 L (98-107) mmol/L Carbon Dioxide 21 L (22-30) mmol/L BUN 76 H (9-20) mg/dL Creatinine 8.13 H* (0.66-1.25) mg/dL Glucose 119 H (74-99) mg/dL Phosphorus 7.2 H (2.5-4.5) mg/dL Magnesium 2.5 H (1.6-2.3) mg/dL Troponin I 0.052 H* (0.000-0.034) ng/mL Assessment and Plan (1) Diarrhea Narrative/Plan: Will monitor, acute process could be food related, symptomatic management Current Visit: Yes Status: Acute Code(s): R19.7 - DIARRHEA, UNSPECIFIED S NOMED Code(s): 78693612 (2) A-V fistula Narrative/Plan: Recent fistula, pain control, Current Visit: Yes Status: Acute Code(s): I77.0 - ARTERIOVENOUS FISTULA, ACQUIRED SNOMED Code(s): 468760892 (3) CKD (chronic kidney disease) Narrative/Plan: Patient on dialysis and missed dialysis, will consult nephrology for dialysis Current Visit: Yes Status: Acute Code(s): N18.9 - CHRONIC KIDNEY DISEASE, UNSPECIFIED SNOMED Code(s): 293342473 Plan: Patient with persistent diarrhea, resultant dehydration, monitor fluid status, consult nephrology for dialysis needs, symptom control given acuity of diarrhea and nausea likely acute viral process will monitor
[2024-10-13 06:32] LABS: Glucose,Whole Blood 61 mg/dL (70-110)
[2024-10-13] MEDS: SODIUM CHLORIDE 0.9% 1,000 ML IV SCH (06:39)
[2024-10-13 06:54] LABS: Glucose,Whole Blood 60 mg/dL (70-110)
[2024-10-13] MEDS: ONDANSETRON 4 MG/2 ML VIAL IVP PRN (08:13)
[2024-10-13 08:21] LABS: Glucose,Whole Blood 91 mg/dL (70-110)
[2024-10-13] MEDS ORDERED: ALBUTEROL NEBULIZED 2.5 MG/3 ML INHALATION PRN (08:58)
[2024-10-13] MEDS ORDERED: DEXTROSE 50% SYRINGE 50 ML IVP PRN ×2 (08:59)
[2024-10-13] MEDS: INSULIN GLARGINE (LANTUS) 100 UNIT/ML SYR SQ SCH (10:00)
[2024-10-13] MEDS: LOPERAMIDE 2 MG CAP PO STA (10:29)
[2024-10-13] MEDS: ACETAMINOPHEN TAB 325 MG TAB PO PRN (10:29)
[2024-10-13] MEDS: PROCHLORPERAZINE INJ 10 MG/2 ML VIAL IVP STA (10:32)
[2024-10-13] MEDS: BISMUTH SUBSALICYLATE 4,192 MG/240 ML BOTTLE PO PRN (10:46)
--- NOTE | 2024-10-13 11:23 | P.GSCN ---
History of Present Illness Consult date: 10/13/24 Reason for Consult: Left upper extremity pain Requesting physician: Hamzah Tinoco History of present illness: This a pleasant 69-year-old male who came in for nausea vomiting and diarrhea. Patient has end-stage renal disease on hemodialysis. He has a tunneled catheter and recently underwent left upper extremity forearm loop graft of 10/08/[address] Armenta. Patient states he was having swelling and pain in that arm. Vascular surgery was asked to see the patient. Patient currently states swelling has improved he has had his arm elevated. Otherwise hemodialysis is going as scheduled per tunnel catheter. He states he had nausea vomiting and diarrhea which is what had brought him in. Review of Systems A 14 point review systems was completed all pertinent positives and negatives as stated in the HPI. Past Medical History Past Medical History: Coronary Artery Disease (CAD), COPD, Diabetes Mellitus, Dialysis, Hyperlipidemia, Hypertension, Osteoarthritis (OA), Renal Disease Additional Past Medical History / Comment(s): Hx retinal bleeding with laser treatment, diabetic neuropathy, CKD Stage 5, dialysis [facility]. Last Myocardial Infarction Date:: 2009 History of Any Multi-Drug Resistant Organisms: MRSA Year Discovered:: 11/29/17 MDRO Source:: toe Past Surgical History: Heart Catheterization With Stent, Hernia Repair, Tonsillectomy Additional Past Surgical History / Comment(s): LEFT INGUINAL HERNIA REPAIR, BILATERAL ULNAR NERVE, BILATERAL HANDS AND ELBOWS, COLONOSCOPY, Partial amputation to second toe left foot, bilateral cataract surgery. Past Anesthesia/Blood Transfusion Reactions: No Reported Reaction, Motion Sickness Additional Past Anesthesia/Blood Transfusion Reaction / Comm: Difficulty waking. Date of Last Stent Placement:: 2009 Past Psychological History: Depression Additional Psychological History / Comment(s): has 2 adult sons. 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 No animals. No recreational drug use no history of smoking. No experience. No recent international travel. Up-to-date in his tetanus vaccine Smoking Status: Never smoker Past Alcohol Use History: None Reported Past Drug Use History: None Reported - Past Family History Mother Family Medical History: CVA/TIA Additional Family Medical History / Comment(s): Varicose veins. Father Family Medical History: Congestive Heart Failure (CHF) Medications and Allergies Home Medications Medication Instructions Recorded Confirmed Type Cyclobenzaprine [Flexeril] 10 mg PO TID PRN 30 Days #30 tab 07/24/24 10/13/24 Rx Melatonin 5 mg PO HS PRN 30 Days #30 tab 07/24/24 10/13/24 Rx Bismuth Subsalicylate 30 ml PO BID PRN 10/07/24 10/13/24 History [Pepto-Bismol] Calcium Acetate [PhosLo] 1,334 mg PO TID@0800,1700,199910/07/24 10/13/24 History Ergocalciferol [Vitamin D2 (1250 1,250 mcg PO TORRES@79910/07/24 10/13/24 History Mcg = 30691 Iu)] Albuterol Sulfate [Albuterol 2 puff INHALATION RT-QID PRN 10/13/24 10/13/24 History Sulfate Hfa] Aspirin EC [Ecotrin Low Dose] 81 mg PO DAILY@79910/13/24 10/13/24 History Atorvastatin [Lipitor] 80 mg PO HS@199910/13/24 10/13/24 History Folic Acid/Vit B Complex and C 0.8 mg PO DAILY@0810/13/24 10/13/24 History [Nephro-Misael Tablet] Insulin Glargine,Hum.rec.anlog 20 unit SQ BID@0800,17010/13/24 10/13/24 History [Basaglar Lobito U-100] Insulin Lispro [Insulin Lispro See Protocol SQ TID@0800,1130,169910/13/24 10/13/24 History Junior Robin] Menthol [Biofreeze] 1 applic TOPICAL TID PRN 10/13/24 10/13/24 History Torsemide [Demadex] 40 mg PO DAILY@0810/13/24 10/13/24 History amLODIPine [Norvasc] 5 mg PO DAILY@79910/13/24 10/13/24 History buPROPion [Wellbutrin] 75 mg PO BID@799,199910/13/24 10/13/24 History carvediloL [Coreg] 6.25 mg PO BID@799,199910/13/24 10/13/24 History Allergies Allergy/AdvReac Type Severity Reaction Status Date / Time Sulfa (Sulfonamide Allergy Nausea & Verified 10/13/24 10:21 Antibiotics) Vomiting clindamycin AdvReac Unknown High BP , Verified 10/13/24 10:21 Nausea & Vomiting & Diarrhea codeine AdvReac Nausea & Verified 10/13/24 10:21 Vomiting morphine AdvReac Nausea & Verified 10/13/24 10:21 Vomiting sulfamethoxazole AdvReac Nausea & Verified 10/13/24 10:21 [From Bactrim] Vomiting & Diarrhea trimethoprim [From Bactrim] AdvReac Nausea & Verified 10/13/24 10:21 Vomiting & Diarrhea Surgical - Exam Vital Signs Temp Pulse Resp BP Pulse Ox 98.7 F 99 17 152/76 95 10/12/24 22:15 10/12/24 22:15 10/12/24 22:15 10/12/24 22:15 10/12/24 22:15 General appearance: The patient is alert, oriented, appears in no acute distress. HET: Head is normocephalic and atraumatic. Pupils are equal and reactive. Neck: Supple. Heart: Regular. Lungs: Equal expansion, normal respiratory effort. Abdomen: Soft, nontender, nondistended. Extremities: Normal skin color and turgor. Left upper extremity with minimal swelling, palpable radial pulse. Slight tenderness around surgical incision. Audible bruit. Neurological: Alert and oriented. Results - Labs 10/12/24 22:44 10/12/24 22:44 Abnormal Lab Results - Last 24 Hours (Table) 10/12/24 10/12/24 10/12/24 Range/Units 22:44 22:44 22:44 WBC 10.23 H (4.50-10.00) 10*3/uL RBC 3.75 L (4.40-5.60) 10*6/uL Hgb 11.9 L (13.0-17.0) g/dL Hct 34.8 L (39.6-50.0) % Neutrophils # 8.99 H (1.80-7.70) 10*3/uL Lymphocytes # 0.36 L (0.90-5.00) 10*3/uL Sodium 135 L (137-145) mmol/L Chloride 97 L (98-107) mmol/L Carbon Dioxide 21 L (22-30) mmol/L BUN 76 H (9-20) mg/dL Creatinine 8.13 H* (0.66-1.25) mg/dL Glucose 119 H (74-99) mg/dL POC Glucose (mg/dL) (70-110) mg/dL Phosphorus 7.2 H (2.5-4.5) mg/dL Magnesium 2.5 H (1.6-2.3) mg/dL Troponin I 0.052 H* (0.000-0.034) ng/mL 10/13/24 10/13/24 Range/Units 06:30 06:52 WBC (4.50-10.00) 10*3/uL RBC (4.40-5.60) 10*6/uL Hgb (13.0-17.0) g/dL Hct (39.6-50.0) % Neutrophils # (1.80-7.70) 10*3/uL Lymphocytes # (0.90-5.00) 10*3/uL Sodium (137-145) mmol/L Chloride (98-107) mmol/L Carbon Dioxide (22-30) mmol/L BUN (9-20) mg/dL Creatinine (0.66-1.25) mg/dL Glucose (74-99) mg/dL POC Glucose (mg/dL) 61 L 60 L (70-110) mg/dL Phosphorus (2.5-4.5) mg/dL Magnesium (1.6-2.3) mg/dL Troponin I (0.000-0.034) ng/mL Diabetes panel 10/12/24 Range/Units 22:44 Sodium 135 L (137-145) mmol/L Potassium 4.5 (3.5-5.1) mmol/L Chloride 97 L (98-107) mmol/L Carbon Dioxide 21 L (22-30) mmol/L BUN 76 H (9-20) mg/dL Creatinine 8.13 H* (0.66-1.25) mg/dL Glucose 119 H (74-99) mg/dL Calcium 9.1 (8.4-10.2) mg/dL AST 28 (17-59) U/L ALT 12 (4-49) U/L Alkaline Phosphatase 69 (38-126) U/L Total Protein 6.7 (6.3-8.2) g/dL Albumin 4.0 (3.5-5.0) g/dL Calcium panel 04/21/25 Range/Units 22:44 Calcium 9.1 (8.4-10.2) mg/dL Phosphorus 7.2 H (2.5-4.5) mg/dL Albumin 4.0 (3.5-5.0) g/dL Pituitary panel 10/12/24 Range/Units 22:44 Sodium 135 L (137-145) mmol/L Potassium 4.5 (3.5-5.1) mmol/L Chloride 97 L (98-107) mmol/L Carbon Dioxide 21 L (22-30) mmol/L BUN 76 H (9-20) mg/dL Creatinine 8.13 H* (0.66-1.25) mg/dL Glucose 119 H (74-99) mg/dL Calcium 9.1 (8.4-10.2) mg/dL Adrenal panel 10/12/24 Range/Units 22:44 Sodium 135 L (137-145) mmol/L Potassium 4.5 (3.5-5.1) mmol/L Chloride 97 L (98-107) mmol/L Carbon Dioxide 21 L (22-30) mmol/L BUN 76 H (9-20) mg/dL Creatinine 8.13 H* (0.66-1.25) mg/dL Glucose 119 H (74-99) mg/dL Calcium 9.1 (8.4-10.2) mg/dL Total Bilirubin 0.7 (0.2-1.3) mg/dL AST 28 (17-59) U/L ALT 12 (4-49) U/L Alkaline Phosphatase 69 (38-126) U/L Total Protein 6.7 (6.3-8.2) g/dL Albumin 4.0 (3.5-5.0) g/dL Assessment and Plan Assessment: 1. Left upper extremity swelling status post recent loop forearm graft creation 2. End-stage renal disease requiring hemodialysis with functioning tunneled hemodialysis catheter 3. Nausea vomiting and diarrhea Plan: Discussed with patient and it is normal postop AV graft to have swelling and discomfort. Recommend elevation of left upper extremity throughout the day. Can also use compression stocking or Angelito wrap around left upper extremity as nee ded for swelling. Follow-up with Dr. Armenta as previously scheduled. Continue hemodialysis with tunneled dialysis catheter per recommendations from nephrology Thank you for this consultation, we will sign off at this time. The impression and plan of care has been dictated as directed. Dr. Armenta I performed a history and examination of this patient, discussed the same with the dictator. I agree with the dictator's note ,documented as a scribe. Any additional findings or plans will be noted.
--- NOTE | 2024-10-13 11:41 | P.NPCON ---
History of Present Illness - Reason for Consult end stage renal disease - History of Present Illness Reason for consultation: End-stage renal disease History of present illness: Patient is a 69-year-old male seen in renal consultation for end-stage renal disease. He is maintained on hemodialysis on Saturday schedule. Patient states his last dialysis was Saturday. Patient came to the [facility] due to nausea vomiting and diarrhea going on for about 1 day. Patient states he was feeling quite weak. He denies chest pain or shortness of breath. Patient's been afebrile. Hemodynamically stable. C. difficile was negative. Patient does have longstanding history of diabetes. Also has history of coronary disease with cardiac stents. He does make urine. Patient says vomiting is mostly resolved but he still having loose bowel movements. Vital signs are stable. General: No acute distress. HEENT: Head exam is unremarkable. LUNGS: No audible rhonchi or wheezes. HEART: Rate and Rhythm are regular. ABDOMEN: Nontender. EXTREMITITES: No edema. Past Medical History Past Medical History: Coronary Artery Disease (CAD), COPD, Diabetes Mellitus, Dialysis, Hyperlipidemia, Hypertension, Osteoarthritis (OA), Renal Disease Additional Past Medical History / Comment(s): Hx retinal bleeding with laser treatment, diabetic neuropathy, CKD Stage 5, dialysis [facility]. Last Myocardial Infarction Date:: 2009 History of Any Multi-Drug Resistant Organisms: MRSA Date of last positivie culture/infection: 11/29/17 MDRO Source:: toe Past Surgical History: Heart Catheterization With Stent, Hernia Repair, Tonsi llectomy Additional Past Surgical History / Comment(s): LEFT INGUINAL HERNIA REPAIR, BILATERAL ULNAR NERVE, BILATERAL HANDS AND ELBOWS, COLONOSCOPY, Partial amputation to second toe left foot, bilateral cataract surgery. Past Anesthesia/Blood Transfusion Reactions: No Reported Reaction, Motion Sickness Additional Past Anesthesia/Blood Transfusion Reaction / Comment(s): Difficulty waking. Date of Last Stent Placement:: 2009 Past Psychological History: Depression Additional Psychological History / Comment(s): has 2 adult sons. 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 No animals. No recreational drug use no history of smoking. No experience. No recent international travel. Up-to-date in his tetanus vaccine Smoking Status: Never smoker Past Alcohol Use History: None Reported Past Drug Use History: None Reported - Past Family History Mother Family Medical History: CVA/TIA Additional Family Medical History / Comment(s): Varicose veins. Father Family Medical History: Congestive Heart Failure (CHF) Medications and Allergies Home Medications Medication Instructions Recorded Confirmed Type Cyclobenzaprine [Flexeril] 10 mg PO TID PRN 30 Days #30 tab 07/24/24 10/13/24 Rx Melatonin 5 mg PO HS PRN 30 Days #30 tab 07/24/24 10/13/24 Rx Bismuth Subsalicylate 30 ml PO BID PRN 10/07/24 10/13/24 History [Pepto-Bismol] Calcium Acetate [PhosLo] 1,334 mg PO TID@0800,170,199910/07/24 10/13/24 History Ergocalciferol [Vitamin D2 (1250 1,250 mcg PO TORRES@79910/07/24 10/13/24 History Mcg = 58402 Iu)] Albuterol Sulfate [Albuterol 2 puff INHALATION RT-QID PRN 10/13/24 10/13/24 History Sulfate Hfa] Aspirin EC [Ecotrin Low Dose] 81 mg PO DAILY@79910/13/24 10/13/24 History Atorvastatin [Lipitor] 80 mg PO HS@199910/13/24 10/13/24 History Folic Acid/Vit B Complex and C 0.8 mg PO DAILY@0810/13/24 10/13/24 History [Nephro-Misael Tablet] Insulin Glargine,Hum.rec.anlog 20 unit SQ BID@0800,1700 10/13/24 10/13/24 History [Janethagljonel Robin U-100] Insulin Lispro [Insulin Lispro See Protocol SQ TID@0800,1130,169910/13/24 10/13/24 History Junior Robin] Menthol [Biofreeze] 1 applic TOPICAL TID PRN 10/13/24 10/13/24 History Torsemide [Demadex] 40 mg PO DAILY@0810/13/24 10/13/24 History amLODIPine [Norvasc] 5 mg PO DAILY@0800 10/13/24 10/13/24 History buPROPion [Wellbutrin] 75 mg PO BID@799,199910/13/24 10/13/24 History carvediloL [Coreg] 6.25 mg PO BID@0800,199910/13/24 10/13/24 History Allergies Allergy/AdvReac Type Severity Reaction Status Date / Time Sulfa (Sulfonamide Allergy Nausea & Verified 10/13/24 10:21 Antibiotics) Vomiting clindamycin AdvReac Unknown High BP , Verified 10/13/24 10:21 Nausea & Vomiting & Diarrhea codeine AdvReac Nausea & Verified 10/13/24 10:21 Vomiting morphine AdvReac Nausea & Verified 10/13/24 10:21 Vomiting sulfamethoxazole AdvReac Nausea & Verified 10/13/24 10:21 [From Bactrim] Vomiting & Diarrhea trimethoprim [From Bactrim] AdvReac Nausea & Verified 10/13/24 10:21 Vomiting & Diarrhea Physical Exam Vitals: Vital Signs Temp Pulse Pulse Resp BP BP Pulse Ox 10/13/24 08:00 18 10/13/24 07:09 98.2 F 95 18 131/69 95 10/13/24 02:57 98.3 F 94 17 115/66 97 10/13/24 01:58 98.7 F 98 17 110/66 97 10/12/24 22:15 98.7 F 99 17 152/76 95 Intake and Output 10/12/24 10/13/24 10/13/24 22:59 06:59 14:59 Other: Voiding Method Toilet Toilet # Voids 1 Weight 86.183 kg 86.183 kg Results - Lab Results Most recent lab results Calcium 9.1 mg/dL (8.4-10.2) 10/12/24 22:44 Phosphorus 7.2 mg/dL (2.5-4.5) H 10/12/24 22:44 Magnesium 2.5 mg/dL (1.6-2.3) H 10/12/24 22:44 10/12/24 22:44 10/12/24 22:44 Assessment and Plan Plan: Assessment: 1. End-stage renal disease maintained on hemodialysis on Saturday schedule. Currently using permacath for dialysis. Has a left upper extremity AV graft which is currently maturing. 2. Hypertension with chronic kidney disease. 3. Chronic kidney disease mineral bone disease maintained on PhosLo. 4. Diabetes mellitus. 5. Coronary disease with stents. 6. Nausea vomiting and diarrhea, possibly viral gastroenteritis. C. difficile negative. Plan: Hemodialysis today. Thank you for the consultation. I will continue to follow the patient with you during his hospital stay.
[2024-10-13 12:11] LABS: Glucose,Whole Blood 151 mg/dL (70-110)
[2024-10-13] MEDS: ASPIRIN 81 MG PO SCH (13:31)
[2024-10-13] MEDS: CALCIUM ACETATE 667 MG TAB PO SCH (13:31)
[2024-10-13] MEDS: amLODIPine 5 MG TAB PO SCH (13:31)
[2024-10-13] MEDS: TORSEMIDE 20 MG TAB PO SCH (13:31)
[2024-10-13] MEDS: carvediloL 6.25 MG TAB PO SCH (13:32)
[2024-10-13] MEDS: INSULIN LISPRO (HumaLOG) 100 UNIT/ML 10 mL VL SQ SCH (13:32)
[2024-10-13] MEDS: buPROPion 75 MG TAB PO SCH (13:36)
[2024-10-13 14:13] VITALS: TEMP 97.9
[2024-10-13 17:27] LABS: Glucose,Whole Blood 120 mg/dL (70-110)
[2024-10-13 17:42] VITALS: BP 144/71; PULSE 96; RESP 16
--- NOTE | 2024-10-13 18:14 | P.DS ---
Providers Date of admission: 10/13/24 00:09 Expected date of discharge: 10/13/24 Attending physician: Stephanie Vergara MD Consults: 10/13/24 00:07 Consult Physician Routine Consulting Provider: Elmer Smalls Consult Reason/Comments: HD Do you want consulting provider notified?: Yes Consult Physician Routine Consulting Provider: Phillip Venegas Consult Reason/Comments: forearm pain Do you want consulting provider notified?: Yes Primary care physician: Stated None Hospital Course: Discharge Diagnosis: Acute on chronic nausea, vomiting, and diarrhea resulting in generalized weakness. C. difficile negative. Patient provided with symptomatic care and had full resolution of nausea, vomiting, and diarrhea. Patient discharged home with Compazine 10 mg p.o. every 6 hours as needed for nausea and vomiting. He was strongly encouraged to follow-up outpatient with equipment manager for further management of chronic diarrhea and gastrointestinal complaints. Patient tolerating regular diet upon discharge. History of CAD status post stenting. Elevated troponin, chronic and appear to be at baseline secondary to ESRD Hypertension Hyperlipidemia ESRD on hemodialysis. Patient to resume dialysis as scheduled Sat//Saturdays. Last underwent dialysis 09/23/2024 Diabetes mellitus with episodes of hypoglycemia x2. Hypoglycemia resolved status post control of nausea, vomiting, diarrhea and patient tolerating oral intake. Monitor blood glucose levels closely and may resume Levemir 25 units twice daily and strongly recommend following a heart healthy and carb consistent diet. Hospital course: Patient is a very pleasant 69-year-old male with a past medical history of ESRD on hemodialysis Saturday//Saturdays, CAD status post stenting, hypertension, hyperlipidemia, and insulin-dependent diabetes mellitus. He presented to the emergency department on 10/12/2024 with a chief complaint of generalized weakness with reports of intractable acute on chronic nausea, vomiting, and diarrhea resulting in generalized weakness and missed dialysis. Patient also reported left upper extremity swelling. Upon arrival to our facility, patient underwent evaluation in the emergency department. Vital signs upon arrival show blood pressure 152/76, heart rate 99, respiratory rate 17, temp 98.7 F, and SpO2 of 95% on room air. EKG completed showing normal sinus rhythm at 96 bpm with an incomplete right bundle branch block. Labs were completed and reviewed. CBC showing WBC count of 10.23, hemoglobin of 11.9. BM P showing hypochloremic hyponatremia with sodium of 135, chloride of 97, bicarb of 21, and elevated anion gap of 17. Renal function consistent with known ESRD with BUN of 76, creatinine 8.13, and GFR of 6. Blood glucose 119. Lactic acid was 1.7. Magnesium was elevated at 2.5. Troponin was elevated at 0.052 but at baseline with most recent troponins of 0.051, 0.052, 0.051 obtained on 07/13/2024 . proBNP was 12,800. Patient was admitted under our services with consultation to nephrology for needed dialysis and vascular surgery for left upper extremity swelling. Patient was evaluated by vascular surgery stating patient swelling of left upper extremity status post AV graft is normal and recommend elevation of left upper extremity throughout the day and also stating patient may use compre ssion stocking or Angelito wrap to assist with swelling and patient to follow-up with Dr. Armenta in 1 week. Patient was evaluated by nephrology and underwent dialysis. Stool sample was obtained and C. difficile negative. Patient provided with symptomatic treatment and had full resolution of nausea, vomiting, and diarrhea. Patient discharged home with Compazine 10 mg p.o. every 6 hours as needed for nausea and vomiting. He was strongly encouraged to follow-up outpatient with equipment manager for further management of chronic diarrhea and gastrointestinal complaints. Patient tolerating regular diet upon discharge. Patient medically optimized for discharge and to follow-up as scheduled with Dr. Rojas at [facility] and being discharged back to [facility] per patient's Court Appointed Legal Guardian. Physical exam: Vital signs reviewed and stable. General: Nontoxic, no distress and appears stated age. Derm: Skin warm and dry, normal coloration for ethnicity. Head: Atraumatic, normocephalic and symmetric. Eyes: EOM's intact, no lid lag, and anicteric sclera Mouth: no lip lesions, mucus membranes moist Cardiovascular: regular rate and rhythm with normal S1S2, no murmur, positive posterior tibial pulses bilaterally, and cap refill < 2 seconds. AV fistula left upper extremity with bruit and thrill in place. Mild left upper extremity edema. Lungs: Respirations even, regular, and unlabored on room air. Lungs CTA bilaterally, no rhonchi, no rales, no wheezing, and no accessory muscle usage. Abdominal: soft, nontender to palpation, no guarding, no appreciable organomegaly Ext: ROM intact. No gross muscle atrophy, scant bilateral lower extremity edema, no contractures Neuro: Speech clear, face symmetrical and CN II-XII grossly intact with no noted focal neuro deficits Psych: Alert and oriented to person, place, time, and situation. Appropriate and pleasant affect. A total of 35 minutes of time were spent preparing this complex discharge summary. Pt was discharged on 10/13/2024 at 6:07 PM. Patient was seen independently by Nurse Practitioner. This document was prepared using [employer] dictation software. Please allow for errors in bead inspector while rare they do occur. Pierre Duarte NP rendered care for this patient independently, reviewed the findings and plan as documented in the note above. I did not physically speak with or examine the patient on this date. Patient Condition at Discharge: Stable Plan - Discharge Summary New Discharge Prescriptions: New Prochlorperazine [Compazine] 10 mg PO Q8H PRN #20 tab PRN Reason: Nausea And Vomiting Continue Cyclobenzaprine [Flexeril] 10 mg PO TID PRN 30 Days #30 tab PRN Reason: Muscle Spasm Menthol [Biofreeze] 1 applic TOPICAL TID PRN PRN Reason: Pain Torsemide [Demadex] 40 mg PO DAILY@0800 Folic Acid/Vit B Complex and C [Nephro-Misael Tablet] 0.8 mg PO DAILY@0800 Insulin Lispro [Insulin Lispro [place] Kwikpen] See Protocol SQ TID@0800,1130,1700 Atorvastatin [Lipitor] 80 mg PO HS@2000 Aspirin EC [Ecotrin Low Dose] 81 mg PO DAILY@0800 Melatonin 5 mg PO HS PRN 30 Days #30 tab PRN Reason: Insomnia Calcium Acetate [PhosLo] 1,334 mg PO TID@0800,1700,2000 Ergocalciferol [Vitamin D2 (1250 Mcg = 10143 Iu)] 1,250 mcg PO TORRES@0800 Bismuth Subsalicylate [Pepto-Bismol] 30 ml PO BID PRN PRN Reason: Indigestion Albuterol Sulfate [Albuterol Sulfate Hfa] 2 puff INHALATION RT-QID PRN PRN Reason: Shortness Of Breath carvediloL [Coreg] 6.25 mg PO BID@0800,1999 buPROPion [Wellbutrin] 75 mg PO BID@0800,1999 Insulin Glargine,Hum.rec.anlog [Basaglar Kwikpen U-100] 20 unit SQ BID@0800,1700 amLODIPine [Norvasc] 5 mg PO DAILY@0800 Discharge Medication List Cyclobenzaprine [Flexeril] 10 mg PO TID PRN 30 Days #30 tab 07/24/24 [Rx] Melatonin 5 mg PO HS PRN 30 Days #30 tab 07/24/24 [Rx] Bismuth Subsalicylate [Pepto-Bismol] 30 ml PO BID PRN 10/07/24 [History] Calcium Acetate [PhosLo] 1,334 mg PO TID@0800,170,199910/07/24 [History] Ergocalciferol [Vitamin D2 (1250 Mcg = 37961 Iu)] 1,250 mcg PO TORRES@79910/07/24 [History] Albuterol Sulfate [Albuterol Sulfate Hfa] 2 puff INHALATION RT-QID PRN 10/13/24 [History] Aspirin EC [Ecotrin Low Dose] 81 mg PO DAILY@79910/13/24 [History] Atorvastatin [Lipitor] 80 mg PO HS@199910/13/24 [History] Folic Acid/Vit B Complex and C [Nephro-Misael Tablet] 0.8 mg PO DAILY@79910/13/24 [History] Insulin Glargine,Hum.rec.anlog [Basaglar Kwikpen U-100] 20 unit SQ BID@0800,1700 10/13/24 [History] Insulin Lispro [Insulin Lispro [place] Kwikpen] See Protocol SQ TID@0800,1130,169910/13/24 [History] Menthol [Biofreeze] 1 applic TOPICAL TID PRN 10/13/24 [History] Prochlorperazine [Compazine] 10 mg PO Q8H PRN #20 tab 10/13/24 [Rx] Torsemide [Demadex] 40 mg PO DAILY@0800 10/13/24 [History] amLODIPine [Norvasc] 5 mg PO DAILY@0800 10/13/24 [History] buPROPion [Wellbutrin] 75 mg PO BID@0800,2000 04/22/25 [History] carvediloL [Coreg] 6.25 mg PO BID@080010/13/24 [History] Follow up Appointment(s)/Referral(s): Sánchez Rojas MD [REFERRING] - 1-2 days Bell Good DO [STAFF PHYSICIAN] - 1 Week Patient Instructions/Handouts: Chronic Diarrhea (DC) Activity/Diet/Wound Care/Special Instructions: Discharge to [facility] Activity: As tolerated. Take breaks as needed. Diet: Heart healthy and carb consistent diet. Avoid salts, or foods with hidden salts such as canned or boxed foods and frozen dinners. Extra salt makes your heart work harder and traps the fluid in your body for longer. Special Instructions: Take all of your medications as directed and remember to keep all of your doctor's appointments and follow-up as needed. Follow with Dr. Rojas at [facility]. Resume dialysis Saturday//Saturdays as previously scheduled. Recommend holding Levemir for blood glucose less than 150. Continue close monitoring of blood glucose levels 4 times daily and document findings in a daily log to bring with you to your next doctor's appointment with Dr. Kraft. Recommend outpatient follow-up with equipment manager for your chronic diarrhea and chronic GI issues. Thank you for allowing us to participate in your care, it was truly a pleasure having you for our patient!!! Discharge Disposition: OTHER INSTITUTION NOT DEFINED
[2024-10-13] MEDS ORDERED: ATORVASTATIN 80 MG TAB PO SCH (21:00)
== END 2024-10-13 18:49 | disposition other institution (70) ==
LOC: EC 22:09 → 6NMEDSUR 10-13 00:09
PROVIDERS: ADMIT Internal Medicine; ATTEND Internal Medicine
DX: K52.9 Noninfective gastroenteritis and colitis, unspecified (principal); I12.0 Hypertensive chronic kidney disease with stage 5 chronic kidney disease or end stage renal disease; N18.6 End stage renal disease; Z91.158 Patient's noncompliance with renal dialysis for other reason; Z99.2 Dependence on renal dialysis; E11.649 Type 2 diabetes mellitus with hypoglycemia without coma; E11.22 Type 2 diabetes mellitus with diabetic chronic kidney disease; E86.0 Dehydration; N17.9 Acute kidney failure, unspecified; T82.848A Pain due to vascular prosthetic devices, implants and grafts, initial encounter; E87.20 Acidosis, unspecified; E87.1 Hypo-osmolality and hyponatremia; I25.10 Atherosclerotic heart disease of native coronary artery without angina pectoris; M89.8X9 Other specified disorders of bone, unspecified site; E78.5 Hyperlipidemia, unspecified; I45.10 Unspecified right bundle-branch block; E87.8 Other disorders of electrolyte and fluid balance, not elsewhere classified; Z79.4 Long term (current) use of insulin; Z79.82 Long term (current) use of aspirin; Z79.899 Other long term (current) drug therapy; Z88.1 Allergy status to other antibiotic agents; Z88.5 Allergy status to narcotic agent; Z88.2 Allergy status to sulfonamides; Z95.5 Presence of coronary angioplasty implant and graft
CPT/HCPCS: 96376; 90935; 96375; 96374; 99285; 36415; 93005; 83880; 80053; 83605; 83735; 84100; 84484; 85025; 85610; 85730; 87324; G0378; J0780; J2405 ×2